=== PATIENT | male | born 1945 | race Caucasian/White ===

== ENCOUNTER 2023-01-31 13:44 | Outpatient (CLI) | payer SELFPAY | END 2023-01-31 13:45 | disposition home or self-care (01) | LOC: AMB 02-13 20:18 | PROVIDERS: Visit Provider Family Medicine | DX: R07.89 Other chest pain (principal) | CPT/HCPCS: A0998 ==

== ENCOUNTER 2023-05-24 20:48 | Outpatient (CLI) | payer MEDICARE, SELFPAY | END 2023-05-24 20:49 | disposition home or self-care (01) | PROVIDERS: Visit Provider Family Medicine | DX: R07.89 Other chest pain (principal) | CPT/HCPCS: A0425; A0427 ==

== ENCOUNTER 2023-08-06 05:18 | Outpatient (CLI) | payer MEDICARE, SELFPAY | END 2023-08-06 05:19 | disposition home or self-care (01) | PROVIDERS: Visit Provider Internal Medicine | DX: I95.9 Hypotension, unspecified (principal) | CPT/HCPCS: A0425; A0429 ==

== ENCOUNTER 2023-08-06 23:48 | Outpatient (CLI) | payer MEDICARE, SELFPAY ==
--- OUTSIDE RECORDS SUMMARY | 2023-08-25 16:13 | XMS_ITS | Encounter Summary ---
Author Name Department of Vetera ns Affairs Organization Department of [facility] Affairs Address [address] [place] [id number] Support Name Relationship Address Phone JAIRO MCMILLAN Next of Kin [address] [address] YOKO MCMILLANE Emergency Contact [phone] [address] Insurance Providers: All historical and current Section Date Range: From patient's date of to the date document was created. This section includes the names of all active insurance providers for the patient. Insurance Provider Type of Coverage Plan Name Start of Policy Coverage End of Policy Coverage Group Number Member ID Insurance Provider's Telephone Number Policy Lopez's Name Patient's Relationship to Policy Lopez [facility] MEDICARE ADVANTAGE [facility] ([facility]) Nov 13, 2020 [id number] [phone] ANANTEdwinNIS [facility]IENT [facility] ([facility]) MEDICARE ADVANTAGE [facility] ([facility]) Aug 15, 2013 [id number] [phone] Edwin MCMILLANNIS PATIENT MEDICARE ([facility]) MEDICARE (M) PART A Sep 15, 2010 PART A [id number] [phone] Edwin MCMILLANNIS PATIENT MEDICARE ([place] MEDICARE (M) PART B Sep 15, 2010 PART B [id number] [phone] Edwin MCMILLAN PATIENT Selected Encounter This section includes the information on record at [place] for the Encounter. Date/Time Encounter Type Encounter Description Reason Provider Source Apr 28, 2023 02:45 PM HC PRO PHONE CALL 5-10 MIN TELEPHONE/NEUROLOG Y ICD-10-CM G20 Parkinson's disease LEIA VAUGHAN IHE Encounter Template Text not used by [place] Assessments - Encounter Diagnoses This section includes the primary and secondary diagnoses documented for the Encounter. Date/Time Primary/Secondary Diagnosis Diagnosis Name Provider Source Apr 28, 2023 02:45 PM PRIMARY Parkinson's disease LEIA VAUGHAN [facility] Plan of Treatment: Future Appointments (+ 6 months) and Future Tests (+/- 45 days) The Plan of Treatment section includes future care activities for the patient from all [place] [facility] This section includes future appointments and future orders which are active, pending or scheduled. Future Appointments This section includes appointments that were scheduled to occur 6 months from the date of the Encounter, up to a maximum of 20 appointments. The data comes from all [place] treatment facilities. Appointment Date/Time Appointment Type Appointme nt Facility Name May 13, 2023 08:45 AM AMBULATORY - SURGERY [facility] Jul 15, 2023 01:42 PM AMBULATORY - MEDICINE [facility] Aug 01, 2023 08:00 AM AM[facility]ULATORY - NONE [facility] Aug 04, 2023 02:00 PM AMBULATORY - NEUROLOGY [facility] Aug 10, 2023 09:00 AM AMBULATORY - NONE [facility] Aug 23, 2023 05:00 PM AMBULATORY - NONE [facility] Sep 06, 2023 12:00 PM AMBULATORY - REHAB MEDICIN [facility] Social History: Smoking Status (Most current) and Tobacco Use (All prior to encounter date) This section includes the most current, and the historical, smoking and tobacco- related health factors from the [place] facility where the Encounter took place. Current Smoking Status This section includes the most current smoking, or tobacco-related health factor, from the [place] facility where the Encounter took place. Date/Time Current Smoking Status Comment Renetta giles Jan 20, 2023 01:48 PM VA-TOBACCO FORMER USER [facility] Tobacco Use History This section includes a history of the smoking, or tobacco-related health factors, that were collected on or before the date of the Encounter. The data comes from the [place] facility where the Encounter took place. Date/Time Smoking Status/Tobacco Use Comment Herrera actaj Jan 20, 2023 01:48 PM VA-TOBACCO QUIT 15 YRS OR MORE [facility] Jan 21, 2022 10:50 AM VA-TOBACCO FORMER USER [facility] Jan 21, 2022 10:50 AM VA-TOBACCO QUIT 15 YRS OR MORE [facility] Feb 06, 2019 02:30 PM INPT NO TOBACCO USE IN LAST 30 D AYS [facility] Encounter Notes: All associated encounter notes This section contains the clinical notes associated to the Encounter. Date/Time Encounter Note(s) Provider Source May 06, 2023 03:46 PM ADDENDUM: LOCAL TITLE: Addendum STANDARD TITLE: ADDENDUM DATE OF NOTE: MAY 06, 2023@15:46:36 ENTRY DATE: MAY 06, 2023@15:46:37 AUTHOR: CHARLIE PETERSONIGNER: URGENCY: STATUS: COMPLETED I spoke to Mr. Mcmillan on the phone about his medication. I see I had already told Ms. Mckee, the 50/200 SA carbidopa levodopa did not agree with him he says he thought it was too strong so he is discontinued the medication and reverted back to his regular dosing of 25/100 2 tablets every 2-3 hours. He denies having any hallucinations but he does have occasional visual illusions and a sense of movement in the periphery of his vision. He does not have auditory hallucinations. /kera/ Charlie Peterson MD STAFF PHYSICIAN NEUROLOGY Signed: 05/06/2023 15:48 Receipt Acknowledged By: 05/09/2023 12:11 /kera/ CHADD JORDAN RESEARCH COORDINATOR --- Original Document --- 04/28/23 DIESEL INSTRUCTOR NOTE: [place] left a voicemail on the Neurology nurse line requesting a return call. [place] stating he is having problems with his medication. This RNCM returned the call to tano. [place] states the Carbidopa/Levodopa 50/200mg, medication for Parkinson's disease, was too strong for him. He states he had increased tremor with the medication. states he stopped the medication a couple days ago (Tuesday). states he is currently taking Carbidopa/Levodopa 25/100mg, 2 tablets every 2 hours. Tano states things are going okay so far. He states the first dose was taken at 1400 today, as he tapered himself up to the two tablets. This life underwriter informed that Dr. Peterson would be notified of the concerns. verbalized understanding and agrees to reach out with further concerns or questions. /kera/ KEITH VAUGHAN RN Signed: 04/28/2023 14:55 Receipt Acknowledged By: 05/02/2023 13:19 /kera/ Charlie Peterson MD STAFF PHYSICIAN NEUROLOGY CHARLIE PETERSON [facility] Apr 28, 2023 02:48 PM DIESEL INSTRUCTOR NOTE: LOCAL TITLE: DIESEL INSTRUCTOR NOTE STANDARD TITLE: DIESEL INSTRUCTOR NOTE DATE OF NOTE: APR 28, 2023@14:48 ENTRY DATE: APR 28, 2023@14:48:14 AUTHOR: KEITH VAUGHAN EXP COSIGNER: URGENCY: STATUS: COMPLETED DIESEL INSTRUCTOR NOTE Has ADDENDA left a voicemail on the Neurology nurse line requesting a return call. [place] stating he is having problems with his medication. This RNCM returned the call to . states the Carbidopa/Levodopa 50/200mg, medication for Parkinson's disease, was too strong for him. He states he had increased tremor with the medication. [place] states he stopped the medication a couple days ago (Tuesday). [place] states he is currently taking Carbidopa/Levodopa 25/100mg, 2 tablets every 2 hours. states things are going okay so far. He states the first dose was taken at 1400 today, as he tapered himself up to the two tablets. This life underwriter informed that Dr. Peterson would be notified of the concerns. [place] verbalized understanding and agrees to reach out with further concerns or questions. /kera/ KEITH VAUGHAN RN Signed: 04/28/2023 14:55 Receipt Acknowledged By: 05/02/2023 13:19 /kera/ Charlie Peterson MD STAFF PHYSICIAN NEUROLOGY 05/06/2023 ADDENDUM STATUS: COMPLETED I spoke to Mr. Mcmillan on the phone about his medication. I see I had already told Ms. Mckee, the 50/200 SA carbidopa levodopa did not agree with him he says he thought it was too strong so he is discontinued the medication and reverted back to his regular dosing of 25/100 2 tablets every 2-3 hours. He denies having any hallucinations but he does have occasional visual illusions and a sense of movement in the periphery of his vision. He does not have auditory hallucinations. /kera/ Charlie Peterson MD STAFF PHYSICIAN NEUROLOGY Signed: 05/06/2023 15:48 Receipt Acknowledged By: * AWAITING SIGNATURE * CHADD JORDAN [facility]
--- OUTSIDE RECORDS SUMMARY | 2023-08-25 16:13 | XMS_ITS | Encounter Summary ---
Author Name Department of Vetera Affairs Organization Department of Vetera ns Affairs Address [address] [place] [address] Support Name Relationship Address Phone YOKO MCMILLANE Next of Kin [address] [address] YOKO MCMILLANE Emergency Contact [phone] [address] Insurance Providers: All historical [...] Lopez's Name Patient's Relationship to Policy Lopez [facility] MEDIC[facility] ADVANTAGE [employer] [facility] Nov 13, 2020 [id number] ANANTEdwin STEVE PATIENT [facility]A [employer] [facility] MEDICARE ADVANTAGE [employer] [facility] Aug 15, 2013 [id number] [phone] ANANTEdwinNIS PATIENT MEDICARE ([place]) MEDICARE (M) PART A Sep 15, 2010 PART A [id number] [phone] ANANTEdwinNIS PATIENT MEDICARE ([place]) MEDICARE (M) PART B Sep 15, 2010 PART B [id number] [phone] Edwin MCMILLAN PATIENT Selected Encounter This section includes the information on record at [place] for the Encounter. Date/Time Encounter Type Encounter Description Reason Provider Source Apr 05, 2023 10:30 AM OFFICE O/P EST MOD 30-39 MIN NEUROLOGY ICD-10-CM G20 Parkinson's disease CHARLIE PETERSONE Encounter Template Text not used by [place] Assessments - Encounter Diagnoses This section includes the primary and secondary diagnoses documented for the Encounter. Date/Time Primary/Secondary Diagnosis Diagnosis Name Provider Source Apr 05, 2023 02:37 PM PRIMARY Parkinson's disease CHARLIE PETERSON [facility] Plan of Treatment: Future Appointments (+ 6 months) and Future Tests (+/- 45 days) The Plan of Treatment section includes future care activities for the patient from all [place] [facility]. This section includes future appointments and future orders which are active, pending or scheduled. Future Appointments This section includes appointments that were scheduled to occur 6 months from the date of the Encounter, up to a maximum of 20 appointments. The data comes from all [facility]. Appointment Date/Time Appointment Type Appointme nt Facility Name Apr 20, 2023 05:00 PM AMBULATORY - REHAB [facility]ICIN [facility] Apr 27, 2023 09:00 AM AMBULATORY - REHAB MEDICIN [facility] May 13, 2023 08:45 AM [place] [facility] [facility] Jul 15, 2023 01:42 PM [place] [facility] Aug 01, 2023 08:00 AM [place] [facility] [facility] Aug 04, 2023 02:00 PM [place] [facility] Aug 10, 2023 09:00 AM [facility] [facility] Aug 23, 2023 05:00 PM [facility] [place] [facility] Sep 06, 2023 12:00 [facility] Vital Signs: All taken on the encounter date This section contains inpatient and outpatient Vital Signs collected on the date of the Encounter. Date/Time Temperature Pulse Blood Pressure Respiratory Rate SP02 Pain Height Weight Body Mass Index Source Apr 05, 2023 10:15 AM 98.1 F 56 /min 146/79 mm[Hg] 16 /min 99 % 0 [facility] Social History: Smoking Status (Most current) and Tobacco Use (All prior to encounter date) This section includes the most current, and the historical, smoking and tobacco- related health factors from the [place] facility where the Encounter took place. Current Smoking Status This section includes the most current smoking, or tobacco-related health factor, from the [place] facility where the Encounter took place. Date/Time Current Smoking Status Comment Renetta giles Jan 20, 2023 01:48 PM VA-TOBACCO FORMER USER [facility] Tobacco Use History This section includes a history of the smoking, or tobacco-related health factors, that were collected on or before the date of the Encounter. The data comes from the [place] facility where the Encounter took place. Date/Time Smoking Status/Tobacco Use Comment F acility Jan 20, 2023 01:48 PM VA-TOBACCO QUIT 15 YRS OR MORE [facility] Jan 21, 2022 10:50 AM VA-TOBACCO FORMER USER [facility] Jan 21, 2022 10:50 AM VA-TOBACCO QUIT 15 YRS OR MORE [facility] Feb 06, 2019 02:30 PM INPT NO TOBACCO USE IN LAST 30 D AYS [facility] Encounter Notes: All associated encounter notes This section contains the clinical notes associated to the Encounter. Date/Time Encounter Note(s) Provider Source Apr 17, 2023 10:24 AM ADDENDUM: LOCAL TITLE: Addendum STANDARD TITLE: ADDENDUM DATE OF NOTE: APR 17, 2023@10:24:58 ENTRY DATE: APR 17, 2023@10:24:59 AUTHOR: COLTON ROSS COSIGNER: URGENCY: STATUS: COMPLETED Patient asking for call from Keith ROBISON on Tuesday to follow up on medication changes. Please call patient. /kera/ COLTON ROSS RN, [facility] DEPARTMENT OF NEUROLOGY Signed: 04/17/2023 10:25 Receipt Acknowledged By: 04/19/2023 09:30 /kera/ KEITH VAUGHAN RN === --- Original Document --- 04/05/23 NEUROLOGY CLINIC NOTE: Mr. Mcmillan is a 77-year-old man with tremor predominant Parkinson's disease who came to clinic unaccompanied. In the recent past he has been seen by . His condition was diagnosed in 2009 and he responds well to carbidopa levodopa. The problem with controlling his tremor is the short duration of action of the 25/100 tablets and his inability to tolerate higher single tablet dosing. He currently takes carbidopa levodopa 25/100 10-11 times each day or every 1-2 hours when awake and approximately every 3 hours during the night. He combines this with 2 doses of 50/200 SA which she finds prolongs the duration of action. He has being trialed on Rytary but did not take the medication because he thought the capsules were too big. At his last clinic visit in November 2022 he was prescribed rasagiline in the hope that this would enable him to extend the duration of action of his medications but also objected to taking this medication because of the size of the tablet. Despite the frequent dosing he is relatively happy with his current level of control of his symptoms. In addition to the tremor which is predominantly left-sided he experiences shuffling gait and freezing when the effect of the tablets wears off. He is not unsteady on his feet and does not fall. He does not have hallucinations. He is apparently independent and lives alone in his own house. He has home health care twice a week through the [place] and is being actively followed by physical therapy, Occupational Therapy and has been seen and evaluated by speech and language pathology. He does not think there has been any significant change in his overall cognition since he was last evaluated in clinic. He does not have symptoms of REM behavior disorder but does get up 2 or 3 times a night because of bladder issues. Today on exam blood pressure is 146/79 and pulse 56. He was an articulate older man with hypophonia and parkinsonian facial features. The examination was essentially of medication as he had forgotten to bring his medication from his car to the clinic. He had prominent resting tremor more severe on the left in addition to which he has a postural tremor on the right side. There was moderate rigidity in the right muscle tone on the left was normal. Sensory exam in the lower limbs is entirely normal. He needed to use his arms to get out of the chair and walked with a bradykinetic gait and intermittent episodes of freezing. Turning was quite difficult. Despite the high frequency of dosing patient seems to get quite good symptom control on the current medication regimen. Alternative approaches have been tried and found not to be successful. We will discontinue the rasagiline that was prescribed at his last visit as he is not taking it. Plan to see him again in 4 months. I think he might benefit from additional [facility] follow-up and will alert them so that this can be arranged. /kera/ Charlie Peterson MD STAFF PHYSICIAN NEUROLOGY Signed: 04/05/2023 14:37 COLTON ROSS [facility] Apr 06, 2023 01:05 PM REPORT OF CONTACT: LOCAL TITLE: APPOINTMENT SCHEDULING NOTE STANDARD TITLE: REPORT OF CONTACT DATE OF NOTE: APR 06, 2023@13:05 ENTRY DATE: APR 06, 2023@13:05:13 AUTHOR: DELFINO ADAMS EXP COSIGNER: URGENCY: STATUS: COMPLETED Attempted to schedule Return to clinic (RTC) Contact attempt made to [place] 1st attempt Telephone 2nd attempt Text message 3rd attempt Letter Left message on voice mail to call back to this number [phone] If calls back, schedule appt for: Activity: 04/05/2023 11:08 New Order entered by CHARLIE PETERSON (STAFF NEUROLOGI) Order Text: Return to [facility] on or around ( Jul 26, 2023 ) for a total of 1 appointment(s) 30 min F2F /kera/ DELFINO ADAMS Biological Technical Officer Signed: 04/06/2023 13:05 DELFINO ADAMS [facility] Apr 05, 2023 02:12 PM NEUROLOGY ATTENDIN G NOTE: LOCAL TITLE: NEUROLOGY CLINIC NOTE STANDARD TITLE: NEUROLOGY ATTENDING NOTE DATE OF NOTE: APR 05, 2023@14:12 ENTRY DATE: APR 05, 2023@14:12:08 AUTHOR: CHARLIE PETERSON EXP COSIGNER: URGENCY: STATUS: COMPLETED NEUROLOGY CLINIC NOTE Has ADDENDA Mr. Mcmillan is a 77-year-old man with tremor predominant Parkinson's disease who came to clinic unaccompanied. In the recent past he has been seen by . His condition was diagnosed in 2009 and he responds well to carbidopa levodopa. The problem with controlling his tremor is the short duration of action of the 25/100 tablets and his inability to tolerate higher single tablet dosing. He currently takes carbidopa levodopa 25/100 10-11 times each day or every 1-2 hours when awake and approximately every 3 hours during the night. He combines this with 2 doses of 50/200 SA which she finds prolongs the duration of action. He has being trialed on Rytary but did not take the medication because he thought the capsules were too big. At his last clinic visit in November 2022 he was prescribed rasagiline in the hope that this would enable him to extend the duration of action of his medications but also objected to taking this medication because of the size of the tablet. Despite the frequent dosing he is relatively happy with his current level of control of his symptoms. In addition to the tremor which is predominantly left-sided he experiences shuffling gait and freezing when the effect of the tablets wears off. He is not unsteady on his feet and does not fall. He does not have hallucinations. He is apparently independent and lives alone in his own house. He has home health care twice a week through the [place] and is being actively followed by physical therapy, Occupational Therapy and has been seen and evaluated by speech and language pathology. He does not think there has been any significant change in his overall cognition since he was last evaluated in clinic. He does not have symptoms of REM behavior disorder but does get up 2 or 3 times a night because of bladder issues. Today on exam blood pressure is 146/79 and pulse 56. He was an articulate older man with hypophonia and parkinsonian facial features. The examination was essentially of medication as he had forgotten to bring his medication from his car to the clinic. He had prominent resting tremor more severe on the left in addition to which he has a postural tremor on the right side. There was moderate rigidity in the right muscle tone on the left was normal. Sensory exam in the lower limbs is entirely normal. He needed to use his arms to get out of the chair and walked with a bradykinetic gait and intermittent episodes of freezing. Turning was quite difficult. Despite the high frequency of dosing patient seems to get quite good symptom control on the current medication regimen. Alternative approaches have been tried and found not to be successful. We will discontinue the rasagiline that was prescribed at his last visit as he is not taking it. Plan to see him again in 4 months. I think he might benefit from additional [facility] follow-up and will alert them so that this can be arranged. /kera/ Charlie Peterson MD STAFF PHYSICIAN NEUROLOGY Signed: 04/05/2023 14:37 04/17/2023 ADDENDUM STATUS: COMPLETED Patient asking for call from Keith ROBISON on Tuesday to follow up on medication changes. Please call patient. /kera/ COLTON ROSS RN, [facility] DEPARTMENT OF NEUROLOGY Signed: 04/17/2023 10:25 Receipt Acknowledged By: 04/19/2023 09:30 /es/ KEITH VAUGHAN RN KEITH VAUGHAN RN 07/21/2023 ADDENDUM STATUS: COMPLETED I spoke to Mr. Mcmillan on the phone. He appears to be having significant levodopa-related dyskinesias taking carbidopa-levodopa 25/101 1 half tablet of 50/200 SA every 2 hours. In the past levodopa had suppressed his tremor there is no seems to accentuate it. He is not having hallucinations. I recommended that he stop the 25/1 100 tablets and switch to 1 full tablet of 50/200 SA every 3-4 hours. Arrange to call me back in about 24 hours to check on the effectiveness of this change. /kera/ Charlie Peterson MD STAFF PHYSICIAN NEUROLOGY Signed: 07/21/2023 11:09 07/22/2023 ADDENDUM STATUS: COMPLETED The switch to the 50/200 SA preparation has eliminated most of his symptoms. He will continue on this medication until I see him in clinic on . /kera/ Charlie Peterson MD STAFF PHYSICIAN NEUROLOGY Signed: 07/22/2023 15:49 CHARLIE PETERSON [facility] Apr 05, 2023 10:19 AM NEUROLOGY NURSING OUTPATIENT NOTE: LOCAL TITLE: NEUROLOGY CLINIC NURSING NOTE STANDARD TITLE: NEUROLOGY NURSING OUTPATIENT NOTE DATE OF NOTE: APR 05, 2023@10:19 ENTRY DATE: APR 05, 2023@10:19:20 AUTHOR: KAYLEY MILLER COSIGNER: URGENCY: STATUS: COMPLETED Type of visit: Appointment Check In Reason for Visit: RTC Vital Signs: Blood Pressure: 146/79 (04/05/2023 10:15) Pulse: 56 (04/05/2023 10:15) Respiration: 16 (04/05/2023 10:15) Temperature: 98.1 F [36.7 C] (04/05/2023 10:15) Weight: 180 lb [81.65 kg] (01/21/2023 09:59) Height: 66 in [167.6 cm] (01/21/2023 09:59) BMI: 29.1 Pain: 0 (04/05/2023 10:15) Allergies: PENTOTHAL (May 15, 2009) Medications: Active Outpatient Medications and Supplies: Active Outpatient Medications (including Supplies): Active Outpatient Medications Status 1) ASPIRIN 81MG EC TAB TAKE ONE TABLET BY MOUTH EVERY ACTIVE DAY TO PREVENT STROKE AND HEART ATTACK DO NOT CHEW 2) CARBIDOPA 25/LEVODOPA 100MG TAB TAKE 1-2 TABLETS BY ACTIVE MOUTH 10 TIMES EVERY DAY FOR PARKINSON DISEASE 3) CHOLECALCIF 25MCG (D3-1,000UNIT) TAB TAKE TWO TABLETS ACTIVE BY MOUTH EVERY DAY 4) EYELID CLEANSER,EYE SCRUB PAD USE 1 PAD TOPICALLY AT ACTIVE BEDTIME APPLY TO UPPER/LOWER EYELIDS 5) HYDROPHILIC (EQV AQUAPHOR) TOP OINT APPLY MODERATE ACTIVE AMOUNT TOPICALLY TWICE A DAY TO AFFECTED AREAS FOR DRY SKIN 6) RASAGILINE MESYLATE 1MG TAB TAKE ONE TABLET BY MOUTH ACTIVE EVERY DAY FOR PARKINSON DISEASE 7) VANICREAM TOP CREAM APPLY THIN LAYER TOPICALLY EVERY ACTIVE DAY FOR DRY SKIN, IDEALLY WITHIN 3 MINUTES AFTER BATH OR SHOWER. Active Non-VA Medications Status 1) Non-VA FISH OIL 1000MG (500MG DHA/EPA) CAP 1000MG ACTIVE MOUTH 8 Total Medications Patient reports the following changes regarding the current pharmacy list of medications: The above medication list confirmed with patient. A copy of the above medication list given to the MD for review and update. Provider will give printed copy of medication list to patient with any changes documented on printed medication list. /kera/ KAYLEY MILLER LPN LPN Signed: 04/05/2023 10:19 KAYLEY MILLER [facility]
--- OUTSIDE RECORDS SUMMARY | 2023-08-25 16:13 | XMS_ITS | Encounter Summary ---
Author Name Department of Vetera Affairs Organization Department of Vetera ns Affairs Address [address] [place] [address] Support Name Relationship Address Phone ANANT, JAIRO Next of Kin [address] [address] [place] Emergency Contact [phone] [address] Insurance Providers: All historical [...] Lopez's Name Patient's Relationship to Policy Lopez [facility] (WNR) MEDICARE ADVANTAGE [facility] ([facility]) Nov 13, 2020 [id number] [place] PATIENT [employer] [facility] (WNR) MEDICARE ADVANTAGE [facility] (WNR) Aug 15, 2013 [id number] [place] PAT[place] MED[place] ([place]NR) MEDICARE (M) PART A Sep 15, 2010 PART A [id number] [place]ARE ([place]) MEDICARE (M) PART B Sep 15, 2010 PART B [id number] [phone] [place] PAT[place] Selected Encounter This section includes the information on record at [place] for the Encounter. Date/Time Encounter Type Encounter Description Reason Pro vider Source May 19, 2023 01:17 PM Outpatient Encounter TELEPHONE TRIAGE IHE Encounter Template Text not used by [place] Plan of Treatment: Future Appointments (+ 6 months) and Future Tests (+/- 45 days) The Plan of Treatment section includes future care activities for the patient from [facility] This section includes future appointments and future orders which are active, pending or scheduled. Future Appointments This section includes appointments that were scheduled to occur 6 months from the date of the Encounter, up to a maximum of 20 appointments. The data comes from all [place] treatment facilities. Appointment Date/Time Appointment Type Appointme nt Facility Name Jul 15, 2023 01:42 PM AMBULATORY [place] [facility] Aug 01, 2023 08:00 AM [facility] Aug 04, 2023 02:00 PM [facility] - [place] [place] [facility] Aug 10, 2023 09:00 AM [facility] Aug 23, 2023 05:00 PM [facility] Sep 06, 2023 12:00 PM AMBULATORY - REHAB MEDICIN E [facility] Social History: Smoking Status (Most current) and Tobacco Use (All prior to encounter date) This section includes the most current, and the historical, smoking and tobacco- related health factors from the [place] facility where the Encounter took place. Current Smoking Status This section includes the most current smoking, or tobacco-related health factor, from the [place] facility where the Encounter took place. Date/Time Current Smoking Status Comment Facil ity Jan 20, 2023 01:48 PM VA-TOBACCO FORMER USER [facility] Tobacco Use History This section includes a history of the smoking, or tobacco-related health factors, that were collected on or before the date of the Encounter. The data comes from the [place] facility where the Encounter took place. Date/Time Smoking Status/Tobacco Use Comment F acility Jan 20, 2023 01:48 PM VA-TOBACCO QUIT [address] [facility] Jan 21, 2022 10:50 AM VA-TOBACCO FORMER USER [facility] Jan 21, 2022 10:50 AM VA-TOBACCO QUIT [address] [facility] Feb 06, 2019 02:30 PM INPT NO TOBACCO USE IN LAST [address] [facility] Encounter Notes: All associated encounter notes This section contains the clinical notes associated to the Encounter. Date/Time Encounter Note(s) Provider Source May 19, 2023 01:17 PM ADMINISTRATIVE NOT E: LOCAL TITLE: CCC: SCHEDULING ADMINISTRATION STANDARD TITLE: ADMINISTRATIVE NOTE DATE OF NOTE: MAY 19, 2023@13:17 ENTRY DATE: MAY 19, 2023@13:17:57 AUTHOR: FADI MEDRANO COSIGNER: URGENCY: STATUS: COMPLETED CCC: SCHEDULING ADMINISTRATION Has ADDENDA [facility] Call Center Phone number verified as correct. [phone] The is requesting a ramp that attaches to his truck for his electric scooter and a stairlift and gait. Any questions please call the at the above listed number. /kera/ VERA KENDALL VISN23 [facility] Signed: 05/19/2023 13:21 Receipt Acknowledged By: 05/19/2023 13:38 /kera/ RICKI TARIQ REGISTERED NURSE 05/19/2023 ADDENDUM STATUS: COMPLETED OT consult placed. /kera/ RICKI TARIQ REGISTERED NURSE Signed: 05/19/2023 13:[address] [facility]
--- OUTSIDE RECORDS SUMMARY | 2023-08-25 16:13 | XMS_ITS | Encounter Summary ---
Author Name Department of Vetera Affairs Organization Department of Vetera Affairs Address [address] [place] [address] Support Name Relationship Address Phone ANANT JAIRO Next of Kin [address] [address] [place] Emergency Contact [address] [address] Insurance Providers: All historical [...] Lopez's Name Patient's Relationship to Policy Lopez [facility] (WNR) MEDICARE ADVANTAGE [facility] ([facility]) Nov 13, 2020 [id number] [place] PAT[place] [employer] [facility] (WNR) MEDICARE ADVANTAGE [facility] (WNR) Aug 15, 2013 [id number] [place] MED[place] ([place]NR) MEDICARE (M) PART A Sep 15, 2010 PART A [id number] [place] ([place]) MEDICARE (M) PART B Sep 15, 2010 PART B [id number] [phone] [place] Selected Encounter This section includes the information on record at [place] for the Encounter. Date/Time Encounter Type Encounter Description Reason Pro vider Source Feb 01, 2023 02:53 PM Outpatient Encounter NEUROLOGY IHE Encounter Template Text not used by [facility] Plan of Treatment: Future Appointments (+ 6 months) and Future Tests (+/- 45 days) The Plan of Treatment section includes future care activities for the patient from all [place] [facility]. This section includes future appointments and future orders which are active, pending or scheduled. Future Appointments This section includes appointments that were scheduled to occur 6 months from the date of the Encounter, up to a maximum of 20 appointments. The data comes from all [facility]. Appointment Date/Time Appointment Type Appointme nt Facility Name Feb 08, 2023 02:30 PM AMBULATORY - SURGERY [facility] Feb 17, 2023 02:30 PM AMBULATORY - SURGERY [facility] Apr 05, 2023 10:30 AM AM[facility]ORY [facility] [place] [facility] [facility] Apr 20, 2023 05:00 PM AMBULATORY - REHAB MEDICIN E [facility] Apr 27, 2023 09:00 AM AMBULATORY - REHAB MEDICIN E [facility] May 13, 2023 08:45 AM AMBULATORY - SURGERY [facility] Jul 15, 2023 01:42 PM [facility] Aug 01, 2023 08:00 AM [facility] Social History: Smoking Status (Most current) and Tobacco Use (All prior to encounter date) This section includes the most current, and the historical, smoking and tobacco- related health factors from the [place] facility where the Encounter took place. Current Smoking Status This section includes the most current smoking, or tobacco-related health factor, from the [place] facility where the Encounter took place. Date/Time Current Smoking Status Comment Facil ity Jan 20, 2023 01:48 PM VA-TOBACCO FORMER USER [facility] Tobacco Use History This section includes a history of the smoking, or tobacco-related health factors, that were collected on or before the date of the Encounter. The data comes from the [place] facility where the Encounter took place. Date/Time Smoking Status/Tobacco Use Comment F acility Jan 20, 2023 01:48 PM VA-TOBACCO QUIT 15 YRS OR MORE [facility] Jan 21, 2022 10:50 AM VA-TOBACCO FORMER USER [facility] Jan 21, 2022 10:50 AM [place]-TOBACCO QUIT 15 YRS OR MORE [facility] Feb 06, 2019 02:30 PM INPT NO TOBACCO USE IN LAST 30 D AYS [facility] Encounter Notes: All associated encounter notes This section contains the clinical notes associated to the Encounter. Date/Time Encounter Note(s) Provider Source Feb 01, 2023 02:53 PM REPORT OF CONTACT: LOCAL TITLE: APPOINTMENT SCHEDULING NOTE STANDARD TITLE: REPORT OF CONTACT DATE OF NOTE: FEB 01, 2023@14:53 ENTRY DATE: FEB 01, 2023@14:53:29 AUTHOR: YARI URBANO COSIGNER: URGENCY: STATUS: COMPLETED APPOINTMENT SCHEDULING NOTE Has ADDENDA Attempted to schedule No show Contact: automated no-show letter queued to be sent If calls back, schedule appointment for: Activity: 11/23/2022 10:41 New Order entered by PEREZ RODRIGUES (FELLOW) Order Text: Return to [facility] FELLOW on or around ( Jan 24, 2023 ) for a total of 1 appointment(s) in person, 30 min Other: unable to r/s due to clinic being on hold. /kera/ YARI CLARK Signed: 02/01/2023 14:54 02/08/2023 ADDENDUM STATUS: COMPLETED Attempted to schedule No show Other: RTC dispositioned. [facility] clinic being inactivated due to provider leaving. If rescheduling is needed, please enter new RTC to appropriate clinic. Ordering provider notified via additional signer to note. /kera/ HAKEEM TARANGO Associate Group Grounds Worker (AGPM) Signed: 02/08/2023 15:26 Receipt Acknowledged By: * AWAITING SIGNATURE * CHARLIE ONOFRE * AWAITING SIGNATURE * PEREZ RODRIGUES ALICIA R [facility]
--- OUTSIDE RECORDS SUMMARY | 2023-08-25 16:13 | XMS_ITS | Continuity of Care Document ---
Author Name [facility] Organization [facility] Care Team Providers Care Seismograph Helper Name Role Phone [facility] Unavailable Unavailable Problems Combined list of problems from Department of Defense and Veterans Affairs facilities. It does not include entries that were removed or entered in error. Problem Status Onset Date Problem Type Date of Resolution Comments Source Depression (SNOMED CT 41681473) Active Condition [facility] Elevated blood pressure (SNOMED CT 17186976) Active Condition [facility] Erectile dysfunction Active Condition [facility] Family history of disorder Active Condition Jan 22, 2021 Entered By: GASPER MAN Comment: No FH of prostate or colon cancer, No FH of DMJun 2020 Entered By: GASPER MAN Comment: Father: of MIJun 2020 Entered By: GASPER MAN Comment: Mother: HDLJun 2020 Entered By: GASPER MAN Comment: Brother: of childhood leukemiaJun 2020 Entered By: GASPER MAN Comment: Brother: of skin cancer related to exposureJun 2020 Entered By: GASPER MAN Comment: Brother: of bone marrow cancer related to exposure [facility] General Anxiety Disorder Active Condition [facility] Hearing loss * (ICD-9-CM 389.9) Active Condition [facility] Hyperglycemia * (ICD-9-CM 790.29) Active Condition [facility] Hyperlipidemia Active Condition [place] [facility] Parkinson disease (SNOMED CT 80015628) Active Condition [facility] Social and personal history finding Active Condition Jan 22, 2021 Entered By: GASPER MAN Comment: Lives alone with cat in an independent town house with accommodationsJun 2020 Entered By: GASPER MAN Comment: Using walkerJun 2020 Entered By: GASPER MAN Comment: Drives short distancesJun 2020 Entered By: GASPER MAN Comment: three times, now .Jan 22, 2021 Entered By: GASPER MAN Comment: Former smoker (3/4 ppd for 30 years); quit in 2020 Entered By: GASPER AMN Comment: 1 beer per monthJan 22, 2021 Entered By: GASPER MAN Comment: No current illicit drug use. Stopped marijuana at 25 yo. 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 [facility] Diagnosis: ICD-10-CM Z65.8 Oth problems related to psychosocial circumstances Active Diagnosis [facility] Diagnosis: ICD-10-CM G20.A1 Parkinson's dis w/o dyskinesia, w/o mention of fluctuations Active Diagnosis [facility] Diagnosis: ICD-10-CM R25.1 Tremor, unspecified Active Diagnosis [facility] Diagnosis: ICD-10-CM G20 Parkinson's disease Active Diagnosis [facility] Diagnosis: ICD-10-CM Z46.1 Encounter for fitting and adjustment of hearing aid Active Diagnosis [facility] Diagnosis: ICD-10-CM Z00.00 Encntr for general adult medical exam w/o abnormal findings Active Diagnosis [facility] Diagnosis: ICD-10-CM H25.13 Age-related nuclear cataract, bilateral Active Diagnosis [facility] Diagnosis: ICD-10-CM H90.3 Sensorineural hearing loss, bilateral Active Diagnosis [facility] Diagnosis: ICD-10-CM R53.1 Weakness Active Diagnosis [facility] Medications Combined list of outpatient medications from Department of Defense and [facility] Affairs facilities.Medications provided include 1) outpatient medications from the last 15 months, and 2) patient-reported medications. Medication Details Route Status Patient Instructions Prescription Expires Prescription Number Last Dispense Date Ordering Provider Order Date Source ASPIRIN 81MG TAB,EC TAKE ONE TABLET BY MOUTH EVERY DAY TO PREVENT STROKE AND HEART ATTACK DO NOT CHEW ORALLY ACTIVE 01/22/2024 [id number] 3 CAL FELIPE 2022 [facility] ASPIRIN 81MG TAB,EC TAKE ONE TABLET BY MOUTH EVERY DAY TO PREVENT STROKE AND HEART ATTACK DO NOT CHEW ORALLY DISCONT INUED 01/23/2023 [id number] STEVEDiannaCAL TUCKER KAREN 2021 [facility] CARBIDOPA 25MG/LEVODO PA 100MG TAB TAKE 1-2 TABLETS BY MOUTH 10 TIMES EVERY DAY FOR PARKINSO N DISEASE ORALLY DISCONT INUED 04/05/2024 [id number] ALEJANDRO ONOFRE 2022 [facility] CARBIDOPA 25MG/LEVODO PA 100MG TAB TAKE 1-2 TABLETS BY MOUTH 10 TIMES EVERY DAY FOR PARKINSO N DISEASE ORALLY DISCONT INUED 08/04/2023 [id number] Irving RODRIGUES 2021 [facility] CARBIDOPA 25MG/LEVODO PA 100MG TAB TAKE 1 TABLET BY MOUTH 11 TIMES EVERY DAY ORALLY DISCONT INUED (EDIT) 06/16/2023 [id number] 2 KINGSTONJOSÉ MIGUELAb Oneil 2021 [facility] CARBIDOPA 25MG/LEVODO PA 100MG TAB TAKE 1 TABLET BY MOUTH 11X/D ORALLY DISCONT INUED (EDIT) 06/15/2023 [id number] 2 KINGSTONJOSÉ MIGUEL BergerE S 2021 [facility] CARBIDOPA 36.25MG/LEV ODOPA 145MG CAP,SA TAKE 3 CAPSULE CARBIDOP A 36.25MG/ LEVODOPA 145MG SA CAP BY MOUTH THREE TIMES A DAY FOR PARKINSO N DISEASE ORALLY DISCONT INUED (EDIT) 08/04/2024 [id number] 3 KINGSTONJOSÉ MIGUELAb Oneil 2022 [facility] CARBIDOPA 48.75MG/LEV ODOPA 195MG CAP,SA TAKE 3 CAPSULES BY MOUTH THREE TIMES A DAY FOR PARKINSO N DISEASE TAKE AT 8 AM, 12 NOON AND 4 PM ORALLY DISCONT INUED (EDIT) 08/16/2024 [id number] 4 KINGSTONALEJANDRO S 2023 [facility] CARBIDOPA 50MG/LEVODO PA 200MG TAB,SA TAKE 1 TABLET BY MOUTH THREE TIMES A DAY FOR PARKINSO N DISEASE WITH 25/100 TABLET ORALLY DISCONT INUED 04/05/2024 [id number] 3 ALEJANDRO ONOFRE Thad 2022 [facility] CHOLECALCIF LEXY 25MCG (1,000UNIT) TAB TAKE TWO TABLETS BY MOUTH EVERY DAY ORALLY ACTIVE 01/22/2024 [id number] 3 CHINTALPU RI,SHASHW KAREN 2022 [facility] EYELID CLEANSER,EY E SCRUB PAD USE 1 PAD TOPICALL Y AT BEDTIME APPLY TO UPPER/LO WER EYELIDS TOPICA LLY ACTIVE 01/21/2024 [id number] 3 QUENTIN ABEL 2022 [facility] FISH OIL 1000MG (500MG DHA/EPA) CAP,ORAL TAKE 1 CAPSULE BY MOUTH ORALLY ACTIVE CHINTAL RI,SHASHW KAREN 2020 [facility] HYDROPHILIC (EQV AQUAPHOR) OINT,TOP APPLY MODERATE AMOUNT TOPICALL Y TWICE A DAY TO AFFECTED AREAS FOR DRY SKIN TOPICA LLY ACTIVE 01/22/2024 [id number] 3 CHINTALPU RI,SHASHW KAREN 2022 [facility] RASAGILINE MESYLATE 1MG TAB TAKE ONE TABLET BY MOUTH EVERY DAY FOR PARKINSO N DISEASE ORALLY DISCONT INUED 11/24/2023 [id number] 3 Irving RODRIGUES 2022 [facility] VANICREAM APPLY THIN LAYER TOPICALL Y EVERY DAY FOR DRY SKIN, IDEALLY WITHIN 3 MINUTES AFTER BATH OR SHOWER. FOR DRY SKIN, IDEALLY WITHIN 3 MINUTES AFTER BATH OR SHOWER. TOPICA LLY ACTIVE 01/22/2024 [id number] 3 CHINTALPU RI,SHASHW KAREN 2022 [facility] Allergies, Adverse Reactions, Alerts Combined list of allergies from Department of Defense and Veterans Affairs facilities. It does not include entries that were removed or entered in error. Substance Category Reaction Severity Reaction type Status Date Reported Comments Source [place]ENT[place] Propensity to adverse reactions to drug (finding) active 9 [facility] Immunizations Combined list of available immunizations from the Department of Defense and Veterans Affairs facilities. Immunization Series Date Given Administered By Site Reaction Lot Number CVX Code Drug Advanced Research Programs Director Status Comments Source COVID-19 (ASIF), VECTOR-NR, [id number], PF, 0.5 ML 1 2020 212 complet ed JSN; [id number]; 1 [facility] TDAP 2012 115 complet ed glaxosmit hkline [id number] 6 [facility] TD(ADULT) UNSPECIFIED FORMULATION 2002 139 complet ed [facility] Results Combined list of recent chemistry, hematology and other laboratory results from Department of Defense and Veterans Affairs, ranging from 15 months to all on record, depending upon the facility. Order Name Results Value Reference Range Date Interpretation Specimen Comments Source URINALYS IS COLOR OF URINE YELLOW 08/04 Specimen Type: URINE No comment entered. Ordering Provider: CHARLIE ONOFRE Report Released Date/Time: Aug 04, 2023 03:02 PM Reporting Lab: [facility] [address] Performing Lab: [facility] [address] [facility] URINALYS IS SPECIFIC GRAVITY OF URINE 1.031 1.003 - 1.035 08/04 Specimen Type: URINE No comment entered. Ordering Provider: CHARLIE ONOFRE Report Released Date/Time: Aug 04, 2023 03:02 PM Reporting Lab: [facility] [address] Performing Lab: [facility] [address] [facility] URINALYS IS BILIRUBIN. TOTAL [PRESENCE] IN URINE BY TEST STRIP NEGATIVE 08/04 Specimen Type: URINE No comment entered. Ordering Provider: CHARLIE ONOFRE Report Released Date/Time: Aug 04, 2023 03:02 PM Reporting Lab: [facility] [address] Performing Lab: [facility] [address] [place] [facility] URINALYS IS KETONES [MASS/VOLU ME] IN URINE BY TEST STRIP 1+ 08/04 Specimen Type: URINE No comment entered. Ordering Provider: CHARLIE ONOFRE Report Released Date/Time: Aug 04, 2023 03:02 PM Reporting Lab: [facility] [address] Performing Lab: [facility] [address] [place] [facility] URINALYS IS GLUCOSE [MASS/VOLU ME] IN URINE BY TEST STRIP NEGATIVE 08/04 Specimen Type: URINE No comment entered. Ordering Provider: CHARLIE ONOFRE Report Released Date/Time: Aug 04, 2023 03:02 PM Reporting Lab: [facility] [address] Performing Lab: [facility] [address] [place] [facility] URINALYS IS PROTEIN [MASS/VOLU ME] IN URINE BY TEST STRIP 30 08/04 Specimen Type: URINE No comment entered. Ordering Provider: CHARLIE ONOFRE Report Released Date/Time: Aug 04, 2023 03:02 PM Reporting Lab: [facility] [address] Performing Lab: [facility] [address] [place] URINALYS IS PH OF URINE BY TEST STRIP 5.5 5.0 - 8.0 08/04 Specimen Type: URINE No comment entered. Ordering Provider: CHARLIE ONOFRE Report Released Date/Time: Aug 04, 2023 03:02 PM Reporting Lab: [facility] [address] Performing Lab: [facility] [address] [place] [facility] URINALYS IS LEUKOCYTES [#/AREA] IN URINE SEDIMENT BY MICROSCOPY HIGH POWER FIELD 4 0 - 7 08/04 Specimen Type: URINE No comment entered. Ordering Provider: CHARLIE ONOFRE Report Released Date/Time: Aug 04, 2023 03:02 PM Reporting Lab: [facility] [address] Performing Lab: [facility] [address] [place] [facility] URINALYS IS BACTERIA [PRESENCE] IN URINE SEDIMENT BY LIGHT MICROSCOPY NONE SEEN 08/04 Specimen Type: URINE No comment entered. Ordering Provider: CHARLIE ONOFRE Report Released Date/Time: Aug 04, 2023 03:02 PM Reporting Lab: [facility] [address] Performing Lab: [facility] [address] [place] [facility] URINALYS IS HYALINE CASTS [#/AREA] IN URINE SEDIMENT BY MICROSCOPY LOW POWER FIELD 2 08/04 Specimen Type: URINE No comment entered. Ordering Provider: CHARLIE ONOFRE Report Released Date/Time: Aug 04, 2023 03:02 PM Reporting Lab: [facility] [address] Performing Lab: [facility] [address] [place] [facility] URINALYS IS ERYTHROCYT ES [#/AREA] IN URINE SEDIMENT BY MICROSCOPY HIGH POWER FIELD 2 0 - 3 08/04 Specimen Type: URINE No comment entered. Ordering Provider: CHARLIE ONOFRE Report Released Date/Time: Aug 04, 2023 03:02 PM Reporting Lab: [facility] [address] Performing Lab: [facility] [address] [place] [facility] URINALYS IS APPEARANCE OF URINE CLEAR 08/04 Specimen Type: URINE No comment entered. Ordering Provider: CHARLIE ONOFRE Report Released Date/Time: Aug 04, 2023 03:02 PM Reporting Lab: [facility] [address] Performing Lab: [facility] [address] [place] [facility] URINALYS IS EPITHELIAL CELLS.SQUA MOUS [#/AREA] IN URINE SEDIMENT BY MICROSCOPY HIGH POWER FIELD <1 08/04 Specimen Type: URINE No comment entered. Ordering Provider: CHARLIE ONOFRE Report Released Date/Time: Aug 04, 2023 03:02 PM Reporting Lab: [facility] [address] Performing Lab: [facility] [address] [place] [facility] URINALYS IS HEMOGLOBIN [PRESENCE] IN URINE BY TEST STRIP NEGATIVE 08/04 Specimen Type: URINE No comment entered. Ordering Provider: CHARLIE ONOFRE Report Released Date/Time: Aug 04, 2023 03:02 PM Reporting Lab: [facility] [address] Performing Lab: [facility] [address] [facility] URINALYS IS NITRITE [PRESENCE] IN URINE BY TEST STRIP NEGATIVE 08/04 Specimen Type: URINE No comment entered. Ordering Provider: CHARLIE ONOFRE Report Released Date/Time: Aug 04, 2023 03:02 PM Reporting Lab: [facility] [address] Performing Lab: [facility] [address] [facility] URINALYS IS LEUKOCYTE ESTERASE [PRESENCE] IN URINE BY TEST STRIP NEGATIVE 08/04 Specimen Type: URINE No comment entered. Ordering Provider: CHARLIE ONOFRE Report Released Date/Time: Aug 04, 2023 03:02 PM Reporting Lab: [facility] [address] Performing Lab: [facility] [address] [facility] PSA PROSTATE SPECIFIC AG [MASS/VOLU ME] IN SERUM OR PLASMA 1.68 <4.00 - 4.00 01/22 Specimen Type: SERUM No comment entered. Ordering Provider: SOCRATES MAN Report Released Date/Time: Jan 22, 2022 02:36 PM Reporting Lab: [facility] [address] Performing Lab: [facility] [address] [facility] HEMOGLOB IN A1C HEMOGLOBIN A1C/HEMOGL OBIN.TOTAL IN BLOOD 5.3 4.0 - 6.0 01/22 Specimen Type: BLOOD No comment entered. Ordering Provider: SOCRATES MAN Report Released Date/Time: Jan 22, 2022 02:36 PM Reporting Lab: [facility] [address] Performing Lab: [facility] [address] [facility] TSH W/REFLEX TO FREE T4 THYROTROPI N [UNITS/VOL UME] IN SERUM OR PLASMA 2.41 0.35 - 4.94 01/22 Specimen Type: PLASMA No comment entered. Ordering Provider: SOCRATES MAN Report Released Date/Time: Jan 22, 2022 02:36 PM Reporting Lab: [facility] [address] Performing Lab: [facility] [address] [facility] LIPID PANEL,NO N-FASTIN G CHOLESTERO L [MASS/VOLU ME] IN SERUM OR PLASMA 206 <199 - 199 01/22 H Specimen Type: PLASMA No comment entered. Ordering Provider: SOCRATES MAN Report Released Date/Time: Jan 22, 2022 02:36 PM Reporting Lab: [facility] [address] Performing Lab: [facility] [address] [facility] LIPID PANEL,NO N-FASTIN G CHOLESTERO L IN HDL [MASS/VOLU ME] IN SERUM OR PLASMA 35 40 01/22 L Specimen Type: PLASMA No comment entered. Ordering Provider: SOCRATES MAN Report Released Date/Time: Jan 22, 2022 02:36 PM Reporting Lab: [facility] [address] Performing Lab: [facility] [address] [facility] LIPID PANEL,NO N-FASTIN G CHOLESTERO L IN LDL [MASS/VOLU ME] IN SERUM OR PLASMA BY CALCULATIO N 143 <99 - 99 01/22 H Specimen Type: PLASMA No comment entered. Ordering Provider: SOCRATES MAN Report Released Date/Time: Jan 22, 2022 02:36 PM Reporting Lab: [facility] [address] Performing Lab: [facility] [address] [facility] LIPID PANEL,NO N-FASTIN G CHOLESTERO L IN VLDL [MASS/VOLU ME] IN SERUM OR PLASMA BY CALCULATIO N 28 <29 - 29 01/22 Specimen Type: PLASMA No comment entered. Ordering Provider: SOCRATES MAN Report Released Date/Time: Jan 22, 2022 02:36 PM Reporting Lab: [facility] [address] Performing Lab: [facility] [address] [facility] LIPID PANEL,NO N-FASTIN G CHOLESTERO L NON HDL [MASS/VOLU ME] IN SERUM OR PLASMA 171 <129 - 129 01/22 H Specimen Type: PLASMA No comment entered. Ordering Provider: SOCRATES MAN Report Released Date/Time: Jan 22, 2022 02:36 PM Reporting Lab: [facility] [address] Performing Lab: [facility] [address] [facility] LIPID PANEL,NO N-FASTIN G TRIGLYCERI DE [MASS/VOLU ME] IN SERUM OR PLASMA 140 <149 - 149 01/22 Specimen Type: PLASMA No comment entered. Ordering Provider: SOCRATES MAN Report Released Date/Time: Jan 22, 2022 02:36 PM Reporting Lab: [facility] [address] Performing Lab: [facility] [address] [facility] COMPREHE NSIVE METABOLI C PANEL+MG CREATININE [MASS/VOLU ME] IN SERUM OR PLASMA 0.7 0.7 - 1.2 01/22 Specimen Type: PLASMA No comment entered. Ordering Provider: SOCRATES MAN Report Released Date/Time: Jan 22, 2022 02:36 PM Reporting Lab: [facility] [address] Performing Lab: [facility] [address] [facility] COMPREHE NSIVE METABOLI C PANEL+MG UREA NITROGEN [MASS/VOLU ME] IN SERUM OR PLASMA 17 8 - 26 01/22 Specimen Type: PLASMA No comment entered. Ordering Provider: SOCRATES MAN Report Released Date/Time: Jan 22, 2022 02:36 PM Reporting Lab: [facility] [address] Performing Lab: [facility] [address] [facility] COMPREHE NSIVE METABOLI C PANEL+MG GLUCOSE [MASS/VOLU ME] IN SERUM OR PLASMA 93 74 - 100 01/22 Specimen Type: PLASMA No comment entered. Ordering Provider: SOCRATES MAN Report Released Date/Time: Jan 22, 2022 02:36 PM Reporting Lab: [facility] [address] Performing Lab: [facility] [address] [facility] COMPREHE NSIVE METABOLI C PANEL+MG SODIUM [MOLES/VOL UME] IN SERUM OR PLASMA 137 136 - 145 01/22 Specimen Type: PLASMA No comment entered. Ordering Provider: SOCRATES MAN Report Released Date/Time: Jan 22, 2022 02:36 PM Reporting Lab: [facility] [address] Performing Lab: [facility] [address] [facility] COMPREHE NSIVE METABOLI C PANEL+MG POTASSIUM [MOLES/VOL UME] IN SERUM OR PLASMA 4.6 3.5 - 5.1 01/22 Specimen Type: PLASMA No comment entered. Ordering Provider: SOCRATES MAN Report Released Date/Time: Jan 22, 2022 02:36 PM Reporting Lab: [facility] [address] Performing Lab: [facility] [address] [facility] COMPREHE NSIVE METABOLI C PANEL+MG CHLORIDE [MOLES/VOL UME] IN SERUM OR PLASMA 103 98 - 107 01/22 Specimen Type: PLASMA No comment entered. Ordering Provider: SOCRATES MAN Report Released Date/Time: Jan 22, 2022 02:36 PM Reporting Lab: [facility] [address] Performing Lab: [facility] [address] [facility] COMPREHE NSIVE METABOLI C PANEL+MG CARBON DIOXIDE, TOTAL [MOLES/VOL UME] IN SERUM OR PLASMA 25 22 - 29 01/22 Specimen Type: PLASMA No comment entered. Ordering Provider: SOCRATES MAN Report Released Date/Time: Jan 22, 2022 02:36 PM Reporting Lab: [facility] [address] Performing Lab: [facility] [address] [facility] COMPREHE NSIVE METABOLI C PANEL+MG CALCIUM [MASS/VOLU ME] IN SERUM OR PLASMA 9.1 8.4 - 10.2 01/22 Specimen Type: PLASMA No comment entered. Ordering Provider: SOCRATES MAN Report Released Date/Time: Jan 22, 2022 02:36 PM Reporting Lab: [facility] [address] Performing Lab: [facility] [address] [facility] COMPREHE NSIVE METABOLI C PANEL+MG PROTEIN [MASS/VOLU ME] IN SERUM OR PLASMA 6.9 6.0 - 8.3 01/22 Specimen Type: PLASMA No comment entered. Ordering Provider: SOCRATES MAN Report Released Date/Time: Jan 22, 2022 02:36 PM Reporting Lab: [facility] [address] Performing Lab: [facility] [address] [facility] COMPREHE NSIVE METABOLI C PANEL+MG ALBUMIN [MASS/VOLU ME] IN SERUM OR PLASMA 4.0 3.5 - 5.2 01/22 Specimen Type: PLASMA No comment entered. Ordering Provider: SOCRATES MAN Report Released Date/Time: Jan 22, 2022 02:36 PM Reporting Lab: [facility] [address] Performing Lab: [facility] [address] [facility] COMPREHE NSIVE METABOLI C PANEL+MG BILIRUBIN. TOTAL [MASS/VOLU ME] IN SERUM OR PLASMA 0.5 0.2 - 1.2 01/22 Specimen Type: PLASMA No comment entered. Ordering Provider: SOCRATES MAN Report Released Date/Time: Jan 22, 2022 02:36 PM Reporting Lab: [facility] [address] Performing Lab: [facility] [address] [facility] COMPREHE NSIVE METABOLI C PANEL+MG MAGNESIUM [MASS/VOLU ME] IN SERUM OR PLASMA 2.1 1.6 - 2.6 01/22 Specimen Type: PLASMA No comment entered. Ordering Provider: SOCRATES MAN Report Released Date/Time: Jan 22, 2022 02:36 PM Reporting Lab: [facility] [address] Performing Lab: [facility] [address] [facility] COMPREHE NSIVE METABOLI C PANEL+MG ANION GAP IN SERUM OR PLASMA 9 5 - 15 01/22 Specimen Type: PLASMA No comment entered. Ordering Provider: SOCRATES MAN Report Released Date/Time: Jan 22, 2022 02:36 PM Reporting Lab: [facility] [address] Performing Lab: [facility] [address] [facility] COMPREHE NSIVE METABOLI C PANEL+MG ALKALINE PHOSPHATAS E [ENZYMATIC ACTIVITY/V OLUME] IN SERUM OR PLASMA 74 40 - 150 01/22 Specimen Type: PLASMA No comment entered. Ordering Provider: SOCRATES MAN Report Released Date/Time: Jan 22, 2022 02:36 PM Reporting Lab: [facility] [address] Performing Lab: [facility] [address] [facility] COMPREHE NSIVE METABOLI C PANEL+MG ALANINE AMINOTRANS FERASE [ENZYMATIC ACTIVITY/V OLUME] IN SERUM OR PLASMA 7 <55 - 55 01/22 Specimen Type: PLASMA No comment entered. Ordering Provider: SOCRATES MAN Report Released Date/Time: Jan 22, 2022 02:36 PM Reporting Lab: [facility] [address] Performing Lab: [facility] [address] [facility] COMPREHE NSIVE METABOLI C PANEL+MG ASPARTATE AMINOTRANS FERASE [ENZYMATIC ACTIVITY/V OLUME] IN SERUM OR PLASMA 9 <34 - 34 01/22 Specimen Type: PLASMA No comment entered. Ordering Provider: SOCRATES MAN Report Released Date/Time: Jan 22, 2022 02:36 PM Reporting Lab: [facility] [address] Performing Lab: [facility] [address] [facility] COMPREHE NSIVE METABOLI C PANEL+MG CREAT EGFR(CKD-E PI) >90 60 01/22 Specimen Type: PLASMA No comment entered. Ordering Provider: SOCRATES MAN Report Released Date/Time: Jan 22, 2022 02:36 PM Reporting Lab: [facility] [address] [facility] [address] Performing Lab: [facility] [address] [facility] [address] [facility] Vital Signs Combined list of inpatient and outpatient Vital Signs from Department of Defense and Veterans Affairs, ranging from 12 months to all on record, depending upon the facility. Vital Sign Value Date Comments Source SYSTOLIC BLOOD PRESSURE 140 08/04/2023 13:55:09 [facility] DIASTOLIC BLOOD PRESSURE 68 08/04/2023 13:55:09 [facility] PULSE OXIMETRY 63% 08/04/2023 13:55:09 [facility] PAIN 0 08/04/2023 13:55:09 [facility] PULSE 67 08/04/2023 13:55:09 [facility] RESPIRATION 18 08/04/2023 13:55:09 [facility] SYSTOLIC BLOOD PRESSURE 170 07/15/2023 14:21:00 [facility] DIASTOLIC BLOOD PRESSURE 84 07/15/2023 14:21:00 [facility] PAIN 0 07/15/2023 14:21:00 [facility] TEMPERATURE 98.0 07/15/2023 14:21:00 [facility] RESPIRATION 16 07/15/2023 14:21:00 [facility] SYSTOLIC BLOOD PRESSURE 146 04/05/2023 10:15:41 [facility] DIASTOLIC BLOOD PRESSURE 79 04/05/2023 10:15:41 [facility] PULSE OXIMETRY 99% 04/05/2023 10:15:41 [facility] PAIN 0 04/05/2023 10:15:41 [facility] TEMPERATURE 98.1 04/05/2023 10:15:41 [facility] PULSE 56 04/05/2023 10:15:41 [facility] RESPIRATION 16 04/05/2023 10:15:41 [facility] SYSTOLIC BLOOD PRESSURE 136 02/08/2023 14:44:15 [facility] DIASTOLIC BLOOD PRESSURE 74 02/08/2023 14:44:15 [facility] PULSE 80 02/08/2023 14:44:15 [facility] SYSTOLIC BLOOD PRESSURE 128 01/21/2023 09:59:35 [facility] DIASTOLIC BLOOD PRESSURE 66 01/21/2023 09:59:35 [facility] PULSE OXIMETRY 96% 01/21/2023 09:59:35 [facility] WEIGHT 180 01/21/2023 09:59:35 [facility] BMI 29kg/m2 01/21/2023 09:59:35 [facility] PAIN 0 01/21/2023 09:59:35 [facility] HEIGHT 66 01/21/2023 09:59:35 [facility] TEMPERATURE 97.5 01/21/2023 09:59:35 [facility] PULSE 58 01/21/2023 09:59:35 [facility] RESPIRATION 18 01/21/2023 09:59:35 [facility] Encounters Combined list of: 1) Encounters from Department of Veterans Affairs facilities going back up to thelast 18 months. 2) Encounters from the Department of [facility] facilities going back up to 280 months. Location Location Details Encounter Type Encounter Number Reason For Visit Attending Provider ADM Date DC Date Status Disposition Source [place] [facility] Outpatient Encounter [id number] KENNA GUIDO V 03/29 [facility] [place] [facility] 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
CHARLIE ONOFRE 04/13 [facility] [place] [facility] Outpatient Encounter [id number] 04/20 [place] [facility] [place] [facility] Outpatient Encounter [id number] 04/28 [facility] [place] [facility] Outpatient Encounter [id number] 04/29 [facility] [place] [facility] Outpatient Encounter [id number] 04/30 [facility] [place] [facility] Outpatient Encounter [id number] 04/30 [facility] [place] [facility] Outpatient Encounter [id number] 05/10 [place] [facility] OT EVAL LOW COMPLEX 30 MIN [id number] Diagnos is: ICD-10- CM R53.1 Weaknes s
MARCELLO LEDBETTRE 05/18 [place] [facility] [place] [facility] Outpatient Encounter [id number] 06/01 [facility] [place] [facility] Outpatient Encounter [id number] 06/02 [facility] PRO PHONE CALL 11-20 MIN [id number] Diagnos is: ICD-10- CM R25.1 Tremor, unspeci fied
PHIDD,LESL IE A 06/08 [facility] 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
CHARLIE ONOFRE 08/03 [facility] [place] [facility] Outpatient Encounter [id number] 08/04 [facility] [place] [facility] 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
BALFE,BRIT T N 08/04 [facility] [place] [facility] 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
PHIDD,LESL IE A 09/10 [facility] [place] [facility] Outpatient Encounter [id number] Irving VELASQUEZ 09/24 [facility] [place] [facility] 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
CHARLIE ONOFRE 11/23 [place] [facility] [place] [facility] Outpatient Encounter [id number] 12/09 [place] [facility] [place] [facility] [place] [id number] Diagnos is: ICD-10- CM H90.3 Sensori neural hearing loss, bilater al
SUSANANNABELLE BergerRola ICA L 12/14 [facility] OFFICE O/P NEW MOD 45-59 MIN [id number] Diagnos is: ICD-10- CM H25.13 Age-rel ated nuclear catarac t, bilater al
QUENTIN ABEL 01/20 [facility] [place] [facility] Outpatient Encounter [id number] CLARA MONTIEL 01/20 [facility] Outpatient Encounter [id number] Diagnos is: ICD-10- CM Z00.00 Encntr for general adult medical exam w/o abnorma l finding s
YAMILET ERAZO 01/21 [facility] [place] [facility] Outpatient Encounter [id number] 01/26 [place] [facility] [place] [facility] Outpatient Encounter [id number] 02/01 [place] [facility] [place] [facility] Outpatient Encounter [id number] 02/01 [place] [facility] [place] [facility] Outpatient Encounter [id number] 02/02 [place] [facility] [place] [facility] AUD REHAB POSTLING HEAR LOSS [id number] Diagnos is: ICD-10- CM Z46.1 Encount er for fitting and adjustm ent of hearing aid<br/ > BOLIVAR BRIAN RICCI L 02/08 [place] [facility] [place] [facility] Outpatient Encounter [id number] 02/09 [place] [facility] [place] [facility] EAR IMPRESSION [id number] Diagnos is: ICD-10- CM Z46.1 Encount er for fitting and adjustm ent of hearing aid<br/ > SHANNONPING 02/17 [place] [facility] [place] [facility] Outpatient Encounter [id number] 03/18 [facility] [place] [facility] 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
CHARLIE ONOFRE 04/05 [place] [facility] [place] [facility] 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
ALEXUS KEITH L 04/19 [place] [facility] [place] [facility] Outpatient Encounter [id number] 04/27 [place] [facility] [place] [facility] 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
ALEXUS, KEITH L 04/28 [place] [facility] [place] [facility] Outpatient Encounter [id number] 05/13 [place] [facility] [place] [facility] Outpatient Encounter [id number] 05/19 [place] [facility] [place] [facility] Outpatient Encounter [id number] CLEMENT DUGAN 07/15 [place] [facility] [place] [facility] 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 OFF/OP EST DECEMBER X REQ PHY/QHP [id number] Diagnos is: ICD-10- CM R25.1 Tremor, unspeci fied
ELIZABETH FRANCOIS ON K 07/15 [place] [facility] Outpatient Encounter [id number] AN MUHAMMAD 08/03 [place] [facility] [place] [facility] Outpatient Encounter [id number] ANN ROSS 08/04 [place] [facility] 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 Outpatient Encounter [id number] 08/05 [place] [facility] [place] [facility] Outpatient Encounter [id number] 08/09 [place] [facility] [place] [facility] Outpatient Encounter [id number] 08/09 [place] [facility] [place] [facility] Outpatient Encounter [id number] 08/10 [place] [facility] [place] [facility] Outpatient Encounter [id number] ARISTEO POLLARD 08/10 [facility] [place] [facility] Outpatient Encounter [id number] KYM RUSSO J 08/10 [facility] [place] [facility] Outpatient Encounter [id number] 08/16 [facility] Outpatient Encounter [id number] Diagnos is: ICD-10- CM Z65.8 Oth problem s related to psychos ocial circums tances< br/> TAMIKO OLIVARES 08/19 [facility] Outpatient Encounter [id number] 08/19 [facility] Outpatient Encounter [id number] 08/19 [facility] [place] [facility] Outpatient Encounter [id number] 08/23 [facility] Social History Combined list of available smoking, tobacco, and other social history from Department of Defense and Veterans Affairs facilities. Social History Type Response Date Comment Sourc e Tobacco smoking status NDIS DE-TOBACCO FORMER USER 01/20/2023 [facility] of [facility] OR MORE [facility]/20[facility]2023 [facility] History of tobacco use DE-TOBACCO FORMER USER 01/21/2022 [facility] History of tobacco use DE-TOBACCO FORMER USER 01/22/2021 [facility] < 15 YRS 11/01/2019 [facility] History of tobacco use INPT NO TOBACCO U SE IN LAST 30 DAYS 02/06/2019 [facility] History of tobacco use DE-TOBACCO FORMER USER 10/26/2018 [facility] History of tobacco use FORMER TOBACCO US ER 7Y OR GREATER 11/03/2017 [facility] History of tobacco use FORMER TOBACCO US ER 7Y OR GREATER 09/16/[facility] History of tobacco use FORMER TOBACCO US ER 7Y OR GREATER 05/08/2015 [facility] History of tobacco use FORMER TOBACCO US E >1Y <7Y 06/07/2013 [facility] History of tobacco use FORMER TOBACCO US E >1Y <7Y 02/23/2012 [facility] History of tobacco use FORMER TOBACCO US E >1Y <7Y 05/15/2009 [facility] Plan of Care List of future care activities from Department of Veterans Affairs facilities. Additional future care activities may be listed in the Assessment and Plan section. Date/Time Care Activity Care Activity Detail Facili ty 09/06/2023 AMBULATORY - REHAB MEDICINE AMBULATORY - REHAB MEDICINE [facility]
--- OUTSIDE RECORDS SUMMARY | 2023-08-25 16:13 | XMS_ITS | Encounter Summary ---
Author Name Department of Vetera Affairs Organization Department of Vetera ns Affairs Address [address] [place] [address] Support Name Relationship Address Phone ANANT, JAIRO Next of Kin [address] [address] [place] Emergency Contact [phone] [address] Insurance Providers: All historical [...] Lopez's Name Patient's Relationship to Policy Lopez [facility] ([facility]) MEDICARE ADVANTAGE [facility] ([facility]) Nov 13, 2020 [id number] [place] [facility] (WNR) MEDICARE ADVANTAGE [facility] ([facility]) Aug 15, 2013 [id number] [phone] [place] PATIENT MEDIC[place] ([place]) MEDICARE (M) PART A Sep 15, 2010 PART A [id number] [phone] [place] PATIENT [place]IC[place] ([place]) MEDICARE (M) PART B Sep 15, 2010 PART B [id number] [phone] [place] PATIENT Selected Encounter This section includes the information on record at [place] for the Encounter. Date/Time Encounter Type Encounter Description Reason Pro vider Source Apr 27, 2023 09:00 AM Outpatient Encounter SPEECH-LANGUAGE PATHOLOGY IHE Encounter Template Text not used by [place] Plan of Treatment: Future Appointments (+ 6 months) and Future Tests (+/- 45 days) The Plan of Treatment section includes future care activities for the patient from all [place] [facility]. This section includes future appointments and future orders which are active, pending or scheduled. Future Appointments This section includes appointments that were scheduled to occur 6 months from the date of the Encounter, up to a maximum of 20 appointments. The data comes from all [place] treatment facilities. Appointment Date/Time Appointment Type Appointme nt Facility Name May 13, 2023 08:45 AM [place] [facility] Jul 15, 2023 01:42 PM [place] [facility] Aug 01, 2023 08:00 AM [place] [facility] [facility] Aug 04, 2023 02:00 PM [place] [facility] Aug 10, 2023 09:00 AM [place] [facility] Aug 23, 2023 05:00 PM [place] [facility] Sep 06, 2023 12:00 PM AMBULATORY - REHAB MEDICIN E [facility] Social History: Smoking Status (Most current) and Tobacco Use (All prior to encounter date) This section includes the most current, and the historical, smoking and tobacco- related health factors from the [place] facility where the Encounter took place. Current Smoking Status This section includes the most current smoking, or tobacco-related health factor, from the [place] facility where the Encounter took place. Date/Time Current Smoking Status Comment Facil ity Jan 20, 2023 01:48 PM VA-TOBACCO FORMER USER [facility] Tobacco Use History This section includes a history of the smoking, or tobacco-related health factors, that were collected on or before the date of the Encounter. The data comes from the [place] facility where the Encounter took place. Date/Time Smoking Status/Tobacco Use Comment F acility Jan 20, 2023 01:48 PM VA-TOBACCO QUIT 15 YRS OR MORE [facility] Jan 21, 2022 10:50 AM VA-TOBACCO FORMER USER [facility] Jan 21, 2022 10:50 AM [place]-TOBACCO QUIT 15 YRS OR MORE [facility] Feb 06, 2019 02:30 PM INPT NO TOBACCO USE IN LAST 30 D AYS [facility] Encounter Notes: All associated encounter notes This section contains the clinical notes associated to the Encounter. Date/Time Encounter Note(s) Provider Source Apr 27, 2023 09:14 AM NO SHOW NOTE: LOCAL TITLE: NO SHOW/CANCELLATION CLINIC NOTE STANDARD TITLE: NO SHOW NOTE DATE OF NOTE: APR 27, 2023@09:14 ENTRY DATE: APR 27, 2023@09:15:01 AUTHOR: KATERIN DEE EXP COSIGNER: URGENCY: STATUS: COMPLETED not seen for scheduled appointment due to: Patient cancellation MEDICAL ASSISTANT OB GYN called phone number listed in CPRS 15 minutes after appt time. Patient answered and said he would not be able to make appointment and that he left a message with clinic scheduling prior to appt. Appointment Rescheduled: Yes Please review patient chart and medications for renewal needs (if appropriate). Advise if any further follow-up. Notify this signee as additional signer for notification. /kera/ Katerin Dee MA, CCC-MEDICAL ASSISTANT OB GYN Speech Language Pathologist Signed: 04/27/2023 09:16 KATERIN DEE [facility]
--- OUTSIDE RECORDS SUMMARY | 2023-08-25 16:13 | XMS_ITS | Encounter Summary ---
Author Name Department of Vetera Affairs Organization Department of Vetera Affairs Address [address] [place] [address] Support Name Relationship Address Phone ANANT JAIRO Next of Kin [address] [address] [place] Emergency Contact [address] [address] Insurance Providers: All historical [...] Lopez's Name Patient's Relationship to Policy Lopez [facility] (WNR) MEDICARE ADVANTAGE [facility] ([facility]) Nov 13, 2020 [id number] [phone] [place] PATIENT [employer] [facility] (WNR) MEDICARE ADVANTAGE [facility] (WNR) Aug 15, 2013 [id number] [place] PATIENT MEDICARE ([place]) MEDICARE (M) PART A Sep 15, 2010 PART A [id number] [phone] [place] PAT[place] MEDICARE ([place]) MEDICARE (M) PART B Sep 15, 2010 PART B [id number] [phone] [place] PATIENT Selected Encounter This section includes the information on record at [place] for the Encounter. Date/Time Encounter Type Encounter Description Reason Pro vider Source May 13, 2023 03:38 PM Outpatient Encounter OPHTHALMOLOGY IHE Encounter Template Text not used by [facility] Plan of Treatment: Future Appointments (+ 6 months) and Future Tests (+/- 45 days) The Plan of Treatment section includes future care activities for the patient from all [place] [facility]. This section includes future appointments and future orders which are active, pending or scheduled. Future Appointments This section includes appointments that were scheduled to occur 6 months from the date of the Encounter, up to a maximum of 20 appointments. The data comes from all [place] treatment facilities. Appointment Date/Time Appointment Type Appointme nt Facility Name Jul 15, 2023 01:42 PM [place] [facility] Aug 01, 2023 08:00 AM [place] [facility] Aug 04, 2023 02:00 PM [facility] [place] [facility] Aug 10, 2023 09:00 AM [place] [facility] Aug 23, 2023 05:00 PM [facility] Sep 06, 2023 12:00 PM AMBULATORY - REHAB MEDICIN E [facility] Social History: Smoking Status (Most current) and Tobacco Use (All prior to encounter date) This section includes the most current, and the historical, smoking and tobacco- related health factors from the [place] facility where the Encounter took place. Current Smoking Status This section includes the most current smoking, or tobacco-related health factor, from the [place] facility where the Encounter took place. Date/Time Current Smoking Status Comment Facil ity Jan 20, 2023 01:48 PM VA-TOBACCO FORMER USER [facility] Tobacco Use History This section includes a history of the smoking, or tobacco-related health factors, that were collected on or before the date of the Encounter. The data comes from the [place] facility where the Encounter took place. Date/Time Smoking Status/Tobacco Use Comment F acility Jan 20, 2023 01:48 PM VA-TOBACCO QUIT 15 YRS OR MORE [facility] Jan 21, 2022 10:50 AM VA-TOBACCO FORMER USER [facility] Jan 21, 2022 10:50 AM VA-TOBACCO QUIT 15 YRS OR MORE [facility] Feb 06, 2019 02:30 PM INPT NO TOBACCO USE IN LAST 30 D AYS [facility] Encounter Notes: All associated encounter notes This section contains the clinical notes associated to the Encounter. Date/Time Encounter Note(s) Provider Source May 13, 2023 03:38 PM REPORT OF CONTACT: LOCAL TITLE: APPOINTMENT SCHEDULING NOTE STANDARD TITLE: REPORT OF CONTACT DATE OF NOTE: MAY 13, 2023@15:38 ENTRY DATE: MAY 13, 2023@15:38:59 AUTHOR: KENNEDY MCBRIDE EXP COSIGNER: URGENCY: STATUS: COMPLETED Attempted to schedule No show Contact: automated no-show letter queued to be sent If calls back, schedule appointment for: [facility] EYE RESIDENT NEW PT, [place], GONIO, (NARROW ANGLE ASSESSMENT) /kera/ JOHN MCBRIDE ADVANCED MSA Signed: 05/13/2023 15:39 Receipt Acknowledged By: 05/16/2023 16:50 /kera/ CAILIN HENRIQUEZ MD RESIDENT JOHN MCBRIDE [facility]
--- OUTSIDE RECORDS SUMMARY | 2023-08-25 16:13 | XMS_ITS | Encounter Summary ---
Author Name Department of Vetera Affairs Organization Department of Vetera ns Affairs Address [address] [place] [address] Support Name Relationship Address Phone ANANT, JAIRO Next of Kin [address] [address] A[place] Emergency Contact [address] [address] Insurance Providers: All historical [...] Lopez's Name Patient's Relationship to Policy Lopez [facility] ([facility]) MEDICARE ADVANTAGE [facility] ([facility]) Nov 13, 2020 [id number] [phone] [place] PATIENT [employer] [facility] (WNR) MEDICARE ADVANTAGE [facility] ([facility]) Aug 15, 2013 [id number] [place] PATIENT MEDICARE ([place]NR) MEDICARE (M) PART B Sep 15, 2010 PART B [id number] [place] PATIENT MEDICARE ([place]) MEDICARE (M) PART A Sep 15, 2010 PART A [id number] [phone] [place] PATIENT Selected Encounter This section includes the information on record at [place] for the Encounter. Date/Time Encounter Type Encounter Description Reason Pro vider Source Mar 18, 2023 02:45 PM Outpatient Encounter TELEPHONE/DENTAL IHE Encounter Template Text not used by [place] Plan of Treatment: Future Appointments (+ 6 months) and Future Tests (+/- 45 days) The Plan of Treatment section includes future care activities for the patient from all [facility] This section includes future appointments and future orders which are active, pending or scheduled. Future Appointments This section includes appointments that were scheduled to occur 6 months from the date of the Encounter, up to a maximum of 20 appointments. The data comes from all [facility]. Appointment Date/Time Appointment Type Appointme nt Facility Name Apr 05, 2023 10:30 AM [facility] Apr 20, 2023 05:00 PM AMBULATORY - REHAB MEDICIN [facility] Apr 27, 2023 09:00 AM AMBULATORY - REHAB MEDICIN E [facility] May 13, 2023 08:45 AM [place] [facility] Jul 15, 2023 01:42 PM [place] [facility] Aug 01, 2023 08:00 AM [place] [facility] Aug 04, 2023 02:00 PM [facility] Aug 10, 2023 09:00 AM [place] [facility] Aug 23, 2023 05:00 PM [place] [facility] Sep 06, 2023 12:00 PM AMBULATORY - REHAB MEDICIN E [facility] Social History: Smoking Status (Most current) and Tobacco Use (All prior to encounter date) This section includes the most current, and the historical, smoking and tobacco- related health factors from the [facility] where the Encounter took place. Current Smoking Status This section includes the most current smoking, or tobacco-related health factor, from the [place] facility where the Encounter took place. Date/Time Current Smoking Status Comment Renetta giles Jan 20, 2023 01:48 PM VA-TOBACCO FORMER USER [facility] Tobacco Use History This section includes a history of the smoking, or tobacco-related health factors, that were collected on or before the date of the Encounter. The data comes from the [place] facility where the Encounter took place. Date/Time Smoking Status/Tobacco Use Comment F actaj Jan 20, 2023 01:48 PM VA-TOBACCO QUIT 15 YRS OR MORE [facility] Jan 21, 2022 10:50 AM VA-TOBACCO FORMER USER [facility] Jan 21, 2022 10:50 AM VA-TOBACCO QUIT 15 YRS OR MORE [facility] Feb 06, 2019 02:30 PM INPT NO TOBACCO USE IN LAST 30 D AYS [facility] Encounter Notes: All associated encounter notes This section contains the clinical notes associated to the Encounter. Date/Time Encounter Note(s) Provider Source Mar 18, 2023 02:45 PM REPORT OF CONTACT: LOCAL TITLE: PATIENT CONTACT NOTE STANDARD TITLE: REPORT OF CONTACT DATE OF NOTE: MAR 18, 2023@14:45 ENTRY DATE: MAR 18, 2023@14:45:15 AUTHOR: LEON HAMILTON EXP COSIGNER: URGENCY: STATUS: COMPLETED Patient contact Name of : [place] Name/Relationship of Contact if other than [place]: Date & Time of Contact: Mar@14:45 Type of Contact: Telephone Reason for Contact: is requesting [facility] for dental care due to DT. is %90sc P&T thank you /kera/ LEON HAMILTON ADVANCED MSA Signed: 03/18/2023 14:46 Receipt Acknowledged By: 03/21/2023 06:39 /kera/ HYACINTH NEGRON DDS CHIEF OF DENTAL LEON HAMILTON [facility]
--- OUTSIDE RECORDS SUMMARY | 2023-08-25 16:13 | XMS_ITS | Encounter Summary ---
Author Name Department of Vetera Affairs Organization Department of Vetera ns Affairs Address [address] [place] [address] Support Name Relationship Address Phone ANANT, JAIRO Next of Kin [phone] [address] [place] Emergency Contact [address] [address] Insurance Providers: All historical [...] Lopez's Name Patient's Relationship to Policy Lopez [facility] ([facility]) MEDICARE ADVANTAGE [facility] ([facility]) Nov 13, 2020 [id number] [place] [facility]IENT [facility] (WNR) MEDICARE ADVANTAGE [facility] ([facility]) Aug 15, 2013 [id number] [place] PATIENT MEDICARE ([facility]) MEDICARE (M) PART A Sep 15, 2010 PART A [id number] [place] PAT[place] MEDICARE ([facility]) MEDICARE (M) PART B Sep 15, 2010 PART B [id number] [phone] [place] PATIENT Selected Encounter This section includes the information on record at [place] for the Encounter. Date/Time Encounter Type Encounter Description Reason Provider Source Feb 08, 2023 02:30 PM AUD REHAB POSTLING HEAR LOSS AUDIOLOGY ICD-10-CM Z46.1 Encounter for fitting and adjustment of hearing aid BRANDON BRIAN Ab Encounter Template Text not used by [place] Assessments - Encounter Diagnoses This section includes the primary and secondary diagnoses documented for the Encounter. Date/Time Primary/Secondary Diagnosis Diagnosis Name Provider Source Feb 08, 2023 03:36 PM PRIMARY Encounter for fitting and adjustment of hearing aid ALDA MEDEL [facility] Feb 08, 2023 03:36 PM SECONDARY Sensorineural hearing loss, bilateral ALDA MEDEL [facility] Feb 08, 2023 03:36 PM SECONDARY Tinnitus, bilateral ALDA MEDEL [facility] Plan of Treatment: Future Appointments (+ 6 months) and Future Tests (+/- 45 days) The Plan of Treatment section includes future care activities for the patient from all [facility]. This section includes future appointments and future orders which are active, pending or scheduled. Future Appointments This section includes appointments that were scheduled to occur 6 months from the date of the Encounter, up to a maximum of 20 appointments. The data comes from all [facility] facilities. Appointment Date/Time Appointment Type Appointme nt Facility Name Feb 17, 2023 02:30 PM AMBULATORY - SURGERY [facility] Apr 05, 2023 10:30 AM AMBULATORY - NEUROLOGY [facility] Apr 20, 2023 05:00 PM AMBULATORY - REHAB MEDICIN [facility] Apr 27, 2023 09:00 AM AMBULATORY - REHAB MEDICIN [facility] May 13, 2023 08:45 AM AMBULATORY - SURGERY [facility] Jul 15, 2023 01:42 PM AMBULATORY - MEDICINE [facility] Aug 01, 2023 08:00 AM AMBULATORY - NONE [facility] Aug 04, 2023 02:00 PM AMBULATORY - NEUROLOGY [facility] Aug 10, 2023 09:00 AM AMBULATORY - NONE [facility] Vital Signs: All taken on the encounter date This section contains inpatient and outpatient Vital Signs collected on the date of the Encounter. Date/Time Temperature Pulse Blood Pressure Respiratory Rate SP02 Pain Height Weight Body Mass Index Source Feb 08, 2023 02:44 PM 80 /min 136/74 mm[Hg] [facility] Social History: Smoking Status (Most current) and Tobacco Use (All prior to encounter date) This section includes the most current, and the historical, smoking and tobacco- related health factors from the [facility] facility where the Encounter took place. Current Smoking Status This section includes the most current smoking, or tobacco-related health factor, from the [facility] where the Encounter took place. Date/Time Current Smoking Status Comment Renetta ity Jan 20, 2023 01:48 PM VA-TOBACCO FORMER USER [facility] Tobacco Use History This section includes a history of the smoking, or tobacco-related health factors, that were collected on or before the date of the Encounter. The data comes from the [facility] where the Encounter took place. Date/Time Smoking Status/Tobacco Use Comment F acility Jan 20, 2023 01:48 PM VA-TOBACCO QUIT 15 YRS OR MORE [facility] Jan 21, 2022 10:50 AM VA-TOBACCO FORMER USER [facility] Jan 21, 2022 10:50 AM VA-TOBACCO QUIT 15 YRS OR MORE [facility] Feb 06, 2019 02:30 PM INPT NO TOBACCO USE IN LAST 30 D AYS [facility] Encounter Notes: All associated encounter notes This section contains the clinical notes associated to the Encounter. Date/Time Encounter Note(s) Provider Source Feb 08, 2023 03:55 PM AUDIOLOGY NOTE: LOCAL TITLE: AUDIOLOGY CLINIC NOTE STANDARD TITLE: AUDIOLOGY NOTE DATE OF NOTE: FEB 08, 2023@15:55 ENTRY DATE: FEB 08, 2023@15:55:10 AUTHOR: BRANDON BRIAN COSIGNER: URGENCY: STATUS: COMPLETED SUBJECT: YOST Fitting DIAGNOSIS: Encounter for Fitting and Adjustment of Hearing Aid, Bilateral Sensorineural hearing loss, Bilateral Tinnitus REASON FOR VISIT: Therapeutic - hearing aid fitting, conformity evaluation (real-ear measures), orientation and counseling using a standard curriculum. Appointment Length: 60 minute appointment OTOSCOPY: Free of excessive cerumen, normal anatomy bilaterally HISTORY: Thorpe is an experienced hearing aid user. Recommended keep his old hearing aids as a backup/spare as needed. Hearing aids right/left; Date Fit: Jan Make: Viktor Model: Porsche 24 R Style: ITE HS Serial #: [id number] Dome/Earmold: extended furniture packer tubing ACCESSORIES: Remote control, mini remote microphone CONFORMITY EVALUATION (VERIFICATION OF HEARING AID FUNCTION): Real Ear Aided Response (REAR) was measured using the Telcare II system. According to the NAL-NL2 fitting method, the patient's hearing aid(s) is meeting target for soft, average, and loud speech. Loudness intolerance was measured using a 90 dB MPO tone sweep and the patient was able to tolerate the output of the hearing device(s). The fit was found to be satisfactory. As a result, the patient's hearing aids were reprogrammed based on the REAR results. ACTION: Hearing aids are a good physical fit. Hearing aids were programmed to prescriptive targets, which were derived from the Veterans hearing loss. Veterans subjective impressions were considered while adjusting the hearing aids. The frequency response is set at 100% of target gain. Feedback test was completed and feedback dental manager was activated. Volume control enabled Synchronized, Other: Program control enabled Programs are as follows: 1.Personal 2.Crowd 3.Outdoors 4.Autophone Veterans cell phone was paired to the hearing aids. A practice phone call was completed to verify functionality. Accessories were paired to the hearing aids. was educated and counseled on use and features of the devices as well as how to connect them. The devices were demonstrated in the office to ensure both device functionality and understanding. Education and counseling was completed regarding streaming capabilities. was counseled on the following: -Full-time hearing aid use and acclimating to amplification -Realistic expectations for hearing aid use -Appropriate communication strategies -Location and operation of all controls -Proper care and maintenance -[facility] [employer] [facility] [employer] [facility] and Call Center contact information and services, including the trial period reported good sound quality and equal balance between ears after adjustments were made. Thorpe reported a comfortable fit. Thorpe demonstrated understanding of the new aids and was able to insert the hearing aids appropriately, as well as manipulate the volume control. AURAL REHABILITATION: -The subjects of general listening and rehabilitation practice was reviewed and discussed with the patient at today's appointment. Emerson was counseled on full-time hearing aid use, acclimating to amplification, and realistic expectations. We discussed his current communication needs. We reviewed multiple scenarios and strategies to improve the signal to noise ratio. The was fit with the [employer] Mini Remote Microphone today and we specifically discussed use of this device in these scenarios to aid his communication even further. -Thorpe was counseled to continue wear of the hearing aids during all waking hours using program 1 for everyday listening. We also discussed his additional program and how to best use this when in environments with high levels of noise. Additionally, we discussed several different listening environments and how to communicate best in them. -The patient was counseled in regard to adapting to the programming changes and not reducing the settings too much as to avoid compromising speech understanding and sound quality. -The was counseled on the standard curriculum of troubleshooting and cleaning/care procedures with the hearing aids. -Thorpe counseled using a standard curriculum on effective communication strategies such as maintaining face to face contact when speaking, eliminating background noise when possible, and talking at a close distance. -The was counseled on the standard curriculum of features including Bluetooth compatibility options to assist with hearing on his cell phone. reports he is excited about these hearing aids because he will not need to change the batteries anymore and is excited about streaming. Several practice phone calls were placed in office today and demonstrates understanding. Thorpe did not know his Apple ID to download the [employer] myles, but he was provided verbal and written information for how to download the myles at home. Thorpe reports these aids feel more comfortable and are easier to manipulate than his last set. He has no other questions today. Prognosis for success is good given the 's response to the hearing aids. Hearing aids were issued. Note: The audiology trainee Minoo Hancock was presented during today's visit and assisted with the care of this . PLAN: Thorpe will return to clinic as needed for service. Patient is in agreement with this plan. /kera/ JUANA LOBO, [facility]-A DIRECTOR, HEARING IMPLANT PROGRAM Signed: 02/08/2023 16:00 BRANDON BRIAN [facility]
--- OUTSIDE RECORDS SUMMARY | 2023-08-25 16:13 | XMS_ITS | Encounter Summary ---
Author Name Department of Vetera Affairs Organization Department of Vetera Affairs Address [address] [place] [address] Support Name Relationship Address Phone ANANT JAIRO Next of Kin [address] [address] [place] Emergency Contact [phone] [address] Insurance Providers: All historical [...] Name Patient's Relationship to Policy Lopez [facility] (WNR) MEDICARE ADVANTAGE [facility] ([facility]) Nov 13, 2020 [id number] [place] PATIENT [employer] [facility] (WNR) MEDICARE ADVANTAGE [facility] (WNR) Aug 15, 2013 [id number] [place] PATIENT MEDICARE ([place]NR) MEDICARE (M) PART B Sep 15, 2010 PART B [id number] [place] PATIENT MEDICARE ([place]) MEDICARE (M) PART A Sep 15, 2010 PART A [id number] [phone] [place] PATIENT Selected Encounter This section includes the information on record at [place] for the Encounter. Date/Time Encounter Type Encounter Description Reason Pro vider Source Feb 01, 2023 10:00 AM Outpatient Encounter NEUROLOGY IHE Encounter Template Text not used by [facility] Plan of Treatment: Future Appointments (+ 6 months) and Future Tests (+/- 45 days) The Plan of Treatment section includes future care activities for the patient from all [place] [facility]. This section includes future appointments and future orders which are active, pending or scheduled. Future Appointments This section includes appointments that were scheduled to occur 6 months from the date of the Encounter, up to a maximum of 20 appointments. The data comes from all [facility]. Appointment Date/Time Appointment Type Appointme nt Facility Name Feb 08, 2023 02:30 PM AMBULATORY - SURGERY [facility] Feb 17, 2023 02:30 PM AMBULATORY - SURGERY [facility] Apr 05, 2023 10:30 AM AMBULATORY - NEUROLOGY [facility] Apr 20, 2023 05:00 PM AMBULATORY - REHAB MEDICIN E [facility] Apr 27, 2023 09:00 AM AMBULATORY - REHAB MEDICIN E [facility] May 13, 2023 08:45 AM AMBULATORY - SURGERY [facility] Jul 15, 2023 01:42 PM [facility] Aug 01, 2023 08:00 AM [facility] Social History: Smoking Status (Most current) and Tobacco Use (All prior to encounter date) This section includes the most current, and the historical, smoking and tobacco- related health factors from the [place] facility where the Encounter took place. Current Smoking Status This section includes the most current smoking, or tobacco-related health factor, from the [place] facility where the Encounter took place. Date/Time Current Smoking Status Comment Facil ity Jan 20, 2023 01:48 PM VA-TOBACCO FORMER USER [facility] Tobacco Use History This section includes a history of the smoking, or tobacco-related health factors, that were collected on or before the date of the Encounter. The data comes from the [place] facility where the Encounter took place. Date/Time Smoking Status/Tobacco Use Comment F acility Jan 20, 2023 01:48 PM VA-TOBACCO QUIT 15 YRS OR MORE [facility] Jan 21, 2022 10:50 AM VA-TOBACCO FORMER USER [facility] Jan 21, 2022 10:50 AM [place]-TOBACCO QUIT 15 YRS OR MORE [facility] Feb 06, 2019 02:30 PM INPT NO TOBACCO USE IN LAST 30 D AYS [facility] Encounter Notes: All associated encounter notes This section contains the clinical notes associated to the Encounter. Date/Time Encounter Note(s) Provider Source Feb 01, 2023 10:26 AM NO SHOW NOTE: LOCAL TITLE: NO SHOW/CANCELLATION CLINIC NOTE STANDARD TITLE: NO SHOW NOTE DATE OF NOTE: FEB 01, 2023@10:26 ENTRY DATE: FEB 01, 2023@10:26:09 AUTHOR: PEREZ RODRIGUES EXP COSIGNER: URGENCY: STATUS: COMPLETED not seen for scheduled appointment due to: No Show Appointment Rescheduled: Please review patient chart and medications for renewal needs (if appropriate). /kera/ PEREZ RODRIGUES MD PHYSICIAN FELLOW Signed: 02/01/2023 10:26 PEREZ RODRIGUES [facility]
--- OUTSIDE RECORDS SUMMARY | 2023-08-25 16:13 | XMS_ITS | Encounter Summary ---
Author Name Department of Vetera Affairs Organization Department of Vetera Affairs Address [address] [place] [address] Support Name Relationship Address Phone ANANT JAIRO Next of Kin [address] [address] [place] Emergency Contact [address] [address] [address] Insurance Providers: All historical [...] Lopez's Name Patient's Relationship to Policy Lopez [facility] (WNR) MEDICARE ADVANTAGE [facility] ([facility]) Nov 13, 2020 [id number] [place] PATIENT [place]MANA [facility] (WNR) MEDICARE ADVANTAGE [facility] (WNR) Aug 15, 2013 [id number] [place] PATIENT MEDICARE ([place]NR) MEDICARE (M) PART A Sep 15, 2010 PART A [id number] [place] PATIENT MEDICARE ([place]) MEDICARE (M) PART B Sep 15, 2010 PART B [id number] [phone] [place] PATIENT Selected Encounter This section includes the information on record at [place] for the Encounter. Date/Time Encounter Type Encounter Description Reason Pro vider Source Feb 09, 2023 01:27 PM Outpatient Encounter NEUROLOGY IHE Encounter Template Text not used by VA Plan of Treatment: Future Appointments (+ 6 months) and Future Tests (+/- 45 days) The Plan of Treatment section includes future care activities for the patient from all [place] [facility]. This section includes future appointments and future orders which are active, pending or scheduled. Future Appointments This section includes appointments that were scheduled to occur 6 months from the date of the Encounter, up to a maximum of 20 appointments. The data comes from all [facility]. Appointment Date/Time Appointment Type Appointme nt Facility Name Feb 17, 2023 02:30 PM AMBULATORY - SURGERY [facility] Apr 05, 2023 10:30 AM AMBULATORY [facility]UROLOGY [facility] Apr 20, 2023 05:00 PM AMBULATORY - REHAB MEDICIN E [facility] Apr 27, 2023 09:00 AM AMBULATORY - REHAB MEDICIN E [facility] May 13, 2023 08:45 AM AMBULATORY - SURGERY [facility] Jul 15, 2023 01:42 PM [facility] Aug 01, 2023 08:00 AM AMBULATORY - NONE [facility] Aug 04, 2023 02:00 PM AMBULATORY - NEUROLOGY [facility] Aug 10, 2023 09:00 AM AMBULATORY - NONE [facility] Social History: Smoking Status (Most current) and Tobacco Use (All prior to encounter date) This section includes the most current, and the historical, smoking and tobacco- related health factors from the [place] facility where the Encounter took place. Current Smoking Status This section includes the most current smoking, or tobacco-related health factor, from the [place] facility where the Encounter took place. Date/Time Current Smoking Status Comment Facil ity Jan 20, 2023 01:48 PM VA-TOBACCO FORMER USER [facility] Tobacco Use History This section includes a history of the smoking, or tobacco-related health factors, that were collected on or before the date of the Encounter. The data comes from the [place] facility where the Encounter took place. Date/Time Smoking Status/Tobacco Use Comment F acility Jan 20, 2023 01:48 PM VA-TOBACCO QUIT 15 YRS OR MORE [facility] Jan 21, 2022 10:50 AM VA-TOBACCO FORMER USER [facility] Jan 21, 2022 10:50 AM VA-TOBACCO QUIT 15 YRS OR MORE [facility] Feb 06, 2019 02:30 PM INPT NO TOBACCO USE IN LAST 30 D AYS [facility] Encounter Notes: All associated encounter notes This section contains the clinical notes associated to the Encounter. Date/Time Encounter Note(s) Provider Source Feb 09, 2023 01:30 PM REPORT OF CONTACT: LOCAL TITLE: PATIENT CONTACT NOTE STANDARD TITLE: REPORT OF CONTACT DATE OF NOTE: FEB 09, 2023@13:30 ENTRY DATE: FEB 09, 2023@13:30:48 AUTHOR: CEDRIC VILLANUEVA EXP COSIGNER: URGENCY: STATUS: COMPLETED Patient contact Name of [place]: [place] Name/Relationship of Contact if other than : Date & Time of Contact: Jan@13:30 Type of Contact: Reason for Contact: Returned call to patient to address scheduling question. Patient stated he missed appt. on 02/01/23 and still hoped to see Dr. North. Offered appt. with Dr. Peterson, as Dr. North has completed her neuro fellowship. Patient verbalized understanding and agreement of following with Dr. Peterson; he has met with Dr. Peterson previously. verbalized appreciation of call. /krea/ CEDRIC FUNEZ) [facility] REGISTERED NURSE, CERTIFIED Signed: 02/09/2023 13:35 CEDRIC VILLANUEVA [facility]
--- OUTSIDE RECORDS SUMMARY | 2023-08-25 16:13 | XMS_ITS | Encounter Summary ---
Author Name Department of Vetera ns Affairs Organization Department of Vetera ns Affairs Address [address] [place] [address] Support Name Relationship Address Phone [place]O [place] Next of Kin [address] [address] YOKO [place] Emergency Contact [address] [address] Insurance Providers: All historical [...] Lopez's Name Patient's Relationship to Policy Lopez [facility] ([facility]) MEDICARE ADVANTAGE [facility] ([facility]) Nov 13, 2020 [id number] [phone] ANANTEd[place]NIS PATIENT [facility] ([facility]) MEDICARE ADVANTAGE [facility] ([facility]) Aug 15, 2013 [id number] [phone] Edwin [place] PATIENT MEDICARE ([facility]) MEDICARE (M) PART A Sep 15, 2010 PART A [id number] [phone] [place] PAT[place]ICARE ([facility]) MEDICARE (M) PART B Sep 15, 2010 PART B [id number] [phone] [place] PAT[place] Selected Encounter This section includes the information on record at [place] for the Encounter. Date/Time Encounter Type Encounter Description Reason Provider Source Apr 19, 2023 09:39 AM HC PRO PHONE CALL 5-10 MIN TELEPHONE/NEUROLOG Y ICD-10-CM G20 Parkinson's disease LEIA VAUGHAN E Encounter Template Text not used by [place] Assessments - Encounter Diagnoses This section includes the primary and secondary diagnoses documented for the Encounter. Date/Time Primary/Secondary Diagnosis Diagnosis Name Provider Source Apr 19, 2023 09:39 AM PRIMARY Parkinson's disease LEIA VAUGHAN [facility] Plan of Treatment: Future Appointments (+ 6 months) and Future Tests (+/- 45 days) The Plan of Treatment section includes future care activities for the patient from all [place] [facility]. This section includes future appointments and future orders which are active, pending or scheduled. Future Appointments This section includes appointments that were scheduled to occur 6 months from the date of the Encounter, up to a maximum of 20 appointments. The data comes from all [place] treatment [facility]. Appointment Date/Time Appointment Type Appointme nt Facility Name Apr 20, 2023 05:00 PM AMBULATORY - REHAB MEDICIN E [facility] Apr 27, 2023 09:00 AM AMBULATORY - [facility]AB MEDICIN [facility] May 13, 2023 08:45 AM [place] [facility] Jul 15, 2023 01:42 PM [place] [facility] Aug 01, 2023 08:00 AM [place]ORY - [place] [facility] Aug 04, 2023 02:00 PM [place] [facility] Aug 10, 2023 09:00 AM [place] [facility] Aug 23, 2023 05:00 PM [place] [facility] Sep 06, 2023 12:00 PM AMBULATORY - REHAB MEDICIN E [facility] Social History: Smoking Status (Most current) and [...] 20, 2023 01:48 PM VA-TOBACCO FORMER USER [facility] Tobacco Use History This section includes a history of the smoking, or tobacco-related health factors, that were collected on or before the date of the Encounter. The data comes from the [place] facility where the Encounter took place. Date/Time Smoking Status/Tobacco Use Comment F sandeep Jan 20, 2023 01:48 PM VA-TOBACCO QUIT 15 YRS OR MORE [facility] Jan 21, 2022 10:50 AM VA-TOBACCO FORMER USER [facility] Jan 21, 2022 10:50 AM VA-TOBACCO QUIT 15 YRS OR MORE [facility] Feb 06, 2019 02:30 PM INPT NO TOBACCO USE IN LAST 30 D AYS [facility] Encounter Notes: All associated encounter notes This section contains the clinical notes associated to the Encounter. Date/Time Encounter Note(s) Provider Source Apr 19, 2023 09:39 AM CHEF SAUCIER NOTE: LOCAL TITLE: CHEF SAUCIER NOTE STANDARD TITLE: CHEF SAUCIER NOTE DATE OF NOTE: APR 19, 2023@09:39 ENTRY DATE: APR 19, 2023@09:39:22 AUTHOR: KEITH VAUGHAN EXP COSIGNER: URGENCY: STATUS: COMPLETED Patient contact Name of [place]: [place] Date & Time of Contact: Apr@09:39 Type of Contact: Telephone Reason for Contact: This RNCM contacted regarding his request to speak with tech writer regarding his medications. [place] states he is taking CARBIDOPA 50/LEVODOPA 200MG SA TAB for Parkinson's disease. Oakfield states this has not helpful with the tremor and he is wondering how he is to take the medication. Oakfield is also prescribed CARBIDOPA 25/LEVODOPA 100MG TAB. states he has not been taking this medication. He thought he was to replace the 25/100mg tablets with the 50/200mg. This tech writer informed of the medication regime: CARBIDOPA 50/LEVODOPA 200MG SA TAB TAKE ONE TABLET BY MOUTH THREE TIMES A DAY WITH 25/100 TABLET CARBIDOPA 25/LEVODOPA 100MG TAB TAKE 1-2 TABLETS BY MOUTH 10 TIMES EVERY DAY Oakfield verbalized understanding and will began the above recommendations. [place] to follow up with any questions/concerns. scheduled for follow up with Dr. Peterson in July. /kera/ KEITH VAUGHAN RN Signed: 04/19/2023 10:18 KEITH VAUGHAN [facility]
--- OUTSIDE RECORDS SUMMARY | 2023-08-25 16:13 | XMS_ITS | Encounter Summary ---
Author Name Department of Vetera Affairs Organization Department of Vetera ns Affairs Address [address] [place] [address] Support Name Relationship Address Phone [place]O [place] Next of Kin [address] [address] [place] Emergency Contact [address] [address] Insurance Providers: All historical [...] Lopez's Name Patient's Relationship to Policy Lopez [facility] ([facility]) MEDICARE ADVANTAGE [facility] ([facility]) Nov 13, 2020 [id number] [place] [facility]IENT [facility] ([facility]) MEDICARE ADVANTAGE [facility] ([facility]) Aug 15, 2013 [id number] [phone] [place] PATIENT MEDICARE ([facility]) MEDICARE (M) PART A Sep 15, 2010 PART A [id number] [phone] [place] PATIENT MEDICARE ([facility]) MEDICARE (M) PART B Sep 15, 2010 PART B [id number] [phone] [place] PAT[place] Selected Encounter This section includes the information on record at [place] for the Encounter. Date/Time Encounter Type Encounter Description Reason Provider Source Feb 17, 2023 02:30 PM EAR IMPRESSION AUDIOLOGY ICD-10-CM Z46.1 Encounter for fitting and adjustment of hearing aid MAGGI ORTEGA Encounter Template Text not used by [place] Assessments - Encounter Diagnoses This section includes the primary and secondary diagnoses documented for the Encounter. Date/Time Primary/Secondary Diagnosis Diagnosis Name Provider Source Feb 17, 2023 05:41 PM PRIMARY Encounter for fitting and adjustment of hearing aid JORGE ORTEGA [facility] Feb 17, 2023 05:41 PM SECONDARY Sensorineural hearing loss, bilateral JORGE ORTEGA [facility] Feb 17, 2023 05:41 PM SECONDARY Tinnitus, bilateral [facility]TE[facility] Plan of Treatment: Future Appointments (+ 6 months) and Future Tests (+/- 45 days) The Plan of Treatment section includes future care activities for the patient from all [facility]. This section includes future appointments and future orders which are active, pending or scheduled. Future Appointments This section includes appointments that were scheduled to occur 6 months from the date of the Encounter, up to a maximum of 20 appointments. The data comes from all [facility]. Appointment Date/Time Appointment Type Appointme nt Facility Name Apr 05, 2023 10:30 AM AMBULATORY - NEUROLOGY [facility] Apr 20, 2023 05:00 PM AMBULATORY - REHAB MEDICIN E [facility] Apr 27, 2023 09:00 AM AMBULATORY - REHAB MEDICIN E [facility] May 13, 2023 08:45 AM AMBULATORY - SURGERY [facility] [place] [facility] Jul 15, 2023 01:42 PM AMBULATORY - MEDICINE [facility] Aug 01, 2023 08:00 AM AMBULATORY - NONE [facility] Aug 04, 2023 02:00 PM AMBULATORY - NEUROLOGY [facility] Aug 10, 2023 09:00 AM AMBULATORY - NONE [facility] Social History: Smoking Status (Most current) and Tobacco Use (All prior to encounter date) This section includes the most current, and the historical, smoking and tobacco- related health factors from the [place] facility where the Encounter took place. Current Smoking Status This section includes the most current smoking, or tobacco-related health factor, from the [place] facility where the Encounter took place. Date/Time Current Smoking Status Breana giles Jan 20, 2023 01:48 PM VA-TOBACCO FORMER USER [facility] Tobacco Use History This section includes a history of the smoking, or tobacco-related health factors, that were collected on or before the date of the Encounter. The data comes from the [place] facility where the Encounter took place. Date/Time Smoking Status/Tobacco Use Comment F acility Jan 20, 2023 01:48 PM VA-TOBACCO QUIT 15 YRS OR MORE [facility] Jan 21, 2022 10:50 AM VA-TOBACCO FORMER USER [facility] Jan 21, 2022 10:50 AM [place]-TOBACCO QUIT 15 YRS OR MORE [facility] Feb 06, 2019 02:30 PM INPT NO TOBACCO USE IN LAST 30 D AYS [facility] Encounter Notes: All associated encounter notes This section contains the clinical notes associated to the Encounter. Date/Time Encounter Note(s) Provider Source Feb 17, 2023 05:38 PM AUDIOLOGY NOTE: LOCAL TITLE: AUDIOLOGY CLINIC NOTE STANDARD TITLE: AUDIOLOGY NOTE DATE OF NOTE: FEB 17, 2023@17:38 ENTRY DATE: FEB 17, 2023@17:38:13 AUTHOR: MAGGI ORTEGA EXP COSIGNER: URGENCY: STATUS: COMPLETED AUDIOLOGY CLINIC NOTE Has ADDENDA DIAGNOSIS: Sensorineural Hearing Loss, Tinnitus Reason for visit: Encounter for fitting adjustment Otoscopy: Free of excessive cerumen, normal anatomy bilaterally. History: Patient seen for a hearing aid service/hearing aid check. Hearing Aids (right/left): CHYNA SHANNA AI HS R L [phone] CHYNA SHANNA AI HS R R [id number] The following hearing aid problem/s were presented: RIGHT HEARING AID - clean & check, poor fit LEFT HEARING AID - clean & check, poor fit Action: Hearing aids were cleaned and checked. Listening check revealed good sound quality Both aids functioning properly post clean & check Took new ear impressions today and ordered a new set of custom aids Program new aids and mail to the address on file [place] was counseled on the cleaning, care and use of hearing aids. Plan: Follow up as medically indicated or if a change in hearing is noted. Return to Clinic for servicing of amplification as needed. Return to clinic for hearing aid evaluation/services. Return to clinic for fitting of devices. Patient is in agreement with this plan. *Please program hearing aids and mail to the address on file /kera/ MAGGI ORTEGA [facility] Signed: 02/17/2023 17:41 02/25/2023 ADDENDUM STATUS: COMPLETED GAVE NEW AIDS TO MAGGI ORTEGA TO PROGRAM AND MAIL /es/ MAGGI PEREIRA AUDIO TECH Signed: 02/25/2023 11:08 MAGGI ORTEGA [facility]
--- OUTSIDE RECORDS SUMMARY | 2023-08-25 16:13 | XMS_ITS | Encounter Summary ---
Author Name Department of Vetera Affairs Organization Department of Vetera Affairs Address [address] [place] [address] Support Name Relationship Address Phone ANANT JAIRO Next of Kin [address] [address] [place] Emergency Contact [address] [address] Insurance Providers: All historical [...] Lopez's Name Patient's Relationship to Policy Lopez [facility] ([facility]) MEDICARE ADVANTAGE [facility] ([facility]) Nov 13, 2020 [id number] [place] PATIENT [facility] ([facility]) MEDICARE ADVANTAGE [facility] ([facility]) Aug 15, 2013 [id number] [place] PATIENT MEDIC[place] ([facility]) MEDICARE (M) PART A Sep 15, 2010 PART A [id number] [phone] [place] PATIENT [place] ([facility]) MEDICARE (M) PART B Sep 15, 2010 PART B [id number] [phone] [place] PATIENT Selected Encounter This section includes the information on record at [place] for the Encounter. Date/Time Encounter Type Encounter Description Reason Pro vider Source Feb 02, 2023 10:42 AM Outpatient Encounter OPHTHALMOLOGY IHE Encounter Template Text not used by [facility] Plan of Treatment: Future Appointments (+ 6 months) and Future Tests (+/- 45 days) The Plan of Treatment section includes future care activities for the patient from all [place] [facility]. This section includes future appointments and future orders which are active, pending or scheduled. Future Appointments This section includes appointments that were scheduled to occur 6 months from the date of the Encounter, up to a maximum of 20 appointments. The data comes from all [facility]. Appointment Date/Time Appointment Type Appointme nt Facility Name Feb 08, 2023 02:30 PM AMBULATORY - SURGERY [facility] Feb 17, 2023 02:30 PM AMBULATORY - SURGERY [facility] Apr 05, 2023 10:30 AM AMBULATORY - NEUROLOGY [facility] Apr 20, 2023 05:00 PM AMBULATORY - REHAB MEDICIN E [facility] Apr 27, 2023 09:00 AM AMBULATORY - REHAB MEDICIN E [facility] May 13, 2023 08:45 AM AMBULATORY - SURGERY [facility] Jul 15, 2023 01:42 PM [place] [facility] Aug 01, 2023 08:00 AM [facility] Aug 04, 2023 02:00 PM AMBULATORY - NEUROLOGY [facility] Social History: Smoking Status (Most current) and Tobacco Use (All prior to encounter date) This section includes the most current, and the historical, smoking and tobacco- related health factors from the [place] facility where the Encounter took place. Current Smoking Status This section includes the most current smoking, or tobacco-related health factor, from the [place] facility where the Encounter took place. Date/Time Current Smoking Status Comment Facil ity Jan 20, 2023 01:48 PM VA-TOBACCO FORMER USER [facility] Tobacco Use History This section includes a history of the smoking, or tobacco-related health factors, that were collected on or before the date of the Encounter. The data comes from the [place] facility where the Encounter took place. Date/Time Smoking Status/Tobacco Use Comment F acility Jan 20, 2023 01:48 PM VA-TOBACCO QUIT 15 YRS OR MORE [facility] Jan 21, 2022 10:50 AM VA-TOBACCO FORMER USER [facility] Jan 21, 2022 10:50 AM VA-TOBACCO QUIT 15 YRS OR MORE [facility] Feb 06, 2019 02:30 PM INPT NO TOBACCO USE IN LAST 30 D AYS [facility] Encounter Notes: All associated encounter notes This section contains the clinical notes associated to the Encounter. Date/Time Encounter Note(s) Provider Source Feb 02, 2023 10:42 AM REPORT OF CONTACT: LOCAL TITLE: APPOINTMENT SCHEDULING NOTE STANDARD TITLE: REPORT OF CONTACT DATE OF NOTE: FEB 02, 2023@10:42 ENTRY DATE: FEB 02, 2023@10:42:12 AUTHOR: MEL REYES COSIGNER: URGENCY: STATUS: COMPLETED Attempted to schedule Return to clinic (RTC) Contact attempt made to [place] 1st attempt Telephone 2nd attempt Letter Disposition order request after 02/15/23 Left message on voice mail to call back to this number [phone] If calls back, schedule appt for: PID: 02/21/23 RTC: 01/20/23 [place], GONIO, narrow angle assessment /es/ MEL REYES [facility]VANCED [facility]SA Signed: 02/02/2023 10:43 MEL REYES [facility]
--- OUTSIDE RECORDS SUMMARY | 2023-08-25 16:14 | XMS_ITS | Encounter Summary ---
Author Name Department of Vetera Affairs Organization Department of Vetera ns Affairs Address [address] [place] [address] Support Name Relationship Address Phone ANANT, JAIRO Next of Kin [address] [address] YOKO M[place]ILLANE Emergency Contact [phone] [address] Insurance Providers: All historical [...] Lopez's Name Patient's Relationship to Policy Lopez [facility] ([facility]) MEDICARE ADVANTAGE [facility] ([facility]) Nov 13, 2020 [id number] [phone] ANANTEdwinNIS PATIENT [facility] ([facility]) MEDICARE ADVANTAGE [facility] ([facility]) Aug 15, 2013 [id number] ANANTEdwinNIS PATIENT MEDICARE ([facility]) MEDICARE (M) PART A Sep 15, 2010 PART A [id number] [phone] Edwin MCMILLANNIS PATIENT MEDICARE ([facility]) MEDICARE (M) PART B Sep 15, 2010 PART B [id number] [phone] Edwin MCMILLAN PATIENT Selected Encounter This section includes the information on record at [place] for the Encounter. Date/Time Encounter Type Encounter Description Reason Provider Source Nov 23, 2022 10:00 AM OFFICE O/P EST MOD 30-39 MIN NEUROLOGY ICD-10-CM G20 Parkinson's disease CHARLIE PETERSON Encounter Template Text not used by [place] Assessments - Encounter Diagnoses This section includes the primary and secondary diagnoses documented for the Encounter. Date/Time Primary/Secondary Diagnosis Diagnosis Name Provider Source Nov 23, 2022 02:53 PM PRIMARY Parkinson's disease JOCELINE RODRIGUES [facility] Plan of Treatment: Future Appointments (+ 6 months) and Future Tests (+/- 45 days) The Plan of Treatment section includes future care activities for the patient from all [facility]. This section includes future appointments and future orders which are active, pending or scheduled. Future Appointments This section includes appointments that were scheduled to occur 6 months from the date of the Encounter, up to a maximum of 20 appointments. The data comes from all [place] treatment facilities. Appointment Date/Time Appointment Type Appointme nt Facility Name December 14, 2022 12:30 PM AMBULATORY - SURGERY [facility] December 23, 2022 10:20 AM AMBULATORY - SURGERY [facility] Jan 20, 2023 11:00 AM AMBULATORY - SURGERY [facility] Jan 21, 2023 10:00 AM AMBULATORY - MEDICINE [facility] Feb 01, 2023 10:00 AM AMBULATORY - REHAB MEDICIN [facility] Feb 08, 2023 02:30 PM AMBULATORY - SURGERY [facility] Feb 17, 2023 02:30 PM AMBULATORY - SURGERY [facility] Apr 05, 2023 10:30 AM AMBULATORY - NEUROLOGY [facility] Apr 20, 2023 05:00 PM AMBULATORY - REHAB MEDICIN [facility] Apr 27, 2023 09:00 AM AMBULATORY - REHAB MEDICIN [facility] May 13, 2023 08:45 AM AMBULATORY - SURGERY [facility] Vital Signs: All taken on the encounter date This section contains inpatient and outpatient Vital Signs collected on the date of the Encounter. Date/Time Temperature Pulse Blood Pressure Respiratory Rate SP02 Pain Height Weight Body Mass Index Source Nov 23, 2022 09:44 AM 57 /min 158/75 mm[Hg] 18 /min 99 % 0 182.4 lb 30 [facility] Social History: Smoking Status (Most current) and Tobacco Use (All prior to encounter date) This section includes the most current, and the historical, smoking and tobacco- related health factors from the [place] facility where the Encounter took place. Current Smoking Status This section includes the most current smoking, or tobacco-related health factor, from the [place] facility where the Encounter took place. Date/Time Current Smoking Status Comment Renetta ity Jan 21, 2022 10:50 AM VA-TOBACCO FORMER USER [facility] Tobacco Use History This section includes a history of the smoking, or tobacco-related health factors, that were collected on or before the date of the Encounter. The data comes from the [place] facility where the Encounter took place. Date/Time Smoking Status/Tobacco Use Comment F acility Jan 21, 2022 10:50 AM VA-TOBACCO QUIT 15 YRS OR MORE [facility] Feb 06, 2019 02:30 PM INPT NO TOBACCO USE IN LAST 30 D AYS [facility] Encounter Notes: All associated encounter notes This section contains the clinical notes associated to the Encounter. Date/Time Encounter Note(s) Provider Source Nov 23, 2022 09:46 AM NEUROLOGY NURSING OUTPATIENT NOTE: LOCAL TITLE: NEUROLOGY CLINIC NURSING NOTE STANDARD TITLE: NEUROLOGY NURSING OUTPATIENT NOTE DATE OF NOTE: NOV 23, 2022@09:46 ENTRY DATE: NOV 23, 2022@09:46:42 AUTHOR: QUYNH JOHNSON EXP COSIGNER: URGENCY: STATUS: COMPLETED Type of visit: Appointment Check In Reason for Visit: Here for F/U Gets all medication from the [place]. Vital Signs: Blood Pressure: 158/75 (11/23/2022 09:44) Pulse: 57 (11/23/2022 09:44) Respiration: 18 (11/23/2022 09:44) Temperature: 97.4 F [36.3 C] (08/03/2022 10:16) Weight: 182.4 lb [82.74 kg] (11/23/2022 09:44) Height: 66 in [167.6 cm] (01/22/2022 13:59) BMI: 29.5 Pain: 0 (11/23/2022 09:44) Allergies: PENTOTHAL (May 15, 2009) Medications: Active Outpatient Medications and Supplies: Active Outpatient Medications (including Supplies): Active Outpatient Medications Status 1) ASPIRIN 81MG EC TAB TAKE ONE TABLET BY MOUTH EVERY ACTIVE (S) DAY TO PREVENT STROKE AND HEART ATTACK DO NOT CHEW 2) CARBIDOPA 25/LEVODOPA 100MG TAB TAKE 1-2 TABLETS BY ACTIVE MOUTH 10 TIMES EVERY DAY FOR PARKINSON DISEASE 3) CHOLECALCIF 25MCG (D3-1,000UNIT) TAB TAKE TWO TABLETS ACTIVE BY MOUTH EVERY DAY 4) HYDROPHILIC (EQV AQUAPHOR) TOP OINT APPLY MODERATE ACTIVE AMOUNT TOPICALLY TWICE A DAY TO AFFECTED AREAS FOR DRY SKIN 5) LIDOCAINE 5% PATCH APPLY 1 PATCH TOPICALLY EVERY DAY ACTIVE WEAR FOR 12 HOURS AND THEN REMOVE 6) VANICREAM TOP CREAM APPLY THIN LAYER TOPICALLY EVERY ACTIVE DAY FOR DRY SKIN, IDEALLY WITHIN 3 MINUTES AFTER BATH OR SHOWER. Active Non-VA Medications Status 1) Non-VA FISH OIL 1000MG (500MG DHA/EPA) CAP 1000MG ACTIVE MOUTH 7 Total Medications Patient reports the following changes regarding the current pharmacy list of medications: The above medication list confirmed with patient. A copy of the above medication list given to the MD for review and update. Provider will give printed copy of medication list to patient with any changes documented on printed medication list. 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 Printed information was offered and provided if desired. No questions at this time /caregiver was informed of local points of contact. Contact information for local resources: - Airborne Hazards and Burn Pit Exposures - Public Health (va.gov) - Veterans Benefits for claims submission: Have the call or have them visit the following web address for online scheduling: [email or web address] - [place] Healthcare Enrollment: 1-723-286-VETS ([phone]) - Find a Oyster Shipper (VSO): Have the call 0-142-AOWKEPX or look up their VSO at: [email or web address]-cvso.[email or web address] - [facility] Navigators: Dr. Raul Bradford: [phone] Dr. Phill Morris: [phone] Toxic Exposure Screening Follow-Up reminder is needed. Name of person notified: Dr. Rodrigues /kera/ QUYNH JOHNSON LPN CLINICAL LICENSED PRACTICAL NURSE Signed: 11/23/2022 09:48 QUYNH JOHNSON [facility] Nov 23, 2022 08:36 AM NEUROLOGY ATTENDIN G NOTE: LOCAL TITLE: NEUROLOGY CLINIC NOTE STANDARD TITLE: NEUROLOGY ATTENDING NOTE DATE OF NOTE: NOV 23, 2022@08:36 ENTRY DATE: NOV 23, 2022@08:36:20 AUTHOR: JOCELINE RODRIGUES EXP COSIGNER: URGENCY: STATUS: COMPLETED HPI: GARDENIA MCMILLAN is a 77 years old with advanced stage PD who returns for follow-up. He was last seen on 08/03/22, at which time no medication changes were made and he was provided with educational material on DBS. Interval history: Since last visit, he has mostly changed to 25/100 mg 1 tab q1h. Finds that it makes him not get the zap that he gets with 2 tabs. Wearing off after 1 hour with worsening tremors in both hands and jaw. He has noticed that he has been spending more money, but a lot of this have been to decorate his man cave with pool tabe and pinball machines. For example, recently bought 6 new office chairs and is paying money for a dating service and gave $60 to homeless family recently. He does note that he has always spent money like this. He does not think this is overspending or worrisome, states that son checks on him sometimes. We discussed that compulsive spending can be a side effect of his medication and he should pay attention to this. He denies any falls but notices that he's very careful. He endorses some festinating steps and freezing. He has completed Big therapy in the past and tries to use the exercises from this. He has been spending some time learning about cooking and enjoys learning new recipes. He has a vending service technician coming in weekly to help out. Occasionally sees movement out of the corner of his eye, wonders if it's the corners of his glasses (indicates point where glasses mayte attaches to lens (no frame on glasses). Sometimes feels like there's another person in the house (currently lives alone with cat) but never sees them. Wonders if this is because he spent most of his life living with his and is feeling her presence. No formed hallucinations. He has seen both neuro rehab and PT in the past, not interested in this at present. PMH: Active problems - Computerized Problem List is the source for the followin. Elevated blood pressure (SNOMED CT 48377967) 2. Hearing loss * 3. Tinnitus * 4. Hyperglycemia * 5. Parkinson disease (SNOMED CT 08428294) 6. General Anxiety Disorder 7. Depression (SNOMED CT 19342431) 8. Hyperlipidemia 9. 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 Social and personal history finding - Lives alone with cat in an independent town house with accommodations - Using walker - Drives short distances - three times, now . - Former smoker (3/4 ppd for 30 years); quit in 2007 - 1 beer per month - No current illicit drug use. Stopped marijuana at 25 yo. 12. Family history of disorder - No FH of prostate or colon cancer, No FH of DM - Father: of PA - Mother: HDL - Brother: of childhood leukemia - Brother: of skin cancer related to exposure - Brother: of bone marrow cancer related to exposure Medications reviewed & pertinent for: - carbidopa/levodopa 25/100 mg 1/2 - 2 tab Q1H - Q2H starting around 6-7am (~ 20/day) - carbidopa/levodopa 50/200 mg 1 tab BID ROS: 10 system ROS was completed and is negative except as stated above. Exam: Temperature: 97.4 F [36.3 C] (08/03/2022 10:16) Blood Pressure: 158/75 (11/23/2022 09:44) Pulse: 57 (11/23/2022 09:44) Respiration: 18 (11/23/2022 09:44) Pain: 0 (11/23/2022 09:44) Pulse Oximetry: 99% (11/23/2022 09:44) General: alert, oriented, answers questions appropriately. Fund of knowledge appears appropriate. MDS-UPDRS: PD EXAM (R/L): last dose at 9:30 AM, exam at 10:15 PM -- 1=slight-- 2=mild -- 3=moderate -- 4=severe -- FACIAL EXPRESSION: 1 SPEECH: 1 DYSKINESIAS: none RIGIDITY: neck 2, RUE 2, LUE 0, RLE 0, LLE 0 FINGER TAPPING: RUE 2, LUE 1 HAND MOVEMENTS: RUE 2, LUE 1 PRONATION/SUPINATION: RUE 1, LUE 0 FOOT TAPPING: RLE 2, LLE 2 LEG AGILITY: RLE 1, LLE 0 REST TREMOR: RUE 2, LUE 2, RLE 0, LLE 0, jaw 2 POSTURAL TREMOR: RUE 4, LUE 1 KINETIC TREMOR: RUE 2, LUE 2 TREMOR CONSTANCY: 3 ARISIN POSTURE: 2 GAIT: 2 FREEZIN GLOBAL MOVEMENT: 2 PULL TEST: 2 Assessment/Plan: Mr. Mcmillan is a 77 y/o with PD who returns for follow-up. He has noticed a tendency towards q1h rather than q2h due to wearing off of tremor control vs inconsistent kicking in of medication effect. We discussed that he is already on a moderate dose of carbidopa/levodopa and I would recommend adding a medication to address motor fluctuations rather than continuing to increase levodopa dose. He is amenable to trying rasagiline. We spent again spent time today discussing DBS as a potential future option and he is interested in speaking with people who have undergone DBS if possible. He may consider this if symptoms start to become harder to control, specifically his RIGHT BODY tremor/stiffness. He has not been interested in Rytary in the past due to the size of the capsules. He continues to live largely independently, but does require some help with work around the house due to mobility and tremor. - start rasagiline 1 mg daily - continue taking carbidopa/levodopa 25/100 mg 1/2 - 2 tabs Q1H - Q2H - prescription updated - continue carbidopa/levodopa 50/200 mg CR BID - will reach out to patient with DBS information RTC in 2 months, in person, 30 min Patient and plan was discussed with attending physician, Dr. Peterson. Joceline Rodrigues MD Movement Disorder Fellow cc: ARLEEN re: DBS question /es/ JOCELINE RODRIGUES MD PHYSICIAN FELLOW Signed: 11/23/2022 14:53 Receipt Acknowledged By: * AWAITING SIGNATURE * CHARLIE PETERSON * AWAITING SIGNATURE * KEITH VAUGHAN KELSEY R [facility]
--- OUTSIDE RECORDS SUMMARY | 2023-08-25 16:14 | XMS_ITS | Encounter Summary ---
Author Name Department of Vetera Affairs Organization Department of Vetera Affairs Address [address] [place] [id number] Support Name Relationship Address Phone ANANT JAIRO Next of Kin [address] [address] JAIRO [place] Emergency Contact [phone] [address] Insurance Providers: All historical [...] Lopez's Name Patient's Relationship to Policy Lopez [facility] (WNR) MEDICARE ADVANTAGE [facility] ([facility]) Nov 13, 2020 [id number] [phone] Edwin [place] PATIENT HUMANA [facility] (WNR) MEDICARE ADVANTAGE [facility] (WNR) Aug 15, 2013 [id number] Edwin [place] PATIENT MEDICARE ([place]NR) MEDICARE (M) PART A Sep 15, 2010 PART A [id number] [phone] [place] PATIENT MED[place] ([place]) MEDICARE (M) PART B Sep 15, 2010 PART B [id number] [phone] Edwin [place] PATIENT Selected Encounter This section includes the information on record at [place] for the Encounter. Date/Time Encounter Type Encounter Description Reason Pro vider Source Dec 09, 2022 12:30 PM Outpatient Encounter OPHTHALMOLOGY IHE Encounter Template Text not used by VA Plan of Treatment: Future Appointments (+ 6 months) and Future Tests (+/- 45 days) The Plan of Treatment section includes future care activities for the patient from all [place] [facility]. This section includes future appointments and future orders which are active, pending or scheduled. Future Appointments This section includes appointments that were scheduled to occur 6 months from the date of the Encounter, up to a maximum of 20 appointments. The data comes from all [facility]. Appointment Date/Time Appointment Type Appointme nt Facility Name December 14, 2022 12:30 PM AMBULATORY - SURGERY [facility] December 23, 2022 10:20 AM AMBULATORY - SURGERY [facility] Jan 20, 2023 11:00 AM AMBULATORY - SURGERY [facility] Jan 21, 2023 10:00 AM AMBULATORY - MEDICINE [facility] Feb 01, 2023 10:00 AM AMBULATORY - REHAB MEDICIN [facility] Feb 08, 2023 02:30 PM AMBULATORY - SURGERY [facility] Feb 17, 2023 02:30 PM AMBULATORY - SURGERY [facility] Apr 05, 2023 10:30 AM AMBULATORY - NEUROLOGY [facility] Apr 20, 2023 05:00 PM AMBULATORY - REHAB MEDICIN [facility] Apr 27, 2023 09:00 AM AMBULATORY - REHAB MEDICIN [facility] May 13, 2023 08:45 AM AMBULATORY - SURGERY [facility] Social History: Smoking Status (Most current) and Tobacco Use (All prior to encounter date) This section includes the most current, and the historical, smoking and tobacco- related health factors from the [place] facility where the Encounter took place. Current Smoking Status This section includes the most current smoking, or tobacco-related health factor, from the [place] facility where the Encounter took place. Date/Time Current Smoking Status Comment Renetta giles Jan 21, 2022 10:50 AM VA-TOBACCO FORMER USER [facility] Tobacco Use History This section includes a history of the smoking, or tobacco-related health factors, that were collected on or before the date of the Encounter. The data comes from the [place] facility where the Encounter took place. Date/Time Smoking Status/Tobacco Use Comment F actaj Jan 21, 2022 10:50 AM [place]-TOBACCO QUIT 15 YRS OR MORE [facility] Feb 06, 2019 02:30 PM INPT NO TOBACCO USE IN LAST 30 D AYS [facility] Encounter Notes: All associated encounter notes This section contains the clinical notes associated to the Encounter. Date/Time Encounter Note(s) Provider Source Dec 09, 2022 12:30 PM REPORT OF CONTACT: LOCAL TITLE: APPOINTMENT SCHEDULING NOTE STANDARD TITLE: REPORT OF CONTACT DATE OF NOTE: DEC 09, 2022@12:30 ENTRY DATE: DEC 09, 2022@12:31:02 AUTHOR: KALIN DUDLEY EXP COSIGNER: URGENCY: STATUS: COMPLETED [place] scheduled for the [place] [id number] [facility] clinic on 12/14/22. 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 He is not a candidate for [facility] eye clinic as this is a screening program and will need in person visit face to face. Will have [facility] contact to cancel this appointment. can schedule Optometry visit in [place] - this clinic is new to [place] and will be open for scheduling on 12/20/22. Can contact [facility] directly or the [facility] Eye clinic for assistance with scheduling this appointment at [phone]. /kera/ VIVIAEN Taylor [facility] Signed: 12/09/2022 12:34 KALIN DUDLEY [facility]
--- OUTSIDE RECORDS SUMMARY | 2023-08-25 16:14 | XMS_ITS | Encounter Summary ---
Author Name Department of Vetera Affairs Organization Department of Vetera Affairs Address [address] [place] [id number] Support Name Relationship Address Phone ANANT JAIRO Next of Kin [address] [address] JA[place]O [place] Emergency Contact [phone] [address] Insurance Providers: All historical [...] Lopez's Name Patient's Relationship to Policy Lopez [facility] (WNR) MEDICARE ADVANTAGE [facility] ([facility]) Nov 13, 2020 [id number] Edwin [place] PATIENT HUMANA [facility] (WNR) MEDICARE ADVANTAGE [facility] (WNR) Aug 15, 2013 [id number] [phone] Edwin [place] PAT[place] MED[place] ([place]) MEDICARE (M) PART A Sep 15, 2010 PART A [id number] [id number] [phone] [place] PAT[place] MED[place] ([place]) MEDICARE (M) PART B Sep 15, 2010 PART B [id number] [id number] [phone] Edwin [place] PATIENT Selected Encounter This section includes the information on record at [place] for the Encounter. Date/Time Encounter Type Encounter Description Reason Pro vider Source Jan 26, 2023 09:09 AM Outpatient Encounter NEUROLOGY IHE Encounter Template Text not used by VA Plan of Treatment: Future Appointments (+ 6 months) and Future Tests (+/- 45 days) The Plan of Treatment section includes future care activities for the patient from all [facility]. This section includes future appointments and future orders which are active, pending or scheduled. Future Appointments This section includes appointments that were scheduled to occur 6 months from the date of the Encounter, up to a maximum of 20 appointments. The data comes from all [facility]. Appointment Date/Time Appointment Type Appointme nt Facility Name Feb 01, 2023 10:00 AM AMBULATORY - REHAB MEDICIN [facility] Feb 08, 2023 02:30 PM AMBULATORY - SURGERY [facility] Feb 17, 2023 02:30 PM AMBULATORY - SURGERY [facility] Apr 05, 2023 10:30 AM AMBULATORY - NEUROLOGY [facility] Apr 20, 2023 05:00 PM AMBULATORY - REHAB MEDICIN [facility] Apr 27, 2023 09:00 AM AMBULATORY - REHAB MEDICIN [facility] May 13, 2023 08:45 AM AMBULATORY - SURGERY [facility] Jul 15, 2023 01:42 PM AMBULATORY - MEDICINE [facility] Social History: Smoking Status (Most current) and [...] [facility] Jan 21, 2022 10:50 AM [place]-TOBACCO QUIT 15 YRS OR MORE [facility] Feb 06, 2019 02:30 PM INPT NO TOBACCO USE IN LAST 30 D AYS [facility] Encounter Notes: All associated encounter notes This section contains the clinical notes associated to the Encounter. Date/Time Encounter Note(s) Provider Source Jan 26, 2023 09:09 AM REPORT OF CONTACT: LOCAL TITLE: APPOINTMENT SCHEDULING NOTE STANDARD TITLE: REPORT OF CONTACT DATE OF NOTE: JAN 26, 2023@09:09 ENTRY DATE: JAN 26, 2023@09:09:37 AUTHOR: WALLACE GILLESPIE EXP COSIGNER: URGENCY: STATUS: COMPLETED Attempted to schedule Cancellation Clinic cancellation Contact attempt made to [place] 1st attempt Telephone 2nd attempt Letter [place] declines to schedule/reschedule, due to has another scheduled [facility]O MT FELLOW appointment on 02/01/2023. Other: Appointment on 03/01 in [facility] NEURO MVMT FELLOW was cancelled due to Provider leave. Patient declined to reschedule below RTC Order. Responsible provider notified via additional signer to this note. Activity: 11/23/2022 10:41 New Order entered by PEREZ RODRIGUES (FELLOW) Order Text: Return to [facility] NE[facility]O MVMT FELLOW on or around ( Jan 24, 2023 ) for a total of 1 appointment(s) in person, 30 min /kera/ WALLACE GILLESPIE Clinic Operations Chucking Lathe Operator Signed: 01/26/2023 09:11 Receipt Acknowledged By: * AWAITING SIGNATURE * CHARLIE ONOFRE * AWAITING SIGNATURE * PEREZ RODRIGUES 01/26/2023 09:12 /kera/ COLTON ROSS RN, [facility] DEPARTMENT OF NEUROLOGY for WALLACE SHIN [facility]
--- OUTSIDE RECORDS SUMMARY | 2023-08-25 16:14 | XMS_ITS | Encounter Summary ---
Author Name Department of Vetera Affairs Organization Department of Vetera ns Affairs Address [address] [place] [id number] Support Name Relationship Address Phone ANANT, JAIRO Next of Kin [address] [address] JAIRO [place] Emergency Contact [address] [address] Insurance Providers: All historical [...] Lopez's Name Patient's Relationship to Policy Lopez [facility] (R) MEDICARE ADVANTAGE [facility] ([facility]) Nov 13, 2020 [id number] [phone] [place] [facility]IENT [facility] (WNR) MEDICARE ADVANTAGE [facility] ([facility]) Aug 15, 2013 [id number] [phone] [place] PATIENT MEDICARE ([place]NR) MEDICARE (M) PART A Sep 15, 2010 PART A [id number] [phone] [place] PATIENT MEDICARE ([place]) MEDICARE (M) PART B Sep 15, 2010 PART B [id number] [phone] Edwin [place] PATIENT Selected Encounter This section includes the information on record at [place] for the Encounter. Date/Time Encounter Type Encounter Description Reason Pro vider Source Sep 10, 2022 09:39 AM Outpatient Encounter COMMUNITY CARE CONSULT IHE Encounter Template Text not used by [facility] Plan of Treatment: Future Appointments (+ 6 months) and Future Tests (+/- 45 days) The Plan of Treatment section includes future care activities for the patient from all [place] [facility]. This section includes future appointments and future orders which are active, pending or scheduled. Future Appointments This section includes appointments that were scheduled to occur 6 months from the date of the Encounter, up to a maximum of 20 appointments. The data comes from all [facility]. Appointment Date/Time Appointment Type Appointme nt Facility Name Sep 21, 2022 08:00 AM [facility] Nov 23, 2022 10:00 AM AMBULATORY - REHAB MEDICIN E [facility] December 14, 2022 12:30 PM AMBULATORY - SURGERY [facility] December 23, 2022 10:20 AM AMBULATORY - SURGERY [facility] Jan 20, 2023 11:00 AM AMBULATORY - SURGERY [facility] Jan 21, 2023 10:00 AM AMBULATORY - MEDICINE [facility] Feb 01, 2023 10:00 AM AMBULATORY - REHAB MEDICIN E [facility] Feb 08, 2023 02:30 PM AMBULATORY - SURGERY [facility] Feb 17, 2023 02:30 PM AMBULATORY - SURGERY [facility] Social History: Smoking Status (Most current) and Tobacco Use (All prior to encounter date) This section includes the most current, and the historical, smoking and tobacco- related health factors from the [place] facility where the Encounter took place. Current Smoking Status This section includes the most current smoking, or tobacco-related health factor, from the [place] facility where the Encounter took place. Date/Time Current Smoking Status Comment Facil ity Jan 21, 2022 10:50 AM VA-TOBACCO FORMER USER [facility] Tobacco Use History This section includes a history of the smoking, or tobacco-related health factors, that were collected on or before the date of the Encounter. The data comes from the [place] facility where the Encounter took place. Date/Time Smoking Status/Tobacco Use Comment F acility Jan 21, 2022 10:50 AM [place]-TOBACCO QUIT 15 YRS OR MORE [facility] Feb 06, 2019 02:30 PM INPT NO TOBACCO USE IN LAST 30 D AYS [facility] Encounter Notes: All associated encounter notes This section contains the clinical notes associated to the Encounter. Date/Time Encounter Note(s) Provider Source Sep 10, 2022 09:39 AM NONVA NOTE: LOCAL TITLE: COMMUNITY CARE-CARE COORDINATION PLAN NOTE STANDARD TITLE: NONVA NOTE DATE OF NOTE: SEP 10, 2022@09:39 ENTRY DATE: SEP 10, 2022@09:39:32 AUTHOR: DONTRELL GEORGE EXP COSIGNER: URGENCY: STATUS: COMPLETED COMMUNITY CARE-CARE COORDINATION PLAN NOTE Has ADDENDA CONSULT# [id number] [place] contacted the [facility] call line regarding his home care services. He stated that the company that was assigned to him stopped comming suddenly. The company told him they don't have staff. The took it upon himself to locate a home care worker ([employer]/ [employer] [phone]) to come in to his home. He paid her out of his pocket. He would like to see if she is a possible vendor through [facility] and if not how does she become one? [employer] [phone] He is VERY frustrated with the system and not receiving return phone calls. Please, call back to assist him in receiving proper home care services. Best contact phone # [phone] /kera/ DONTRELL GEORGE Advanced MSA Signed: 09/10/2022 09:45 Receipt Acknowledged By: 09/13/2022 13:16 /kera/ ZI ABBASI RN force adjustment supervisor [employer] 09/10/2022 12:58 /kera/ BOED HERRERA ADVANCED MSA 09/13/2022 ADDENDUM STATUS: COMPLETED Returned call to pt. at above number. He states that [facility] has not been out to the home in a few months for HM services. They are still providing SNV every other week. Pt. requires HM services d/t Parkinson's dx, lives alone. Evp And Chief Operating Officer made referral for HM services to a new agency, [facility]. Pt. appreciative of call/update. No other concerns at this time. /saadia ABBASI RN force adjustment supervisor [employer] Signed: 09/13/2022 13:15 DONTRELL GEORGE [facility]
--- OUTSIDE RECORDS SUMMARY | 2023-08-25 16:14 | XMS_ITS | Encounter Summary ---
Author Name Department of Vetera Affairs Organization Department of Vetera ns Affairs Address [address] [place] [address] Support Name Relationship Address Phone YOKO NYE Next of Kin [address] [address] YOKO [place] Emergency Contact [address] [address] Insurance Providers: All historical [...] Lopez's Name Patient's Relationship to Policy Lopez [facility] ([facility]) MEDICARE ADVANTAGE [facility] ([facility]) Nov 13, 2020 [id number] [phone] Edwin [place] PATIENT [facility]A [facility] (WN) MEDICARE ADVANTAGE [facility] ([facility]) Aug 15, 2013 [id number] Edwin [place] PATIENT MEDICARE ([facility]) MEDICARE (M) PART A Sep 15, 2010 PART A [id number] Edwin [place] PATIENT MEDICARE ([facility]) MEDICARE (M) PART B Sep 15, 2010 PART B [id number] [phone] Edwin [place] PATIENT Selected Encounter This section includes the information on [place] at [place] for the Encounter. Date/Time Encounter Type Encounter Description Reason Provider Source December 14, 2022 12:30 PM TYMPANOMETRY AUDIOLOGY ICD-10-CM H90.3 Sensorineural hearing loss, bilateral BRANDON BRIAN IHE Encounter Template Text not used by [place] Assessments - Encounter Diagnoses This section includes the primary and secondary diagnoses documented for the Encounter. Date/Time Primary/Secondary Diagnosis Diagnosis Name Provider Source December 14, 2022 01:29 PM PRIMARY Sensorineural hearing loss, bilateral RUHR,LYDIA Kat [facility] December 14, 2022 01:29 PM SECONDARY Impacted cerumen, bilateral RUHR,LYDIA A [facility] December 14, 2022 01:29 PM SECONDARY Tinnitus, bilateral LANDEBRANDON [facility] Plan of Treatment: Future Appointments (+ 6 months) and Future Tests (+/- 45 days) The Plan of Treatment section includes future care activities for the patient from all [place] [facility]. This section includes future appointments and future orders which are active, pending or scheduled. Future Appointments This section includes appointments that were scheduled to occur 6 months from the date of the Encounter, up to a maximum of 20 appointments. The data comes from all [place] treatment facilities. Appointment Date/Time Appointment Type Appointme nt Facility Name December 23, 2022 10:20 AM AMBULATORY - SURGERY [facility] Jan 20, 2023 11:00 AM AMBULATORY - SURGERY [facility] Jan 21, 2023 10:00 AM [facility] Feb 01, 2023 10:00 AM AMBULATORY - REHAB MEDICIN [facility] Feb 08, 2023 02:30 PM AMBULATORY - SURGERY [facility] Feb 17, 2023 02:30 PM AMBULATORY - SURGERY [facility] Apr 05, 2023 10:30 AM AMBULATORY - NEUROLOGY [facility] Apr 20, 2023 05:00 PM AMBULATORY - REHAB MEDICIN [facility] Apr 27, 2023 09:00 AM AMBULATORY - REHAB MEDICIN E [facility] May 13, 2023 08:45 AM AMBULATORY - SURGERY [facility] Social History: Smoking Status (Most current) and Tobacco Use (All prior to encounter date) This section includes the most current, and the historical, smoking and tobacco- related health factors from the [place] facility where the Encounter took place. Current Smoking Status This section includes the most current smoking, or tobacco-related health factor, from the [place] facility where the Encounter took place. Date/Time Current Smoking Status Breana giles Jan 21, 2022 10:50 AM VA-TOBACCO FORMER USER [facility] Tobacco Use History This section includes a history of the smoking, or tobacco-related health factors, that were collected on or before the date of the Encounter. The data comes from the [place] facility where the Encounter took place. Date/Time Smoking Status/Tobacco Use Comment F acility Jan 21, 2022 10:50 AM VA-TOBACCO QUIT 15 YRS OR MORE [facility] Feb 06, 2019 02:30 PM INPT NO TOBACCO USE IN LAST 30 D AYS [facility] Encounter Notes: All associated encounter notes This section contains the clinical notes associated to the Encounter. Date/Time Encounter Note(s) Provider Source December 14, 2022 12:30 PM AUDIOLOGY NOTE: LOCAL TITLE: AUDIOLOGY CLINIC NURSING NOTE STANDARD TITLE: AUDIOLOGY NOTE DATE OF NOTE: DECEMBER 14, 2022@12:30 ENTRY DATE: DECEMBER 14, 2022@13:27:55 AUTHOR: LYDIA WILLARD EXP COSIGNER: URGENCY: STATUS: COMPLETED Reason for visit: Hearing exam Effusion (drainage) in ear canals: No Recent Otalgia (pain) in ear canals: No Puritis in ear canals: No History of Ear Surgery: No History of Hearing Aid Use: Yes Currently wears hearing aids: No Cerumen Removed: Yes AU soft excess cerumen easily removed Patient tolerated procedure. Nurse Patient Education: Patient indicates readiness to learn and has been instructed on the following: Patient uses warm water rinses Barriers to Learning/Special Needs: Physical Limitations Hearing Limitations Participant(s) can repeat instructions to Continue with current ear hygiene Refrain from using cotton swabs in ears Ear Care handout provided. PLAN: Follow up in: PRN (as needed) /kera/ LYDIA WILLARD LPN LICENSED PRACTICAL NURSE Signed: 12/14/2022 13:29 LYDIA WILLARD [facility] December 14, 2022 07:11 AM AUDIOLOGY NOTE: LOCAL TITLE: AUDIOLOGY CLINIC NOTE STANDARD TITLE: AUDIOLOGY NOTE DATE OF NOTE: DECEMBER 14, 2022@07:11 ENTRY DATE: DECEMBER 14, 2022@07:11:58 AUTHOR: RAMIRO ZHU EXP COSIGNER: BRANDON BRIAN URGENCY: STATUS: COMPLETED SUBJECT: HEARING EVALUATION AUDIOLOGY CLINIC NOTE Has ADDENDA DIAGNOSIS: BILATERAL SENSORINEURAL HEARING LOSS, BILATERAL TINNITUS REASON FOR VISIT: THERAPEUTIC: HEARING AID EVALUATION, 60 minutes: was seen in the clinic today for a hearing evaluation. The was last seen in this clinic on 02/09/2019 for a hearing aid service. The is Service Connected for Hearing Loss and Tinnitus. [place] was unaccompanied. The currently wears the follow hearing aids, right/left, fit 07/27/2018: Make: Phonak Model: Audeo V90-312 Style: [facility] Serial #: [id number] Accessories: TVLink WT: [id number] Compilot II : [id number] HISTORY: [place] presented today for an updated hearing evaluation and new hearing aid selection. has Parkinson's and has considerable difficulty putting his current aids in his ears, as well as changing the batteries and filters. He stated that because of this, he has not worn them for some time. [place] noted increased difficulty understanding certain voices, particularly women's'. He enjoys playing cribbage and is going to hold a big family tournament at his house soon. [place] has bilateral, long-standing, constant tinnitus that is non- bothersome. He has some balance problems related to Parkinson's. He denied otalgia, aural pressure, and drainage today. HEALTH HISTORY: Concerns reported today by : Hearing loss, both ears: gradual. Tinnitus, both ears: constant, non-bothersome. Onset date: service-related. denied dizziness, otalgia, aural fullness, and drainage. [place]'s reported hearing concerns: One-on-one conversations, Restaurants/Background noise, Group situations PROCEDURES: AUDIOMETRICS: Air conduction, Bone conduction, Speech testing Transducer: Circumaural headphones Reliability: Good RIGHT EAR (Hz) 250 933 276 2484 1500 2000 3000 4000 6000 8000 Air: see Audiogram display under Tools->Audiology->ROES or see MAGUE database. Bone: see Audiogram display under Tools->Audiology->ROES or see MAGUE database. LEFT EAR (Hz) 250 678 672 8760 1500 2000 3000 4000 6000 8000 Air: see Audiogram display under Tools->Audiology->ROES or see MAGUE database. Bone: see Audiogram display under Tools->Audiology->ROES or see MAGUE database. - All thresholds are in dB HL * = Masked Threshold OTOSCOPY: Both: minimal, non-occluding cerumen and normal appearing tympanic membranes following successful cerumen removal by nurse. TYMPANOMETRY: RIGHT EAR: Type A Pressure: Normal Compliance: Normal Volume: Normal LEFT EAR: Type A Pressure: Normal Compliance: Normal Volume: Normal SPEECH RECOGNITION THRESHOLD (SRT): Spondees Right: 15 dB HL Left: 20 dB HL Pure tone results were consistent with speech reception specialist thresholds when Fletchers LEAN SENSEI was utilized. WORD RECOGNITION: /-22 word list Right Ear: 100% Level: 75* dB Left Ear: 88% Level: 75* dB SUMMARY: Hearing is largely stable when compared to the previous evaluation completed on 01/13/2015, with the exception of 1500 Hz which has decreased 25 dB for the left ear. RIGHT EAR: Hearing within normal limits through 1000 Hz, sloping to a mild to severe sensorineural hearing loss. Word recognition ability rated as normal. Type A tympanogram consistent with normal tympanic membrane mobility. LEFT EAR: Hearing within normal limits through 1000 Hz, sloping to a mild to severe sensorineural hearing loss. Word recognition ability rated as mildly impaired. Type A tympanogram consistent with normal tympanic membrane mobility. AMPLIFICATION: - remains a good candidate for hearing aid use. - [place] was counseled on their type, degree and configuration of hearing loss. - Different styles/technologies were reviewed with consideration given to 's listening situations and lifestyle needs. - The [place] has good vision and memory for hearing aid use. We discussed ordering custom style aids with extended electro mechanical engineer tubing for ease of use, cleaning, and charging. - Bilateral ear impressions were taken. Otoscopy was normal post ear mold impression procedure, bilaterally. - Hearing aids ordered: [employer] Evolv AI HS R (color: pink, extended electro mechanical engineer tubing). utilizes an iPhone and is interested in Bluetooth connectivity. STANDARD CURRICULUM OF COUNSELING: - counseled using a standard curriculum on effective communication strategies such as maintaining face to face contact when speaking, eliminating background noise when possible, and talking at a close distance. - [place] counseled using a standard curriculum on tinnitus, its physiologic basis, potential triggers, and treatment options/management strategies such as using a fan at night, avoiding silence, and trying to habituate to the sound. - [place] counseled using a standard curriculum on hearing protection in noise. PLAN: - [place] will be scheduled for a 60-minute hearing aid fitting appointment. - is in agreement with this plan. I have seen and discussed the patient with my supervising practitioner, Dr. Valero, and they agree with my assessment and plan. /kera/ RAMIRO ZHU AUDIOLOGY RUBBER GOODS TESTER Signed: 12/15/2022 09:32 /kera/ JUANA LOBO, RU-A DIRECTOR, HEARING IMPLANT PROGRAM Cosigned: 12/15/2022 13:19 12/15/2022 ADDENDUM STATUS: COMPLETED [place] with bilateral sensorineural loss and tinnitus was seen for cerumen removal, a comprehensive audiologic evaluation, immittance testing and hearing aid evaluation. Results showed normal sloping to severe sensorineural hearing loss bilaterally and normal immittance testing. Cerumen was removed by nursing staff prior to evaluation. Hearing aid evaluation was performed and new aids were ordered. I am the provider for this encounter and participated in the evaluation of this patient. I confirmed the gonzalez elements of the history and physical examination. Diagnosis and plan reflect my discussions and input. Pt was seen for a 60-minute appointment. /kera/ JUANA LOBO, RU-A DIRECTOR, HEARING IMPLANT PROGRAM Signed: 12/15/2022 13:21 RAMIRO ZHU [facility]
--- OUTSIDE RECORDS SUMMARY | 2023-08-25 16:14 | XMS_ITS | Encounter Summary ---
Author Name Department of Vetera Affairs Organization Department of Vetera ns Affairs Address [address] [place] [address] Support Name Relationship Address Phone YOKO MCMILLANE Next of Kin [address] [address] YOKO MCMILLANE Emergency Contact [address] [address] Insurance Providers: All historical [...] Lopez's Name Patient's Relationship to Policy Lopez [facility] ([facility]) MEDICARE ADVANTAGE [facility] ([facility]) Nov 13, 2020 [id number] Edwin MCMILLAN PATIENT [employer] [facility] (WNR) MEDICARE ADVANTAGE [facility] ([facility]) Aug 15, 2013 [id number] Edwin MCMILLAN PATIENT MEDICARE (WNR) MEDICARE (M) PART A Sep 15, 2010 PART A [id number] Edwin MCMILLAN PATIENT MEDICARE (WNR) MEDICARE (M) PART B Sep 15, 2010 PART B [id number] Edwin MCMILLAN PATIENT Selected Encounter This section includes the information on record at [place] for the Encounter. Date/Time Encounter Type Encounter Description Reason Provider Source Sep 24, 2022 04:48 AM Outpatient Encounter COMMUNITY CARE CONSULT BECKY VELASQUEZ Encounter Template Text not used by [place] Plan of Treatment: Future Appointments (+ 6 months) and Future Tests (+/- 45 days) The Plan of Treatment section includes future care activities for the patient from all [place] [facility]. This section includes future appointments and future orders which are active, pending or scheduled. Future Appointments This section includes appointments that were scheduled to occur 6 months from the date of the Encounter, up to a maximum of 20 appointments. The data comes from all [facility]. Appointment Date/Time Appointment Type Appointme nt Facility Name Nov 23, 2022 10:00 AM AMBULATORY - REHAB MEDICIN E [facility] December 14, 2022 12:30 PM AMBULATORY - SURGERY [facility] December 23, 2022 10:20 AM AMBULATORY - SURGERY [facility] Jan 20, 2023 11:00 AM AMBULATORY - SURGERY [facility] Jan 21, 2023 10:00 AM AMBULATORY - MEDICINE [facility] Feb 01, 2023 10:00 AM AMBULATORY - REHAB MEDICIN E [facility] Feb 08, 2023 02:30 PM AMBULATORY - SURGERY [facility] Feb 17, 2023 02:30 PM AMBULATORY - SURGERY [facility] Social History: Smoking Status (Most current) and Tobacco Use (All prior to encounter date) This section includes the most current, and the historical, smoking and tobacco- related health factors from the [place] facility where the Encounter took place. Current Smoking Status This section includes the most current smoking, or tobacco-related health factor, from the [place] facility where the Encounter took place. Date/Time Current Smoking Status Comment Facil ity Jan 21, 2022 10:50 AM VA-TOBACCO FORMER USER [facility] Tobacco Use History This section includes a history of the smoking, or tobacco-related health factors, that were collected on or before the date of the Encounter. The data comes from the [place] facility where the Encounter took place. Date/Time Smoking Status/Tobacco Use Comment F acility Jan 21, 2022 10:50 AM [place]-TOBACCO QUIT 15 YRS OR MORE [facility] Feb 06, 2019 02:30 PM INPT NO TOBACCO USE IN LAST 30 D AYS [facility] Encounter Notes: All associated encounter notes This section contains the clinical notes associated to the Encounter. Date/Time Encounter Note(s) Provider Source Sep 24, 2022 04:48 AM GERIATRIC MEDICINE NOTE: LOCAL TITLE: PERSONAL CARE SERVICES CASE MIX TOOL STANDARD TITLE: GERIATRIC MEDICINE NOTE DATE OF NOTE: SEP 24, 2022@04:48:57 ENTRY DATE: SEP 24, 2022@04:48:57 AUTHOR: PAWAN VELASQUEZ EXP COSIGNER: URGENCY: STATUS: COMPLETED HCBS Case Mix & Budget Tool (CASE MIX) Date Given: 09/24/2022 Clinician: Pawan Velasquez Location: [facility] [place]: Curt Mcmillan SSN: [id number] : [birth year] ([birth year]) Gender: Male Type of Evaluation: Initial Anticipated Start Date: 09/21/2022 Anticipated Length of Service: 12 months Case Mix Level: A ADL Category: Low Questions and Answers: Q1. DRESSING 1 Need and get minimal supervision or reminding. Q2. GROOMING 1 Need and get supervision or reminding or grooming activities. Q3. BATHING 3 Need and get help getting in and out of the tub. Q4. EATING *2 Need and get help in cutting food, buttering bread or arranging food. Q5. BED MOBILITY 1 Need and get help sometimes to sit up. Q6. TRANSFERRING 1 Need somebody to be there to guide you but can move in and out of a bed or chair. Q7. WALKING *2 Need and get help from one person to help you walk. Q8. BEHAVIOR 1 Occasional staff intervention / anxious, irritable, lethargic, demanding / responds to cues. Q9. COMMUNICATION 1 Usually Understood. Q10. TOILETING *1 Need some help to get to and on the toilet but don't have accidents. Q11. MDS HC 2.0/CPS Cognitive Skill for Daily Decision Making 1 Modified [place] - some difficulty in new situations only. Q12. MDS 2.0/CPS: Short Term Memory (recall of what was learned or known) 0 Short-term memory okay- seems/appears to recall after 5 minutes Q13. SPECIAL TREATMENTS 0 No [place] Q14. CLINICAL MONITORING 0 Less than once a day Q15. SPECIAL NURSING No Q16. NEUROMUSCULAR DIAGNOSIS Yes COMMENTS 76 y.o. Vet with hx Parkinson's disease, hearing loss, BOWEN, Depression, and HLD affecting ability to complete ADLs/IADLs SOURCES 2. Informant, 3. Medical Record /es/ PAWAN VELASQUEZ RN COMMUNITY SHRIMP TRAWLER CAPTAIN Signed: 09/24/2022 04:49 PAWAN VELASQUEZ [facility]
--- OUTSIDE RECORDS SUMMARY | 2023-08-25 16:14 | XMS_ITS | Encounter Summary ---
Author Name [employer] Organization [facility] [employer] Address [address] [place] [address] Support Name Relationship Address Phone ANANT, JAIRO Next of Kin [address] [place] [address] ANANT, JAIRO Emergency Contact [phone] [address] Insurance Providers: All historical [...] to Policy Lopez [facility] ([facility]) MEDICARE ADVANTAGE [facility] ([facility]) Nov 13, 2020 [id number] [phone] [place] PATIENT [facility] ([facility]) MEDICARE ADVANTAGE [facility] ([facility]) Aug 15, 2013 [id number] [phone] [place] PAT[place] MEDICARE ([facility]) MEDICARE (M) PART A Sep 15, 2010 PART A [id number] [phone] [place] ([facility]) MEDICARE (M) PART B Sep 15, 2010 PART B [id number] [phone] [place] PAT[place] Selected Encounter This section includes the information on record at [place] for the Encounter. Date/Time Encounter Type Encounter Description Reason Provider Source Jan 21, 2023 10:00 AM Outpatient Encounter PRIMARY CARE/MEDICINE ICD-10-CM Z00.00 Encntr for general adult medical exam w/o abnormal findings CHINTALPURI,SH ASHWITA Ab Encounter Template Text not used by [place] Assessments - Encounter Diagnoses This section includes the primary and secondary diagnoses documented for the Encounter. Date/Time Primary/Secondary Diagnosis Diagnosis Name Provider Source Jan 21, 2023 10:17 AM PRIMARY Encntr for general adult medical exam w/o abnormal findings [facility] Jan 21, 2023 10:17 AM SECONDARY Contact with and exposure to other hazardous substances [facility] Jan 21, 2023 10:17 AM SECONDARY Parkinson's disease [facility] Plan of Treatment: Future Appointments (+ 6 months) and Future Tests (+/- 45 days) The Plan of Treatment section includes future care activities for the patient [facility] This section includes future appointments and future orders which are active, pending or scheduled. Future Appointments This section includes appointments that were scheduled to occur 6 months from the date of the Encounter, up to a maximum of 20 appointments. The data comes from all [facility]. Appointment Date/Time Appointment Type Appointme nt Facility Name Feb 01, 2023 10:00 AM AMBULATORY - REHAB MEDICIN [facility] Feb 08, 2023 02:30 PM AMBULATORY - SURGERY [facility] Feb 17, 2023 02:30 PM AMBULATORY - SURGERY [facility] Apr 05, 2023 10:30 AM AMBULATORY - NEUROLOGY [facility] Apr 20, 2023 05:00 PM AMBULATORY - REHAB MEDICIN [facility] Apr 27, 2023 09:00 AM AMBULATORY - REHAB MEDICIN [facility] May 13, 2023 08:45 AM AMBULATORY - SURGERY [facility] Jul 15, 2023 01:42 PM AMBULATORY - MEDICINE [facility] Vital Signs: All taken on the encounter date This section contains inpatient and outpatient Vital Signs collected on the date of the Encounter. Date/Time Temperature Pulse Blood Pressure Respiratory Rate SP02 Pain Height Weight Body Mass Index Source Jan 21, 2023 09:59 AM 97.5 F 58 /min 128/66 mm[Hg] 18 /min 96 % 0 66 in 180 lb 29 [facility] Social History: Smoking Status (Most current) and Tobacco Use (All prior to encounter date) This section includes the most current, and the historical, smoking and tobacco- related health factors from the [place] facility where the Encounter took place. Current Smoking Status This section includes the most current smoking, or tobacco-related health factor, from the [place] facility where the Encounter took place. Date/Time Current Smoking Status Comment Facil ity Jan 22, 2021 01:30 PM VA-TOBACCO FORMER USER [facility] Tobacco Use History This section includes a history of the smoking, or tobacco-related health factors, that were collected on or before the date of the Encounter. The data comes from the [place] facility where the Encounter took place. Date/Time Smoking Status/Tobacco Use Comment F acility Jan 22, 2021 01:30 PM VA-TOBACCO QUIT 5 TO < 15 YRS [facility] Nov 01, 2019 03:07 PM VA-TOBACCO FORMER USER [facility] Nov 01, 2019 03:07 PM VA-TOBACCO QUIT 5 TO < 15 YRS [facility] Oct 26, 2018 01:15 PM VA-TOBACCO FORMER USER [facility] Oct 26, 2018 01:15 PM VA-TOBACCO QUIT 5 TO < 15 YRS [facility] Nov 03, 2017 04:16 PM FORMER TOBACCO USER 7Y OR GREATE R [facility] Sep 16, 2016 01:15 PM FORMER TOBACCO USER 7Y OR GREATE R [facility] May 08, 2015 10:43 AM FORMER TOBACCO USER 7Y OR GREATE R [facility] Jun 07, 2013 01:56 PM FORMER TOBACCO USE >1Y <7Y [facility] Feb 23, 2012 12:33 PM FORMER TOBACCO USE >1Y <7Y [facility] Encounter Notes: All associated encounter notes This section contains the clinical notes associated to the Encounter. 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 Chief complaint: The patient is a 77 year old MALE here for Wellness and preventive medicine visit. History of Present Illness: Patient presents for an annual exam. He is here with his son. History of Parkinson's disease and is followed by neurology at the [place] and last seen by neurology on 11/23/2022. He has a history of hyperlipidemia but does not take any medications. Check lipid panel today. Review of Systems: Denies chest pain, shortness of breath, recent significant weight changes, rash, bowel or bladder changes, new joint pain or swelling, headaches, lightheadedness, vision changes, new numbness or tingling or weakness. Remainder of the ROS is negative, except as above. Past Medical History Active problems - Computerized Problem List is the source for the followin. Elevated blood pressure (SNOMED CT 66255492) 2. Hearing loss * 3. Tinnitus * 4. Hyperglycemia * 5. Parkinson disease (SNOMED CT 16939628) 6. General Anxiety Disorder 7. Depression (SNOMED CT 56864500) 8. Hyperlipidemia 9. Erectile dysfunction 10. Tremor [...] No FH of DM - Father: of [place] - Mother: HDL - Brother: of childhood leukemia - Brother: of skin cancer related to exposure - Brother: of bone marrow cancer related to exposure Service: Service Branch Service # Entered Discharge [facility] [id number] [birth year] HONORABLE Allergies: PENTOTHAL (May 15, 2009) Physical Exam: Vitals: BP: 128/66 (01/21/2023 09:59) P: 58 (01/21/2023 09:59) R: 18 (01/21/2023 09:59) T: 97.5 F [36.4 C] (01/21/2023 09:59) WT: 180 lb [81.65 kg] (01/21/2023 09:59) BMI: 29.1 Pain: 0 (01/21/2023 09:59) O2 Sat: 96% (01/21/2023 09:59) General: Alert, well dressed and groomed, no apparent distress HEENT: Normocephalic, atraumatic, ear canals clear, TMs normal, OP clear, neck supple without mass, adenopathy or thyromegaly Lungs: Clear; no wheezes, rhonchi or rales CV: RRR without murmur, rub or gallop GI: Abdomen non distended, soft, non tender, normal bowel sounds, no mass or HSM Skin: Warm and moist, no rash or erythema MS: No joint swelling, ambulates without difficulty Psych: Good eye contact, speech normal rate and rhythm, affect full range Assessment/Plan: Wellness/screening visit completed. Immunizations up-to-date. Medications reviewed. Labs deferred by vet. If all is well we can see back in a year. Parkinson's disease: Following [place] neurology, taking carbidopa levodopa. [place] understands and agrees to the plan. Follow up as discussed. Sooner if questions or concerns. Medication Reconciliation: Education Evaluations *Was medication education provided for NEW medications or CHANGES to medications? (including medication name, dose, route, reason for use, and potential side effects). No new medications or medication changes during this encounter. TERATOGENIC MED & CONTRACEPTION REVIEW (Optional)... ===== MEDICATION RECONCILIATION ===== Review Done: The medication list shown below was verified for accuracy and it includes all pending medications/active medications/all medications or discontinued within the last 90 days/all remote medications and non-VA medications. If a given category (i.e. remote meds) is not shown, that means that a patient doesn't have a medication(s) in that category. Allergies listed below were also reviewed/updated for accuracy. Allergies/ADR from [facility] may not display in CPRS. Use JLV MRT5 - Allergies/ADRs FACILITY ALLERGY/ADR -------- No Remote Allergy/ADR Data available for this patient [facility] PENTOTHAL Active and Recently Outpatient Medications (including Supplies): Issue Date Status Last Fill Active Outpatient Medications Refills Expiration 1) ASPIRIN 81MG EC TAB Qty: 120 for 90 ACTIVE Issu:01-22-22 days Sig: TAKE ONE TABLET BY MOUTH Refills: 0 Last:12-12-22 EVERY DAY TO PREVENT STROKE AND HEART Expr:01-23-23 ATTACK DO NOT CHEW 2) CARBIDOPA 25/LEVODOPA 100MG TAB Qty: ACTIVE Issu:08-03-22 1620 for 90 days Sig: TAKE 1-2 Refills: 2 Last:10-24-22 TABLETS BY MOUTH 10 TIMES EVERY DAY Expr:08-04-23 FOR PARKINSON DISEASE 3) CHOLECALCIF 25MCG (D3-1,000UNIT) TAB ACTIVE Issu:01-22-22 Qty: 200 for 90 days Sig: TAKE TWO Refills: 3 Last:01-25-22 TABLETS BY MOUTH EVERY DAY Expr:01-23-23 4) HYDROPHILIC (EQV AQUAPHOR) TOP OINT ACTIVE Issu:01-22-22 Qty: 454 for 30 days Sig: APPLY Refills: 11 Last:01-25-22 MODERATE AMOUNT TOPICALLY TWICE A DAY Expr:01-23-23 TO AFFECTED AREAS FOR DRY SKIN 5) RASAGILINE MESYLATE 1MG TAB Qty: 30 for ACTIVE Issu:11-23-22 30 days Sig: TAKE ONE TABLET BY MOUTH Refills: 11 Last:11-26-22 EVERY DAY FOR PARKINSON DISEASE Expr:11-24-23 6) VANICREAM TOP CREAM Qty: 454 for 30 ACTIVE Issu:01-22-22 days Sig: APPLY THIN LAYER TOPICALLY Refills: 11 Last:01-25-22 EVERY DAY FOR DRY SKIN, IDEALLY WITHIN Expr:01-23-23 3 MINUTES AFTER BATH OR SHOWER. Issue Date Status Last Fill Pending Outpatient Medications Refills Expiration 1) ASPIRIN 81MG EC TAB Qty: 120 Sig: TAKE PENDING ONE TABLET BY MOUTH EVERY DAY TO Refills: 0 PREVENT STROKE AND HEART ATTACK DO NOT CHEW 2) CHOLECALCIF 25MCG (D3-1,000UNIT) TAB PENDING Qty: 200 Sig: TAKE TWO TABLETS BY Refills: 0 MOUTH EVERY DAY 3) EYELID CLEANSER,EYE SCRUB PAD Qty: 90 PENDING Sig: USE 1 PAD TOPICALLY AT BEDTIME Refills: 0 4) HYDROPHILIC (EQV AQUAPHOR) TOP OINT PENDING Qty: 454 Sig: APPLY MODERATE AMOUNT Refills: 0 TOPICALLY TWICE A DAY TO AFFECTED AREAS FOR DRY SKIN 5) VANICREAM TOP CREAM Qty: 454 Sig: PENDING APPLY THIN LAYER TOPICALLY EVERY DAY Refills: 0 FOR DRY SKIN, IDEALLY WITHIN 3 MINUTES AFTER BATH OR SHOWER. Issue Date Status Last Fill Inactive Outpatient Medications Refills Expiration 1) CARBIDOPA 25/LEVODOPA 100MG TAB Qty: DISCONTINUED Issu:06-15-22 990 for 90 days Sig: TAKE 1 TABLET BY (EDIT) Last:06-15-22 MOUTH 11 TIMES EVERY DAY Refills: 3 Expr:06-16-23 2) CARBIDOPA 25/LEVODOPA 100MG TAB Qty: DISCONTINUED Issu:06-14-22 990 for 90 days Sig: TAKE 1 TABLET BY (EDIT) Last:06-15-22 MOUTH 11X/D Refills: 3 Expr:06-15-23 3) CARBIDOPA 25/LEVODOPA 100MG TAB Qty: DISCONTINUED Issu:04-14-22 450 for 90 days Sig: TAKE 1 TABLET BY (EDIT) Last:04-15-22 MOUTH FIVE TIMES A DAY Refills: 3 Expr:04-15-23 4) CARBIDOPA 25/LEVODOPA 100MG TAB Qty: DISCONTINUED Issu:04-08-22 600 for 30 days Sig: TAKE 2 TABLETS (EDIT) Last:04-14-22 BY MOUTH 10 TIMES DAILY EVERY 2 HOURS Refills: 3 Expr:04-09-23 5) CARBIDOPA 25/LEVODOPA 100MG TAB Qty: DISCONTINUED Issu:11-18-21 600 for 30 days Sig: TAKE 2 TABLETS Refills: 0 Last:03-04-22 BY MOUTH 10 TIMES DAILY EVERY 2 HOURS Expr:11-19-22 6) CARBIDOPA 50/LEVODOPA 200MG SA TAB Qty: DISCONTINUED Issu:04-14-22 450 for 90 days Sig: TAKE 1 TABLET BY Refills: 3 Last:04-15-22 MOUTH FIVE TIMES A DAY WITH 25/100 Expr:04-15-23 TABLET 7) CARBIDOPA 50/LEVODOPA 200MG SA TAB Qty: DISCONTINUED Issu:09-29-21 180 for 90 days Sig: TAKE 1 TABLET BY (EDIT) Last:04-02-22 MOUTH TWICE A DAY Refills: 1 Expr:09-30-22 8) LIDOCAINE 5% PATCH Qty: 30 for 30 days DISCONTINUED Issu:01-22-22 Sig: APPLY 1 PATCH TOPICALLY EVERY DAY Refills: 5 Last:01-25-22 WEAR FOR 12 HOURS AND THEN REMOVE Expr:01-23-23 Start Date Active Non-VA Medications Refills Expiration 1) Non-VA FISH OIL 1000MG (500MG DHA/EPA) ACTIVE CAP SiMG MOUTH 20 Total Medications Toxic Exposure Screening Follow-Up: [place]/caregiver has health or medical concerns related to their concern of environmental exposure. Concern: Agent [place] The following connections were provided to the /caregiver: [place] [employer] ([employer]) for Benefits/claims: /es/ [facility] MD STAFF MD YODER Signed: 01/21/2023 10:23 [facility] Jan 21, 2023 10:03 AM PRIMARY CARE RISHABH ALFONSO NOTE: LOCAL TITLE: [facility] NURSING PROGRESS NOTE STANDARD TITLE: PRIMARY CARE NURSING NOTE DATE OF NOTE: JAN 21, 2023@10:03 ENTRY DATE: JAN 21, 2023@10:03:54 AUTHOR: CLARA MONTIEL EXP COSIGNER: URGENCY: STATUS: COMPLETED TYPE OF VISIT: Appointment Check In Type of appointment: In-person appointment REASON FOR VISIT: Annual ALLERGIES: PENTOTHAL (May 15, 2009) VITAL SIGNS: Blood Pressure: 128/66 (01/21/2023 09:59) Pulse: 58 (01/21/2023 09:59) Respiration: 18 (01/21/2023 09:59) Temperature: 97.5 F [36.4 C] (01/21/2023 09:59) Weight: 180 lb [81.65 kg] (01/21/2023 09:59) Height: 66 in [167.6 cm] (01/21/2023 09:59) BMI: 29.1 O2 Sat: 96% (01/21/2023 09:59) Pain: 0 (01/21/2023 09:59) PAIN SCREEN: Patient is not having significant pain that they wish to discuss with their provider today. MEDICATION Active Outpatient Medications (including Supplies): ASPIRIN 81MG EC TAB TAKE ONE TABLET BY MOUTH EVERY DAY TO ACTIVE PREVENT STROKE AND HEART ATTACK DO NOT CHEW CARBIDOPA 25/LEVODOPA 100MG TAB TAKE 1-2 TABLETS BY MOUTH ACTIVE 10 TIMES EVERY DAY FOR PARKINSON DISEASE CHOLECALCIF 25MCG (D3-1,000UNIT) TAB TAKE TWO TABLETS BY ACTIVE MOUTH EVERY DAY EYELID CLEANSER,EYE SCRUB PAD USE 1 PAD TOPICALLY AT PENDING BEDTIME HYDROPHILIC (EQV AQUAPHOR) TOP OINT APPLY MODERATE AMOUNT ACTIVE TOPICALLY TWICE A DAY TO AFFECTED AREAS FOR DRY SKIN LIDOCAINE 5% PATCH APPLY 1 PATCH TOPICALLY EVERY DAY ACTIVE WEAR FOR 12 HOURS AND THEN REMOVE RASAGILINE MESYLATE 1MG TAB TAKE ONE TABLET BY MOUTH EVERY ACTIVE DAY FOR PARKINSON DISEASE VANICREAM TOP CREAM APPLY THIN LAYER TOPICALLY EVERY DAY ACTIVE FOR DRY SKIN, IDEALLY WITHIN 3 MINUTES AFTER BATH OR SHOWER. Non-VA FISH OIL 1000MG (500MG DHA/EPA) CAP 1000MG MOUTH ACTIVE Over the Counter/Herbal Medications: The patient states that they take some outside medications and/or herbals. LABS Hgb A1C: HEMOGLOBIN A1C 5.3 (01/22/22) Collection DT Specimen Test Name Result Units Ref Range 01/22/2022 14:41 BLOOD HEMOGLOBIN A1C 5.3 % 4.0 - 6.0 POC HGB A1C____ SMA-7: SODIUM 137 (01/22/22) POTASSIUM 4.6 (01/22/22) CHLORIDE 103 (01/22/22) CO2 25 (01/22/22) UREA NITROGEN 17 (01/22/22) CREATININE 0.7 (01/22/22) GLUCOSE 93 (01/22/22) CREATININE 0.7 (01/22/22) CBC Panel: .NRBC: 0.2 (05/08/15) HCT: 51.1 (02/19/20) 52.6 (01/22/21) HGB: 17.0 (02/19/20) 17.3 (01/22/21) MCH: 29.0 (02/19/20) 29.0 (01/22/21) MCHC: 33.3 (02/19/20) 32.9 (01/22/21) MCV: 87.1 (02/19/20) 88.1 (01/22/21) MPV: 10.7 (02/19/20) 11.0 (01/22/21) PLT: 157 (02/19/20) 168 (01/22/21) RBC: 5.87 (02/19/20) 5.97 (01/22/21) RDW: 12.4 (02/19/20) 12.4 (01/22/21) WBC: 7.86 (02/19/20) 8.09 (01/22/21) Lipids: CHOLESTEROL 206 H (01/22/22) HDL 35 L (01/22/22) LDL CALCULATION 143 H (01/22/22) LDL Measured: TRIGLYCERIDE____ LFTs: SGOT 9 (01/22/22) SGPT 7 (01/22/22) BILIRUBIN, TOTAL 0.5 (01/22/22) ALK PHOSPHATASE 74 (01/22/22) Influenza Immunization: The patient declines to receive the recommended dose of seasonal influenza vaccine. 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
--- OUTSIDE RECORDS SUMMARY | 2023-08-25 16:14 | XMS_ITS | Encounter Summary ---
Author Name Department of Vetera Affairs Organization Department of Vetera ns Affairs Address [address] [place] [address] Support Name Relationship Address Phone ANANT, JAIRO Next of Kin [address] [address] ANANTJAIRO Emergency Contact [phone] [address] Insurance Providers: All historical [...] Patient's Relationship to Policy Lopez [facility] ([employer] [facility] [employer] [employer]) MEDICARE ADVANTAGE [facility] ([employer] [facility]) Nov 13, 2020 [id number] [place] PATIENT [employer] [facility] (WNR) MEDICARE ADVANTAGE [facility] ([employer] [facility]) Aug 15, 2013 [id number] [place] PATIENT MEDICARE (WNR) MEDICARE (M) PART B Sep 15, 2010 PART B [id number] [phone] [place] PAT[place]IC[place] ([place]) MEDICARE (M) PART A Sep 15, 2010 PART A [id number] [phone] [place] PATIENT Selected Encounter This section includes the information on record at ID for the Encounter. Date/Time Encounter Type Encounter Description Reason Provider Source Jan 20, 2023 01:48 PM Outpatient Encounter PRIMARY CARE/MEDICINE CLARA MONTIEL Encounter Template Text not used by ID Plan of Treatment: Future Appointments (+ 6 months) and Future Tests (+/- 45 days) The Plan of Treatment section includes future care activities for the patient [facility] This section includes future appointments and future orders which are active, pending or scheduled. Future Appointments This section includes appointments that were scheduled to occur 6 months from the date of the Encounter, up to a maximum of 20 appointments. The data comes from all [facility] facilities. Appointment Date/Time Appointment Type Appointme nt Facility Name Jan 21, 2023 10:00 AM AMBULATORY - MEDICINE [facility] Feb 01, 2023 10:00 AM AMBULATORY - REHAB MEDICIN E [facility] Feb 08, 2023 02:30 PM AMBULATORY - SURGERY [facility] Feb 17, 2023 02:30 PM AMBULATORY - SURGERY [facility] Apr 05, 2023 10:30 AM AMBULATORY - NEUROLOGY [facility] Apr 20, 2023 05:00 PM AMBULATORY - [facility] Apr 27, 2023 09:00 AM AMBULATORY - REHAB MEDICIN E [facility] May 13, 2023 08:45 AM AMBULATORY - SURGERY [facility] Jul 15, 2023 01:42 PM AMBULATORY - MEDICINE [facility] Social History: Smoking Status (Most current) and Tobacco Use (All prior to encounter date) This section includes the most current, and the historical, smoking and tobacco- related health factors from the ID facility where the Encounter took place. Current Smoking Status This section includes the most current smoking, or tobacco-related health factor, from the ID facility where the Encounter took place. Date/Time Current Smoking Status Comment Renetta ity Jan 20, 2023 01:48 PM VA-TOBACCO FORMER USER [facility] Tobacco Use History This section includes a history of the smoking, or tobacco-related health factors, that were collected on or before the date of the Encounter. The data comes from the ID facility where the Encounter took place. Date/Time Smoking Status/Tobacco Use Comment F acility Jan 20, 2023 01:48 PM VA-TOBACCO QUIT 15 YRS OR MORE [facility] Jan 21, 2022 10:50 AM VA-TOBACCO FORMER USER [facility] Jan 21, 2022 10:50 AM VA-TOBACCO QUIT 15 YRS OR MORE [facility] Feb 06, 2019 02:30 PM INPT NO TOBACCO USE IN LAST 30 D AYS [facility] Encounter Notes: All associated encounter notes This section contains the clinical notes associated to the Encounter. Date/Time Encounter Note(s) Provider Source Jan 20, 2023 01:48 PM PRIMARY CARE RISHABH ALFONSO NOTE: LOCAL TITLE: [facility] NURSING PROGRESS NOTE STANDARD TITLE: PRIMARY CARE NURSING NOTE DATE OF NOTE: JAN 20, 2023@13:48 ENTRY DATE: JAN 20, 2023@13:48:38 AUTHOR: CLARA MONTIEL COSIGNER: URGENCY: STATUS: COMPLETED Tobacco Use Screening: The patient is a former tobacco user. The patient quit fifteen or more years ago. Alcohol Use Screen (AUDIT-C): Alcohol Screen: SCREEN FOR ALCOHOL (AUDIT-C) An alcohol screening test (AUDIT-C) was negative (score=0). 1. How often did you have a drink containing alcohol in the past year? Never 2. How many drinks containing alcohol did you have on a typical day when you were drinking in the past year? Response not required due to responses to other questions. 3. How often did you have six or more drinks on one occasion in the past year? Response not required due to responses to other questions. Nursing Annual Screening: Fall History Screen During the past 12 months, have you had any falls? Patient reports having had 2 or more falls within the past 12 months. MEDICATIONS: Patient does not have an active prescription for one of the following medications: Antihypertensives, Antidepressants, Antipsychotics, Diuretics, or Opioid Analgesics (Contolled Substance medications used for pain). FALL RISK ADVICE: Fall Risk Advice provided. Handout entitled Fall Prevention At Home reviewed and given to patient and/or significant other. Script Talk Screen Are you able to read your prescription bottles with your glasses, magnifiers or other aids? Yes or patient not taking any prescriptions. Skin Screen Patient reports any current pressure ulcers, a history of pressure ulcers, or a wound from a medical coding technician or Patient is bed-confined or a wheelchair-user or Patient requires assistance to transfer/change position No, Skin Screen is Negative Home Abuse/Violence Screen Is your home free of abuse and violence? Yes MOVE! Program Screen Body Mass Index (BMI)= 29.5 [place]: Collection DT Specimen Test Name Result Units Ref Range 01/22/2022 14:41 BLOOD HEMOGLOBIN A1C 5.3 % 4.0 - 6.0 [place] Hgb A1C: No data available [place] Hgb A1C: No data available Point of Care Hgb A1C: POC HGB A1C____ Outpatient Nutrition Screen Body Mass Index (BMI)= 29.5 [place]: Collection DT Specimen Test Name Result Units Ref Range 01/22/2022 14:41 BLOOD HEMOGLOBIN A1C 5.3 % 4.0 - 6.0 [place] Hgb A1C: No data available [place] Hgb A1C: No data available Point of Care Hgb A1C: POC HGB A1C____ Is patient's BMI less than 18.5? No Does patient have swallowing, coughing, or chewing problems affecting oral intake? No Has patient experienced unplanned weight loss or gain greater than 10 pounds over the last 2 months? No Is patient's Hgb A1C (Glycosylated Hemoglobin) greater than 9.5? No Is patient receiving Total Parenteral Nutrition (TPN) or Tube Feedings? No Patient Health Education Screen BARRIERS/SPECIAL NEEDS: Physical limitations Hearing limitations Visual limitations PREFERRED STYLE OF LEARNING: Listening Client Assistive Service (TOREY) Screen Does the patient require assistance with outpatient visit? No COVID-19 Immunization: Refused Pfizer Bivalent COVID-19 booster Immunization: COVID-19 (Ticketbud), MRNA, LNP-S, BIVALENT, PF, 30 MCG/0.3 ML DOSE Refusal Reason: PATIENT DECISION Cancel Series and stop forecasting: Yes Patient refuses all immunization(s) in the COVID-19 group Date Documented: 01/20/23 13:57 Influenza Immunization: The patient declines to receive the recommended dose of seasonal influenza vaccine. Immunization: INFLUENZA, UNSPECIFIED FORMULATION Refusal Reason: PATIENT DECISION Cancel Series and stop forecasting: Yes Patient refuses all immunization(s) in the FLU group Date Documented: 01/20/23 13:57 Depression Screening: Perform PHQ-2 A PHQ-2 screen was performed. The score was 0 which is a negative screen for depression. Over the past two weeks, how often have you been bothered by the following problems? 1. Little interest or pleasure in doing things Not at all 2. Feeling down, depressed, or hopeless Not at all Herpes Zoster (Shingles) Vaccine: The patient declines to receive the recommended dose of zoster (shingles) vaccine. Immunization: ZOSTER RECOMBINANT Refusal Reason: PATIENT DECISION Cancel Series and stop forecasting: Yes Patient refuses all immunization(s) in the ZOSTER group Date Documented: 01/20/23 13:58 Pneumococcal Conjugate Vaccine (PCV15/PCV20): Refuses PCV vaccine Immunization: PNEUMOCOCCAL CONJUGATE, UNSPECIFIED FORMULATION Refusal Reason: PATIENT DECISION Cancel Series and stop forecasting: Yes Patient refuses all immunization(s) in the PneumoPCV group Date Documented: 01/20/23 13:58 Td / Tdap Immunization: The patient declines to receive the recommended dose of Td/Tdap vaccine. Immunization: TD(ADULT) UNSPECIFIED FORMULATION Refusal Reason: PATIENT DECISION Cancel Series and stop forecasting: Yes Patient refuses all immunization(s) in the Td group Date Documented: 01/20/23 13:58 /kera/ CLARA MONTIEL LPN INFORMATION ASSURANCE MANAGER Signed: 01/20/2023 13:59 CLARA MONTIEL [facility]
--- OUTSIDE RECORDS SUMMARY | 2023-08-25 16:14 | XMS_ITS | Encounter Summary ---
Author Name Department of Vetera Affairs Organization Department of Vetera ns Affairs Address [address] [place] [address] Support Name Relationship Address Phone ANANT JAIRO Next of Kin [address] [address] ANANTJAIRO Emergency Contact [address] [address] Insurance Providers: All historical [...] Lopez's Name Patient's Relationship to Policy Lopez [facility] ([facility]) MEDICARE ADVANTAGE [facility] ([facility]) Nov 13, 2020 [id number] [place] [facility] [facility] MEDICARE ADVANTAGE [facility] ([facility]) Aug 15, 2013 [id number] [place] PATIENT MEDICARE ([facility]) MEDICARE (M) PART A Sep 15, 2010 PART A [id number] [phone] [place] PATIENT MEDICARE ([facility]) MEDICARE (M) PART B Sep 15, 2010 PART B [id number] [phone] [place] PATIENT Selected Encounter This section includes the information on record at RI for the Encounter. Date/Time Encounter Type Encounter Description Reason Provider Source Jan 20, 2023 11:00 AM OFFICE O/P NEW MOD 45-59 MIN OPTOMETRY ICD-10-CM H25.13 Age-related nuclear cataract, bilateral QUENTIN ABEL E Encounter Template Text not used by RI Assessments - Encounter Diagnoses This section includes the primary and secondary diagnoses documented for the Encounter. Date/Time Primary/Secondary Diagnosis Diagnosis Name Provider Source Jan 20, 2023 11:59 AM PRIMARY Age-related nuclear cataract, bilateral QUENTIN ABEL [facility] Jan 20, 2023 11:59 AM SECONDARY Anatomical narrow angle, bilateral QUENTIN ABEL [facility] Jan 20, 2023 11:59 AM SECONDARY Dry eye syndrome of bilateral lacrimal glands QUENTIN ABEL [facility] Jan 20, 2023 11:59 AM SECONDARY Hypermetropia, bilateral QUENTIN ABEL [facility] Jan 20, 2023 11:59 AM SECONDARY Ocular hypertension, bilateral QUENTIN ABEL [facility] Jan 20, 2023 11:59 AM SECONDARY Parkinson's disease QUENTIN ABEL [facility] Jan 20, 2023 11:59 AM SECONDARY Presbyopia QUENTIN ABEL [facility] Plan of Treatment: Future Appointments (+ 6 months) and Future Tests (+/- 45 days) The Plan of Treatment section includes future care activities for the patient from all [facility]. This section includes future appointments and future orders which are active, pending or scheduled. Future Appointments This section includes appointments that were scheduled to occur 6 months from the date of the Encounter, up to a maximum of 20 appointments. The data comes from all [place] treatment facilities. Appointment Date/Time Appointment Type Appointme nt Facility Name Jan 21, 2023 10:00 AM AMBULATORY - MEDICINE [facility] Feb 01, 2023 10:00 AM AMBULATORY - RE[facility]AB [facility]ICIN E [facility] Feb 08, 2023 02:30 PM AMBULATORY - SURGERY [facility] Feb 17, 2023 02:30 PM AMBULATORY - SURGERY [facility] Apr 05, 2023 10:30 AM AMBULATORY - NEUROLOGY [facility] Apr 20, 2023 05:00 PM AMBULATORY - REHAB MEDICIN E [facility] Apr 27, 2023 09:00 AM AMBULATORY - REHAB MEDICIN [facility] May 13, 2023 08:45 AM AMBULATORY - SURGERY [facility] Jul 15, 2023 01:42 PM AMBULATORY - MEDICINE [facility] Social History: Smoking Status (Most current) and [...] 2021 01:30 PM VA-TOBACCO FORMER USER [facility] Tobacco Use History This section includes [...] Encounter Note(s) Provider Source Jan 20, 2023 11:13 AM OPHTHALMOLOGY TECH PEMA NOTE: LOCAL TITLE: AIDS NURSE NOTE STANDARD TITLE: AIDS NURSE NOTE DATE OF NOTE: JAN 20, 2023@11:13 ENTRY DATE: JAN 20, 2023@11:13:39 AUTHOR: VERA TARIQ COSIGNER: URGENCY: STATUS: COMPLETED Suicide Screen: C-SSRS Screening [place]-Suicide Severity Rating Scale (C-SSRS Screener) 1. Over the past month, have you wished you were or wished you could go to sleep and not wake up? No 2. Over the past month, have you had any actual thoughts of killing yourself? No 3. Over the past month, have you been thinking about how you might do this? Response not required due to responses to other questions. 4. Over the past month, have you had these thoughts and had some intention of acting on them? Response not required due to responses to other questions. 5. Over the past month, have you started to work out or worked out the details of how to kill yourself? Response not required due to responses to other questions. 6. If yes, at any time in the past month did you intend to carry out this plan? Response not required due to responses to other questions. 7. In your lifetime, have you ever done anything, started to do anything, or prepared to do anything to end your life (for example, collected pills, obtained a gun, gave away valuables, went to the roof but didn't jump)? No 8. If YES, was this within the past 3 months? Response not required due to responses to other questions. /kera/ VERA TARIQ, [facility] ARCHAEOLOGIST Signed: 01/20/2023 11:14 [facility] Jan 20, 2023 11:13 AM OPTOMETRY NOTE: LOCAL TITLE: OPTOMETRY CLINIC NOTE STANDARD TITLE: OPTOMETRY NOTE DATE OF NOTE: JAN 20, 2023@11:13 ENTRY DATE: JAN 20, 2023@11:13:24 AUTHOR: QUENTIN ABEL EXP COSIGNER: URGENCY: STATUS: COMPLETED Reviewed and agree with tech notes, add: CC:blur HPI:mild blur at distance and at near OU, gradual, JUNI 2019, has noticed vision is gradually worsening (+)SHEELA, unable to use ATs due to parkinsons disease denies pain, discomfort, floaters or flashes OU JUNI: 2019 POHx: SHEELA, Hx narrow angles (no LPI) FOHx: Denies Ocular Meds: ATs PRN OU PMHx: Parkinson's disease, Hyperglycemia, HLD Pt oriented and alert x 3 Mood and affect normal Near Rx: NEVER GOT OD: +5.25+0.11d323 1 IN OS: +5.50+1.76e196 1 IN Last refraction: 02/12/2019 Vision: OD:CC(with glasses) OD: 20/50-2 Pinhole:20/40-3 Vision: OS:CC(with glasses) 0S: 20/25-2 Current glasses: OD:+3.25 -0.00A621 PRISM: NO OS:+3.25 -0.38V126 PRISM: NO Add: +2.50 no [address] in rx. CT cc distance ortho Manifest Refraction/Final Srx: OD: +3.75-1.49t016 VA:20/50 (single letter) OS: +3.25 sphere VA:20/40, single letter Add:+2.50 very challenging refraction due to tremor, pt unable to stay behind phoropter, unable to keep image in focus due to tremor BIOMICROSCOPY: (OU unless specified) Adnexa/Orbit- clear Eyelids/Lashes- clear Conjuctiva- clear Sclera- white and quiet Cornea- 2+ central PEE, TBUT instant Angle- 3VH, mildly shallow but not occludable AC- D and Q Iris- clear Lens-2+NS OU, no PXF Ta/33,38 per tech my recheck:21 OD with GAT, Unable to obtain OS IOP reading did not dilate today OPHTHALMOSCOPY (OU unless specified) Cup/Disc-OD .45, OS .65, Fleeting views, Very challening due to tremor Color- no pallor Margins- distinct Vessels- normal caliber Macula- clear and flat Vitreous- clear Periphery-did not view IOP table 2014 [id number] (holding lid) 2022 (holding lids, tremor) JUSTIN SCREEN POSITIVE Assessment/Plan 1.Cataracts OU, nearing surgical level, discussed with patient, may be a good candidate for surgery due to h/o narrow angles and OHTN, will refer to ophthalmology resident clinic to better assess this 2.SHEELA OU, exacerbated by parkinson's disease, pt unable to instill ATs due to tremor, recommend pt initiates warm compresses (heating pad x 5 min BID) will also rx ocusoft lid scrubs 3.OHTN, -first diagnosed in 2013, per 2013 note angles were very narrow per gonio assessment but not closed, LPI was recommended at that time, pt declined and was lost to f/u until 2016, then lost again until today -gonio - 08/31 - TM 360, open OU, some SS OS (per Zia, Zia did not appreciate narrow angles either) -pachy:552/545, avg -denies fhx for glc -asymmtric cupping although very difficult post seg assessment due to tremor, dry anterior surface and undilated pupil -I was unable to obtain gonio again today due to tremor although I felt that angles appeared open as a 3 on roberto albright discussed findings with patient, will like for patient to f/u at [facility] [place], gonio if possible and possible dilation, doubt patient would be able to get LPI without anesthesia, may consider cataract surgery 4.Narrow angles per history, see #3 for plan 5.Parkinson's disease - Mild convergence insufficiency, per last poly note, that being said pt is doing well with glasses without prism, prefers PALs for now, monitor yearly or prn - (+) Dry eye, see #2 6.Hyperopia/Presbyopia, pt would like to update PAL (without prism), discussed that vision is limited due to dry anterior surface as well as cataracts, pt reports an understanding to this RTC: 1 month, ophthalmology resident clinic, [place], gonio Is the patient legally blind? 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 SAC = Seasonal allergic conjunctivitis SHEELA = Dry eye syndrome CI = convergence insufficiency AI = accommodative insufficiency OMD = oculomotor dysfunction XP = Exophoria XT = Exotropia EP = Esophoria ET = Esotropia VT = Vision therapy Trab = Trabeculectomy Stereo = Stereopsis SRx = Spectacle Prescription SMA = Simple myopic astigmatism SHA = Simple hyperopic astigmatism RCE = Recurrent corneal erosion Pl = [place] FTW = daytime babysitter wear EBMD = Epithelial basement membrane dystrophy CF = count fingers CVF = Confrontation visual miranda Amp = Amplitude /es/ QUENTIN ABEL AGENCY SERVICE COORDINATOR Signed: 01/20/2023 11:59 Receipt Acknowledged By: * AWAITING SIGNATURE * MEL REYES AMY GARBO MAPLESKYKOMISH CB Jan 20, 2023 10:59 AM OPHTHALMOLOGY TECH NICIAN NOTE: LOCAL TITLE: AIDS NURSE NOTE STANDARD TITLE: AIDS NURSE NOTE DATE OF NOTE: JAN 20, 2023@10:59 ENTRY DATE: JAN 20, 2023@11:00:01 AUTHOR: VERA TARIQ EXP COSIGNER: URGENCY: STATUS: COMPLETED Eye Start Exam Patient: [place] Sex: MALE SSN: [id number] Birthdate: [birth year] Full Exam states that vision had worsened over the past six months in the distance & at near. Also c/o waking up with dry eyes. Does not use drops because of difficulty w/Parkinson's. Eyes are only irritated in the morning with dryness. No new floaters, flashes, pain/discomfort or diplopia. Eye Medications Patient denies eye medication use. Allergies: PENTOTHAL (May 15, 2009) CPRS allergy posting has been updated to include new allergies. No new Allergies. Past Medical History: Other: Parkinson's disease Past eye history: Cataracts : OU Other: narrow angles OU Past eye surgeries: Denies all Social History: Alcohol use - No Tobacco use - No Family History: Denies Last refraction: 02/12/2019 Vision: OD:CC(with glasses) OD: 20/50-2 Pinhole:20/40-3 Vision: OS:CC(with glasses) 0S: 20/25-2 Current glasses: OD:+3.25 -0.84M734 PRISM: NO OS:+3.25 -0.32X353 PRISM: NO Add: +2.50 no prism in rx. Confrontational Miranda: Full to finger counting: Right: Yes Left: Yes Extra Ocular Movement: Normal Pupils: Right: Round Left: Round Size: Right: 3 Left: 3 React to light: Right: Yes Left: Yes Afferent pupil defect: Right:No Left: No Intra-ocular pressure (IOP): OD: 22 & 23 repeated OS: 33 & 38 repeated Tonometry /es/ VERA TARIQ [facility] HEALTH ARCHAEOLOGIST Signed: 01/20/2023 11:13 [facility]
--- OUTSIDE RECORDS SUMMARY | 2023-08-25 16:14 | XMS_ITS | Encounter Summary ---
Author Name Department of Vetera ns Affairs Organization Department of Vetera ns Affairs Address [address] [place] [address] Support Name Relationship Address Phone YOKO NYE Next of Kin [address] [address] YOKO NYE Emergency Contact [phone] [address] Insurance Providers: All historical and [...] Patient's Relationship to Policy Lopez [facility] ([facility]) MEDICARE ADVANTAGE [facility] ([facility]) Nov 13, 2020 [id number] Edwin [place] PATIENT [facility] ([facility]) MEDICARE ADVANTAGE [facility] ([facility]) Aug 15, 2013 [id number] [phone] [place] PATIENT MEDICARE ([facility]) MEDICARE (M) PART A Sep 15, 2010 PART A [id number] [phone] Edwin [place] PATIENT MEDICARE ([facility]) MEDICARE (M) PART B Sep 15, 2010 PART B [id number] [phone] [place] PAT[place] Selected Encounter This section includes the information on record at [place] for the Encounter. Date/Time Encounter Type Encounter Description Reason Provider Source Sep 10, 2022 05:30 PM HC PRO PHONE CALL 5-10 MIN TELEPHONE/NEUROLOG Y ICD-10-CM G20 Parkinson's disease CEDRIC VILLANUEVA Encounter Template Text not used by [place] Assessments - Encounter Diagnoses This section includes the primary and secondary diagnoses documented for the Encounter. Date/Time Primary/Secondary Diagnosis Diagnosis Name Provider Source Sep 10, 2022 05:30 PM PRIMARY Parkinson's disease CEDRIC VILLANUEVA [facility] Plan of Treatment: Future Appointments (+ 6 months) and Future Tests (+/- 45 days) The Plan of Treatment section includes future care activities for the patient from all [place] [facility]. This section includes future appointments and future orders which are active, pending or scheduled. Future Appointments This section includes appointments that were scheduled to occur 6 months from the date of the Encounter, up to a maximum of 20 appointments. The data comes from all [place] treatment facilities. Appointment Date/Time Appointment Type Appointme nt Facility Name Sep 21, 2022 08:00 AM AMBULATORY - NONE [facility] Nov 23, 2022 10:00 AM AMBULATORY - REHAB [facility]ICIN [facility] December 14, 2022 12:30 PM AMBULATORY - SURGERY [facility] December 23, 2022 10:20 AM AMBULATORY - SURGERY [facility] Jan 20, 2023 11:00 AM AMBULATORY - SURGERY [facility] Jan 21, 2023 10:00 AM AMBULATORY - MEDICINE [facility] Feb 01, 2023 10:00 AM AMBULATORY - REHAB MEDICIN E [facility] Feb 08, 2023 02:30 PM AMBULATORY - SURGERY [facility] Feb 17, 2023 02:30 PM AMBULATORY - SURGERY [facility] Social History: Smoking Status (Most current) and Tobacco Use (All prior to encounter date) This section includes the most current, and the historical, smoking and tobacco- related health factors from the [place] facility where the Encounter took place. Current Smoking Status This section includes the most current smoking, or tobacco-related health factor, from the [place] facility where the Encounter took place. Date/Time Current Smoking Status Comment Renetta giles Jan 21, 2022 10:50 AM VA-TOBACCO FORMER USER [facility] Tobacco Use History This section includes a history of the smoking, or tobacco-related health factors, that were collected on or before the date of the Encounter. The data comes from the [place] facility where the Encounter took place. Date/Time Smoking Status/Tobacco Use Comment Herrera hopkins Jan 21, 2022 10:50 AM VA-TOBACCO QUIT 15 YRS OR MORE [facility] Feb 06, 2019 02:30 PM INPT NO TOBACCO USE IN LAST 30 D AYS [facility] Encounter Notes: All associated encounter notes This section contains the clinical notes associated to the Encounter. Date/Time Encounter Note(s) Provider Source Sep 10, 2022 05:30 PM REPORT OF CONTACT: LOCAL TITLE: PATIENT CONTACT NOTE STANDARD TITLE: REPORT OF CONTACT DATE OF NOTE: SEP 10, 2022@17:30 ENTRY DATE: SEP 10, 2022@17:30:20 AUTHOR: CEDRIC VILLANUEVA EXP COSIGNER: URGENCY: STATUS: COMPLETED Patient contact Name of [place]: [place] Name/Relationship of Contact if other than : Date & Time of Contact: Aug@17:30 Type of Contact: Reason for Contact: Returned call to patient who verbalized frustration about cleaning services covered by the [place]. He stated that Dr. North ordered the services and he has not had someone out to his home to clean in 2 months. Referenced earlier discussion he had with [facility] and he remembered that conversation. Reinforced that appropriate person was alerted to his frustration and was asked to call him back. Patient verbalized appreciation of clarification. /kera/ CEDRIC FUNEZ) RNC REGISTERED NURSE, CERTIFIED Signed: 09/10/2022 17:37 CEDRIC VILLANUEVA [facility]
--- OUTSIDE RECORDS SUMMARY | 2023-08-25 16:15 | XMS_ITS | Encounter Summary ---
Author Name Department of Vetera Affairs Organization Department of Vetera ns Affairs Address [address] [place] [address] Support Name Relationship Address Phone YOKO NYE Next of Kin [address] [address] YOKO NYE Emergency Contact [phone] [address] [place] [address] Insurance Providers: All historical [...] Lopez's Name Patient's Relationship to Policy Lopez [facility] ([facility]) MEDICARE ADVANTAGE [facility] ([facility]) Nov 13, 2020 [id number] [place] [facility]IENT [facility] (WNR) MEDICARE ADVANTAGE [facility] ([facility]) Aug 15, 2013 [id number] [place] PATIENT MED[place] ([place]) MEDICARE (M) PART A Sep 15, 2010 PART A [id number] [phone] [place]) MEDICARE (M) PART B Sep 15, 2010 PART B [id number] [phone] [place] PATIENT Selected Encounter This section includes the information on record at [place] for the Encounter. Date/Time Encounter Type Encounter Description Reason Provider Source Aug 03, 2023 09:28 AM Outpatient Encounter COMMUNITY CARE CONSULT JUDY COLEMAN Encounter Template Text not used by [place] Plan of Treatment: Future Appointments (+ 6 months) and Future Tests (+/- 45 days) The Plan of Treatment section includes future care activities for the patient from all [place] [facility]. This section includes future appointments and future orders which are active, pending or scheduled. Future Appointments This section includes appointments that were scheduled to occur 6 months from the date of the Encounter, up to a maximum of 20 appointments. The data comes from all [facility]. Appointment Date/Time Appointment Type Appointme nt Facility Name Aug 04, 2023 02:00 PM AMBULATORY - [facility] Aug 10, 2023 09:00 AM AM[facility]ORY - NONE [facility] Aug 23, 2023 05:00 PM [facility] Sep 06, 2023 12:00 PM AMBULATORY - REHAB MEDICIN E [facility] Active, Pending, and Scheduled Orders This section includes a listing of several types of active, pending, and scheduled orders, including clinic medications orders, diagnostic test orders, procedure orders and consult orders; where the start date of the order is 45 days before the date of the Encounter or 45 days after the date of theEncounter. The data comes from all [facility]. Test Date/Time Test Type Test Details Facility Name Aug 05, 2023 10:35 AM Consult Order NEUROLOGY OUTPT DBS [facility] Aug 05, 2023 10:35 AM Consult Order SOCIAL WOR K OUTPT NEUROLOGY [facility] Aug 10, 2023 03:18 PM Consult Order [facility] Cons [facility] Aug 19, 2023 12:01 PM Consult Order OT OCCUPAT IONAL THERAPY OUTPT PACT Cons [facility] Lab Results: +/- 30 days of the encounter This section includes the Chemistry and Hematology Lab Results on record with [place] for the patient. Radiology Reports and Pathology Reports are provided separately, in subsequent sections. Lab Results This section contains the Chemistry/Hematology Results that were resulted 30 days before or 30 daysafter the date of the Encounter. Date/Time Source Result Type Result - Unit Interpretation Reference Range Comment Aug 04, 2023 03:04 PM [facility] URINALYSIS Specimen Type: URINE No comment entered. Ordering Provider: CHARLIE ONOFRE Report Released Date/Time: Aug 04, 2023 03:02 PM Reporting Lab: [facility] [id number] Performing Lab: [facility] [address] URINE COLOR YELLOW SPECIFIC GRAVITY 1.031 1.003-1.035 URINE BILIRUBIN NEGATIVE NEGATIVE URINE KETONES 1+ NEGATIVE URINE GLUCOSE NEGATIVE See_Comment URINE PROTEIN 30 See_Comment URINE PH 5.5 5.0-8.0 URINE WBC/HPF 4 0-7 URINE BACTERIA NONE SEEN HYALINE CASTS 2 URINE RBC/HPF 2 0-3 APPEARANCE CLEAR SQUAMOUS EPITHELIAL <1 URINE BLOOD NEGATIVE NEGATIVE URINE NITRITE NEGATIVE NEGATIVE LEUKOCYTE ESTERASE NEGATIVE NEGATIVE Social History: Smoking Status (Most current) and [...] 20, 2023 01:48 PM VA-TOBACCO FORMER USER [facility] Tobacco Use History This section includes a history of the smoking, or tobacco-related health factors, that were collected on or before the date of the Encounter. The data comes from the [place] facility where the Encounter took place. Date/Time Smoking Status/Tobacco Use Comment F acility Jan 20, 2023 01:48 PM VA-TOBACCO QUIT 15 YRS OR MORE [facility] Jan 21, 2022 10:50 AM VA-TOBACCO FORMER USER [facility] Jan 21, 2022 10:50 AM VA-TOBACCO QUIT 15 YRS OR MORE [facility] Feb 06, 2019 02:30 PM INPT NO TOBACCO USE IN LAST 30 D AYS [facility] Pathology Reports: +/- 30 days of the encounter Pathology Reports For cases when an order for pathology services may have been completed prior to the date of the Encounter, the report list includes the Pathology Reports that were completed up to 30 days before dateof the Encounter. For cases when an order for pathology services may have been completed after the date of the Encounter, the report list also includes the Pathology Reports that were completed up to30 days after date of the Encounter. The data comes from all [place] treatment facilities. Date/Time Pathology Report Provider Source Aug 04, 2023 03:04 PM LR MICROBIOLOGY RE PORT: Reporting Lab: [facility] [CLIA# [id number]] [place] [address] Accession [UID]: [id number] [[id number]] Received: Aug 04, 2023@15:18 Collection sample: URINE Collection date: Aug 04, 2023 15:04 Provider: CHARLIE ONOFRE Comment on specimen: RECEIVED IN URINE PRESERVATIVE TUBE Test(s) ordered: CULTURE & SUSCEPTIBILITY...... completed: Aug 05, 2023 * BACTERIOLOGY FINAL REPORT => Aug 05, 2023 11:09 TECH CODE: [id number] CULTURE RESULTS: LESS THAN 10,000 CFU/ML Bacteriology Remark(s): THIS REPORT IS FINAL =--=--=--=--=--=--=--=--=--=--=--=- -=--=--=--=--=--=--=--=--=--=--=--= --=--=-- Performing Laboratory: Bacteriology Report Performed By: [facility] [CLIA# [id number]] [place] [address] [facility] Encounter Notes: All associated encounter notes This section contains the clinical notes associated to the Encounter. Date/Time Encounter Note(s) Provider Source Aug 03, 2023 09:28 AM GERIATRIC MEDICINE NOTE: LOCAL TITLE: PERSONAL CARE SERVICES CASE MIX TOOL STANDARD TITLE: GERIATRIC MEDICINE NOTE DATE OF NOTE: AUG 03, 2023@09:28:46 ENTRY DATE: AUG 03, 2023@09:28:46 AUTHOR: STEVE COLEMAN EXP COSIGNER: URGENCY: STATUS: COMPLETED HCBS Case Mix & Budget Tool (CASE MIX) Date Given: 08/03/2023 Clinician: Mony Coleman Location: [facility] : Curt Ny SSN: [id number] : [birth year] ([birth year]) Gender: Man Type of Evaluation: Change in level of care Anticipated Start Date: 08/03/2023 Anticipated Length of Service: 12 months Case Mix Level: E ADL Category: Medium Questions and Answers: Q1. DRESSING *3 Cannot dress yourself and somebody dresses you. Q2. GROOMING *3 Are completely groomed by somebody else. Q3. BATHING *5 Cannot bathe or shower, need complete help. Q4. EATING *3 Need and get some personal help with feeding or someone needs to be sure that you don't choke. Q5. BED MOBILITY 1 Need and get help sometimes to sit up. Q6. TRANSFERRING 1 Need somebody to be there to guide you but can move in and out of a bed or chair. Q7. WALKING 1 Can walk with help of a cane, walker, crutch, or push wheelchair. Q8. BEHAVIOR *2 Regular staff intervention / disorientation, hallucinates, wanders / resistive but responds. Q9. COMMUNICATION 1 Usually Understood. Q10. TOILETING *6 Wet your pants and have bowel movements in your clothes very often. Q11. MDS HC 2.0/CPS Cognitive Skill for Daily Decision Making 2 Moderately Impaired - decisions poor; cues/supervision required. Q12. MDS 2.0/CPS: Short Term Memory (recall of what was learned or known) 1 Memory problem Q13. SPECIAL TREATMENTS 0 No TX Q14. CLINICAL MONITORING 1 1-2 shifts a day Q15. SPECIAL NURSING No Q16. NEUROMUSCULAR DIAGNOSIS Yes COMMENTS Need for assistance with ADLs has increased r/t Parkinson's disease. SOURCES 2. Informant, 3. Medical Record // MONY COLEMAN [facility] Fitter Helper Signed: 08/03/2023 09:29 MONY COLEMAN [facility]
--- OUTSIDE RECORDS SUMMARY | 2023-08-25 16:15 | XMS_ITS | Encounter Summary ---
Author Name Department of Vetera Affairs Organization Department of Vetera ns Affairs Address [address] [place] [address] Support Name Relationship Address Phone ANANT, JAIRO Next of Kin [address] [address] [address] ANANT JAIRO Emergency Contact [address] [address] [address] Insurance Providers: All historical [...] Lopez's Name Patient's Relationship to Policy Lopez [facility] ([facility]) MEDICARE ADVANTAGE [facility] ([facility]) Nov 13, 2020 [id number] [place] PATIENT [employer] [facility] (WNR) MEDICARE ADVANTAGE [facility] ([facility]) Aug 15, 2013 [id number] [place] PATIENT MEDIC[place] ([place]) MEDICARE (M) PART A Sep 15, 2010 PART A [id number] [place] PATIENT [place]ARE ([place]) MEDICARE (M) PART B Sep 15, 2010 PART B [id number] [place] PATIENT Selected Encounter This section includes the information on record at [place] for the Encounter. Date/Time Encounter Type Encounter Description Reason Pro vider Source Aug 09, 2023 09:34 AM Outpatient Encounter TELEPHONE/ANCILLARY IHE Encounter Template Text not used by [place] Plan of Treatment: Future Appointments (+ 6 months) and Future Tests (+/- 45 days) The Plan of Treatment section includes future care activities for the patient from all [place] [facility] This section includes future appointments and future orders which are active, pending or scheduled. Future Appointments This section includes appointments that were scheduled to occur 6 months from the date of the Encounter, up to a maximum of 20 appointments. The data comes from all [facility]. Appointment Date/Time Appointment Type Appointme nt Facility Name Aug 10, 2023 09:00 AM AMBULATORY - NONE [facility] Aug 23, 2023 05:00 PM AMBULATORY - NONE [facility] Sep 06, 2023 12:00 PM AMBULATORY - REHAB MEDICIN E [facility] Active, Pending, and Scheduled Orders This section includes a listing of several types of active, pending, and scheduled orders, including clinic medications orders, diagnostic test orders, procedure orders and consult orders; where the start date of the order is 45 days before the date of the Encounter or 45 days after the date of theEncounter. The data comes from all [facility]. Test Date/Time Test Type Test Details Facility Name Aug 05, 2023 10:35 AM Consult Order NEUROLOGY OUTPT DBS Cons [facility] Center Operations [facility] Aug 05, 2023 10:35 AM Consult Order SOCIAL WOR K OUTPT NEUROLOGY [facility] Operations [facility] Aug 10, 2023 03:18 PM Consult Order [facility] Cons Call Center Operations Manager's Choice [facility] Aug 19, 2023 12:01 PM Consult Order OT OCCUPAT IONAL THERAPY OUTPT PACT Cons Call Center Operations Manager's Choice [facility] Lab Results: +/- 30 days of the encounter This section includes the Chemistry and Hematology Lab Results on record with [place] for the patient. Radiology Reports and Pathology Reports are provided separately, in subsequent sections. Lab Results This section contains the Chemistry/Hematology Results that were resulted 30 days before or 30 daysafter the date of the Encounter. Date/Time Source Result Type Result - Unit Interpretation Reference Range Comment Aug 04, 2023 03:04 PM [facility] URINALYSIS Specimen Type: URINE No comment entered. Ordering Provider: CHARLIE ONOFRE Report Released Date/Time: Aug 04, 2023 03:02 PM Reporting Lab: [facility] [id number] Performing Lab: [facility] [address] URINE COLOR YELLOW SPECIFIC GRAVITY 1.031 1.003-1.035 [...] and tobacco- related health factors from the [place] facility where the Encounter took place. Current Smoking Status This section includes the most current smoking, or tobacco-related health factor, from the [place] facility where the Encounter took place. Date/Time Current Smoking Status Comment Renetta ity Jan 20, 2023 01:48 PM VA-TOBACCO FORMER USER [facility] Tobacco Use History This section includes a history of the smoking, or tobacco-related health factors, that were collected on or before the date of the Encounter. The data comes from the [place] facility where the Encounter took place. Date/Time Smoking Status/Tobacco Use Comment F acility Jan 20, 2023 01:48 PM VA-TOBACCO QUIT 15 YRS OR MORE [facility] Jan 21, 2022 10:50 AM VA-TOBACCO FORMER USER [facility] Jan 21, 2022 10:50 AM VA-TOBACCO QUIT 15 YRS OR MORE [facility] Feb 06, 2019 02:30 PM INPT NO TOBACCO USE IN LAST 30 D AYS [facility] Pathology Reports: +/- 30 days of the [...] the Encounter. The data comes from all [place] treatment facilities. Date/Time Pathology Report Provider Source Aug 04, 2023 03:04 PM LR MICROBIOLOGY RE PORT: Reporting Lab: [facility] [CLIA# [id number]] [place] [address] Accession [UID]: [id number] [[id number]] Received: Aug 04, 2023@15:18 Collection sample: URINE Collection date: Aug 04, 2023 15:04 Provider: CHARLIE ONOFRE Comment on specimen: RECEIVED IN URINE PRESERVATIVE TUBE Test(s) ordered: CULTURE & SUSCEPTIBILITY...... completed: Aug 05, 2023 * BACTERIOLOGY FINAL REPORT => Aug 05, 2023 11:09 TECH CODE: [id number] CULTURE RESULTS: LESS THAN 10,000 CFU/ML Bacteriology Remark(s): THIS REPORT IS FINAL =--=--=--=--=--=--=--=--=--=--=--=- -=--=--=--=--=--=--=--=--=--=--=--= --=--=-- Performing Laboratory: Bacteriology Report Performed By: [facility] [CLIA# [id number]] [place] [address] [facility] Encounter Notes: All associated encounter notes This section contains the clinical notes associated to the Encounter. Date/Time Encounter Note(s) Provider Source Aug 09, 2023 09:34 AM COMMUNITY CARE HOME CARE NOTE: LOCAL TITLE: [facility] ELIGIBILITY STANDARD TITLE: COMMUNITY CARE HOME CARE NOTE DATE OF NOTE: AUG 09, 2023@09:34 ENTRY DATE: AUG 09, 2023@09:34:36 AUTHOR: DUKE RUSSO EXP COSIGNER: URGENCY: STATUS: COMPLETED [facility] ELIGIBILITY Has ADDENDA [facility] ELIGIBILITY: This contact note is used to document a [place]'s administrative eligibility for a VA authorization at a community residential. Referral Source/Location: [facility] ([facility]) Home: Contract Retirement: Contact: Jennifer Phone Number: Reviewed the following eligibility [facility] or [facility] Authorization: Yes If yes:70% service connected or higher If administratively eligible, meets Medicare guidelines for skilled rehab and able/willing to participate: Yes [place] has a clinical need for residential care: Yes Hospice authorization: Yes [place] would be eligible if enrolled in hospice service Referral source contact encouraged to do the following: Contact movie writer for further questions as needed. /kera/ MELVA MONTES BESSEMER REGULATOR MELVA Signed: 08/09/2023 09:36 08/09/2023 ADDENDUM STATUS: COMPLETED REceived eligiblity check from Ron Siu /kera/ MELVA MONTES BESSEMER REGULATOR [facility] Signed: 08/09/2023 12:35 DUKE RUSSO [facility]
--- OUTSIDE RECORDS SUMMARY | 2023-08-25 16:15 | XMS_ITS | Encounter Summary ---
Author Name Department of Vetera Affairs Organization Department of Vetera ns Affairs Address [address] [place] [address] Support Name Relationship Address Phone YOKO [place]E Next of Kin [address] [address] YOKO [place]E Emergency Contact [address] [address] [address] Insurance Providers: All historical [...] Lopez's Name Patient's Relationship to Policy Lopez [facility] (WNR) MEDICARE ADVANTAGE [facility] ([facility]) Nov 13, 2020 [id number] [place] PATIENT [employer] [facility] (WNR) MEDICARE ADVANTAGE [facility] (WNR) Aug 15, 2013 [id number] [place] PATIENT MEDICARE ([place]NR) MEDICARE (M) PART B Sep 15, 2010 PART B [id number] [phone] [place] PATIENT MEDICARE ([place]) MEDICARE (M) PART A Sep 15, 2010 PART A [id number] [phone] [place] PATIENT Selected Encounter This section includes the information on record at [place] for the Encounter. Date/Time Encounter Type Encounter Description Reason Provider Source Jul 15, 2023 11:57 AM Outpatient Encounter TELEPHONE TRIAGE CLEMENT DUGAN IHE Encounter Template Text not used by [place] Plan of Treatment: Future Appointments (+ 6 months) and Future Tests (+/- 45 days) The Plan of Treatment section includes future care activities for the patient from all [place] [facility] This section includes future appointments and future orders which are active, pending or scheduled. Future Appointments This section includes appointments that were scheduled to occur 6 months from the date of the Encounter, up to a maximum of 20 appointments. The data comes from all [facility]. Appointment Date/Time Appointment Type Appointme nt Facility Name Aug 01, 2023 08:00 AM AMBULATORY - NONE [facility] Aug 04, 2023 02:00 PM AMBULATORY - NEUROLOGY [facility] Aug 10, 2023 09:00 AM AMBULATORY - NONE [facility] Aug 23, 2023 05:00 PM AMBULATORY - NONE [facility] Sep 06, 2023 12:00 PM AMBULATORY - REHAB MEDICIN E [facility] Active, Pending, and Scheduled Orders This section includes a listing of several types of active, pending, and scheduled orders, including clinic medications orders, diagnostic test orders, procedure orders and consult orders; where the start date of the order is 45 days before the date of the Encounter or 45 days after the date of theEncounter. The data comes from all [facility]. Test Date/Time Test Type Test Details Facility Name Aug 05, 2023 10:35 AM Consult Order NEUROLOGY OUTPT DBS Cons [facility] Aug 05, 2023 10:35 AM Consult Order SOCIAL WOR K OUTPT NEUROLOGY Cons [facility] Aug 10, 2023 03:18 PM Consult Order [facility] Cons [facility] Aug 19, 2023 12:01 PM Consult Order OT OCCUPAT IONAL THERAPY OUTPT PACT Cons [facility] Lab Results: +/- 30 days of the encounter This section includes the Chemistry and Hematology Lab Results on record with [place] for the patient. Radiology Reports and Pathology Reports are provided separately, in subsequent sections. Lab Results This section contains the Chemistry/Hematology Results that were resulted 30 days before or 30 daysafter the date of the Encounter. Date/Time Source Result Type Result - Unit Interpretation Reference Range Comment Aug 04, 2023 03:04 PM [facility] URINALYSIS Specimen Type: URINE No comment entered. Ordering Provider: CHARLIE ONOFRE Report Released Date/Time: Aug 04, 2023 03:02 PM Reporting Lab: [facility] [id number] Performing Lab: [facility] [id number] URINE COLOR YELLOW SPECIFIC GRAVITY 1.031 1.003-1.035 URINE BILIRUBIN NEGATIVE NEGATIVE URINE KETONES 1+ NEGATIVE URINE GLUCOSE NEGATIVE See_Comment URINE PROTEIN 30 See_Comment URINE PH 5.5 5.0-8.0 URINE WBC/HPF 4 0-7 URINE BACTERIA NONE SEEN HYALINE CASTS 2 URINE RBC/HPF 2 0-3 APPEARANCE CLEAR SQUAMOUS EPITHELIAL <1 URINE BLOOD NEGATIVE NEGATIVE URINE NITRITE NEGATIVE NEGATIVE LEUKOCYTE ESTERASE NEGATIVE NEGATIVE Vital Signs: All taken on the encounter date This section contains inpatient and outpatient Vital Signs collected on the date of the Encounter. Date/Time Temperature Pulse Blood Pressure Respiratory Rate SP02 Pain Height Weight Body Mass Index Source Jul 15, 2023 02:23 PM 54 /min 98 % [facility] Jul 15, 2023 02:21 PM 98.0 F 170/84 mm[Hg] 16 /min 0 [facility] Social History: Smoking Status (Most current) and Tobacco Use (All prior to encounter date) This section includes the most current, and the historical, smoking and tobacco- related health factors from the [place] facility where the Encounter took place. Current Smoking Status This section includes the most current smoking, or tobacco-related health factor, from the [place] facility where the Encounter took place. Date/Time Current Smoking Status Comment Renetta cliney Jan 20, 2023 01:48 PM VA-TOBACCO FORMER USER [facility] Tobacco Use History This section includes a history of the smoking, or tobacco-related health factors, that were collected on or before the date of the Encounter. The data comes from the [place] facility where the Encounter took place. Date/Time Smoking Status/Tobacco Use Comment F acility Jan 20, 2023 01:48 PM VA-TOBACCO QUIT 15 YRS OR MORE [facility] Jan 21, 2022 10:50 AM VA-TOBACCO FORMER USER [facility] Jan 21, 2022 10:50 AM CO-TOBACCO QUIT 15 YRS OR MORE [facility] Feb 06, 2019 02:30 PM INPT NO TOBACCO USE IN LAST 30 D AYS [facility] Pathology Reports: +/- 30 days of [...] the Encounter. The data comes from all [place] treatment facilities. Date/Time Pathology Report Provider Source Aug 04, 2023 03:04 PM LR MICROBIOLOGY RE PORT: Reporting Lab: [facility] [CLIA# [id number]] [place] [address] Accession [UID]: [id number] [[id number]] Received: Aug 04, 2023@15:18 Collection sample: URINE Collection date: Aug 04, 2023 15:04 Provider: CHARLIE ONOFRE Comment on specimen: RECEIVED IN URINE PRESERVATIVE TUBE Test(s) ordered: CULTURE & SUSCEPTIBILITY...... completed: Aug 05, 2023 * BACTERIOLOGY FINAL REPORT => Aug 05, 2023 11:09 TECH CODE: [id number] CULTURE RESULTS: LESS THAN 10,000 CFU/ML Bacteriology Remark(s): THIS REPORT IS FINAL =--=--=--=--=--=--=--=--=--=--=--=- -=--=--=--=--=--=--=--=--=--=--=--= --=--=-- Performing Laboratory: Bacteriology Report Performed By: [facility] [CLIA# [id number]] [place] [address] [facility] Encounter Notes: All associated encounter notes This section contains the clinical notes associated to the Encounter. Date/Time Encounter Note(s) Provider Source Jul 15, 2023 11:58 AM RN PROGRESS NOTE: LOCAL TITLE: CCC: CLINICAL TRIAGE STANDARD TITLE: RN PROGRESS NOTE DATE OF NOTE: JUL 15, 2023@11:58:05 ENTRY DATE: JUL 15, 2023@11:58:05 AUTHOR: CLEMENT DUGAN COSIGNER: URGENCY: STATUS: COMPLETED Patient Demographics Patient Name: G[place]ENIA [place] Patient Primary Address: [address] [place] [place] [id number] Patient Primary Phone: [phone] Patient : 1945 Patient Age: 77 Caller/Recipient Relation to Patient: Self Emergency Contact: JAIRO [place] Triage Summary Conducted triage/discussed symptoms Pain Score: 1 Utilized the Triage Tool: Yes Chief Complaint: Shortness of Breath Nurse's Recommendation / WHEN: Now Nurse's Recommendation / WHERE: [facility] Patient Disposition Patient/Caregiver agrees to plan of care: Yes Patient is Urgent or Emergent Nursing Plan and Disposition Referred patient to higher level of care Instructed to go to Emergency Room (ER) Nurse Summary Nurse Summary: ########################### ############ NURSES NOTES PATIENT CONCERN/DURATION/ONSET: called after having severe episode of SOB. He was coughing up fluid and ''almost passed out'' from breathing too fast. He states that he has been having much worse extremity shaking from his Parkinson's for the last few months, and isn't sure if it's ''doing something'' to his breathing/throat as well. He is able to converse with the triage nurse on the phone, but becomes audibly winded with only a sentence or two. He denies any CP, dizziness, emesis at the time of the call, but is concerned because he has been having ''episodes'' more frequently, and each one is worse than the last. 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 Ayr verbalized understanding and agreement with plan of care. will have friend who is present drive him to the ER Best contact for tano is (Verified). This note was created by a [facility] cyber intel planner. Please do not alert this nurse by adding as a signer for future communications. Alerts are not monitored by this user, if further assistance needed please email . (Caller could accurately summarize the agreed upon plan of care as discussed in the education log portion of this note.) Per policy, automated recommendations for an ''appointment'' indicates an interaction (virtual or in-person) with the care team. 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
--- OUTSIDE RECORDS SUMMARY | 2023-08-25 16:15 | XMS_ITS | Encounter Summary ---
Author Name Department of Vetera ns Affairs Organization Department of Vetera ns Affairs Address [address] [place] [address] Support Name Relationship Address Phone YOKO [place]E Next of Kin [address] [address] [address] YOKO NYE Emergency Contact [address] [address] [address] Insurance Providers: All historical [...] Lopez's Name Patient's Relationship to Policy Lopez [facility] ([facility]) MEDICARE ADVANTAGE [facility] ([facility]) Nov 13, 2020 [id number] [place] PATIENT [facility] ([facility]) MEDICARE ADVANTAGE [facility] ([facility]) Aug 15, 2013 [id number] [place] PATIENT MEDICARE ([facility]) MEDICARE (M) PART A Sep 15, 2010 PART A [id number] [place] PATIENT MEDICARE ([facility]) MEDICARE (M) PART B Sep 15, 2010 PART B [id number] [place] PATIENT Selected Encounter This section includes the information on record at [place] for the Encounter. Date/Time Encounter Type Encounter Description Reason Provider Source Jul 15, 2023 12:16 PM HC PRO PHONE CALL 5-10 MIN TELEPHONE/NEUROLO GY ICD-10-CM G20.A1 Parkinson's dis w/o dyskinesia, w/o mention of fluctuations PHIDD,CEDRIC A IHE Encounter Template Text not used by [place] Assessments - Encounter Diagnoses This section includes the primary and secondary diagnoses documented for the Encounter. Date/Time Primary/Secondary Diagnosis Diagnosis Name Provider Source Jul 15, 2023 12:16 PM PRIMARY Parkinson's dis w/o dyskinesia, w/o mention of fluctuations PHIDD,CEDRIC A [facility] Plan of Treatment: Future Appointments (+ 6 months) and Future Tests (+/- 45 days) The Plan of Treatment section includes future care activities for the patient from all [place] [facility]. This section includes future appointments and future orders which are active, pending or scheduled. Future Appointments This section includes appointments that were scheduled to occur 6 months from the date of the Encounter, up to a maximum of 20 appointments. The data comes from all [facility]. Appointment Date/Time Appointment Type Appointme nt Facility Name Aug 01, 2023 08:00 AM AMBULATORY - NONE [facility] Aug 04, 2023 02:00 PM AMBULATORY - NEUROLOGY [facility] Aug 10, 2023 09:00 AM AMBULATORY - NONE [facility] Aug 23, 2023 05:00 PM AMBULATORY - NONE [facility] Sep 06, 2023 12:00 PM AMBULATORY - REHAB MEDICIN E [facility] Active, Pending, and Scheduled Orders This section includes a listing of several types of active, pending, and scheduled orders, including clinic medications orders, diagnostic test orders, procedure orders and consult orders; where the start date of the order is 45 days before the date of the Encounter or 45 days after the date of theEncounter. The data comes from all [facility]. Test Date/Time Test Type Test Details Facility Name Aug 05, 2023 10:35 AM Consult Order NEUROLOGY OUTPT DBS Cons [employer] [facility] Aug 05, 2023 10:35 AM Consult Order SOCIAL WOR K OUTPT NEUROLOGY Cons [facility] Aug 10, 2023 03:18 PM Consult Order [facility] Cons [facility] [facility] Aug 19, 2023 12:01 PM Consult Order OT OCCUPAT IONAL THERAPY OUTPT PACT Cons [facility] Lab Results: +/- 30 days of the encounter This section includes the Chemistry and Hematology Lab Results on record with [place] for the patient. Radiology Reports and Pathology Reports are provided separately, in subsequent sections. Lab Results This section contains the Chemistry/Hematology Results that were resulted 30 days before or 30 daysafter the date of the Encounter. Date/Time Source Result Type Result - Unit Interpretation Reference Range Comment Aug 04, 2023 03:04 PM [facility] URINALYSIS Specimen Type: URINE No comment entered. Ordering Provider: CHARLIE PETERSON Report Released Date/Time: Aug 04, 2023 03:02 PM Reporting Lab: [facility] [id number] Performing Lab: [facility] [id number] URINE COLOR YELLOW SPECIFIC GRAVITY 1.031 1.003-1.035 [...] 2023 02:23 PM 54 /min 98 % [facility] Jul 15, 2023 02:21 PM 98.0 F 170/84 mm[Hg] 16 /min 0 [facility] Social History: Smoking Status (Most current) [...] 20, 2023 01:48 PM VA-TOBACCO FORMER USER [facility] Tobacco Use History This section includes a history of the smoking, or tobacco-related health factors, that were collected on or before the date of the Encounter. The data comes from the [place] facility where the Encounter took place. Date/Time Smoking Status/Tobacco Use Comment F acility Jan 20, 2023 01:48 PM VA-TOBACCO QUIT 15 YRS OR MORE [facility] Jan 21, 2022 10:50 AM VA-TOBACCO FORMER USER [facility] Jan 21, 2022 10:50 AM VA-TOBACCO QUIT 15 YRS OR MORE [facility] Feb 06, 2019 02:30 PM INPT NO TOBACCO USE IN LAST 30 D AYS [facility] Pathology Reports: +/- 30 days of [...] the Encounter. The data comes from all [facility] facilities. Date/Time Pathology Report Provider Source Aug 04, 2023 03:04 PM LR MICROBIOLOGY RE PORT: Reporting Lab: [facility] [CLIA# [id number]] [place] [address] Accession [UID]: [id number] [[id number]] Received: Aug 04, 2023@15:18 Collection sample: URINE Collection date: Aug 04, 2023 15:04 Provider: CHARLIE PETERSON Comment on specimen: RECEIVED IN URINE PRESERVATIVE TUBE Test(s) ordered: CULTURE & SUSCEPTIBILITY...... completed: Aug 05, 2023 * BACTERIOLOGY FINAL REPORT => Aug 05, 2023 11:09 TECH CODE: [id number] CULTURE RESULTS: LESS THAN 10,000 CFU/ML Bacteriology Remark(s): THIS REPORT IS FINAL =--=--=--=--=--=--=--=--=--=--=--=- -=--=--=--=--=--=--=--=--=--=--=--= --=--=-- Performing Laboratory: Bacteriology Report Performed By: [facility] [CLIA# [id number]] [place] [address] [facility] Encounter Notes: All associated encounter notes This section contains the clinical notes associated to the Encounter. Date/Time Encounter Note(s) Provider Source Jul 15, 2023 12:16 PM REPORT OF CONTACT: LOCAL TITLE: PATIENT CONTACT NOTE STANDARD TITLE: REPORT OF CONTACT DATE OF NOTE: JUL 15, 2023@12:16 ENTRY DATE: JUL 15, 2023@12:16:22 AUTHOR: CEDRIC VILLANUEVA COSIGNER: URGENCY: STATUS: COMPLETED Patient contact Name of : G[place] Name/Relationship of Contact if other than [place]: Date & Time of Contact: Jul@12:16 Type of Contact: Telephone Reason for Contact: Contacted patient to f/u on request to change CD/LD although he stated in message he could wait until 08/04/23 f/u appt with Dr. Peterson. During call, patient's friend got on phone; he stated he called [facility] [facility] and was told to take to ED for hard time breathing and uncontrolled shaking. Curtailed call to allow for to follow through on triage plan of care. His friend noted, They will probably straighten out his medications when he is in the Emergency Room. NCM will remain available for follow up call on Tuesday from patient. /kera/ CEDRIC FUNEZ) RNC REGISTERED NURSE, CERTIFIED Signed: 07/15/2023 12:27 CEDRIC VILLANUEVA [facility]
--- OUTSIDE RECORDS SUMMARY | 2023-08-25 16:15 | XMS_ITS | Encounter Summary ---
Author Name [facility] Organization [facility] Address [address] [place] [address] Support Name Relationship Address Phone ANANT, JAIRO Next of Kin [address] [address] [place] Emergency Contact [address] [address] Insurance Providers: All historical [...] Lopez's Name Patient's Relationship to Policy Lopez [employer] ([facility]) MEDICARE ADVANTAGE [facility] ([facility]) Nov 13, 2020 [id number] [place] PATIENT [employer] [facility] (WNR) MEDICARE ADVANTAGE [facility] ([facility]) Aug 15, 2013 [id number] [phone] [place] MEDICARE ([facility]) MEDICARE (M) PART B Sep 15, 2010 PART B [id number] [place] ([facility]) MEDICARE (M) PART A Sep 15, 2010 PART A [id number] [place] Selected Encounter This section includes the information on record at [place] for the Encounter. Date/Time Encounter Type Encounter Description Reason Provider Source Aug 05, 2023 07:18 AM QNHP OL DIG ASSMT&MGMT 5-10 [facility]ICAL [facility] ICD-10-CM G20.A1 Parkinson's dis w/o dyskinesia, w/o mention of fluctuations GREY PALACIOS IHE Encounter Template Text not used by [place] Assessments - Encounter Diagnoses This section includes the primary and secondary diagnoses documented for the Encounter. Date/Time Primary/Secondary Diagnosis Diagnosis Name Provider Source Aug 05, 2023 07:20 AM PRIMARY Parkinson's dis w/o dyskinesia, w/o mention of fluctuations GREY PALACIOS [facility] Plan of Treatment: Future Appointments (+ 6 months) and Future Tests (+/- 45 days) The Plan of Treatment section includes future care activities for the patient from all [place] [facility] This section includes future appointments and future orders which are active, pending or scheduled. Future Appointments This section includes appointments that were scheduled to occur 6 months from the date of the Encounter, up to a maximum of 20 appointments. The data comes from all [place] treatment facilities. Appointment Date/Time Appointment Type Appointme nt Facility Name Aug 10, 2023 09:00 AM AMBULATORY - NONE [facility] Aug 23, 2023 05:00 PM AMBULATORY - NONE [facility] Sep 06, 2023 12:00 PM AMBULATORY - REHAB MEDICIN E [facility] Active, Pending, and Scheduled Orders This [...] AM Consult Order NEUROLOGY OUTPT DBS Cons [employer] Specialist[facility] Aug 05, 2023 10:35 AM Consult Order SOCIAL WOR K OUTPT NEUROLOGY Cons [employer] [facility] Aug 10, 2023 03:18 PM Consult Order [facility] Specialist[facility] Aug 19, 2023 12:01 PM Consult Order OT OCCUPAT IONAL THERAPY OUTPT PACT Cons [employer] Specialist's [facility] Lab Results: +/- 30 days of the encounter This section includes the Chemistry and Hematology Lab Results on record with [place] for the patient. Radiology Reports and Pathology Reports are provided separately, in subsequent sections. Lab Results This section contains the Chemistry/Hematology Results that were resulted 30 days before or 30 daysafter the date of the Encounter. Date/Time Source Result Type Result - Unit Interpretation Reference Range Comment Aug 04, 2023 03:[address] [facility] URINALYSIS Specimen Type: URINE No comment entered. Ordering Provider: CHARLIE ONOFRE Report Released Date/Time: Aug 04, 2023 03:02 PM Reporting Lab: [facility] [id number] Performing Lab: [facility] [id number] URINE COLOR YELLOW SPECIFIC GRAVITY 1.031 1.003-1.035 [...] 2023 01:48 PM VA-TOBACCO FORMER USER [facility] Tobacco Use History This section includes a history of the smoking, or tobacco-related health factors, that were collected on or before the date of the Encounter. The data comes from the [place] facility where the Encounter took place. Date/Time Smoking Status/Tobacco Use Comment F acility Jan 20, 2023 01:48 PM VA-TOBACCO QUIT [address] [facility] Jan 21, 2022 10:50 AM VA-TOBACCO FORMER USER [facility] Jan 21, 2022 10:50 AM VA-TOBACCO QUIT [address] [facility] Feb 06, 2019 02:30 PM INPT NO TOBACCO USE IN LAST [address] [facility] Pathology Reports: +/- 30 days of [...] the Encounter. The data comes from all [place] treatment facilities. Date/Time Pathology Report Provider Source Aug 04, 2023 03:04 PM LR MICROBIOLOGY RE PORT: Reporting Lab: [facility] [CLIA# [id number]] [place] [address] Accession [UID]: [id number] [[id number]] Received: Aug 04, 2023@15:18 Collection sample: URINE Collection date: Aug 04, 2023 15:04 Provider: CHARLIE ONOFRE Comment on specimen: RECEIVED IN URINE PRESERVATIVE TUBE Test(s) ordered: CULTURE & SUSCEPTIBILITY...... completed: Aug 05, 2023 * BACTERIOLOGY FINAL REPORT => Aug 05, 2023 11:09 TECH CODE: [id number] CULTURE RESULTS: LESS THAN 10,000 CFU/ML Bacteriology Remark(s): THIS REPORT IS FINAL =--=--=--=--=--=--=--=--=--=--=--=- -=--=--=--=--=--=--=--=--=--=--=--= --=--=-- Performing Laboratory: Bacteriology Report Performed By: [facility] [CLIA# [id number]] [place] [address] [facility] Encounter Notes: All associated encounter notes This section contains the clinical notes associated to the Encounter. Date/Time Encounter Note(s) Provider Source Aug 05, 2023 07:19 AM PHARMACY CONSULT: LOCAL TITLE: PHARMACY PRIOR AUTHORIZATION APPROVED CONSULT STANDARD TITLE: PHARMACY CONSULT DATE OF NOTE: AUG 05, 2023@07:19 ENTRY DATE: AUG 05, 2023@07:19:04 AUTHOR: MOLINA PALACIOSIGNER: URGENCY: STATUS: COMPLETED The medical record has been reviewed with regard to this prior authorization drug request. Medication requested: CARBIDOPA 36.25MG/LEVODOPA 145MG SA CAP Medication indication: PARKINSON'S DISEASE Medical history relevant to this request: Unpredictable response to regular carbidopa-levodopa IR and SA Previous: carbidopa levodopa 1R, SA and rasagiline The request is approved - A documented therapeutic failure of the preferred formulary alternative(s) exists Active Outpatient Medications (including Supplies): ASPIRIN 81MG EC TAB TAKE ONE TABLET BY MOUTH EVERY DAY TO ACTIVE PREVENT STROKE AND HEART ATTACK DO NOT CHEW CARBIDOPA/LEVODOPA CAP,SA TAKE 3 CAPSULE CARBIDOPA PENDING 36.25MG/LEVODOPA 145MG SA CAP BY MOUTH THREE TIMES A DAY CHOLECALCIF 25MCG (D3-1,000UNIT) TAB TAKE TWO TABLETS BY ACTIVE MOUTH EVERY DAY EYELID CLEANSER,EYE SCRUB PAD USE 1 PAD TOPICALLY AT ACTIVE BEDTIME APPLY TO UPPER/LOWER EYELIDS HYDROPHILIC (EQV AQUAPHOR) TOP OINT APPLY MODERATE AMOUNT ACTIVE TOPICALLY TWICE A DAY TO AFFECTED AREAS FOR DRY SKIN VANICREAM TOP CREAM APPLY THIN LAYER TOPICALLY EVERY DAY ACTIVE FOR DRY SKIN, IDEALLY WITHIN 3 MINUTES AFTER BATH OR SHOWER. Non-VA FISH OIL 1000MG (500MG DHA/EPA) CAP 1000MG MOUTH ACTIVE /kera/ MOLINA PALACIOS Pharm.D. Signed: 08/05/2023 07:[address] [facility]
--- OUTSIDE RECORDS SUMMARY | 2023-08-25 16:15 | XMS_ITS | Encounter Summary ---
Author Name [facility] Organization [facility] Address [address] [place] [address] Support Name Relationship Address Phone ANANT, JAIRO Next of Kin [address] [address] ANANT[address]IRO Emergency Contact [address] [address] Insurance Providers: All historical [...] Lopez's Name Patient's Relationship to Policy Lopez [facility] (WNR) MEDICARE ADVANTAGE [facility] ([facility]) Nov 13, 2020 [id number] Edwin MCMILLAN PATIENT [employer] [facility] (WNR) MEDICARE ADVANTAGE [facility] (WNR) Aug 15, 2013 [id number] [phone] Edwin MCMILLAN PATIENT MEDICARE (WNR) MEDICARE (M) PART B Sep 15, 2010 PART B [id number] [phone] Edwin MCMILLAN PATIENT MEDICARE (WNR) MEDICARE (M) PART A Sep 15, 2010 PART A [id number] [phone] Edwin MCMILLAN PATIENT Selected Encounter This section includes the information on record at [place] for the Encounter. Date/Time Encounter Type Encounter Description Reason Provider Source Aug 04, 2023 02:00 PM Outpatient Encounter NEUROLOGY COLTON ROSS Encounter Template Text not used by [facility] Plan of Treatment: Future Appointments (+ 6 months) and Future Tests (+/- 45 days) The Plan of Treatment section includes future care activities for the patient from all [facility] This section includes future appointments and future orders which are active, pending or scheduled. Future Appointments This section includes appointments that were scheduled to occur 6 months from the date of the Encounter, up to a maximum of 20 appointments. The data comes from all [facility]. Appointment Date/Time Appointment Type Appointme nt Facility Name Aug 10, 2023 09:00 AM AMBULATORY - NONE [facility] Aug 23, 2023 05:00 PM AMBULATORY - NONE [facility] Sep 06, 2023 12:00 PM AMBULATORY - REHAB MEDICIN E [facility] Active, Pending, and Scheduled Orders This section includes a listing of several types of active, pending, and scheduled orders, including clinic medications orders, diagnostic test orders, procedure orders and consult orders; where the start date of the order is 45 days before the date of the Encounter or 45 days after the date of theEncounter. The data comes from all [facility]. Test Date/Time Test Type Test Details Facility Name Aug 05, 2023 10:35 AM Consult Order NEUROLOGY OUTPT DBS Cons Signs And Displays Sales Representative's Choice [facility] Aug 05, 2023 10:35 AM Consult Order SOCIAL WOR K OUTPT NEUROLOGY Cons Signs And Displays Sales Representative's Choice [facility] Aug 10, 2023 03:18 PM Consult Order [facility] Cons Signs And Displays Sales Representative's Choice [facility] Aug 19, 2023 12:01 PM Consult Order OT OCCUPAT IONAL THERAPY OUTPT PACT Cons Signs And Displays Sales Representative's Choice [facility] Lab Results: +/- 30 days of the encounter This section includes the Chemistry and Hematology Lab Results on record with [place] for the patient. Radiology Reports and Pathology Reports are provided separately, in subsequent sections. Lab Results This section contains the Chemistry/Hematology Results that were resulted 30 days before or 30 daysafter the date of the Encounter. Date/Time Source Result Type Result - Unit Interpretation Reference Range Comment Aug 04, 2023 03:04 PM [facility] URINALYSIS Specimen Type: URINE No comment entered. Ordering Provider: CHARLIE PETERSON Report Released Date/Time: Aug 04, 2023 03:02 PM Reporting Lab: [facility] [id number] Performing Lab: [facility] [id number] URINE COLOR YELLOW SPECIFIC GRAVITY 1.031 1.003-1.035 [...] Pain Height Weight Body Mass Index Source Aug 04, 2023 01:55 PM 67 /min 140/68 mm[Hg] 18 /min 63 % 0 [place] Social History: Smoking Status (Most current) and Tobacco Use (All prior to encounter date) This section includes the most current, and the historical, smoking and tobacco- related health factors from the [place] facility where the Encounter took place. Current Smoking Status This section includes the most current smoking, or tobacco-related health factor, from the [place] facility where the Encounter took place. Date/Time Current Smoking Status Comment Facil ity Jan 20, 2023 01:48 PM VA-TOBACCO FORMER USER [facility] Tobacco Use History This section includes a history of the smoking, or tobacco-related health factors, that were collected on or before the date of the Encounter. The data comes from the [place] facility where the Encounter took place. Date/Time Smoking Status/Tobacco Use Comment F acility Jan 20, 2023 01:48 PM VA-TOBACCO QUIT 15 YRS OR MORE [facility] Jan 21, 2022 10:50 AM VA-TOBACCO FORMER USER [facility] Jan 21, 2022 10:50 AM [place]-TOBACCO QUIT 15 YRS OR MORE [facility] Feb 06, 2019 02:30 PM INPT NO TOBACCO USE IN LAST 30 D AYS [facility] Pathology Reports: +/- 30 days of the [...] the Encounter. The data comes from all [place] treatment facilities. Date/Time Pathology Report Provider Source Aug 04, 2023 03:04 PM LR MICROBIOLOGY RE PORT: Reporting Lab: [facility] [CLIA# [id number]] [place] [address] Accession [UID]: [id number] [[id number]] Received: Aug 04, 2023@15:18 Collection sample: URINE Collection date: Aug 04, 2023 15:04 Provider: CHARLIE PETERSON Comment on specimen: RECEIVED IN URINE PRESERVATIVE TUBE Test(s) ordered: CULTURE & SUSCEPTIBILITY...... completed: Aug 05, 2023 * BACTERIOLOGY FINAL REPORT => Aug 05, 2023 11:09 TECH CODE: [id number] CULTURE RESULTS: LESS THAN 10,000 CFU/ML Bacteriology Remark(s): THIS REPORT IS FINAL =--=--=--=--=--=--=--=--=--=--=--=- -=--=--=--=--=--=--=--=--=--=--=--= --=--=-- Performing Laboratory: Bacteriology Report Performed By: [facility] [CLIA# [id number]] [place] [address] [facility] Encounter Notes: All associated encounter notes This section contains the clinical notes associated to the Encounter. Date/Time Encounter Note(s) Provider Source Aug 19, 2023 01:33 PM ADDENDUM: LOCAL TITLE: Addendum STANDARD TITLE: ADDENDUM DATE OF NOTE: AUG 19, 2023@13:33:18 ENTRY DATE: AUG 19, 2023@13:33:18 AUTHOR: CHARLIE PETERSON EXP COSIGNER: URGENCY: STATUS: COMPLETED After a conversation with Mr. Mackay's son, I decided to increase the dosing of Rytary to four capsules (36.25/145 mg) three times a day. 8 am, Noon, 4 pm until her receives the new capsules (48.75/195) of which he should take 3 capsules three times a day. /kera/ Charlie Peterson MD STAFF PHYSICIAN NEUROLOGY Signed: 08/19/2023 13:36 Receipt Acknowledged By: 08/19/2023 15:13 /kera/ CEDRIC VILLANUEVA (EMELY) RNC REGISTERED NURSE, CERTIFIED --- Original Document --- 08/10/23 NEUROLOGY CLINIC NOTE: Mr. Mcmillan is a 77-year-old man with Parkinson's disease who was accompanied to clinic by one of his sons. Patient had been doing fairly well until relatively recently by taking frequent doses of regular formulation carbidopa levodopa. However 2 things began to happen one is that the duration of action of this medication began to diminish requiring him to take additional doses and he began to experience dyskinesias associated with the medication. Switching him to the 50/200 formulation resulted in an overall decrease in his functional capacity. Over the past month or 2 he has gone from being almost completely independent driving his pickup truck to being all part housebound and having to get around with a walker. I recommended that he switch entirely to the carbidopa levodopa SA preparation but doing so was associated with functional decline. He is having relatively frequent falls that are not related to orthostatic hypotension. He has not had any constitutional or bladder symptoms to suggest urinary tract or other infection. Today on exam patient had mild hypophonia. Blood pressure was 140/68 and pulse 67. He was examined approximately 45 minutes after his last dose of medication. He had prominent right-sided resting tremor. His gait was ataxic wide-based and bradykinetic. I believe that switching from the regular formulation to the controlled release formulation of carbidopa levodopa has really resulted in functional decline. I think he may respond better to the Rytary formulation and I prescribed 36.25 mg over 145 mg 3 capsules 3 times a day as a starting dose which may not be sufficient to keep him functional throughout the day. I will check him within a few days after starting the medication to monitor his response. He was also interested in being connected with the social media developer to get information about the extent of home care support he can receive and what options there may be for other types of care such as assisted living. He was also interested in perhaps getting a hospital bed if possible. Finally he was interested in learning more about deep brain stimulation and I put in a referral to the nurse sugar cane farm manager to give him this information. At the moment however I do not think he has a good DBS candidate because we are still trying to titrate his medications and do not think he should be referred to the DBS neurologist. Finally I arranged for urinalysis which showed no clear evidence of infection though was not entirely normal with excessive protein and 4 white blood cells. /kera/ Charlie Peterson MD STAFF PHYSICIAN NEUROLOGY Signed: 08/10/2023 15:14 CHARLIE PETERSON [facility] Aug 10, 2023 03:07 PM NEUROLOGY ATTENDIN G NOTE: LOCAL TITLE: NEUROLOGY CLINIC NOTE STANDARD TITLE: NEUROLOGY ATTENDING NOTE DATE OF NOTE: AUG 10, 2023@15:07 ENTRY DATE: AUG 10, 2023@15:07:21 AUTHOR: CHARLIE PETERSON EXP COSIGNER: URGENCY: STATUS: COMPLETED NEUROLOGY CLINIC NOTE Has ADDENDA Mr. Mcmillan is a 77-year-old man with Parkinson's disease who was accompanied to clinic by one of his sons. Patient had been doing fairly well until relatively recently by taking frequent doses of regular formulation carbidopa levodopa. However 2 things began to happen one is that the duration of action of this medication began to diminish requiring him to take additional doses and he began to experience dyskinesias associated with the medication. Switching him to the 50/200 formulation resulted in an overall decrease in his functional capacity. Over the past month or 2 he has gone from being almost completely independent driving his pickup truck to being all part housebound and having to get around with a walker. I recommended that he switch entirely to the carbidopa levodopa SA preparation but doing so was associated with functional decline. He is having relatively frequent falls that are not related to orthostatic hypotension. He has not had any constitutional or bladder symptoms to suggest urinary tract or other infection. Today on exam patient had mild hypophonia. Blood pressure was 140/68 and pulse 67. He was examined approximately 45 minutes after his last dose of medication. He had prominent right-sided resting tremor. His gait was ataxic wide-based and bradykinetic. I believe that switching from the regular formulation to the controlled release formulation of carbidopa levodopa has really resulted in functional decline. I think he may respond better to the Rytary formulation and I prescribed 36.25 mg over 145 mg 3 capsules 3 times a day as a starting dose which may not be sufficient to keep him functional throughout the day. I will check him within a few days after starting the medication to monitor his response. He was also interested in being connected with the social media developer to get information about the extent of home care support he can receive and what options there may be for other types of care such as assisted living. He was also interested in perhaps getting a hospital bed if possible. Finally he was interested in learning more about deep brain stimulation and I put in a referral to the nurse sugar cane farm manager to give him this information. At the moment however I do not think he has a good DBS candidate because we are still trying to titrate his medications and do not think he should be referred to the DBS neurologist. Finally I arranged for urinalysis which showed no clear evidence of infection though was not entirely normal with excessive protein and 4 white blood cells. /saadia Peterson MD STAFF PHYSICIAN NEUROLOGY Signed: 08/10/2023 15:14 08/19/2023 ADDENDUM STATUS: COMPLETED After a conversation with Mr. Mackay's son, I decided to increase the dosing of Rytary to four capsules (36.25/145 mg) three times a day. 8 am, Noon, 4 pm until her receives the new capsules (48.75/195) of which he should take 3 capsules three times a day. /saadia Peterson MD STAFF PHYSICIAN NEUROLOGY Signed: 08/19/2023 13:36 Receipt Acknowledged By: 08/19/2023 15:13 /kera/ CEDRIC FLOR (BEGGS) REGISTERED NURSE, CERTIFIED 08/19/2023 ADDENDUM STATUS: COMPLETED Reached RICKI Walker at [facility] after faxing new CD/LD med order and addendum to 08/10/23 note with provider recommendations until receipt of new med. Denise verified receipt of orders and has already discussed with patient. /saadia FUNEZ) RICKIC REGISTERED NURSE, CERTIFIED Signed: 08/19/2023 15:20 CHARLIE PETERSON [facility] Aug 09, 2023 11:51 AM ADDENDUM: LOCAL TITLE: Addendum STANDARD TITLE: ADDENDUM DATE OF NOTE: AUG 09, 2023@11:51:23 ENTRY DATE: AUG 09, 2023@11:51:24 AUTHOR: COLTON ROSS COSIGNER: URGENCY: STATUS: COMPLETED Son Jairo called and left voicemail stating he is concerned about falls his dad has had and would like to speak with social work regarding care in the home, respite or transitional care options. He is not sure what yet. I do see a social consult placed by Dr. Peterson however I will also alert his PACT team and social work to review this and follow up with patient. /es/ COLTON ROSS RN DEPARTMENT OF NEUROLOGY Signed: 08/09/2023 11:52 Receipt Acknowledged By: 08/10/2023 22:24 /es/ SOCRATES MAN MD STAFF MD YODER 08/09/2023 14:56 /es/ RICKI TARIQ REGISTERED NURSE 08/09/2023 14:19 /es/ GABBI PIRES [facility] TBI/POLYTRAUMA LINK TRAINER MAINTENANCE WORKER for FAVIOLA ROSAS 08/09/2023 16:59 /es/ Charlie Peterson MD STAFF PHYSICIAN NEUROLOGY 08/09/2023 13:20 /es/ KEITH VAUGHAN RN KEITH VAUGHAN RN for CEDRIC Kat PHIDD --- Original Document --- 08/04/23 NEUROLOGY CLINIC NURSING NOTE: Type of visit: Appointment Check In Reason for Visit: Here for F[facility]U [facility] Vital Signs: Blood Pressure: 140/68 (08/04/2023 13:55) Pulse: 67 (08/04/2023 13:55) Respiration: 18 (08/04/2023 13:55) Temperature: 98.0 F [36.7 C] (07/15/2023 14:21) Weight: 180 lb [81.65 kg] (01/21/2023 09:59) Height: 66 in [167.6 cm] (01/21/2023 09:59) BMI: 29.1 Pain: 0 (08/04/2023 13:55) Allergies: PENTOTHAL (May 15, 2009) Medications:Type of visit: Appointment Check In Medications: Active Outpatient Medications and Supplies: Active [...] TO AFFECTED AREAS FOR DRY SKIN 6) VANICREAM TOP CREAM APPLY THIN LAYER [...] changes documented on printed medication list. /kera/ QUYNH JOHNSON LPN CLINICAL LICENSED PRACTICAL NURSE Signed: 08/04/2023 13:58 08/09/2023 ADDENDUM STATUS: COMPLETED Phone number for son is [phone] /kera/ COLTON ROSS RN DEPARTMENT OF NEUROLOGY Signed: 08/09/2023 11:53 08/09/2023 ADDENDUM STATUS: COMPLETED PACt social media developer, Tameka, was alerted via teams to follow up with jed santo. /es/ RICKI TARIQ REGISTERED NURSE Signed: 08/09/2023 14:57 COLTON ROSS [facility] Aug 04, 2023 01:56 PM NEUROLOGY NURSING OUTPATIENT NOTE: LOCAL TITLE: NEUROLOGY CLINIC NURSING NOTE STANDARD TITLE: NEUROLOGY NURSING OUTPATIENT NOTE DATE OF NOTE: AUG 04, 2023@13:56 ENTRY DATE: AUG 04, 2023@13:56:29 AUTHOR: QUYNH JOHNSON COSIGNER: URGENCY: STATUS: COMPLETED NEUROLOGY CLINIC NURSING NOTE Has ADDENDA Type of visit: Appointment Check In Reason for Visit: Here for F/U Gets all medication from the [place]. Vital Signs: Blood Pressure: 140/68 (08/04/2023 13:55) Pulse: 67 (08/04/2023 13:55) Respiration: 18 (08/04/2023 13:55) Temperature: 98.0 F [36.7 C] (07/15/2023 14:21) Weight: 180 lb [81.65 kg] (01/21/2023 09:59) Height: 66 in [167.6 cm] (01/21/2023 09:59) BMI: 29.1 Pain: 0 (08/04/2023 13:55) Allergies: PENTOTHAL (May 15, 2009) Medications:Type of visit: Appointment Check In Medications: Active Outpatient Medications and Supplies: Active [...] TO AFFECTED AREAS FOR DRY SKIN 6) VANICREAM TOP CREAM APPLY THIN LAYER [...] any changes documented on printed medication list. /es/ QUYNH JOHNSON LPN CLINICAL LICENSED PRACTICAL NURSE Signed: 08/04/2023 13:58 08/09/2023 ADDENDUM STATUS: COMPLETED Son Jairo called and left voicemail stating he is concerned about falls his dad has had and would like to speak with social work regarding care in the home, respite or transitional care options. He is not sure what yet. I do see a social consult placed by Dr. Peterson however I will also alert his PACT team and social work to review this and follow up with patient. /es/ COLTON ROSS RN DEPARTMENT OF NEUROLOGY Signed: 08/09/2023 11:52 Receipt Acknowledged By: * AWAITING SIGNATURE * SOCRATES MAN 08/09/2023 14:56 /es/ RICKI TARIQ REGISTERED NURSE 08/09/2023 14:19 /es/ GABBI PIRES [facility] TBI/POLYTRAUMA LINK TRAINER MAINTENANCE WORKER for FAVIOLA ROSAS * AWAITING SIGNATURE * CHARLIE PETERSON 08/09/2023 13:20 /es/ KEITH VAUGHAN RN KEITH VAUGHAN RN for CEDRIC Kat PHIDD 08/09/2023 ADDENDUM STATUS: COMPLETED Phone number for son is [phone] /es/ COLTON ROSS RN DEPARTMENT OF NEUROLOGY Signed: 08/09/2023 11:53 08/09/2023 ADDENDUM STATUS: COMPLETED PACt social media developer, Tameka, was alerted via teams to follow up with vets son. /es/ RICKI TARIQ REGISTERED NURSE Signed: 08/09/2023 14:57 QUYNH JOHNSON [facility]
--- OUTSIDE RECORDS SUMMARY | 2023-08-25 16:15 | XMS_ITS | Encounter Summary ---
Author Name Department of Vetera Affairs Organization Department of Vetera ns Affairs Address [address] [place] [address] Support Name Relationship Address Phone ANANT JAIRO Next of Kin [address] [address] ANANTJAIRO Emergency Contact [phone] [address] Insurance Providers: All historical [...] Lopez's Name Patient's Relationship to Policy Lopez [facility] ([facility]) MEDICARE ADVANTAGE [facility] ([facility]) Nov 13, 2020 [id number] [phone] [place] [facility] ([facility]) MEDICARE ADVANTAGE [facility] ([facility]) Aug 15, 2013 [id number] [phone] [place] ([facility]) MEDICARE (M) PART A Sep 15, 2010 PART A [id number] [phone] [place] ([facility]) MEDICARE () PART B Sep 15, 2010 PART B [id number] [phone] [place] Selected Encounter This section includes the information on record at [place] for the Encounter. Date/Time Encounter Type Encounter Description Reason Provider Source Jul 15, 2023 01:42 PM OFF/OP EST DECEMBER X REQ PHY/QHP EMERGENCY DEPT ICD-10-CM R25.1 Tremor, unspecified KIAN FRANCOIS IHE Encounter Template Text not used by [place] Assessments - Encounter Diagnoses This section includes the primary and secondary diagnoses documented for the Encounter. Date/Time Primary/Secondary Diagnosis Diagnosis Name Provider Source Jul 16, 2023 06:06 AM PRIMARY Tremor, unspecified KIAN FRANCOIS [facility] Plan of Treatment: Future Appointments (+ 6 months) and Future Tests (+/- 45 days) The Plan of Treatment section includes future care activities for the [facility] [place] [facility]. This section includes future appointments and [...] 01, 2023 08:00 AM [facility] Aug 04, 2023 02:00 PM AMBULATORY - NEUROLOGY [facility] Aug 10, 2023 09:00 AM [facility]ONE [facility] Aug 23, 2023 05:00 PM [facility]ONE [facility] Sep 06, 2023 12:00 PM AMBULATORY - REHAB MEDICIN E [facility] Active, Pending, and Scheduled Orders This section includes a listing of several types of active, pending, and scheduled orders, including clinic medications orders, diagnostic test orders, procedure orders and consult orders; where the start date of the order is 45 days before the date of the Encounter or 45 days after the date of theEncounter. The data comes from all [facility]. Test Date/Time Test Type Test Details Facility Name Aug 05, 2023 10:35 AM Consult Order NEUROLOGY OUTPT DBS Cons [facility] Aug 05, 2023 10:35 AM Consult Order SOCIAL WOR K OUTPT NEUROLOGY Cons [facility] Aug 10, 2023 03:18 PM Consult Order [facility] Cons Occupational Health [facility] Aug 19, 2023 12:01 PM Consult Order OT OCCUPAT IONAL THERAPY OUTPT PACT Cons Occupational Health Professional[facility] Lab Results: +/- 30 days of the encounter This section includes the Chemistry and Hematology Lab Results on record with [place] for the patient. Radiology Reports and Pathology Reports are provided separately, in subsequent sections. Lab Results This section contains the Chemistry/Hematology Results that were resulted 30 days before or 30 daysafter the date of the Encounter. Date/Time Source Result Type Result - Unit Interpretation Reference Range Comment Aug 04, 2023 03:04 PM [facility] URINALYSIS Specimen Type: URINE No comment entered. Ordering Provider: CHARLIE ONOFRE Report Released Date/Time: Aug 04, 2023 03:02 PM Reporting Lab: [facility] [id number] Performing Lab: [facility] [id number] URINE COLOR YELLOW SPECIFIC GRAVITY 1.031 1.003-1.035 [...] 2023 02:23 PM 54 /min 98 % [facility] Jul 15, 2023 02:21 PM 98.0 F 170/84 mm[Hg] 16 /min 0 [facility] Social History: Smoking Status (Most [...] 20, 2023 01:48 PM VA-TOBACCO FORMER USER [facility] Tobacco Use History This section includes a history of the smoking, or tobacco-related health factors, that were collected on or before the date of the Encounter. The data comes from the [place] facility where the Encounter took place. Date/Time Smoking Status/Tobacco Use Comment F acility Jan 20, 2023 01:48 PM VA-TOBACCO QUIT 15 YRS OR MORE [facility] Jan 21, 2022 10:50 AM VA-TOBACCO FORMER USER [facility] Jan 21, 2022 10:50 AM VA-TOBACCO QUIT 15 YRS OR MORE [facility] Feb 06, 2019 02:30 PM INPT NO TOBACCO USE IN LAST 30 D AYS [facility] Pathology Reports: +/- 30 days [...] the Encounter. The data comes from all [facility] facilities. Date/Time Pathology Report Provider Source Aug 04, 2023 03:04 PM LR MICROBIOLOGY RE PORT: Reporting Lab: [facility] [CLIA# [id number]] [place] [address] Accession [UID]: [id number] [[id number]] Received: Aug 04, 2023@15:18 Collection sample: URINE Collection date: Aug 04, 2023 15:04 Provider: CHARLIE ONOFRE Comment on specimen: RECEIVED IN URINE PRESERVATIVE TUBE Test(s) ordered: CULTURE & SUSCEPTIBILITY...... completed: Aug 05, 2023 * BACTERIOLOGY FINAL REPORT => Aug 05, 2023 11:09 TECH CODE: [id number] CULTURE RESULTS: LESS THAN 10,000 CFU/ML Bacteriology Remark(s): THIS REPORT IS FINAL =--=--=--=--=--=--=--=--=--=--=--=- -=--=--=--=--=--=--=--=--=--=--=--= --=--=-- Performing Laboratory: Bacteriology Report Performed By: [facility] [CLIA# [id number]] [place] [address] [facility] Encounter Notes: All associated encounter notes This section contains the clinical notes associated to the Encounter. Date/Time Encounter Note(s) Provider Source Jul 16, 2023 06:05 AM ADDENDUM: LOCAL TITLE: Addendum STANDARD TITLE: ADDENDUM DATE OF NOTE: JUL 16, 2023@06:05:39 ENTRY DATE: JUL 16, 2023@06:05:40 AUTHOR: KIAN FRANCOIS EXP COSIGNER: URGENCY: STATUS: COMPLETED Patient left prior to seeing ED provider PACT flagged for f/u /kera/ KIAN FRANCOIS MD ED PHYSICIAN Signed: 07/16/2023 06:06 Receipt Acknowledged By: 07/19/2023 15:59 /kera/ SOCRATES MAN MD STAFF MD YODER 07/18/2023 11:51 /es/ RICKI TARIQ REGISTERED NURSE --- Original Document --- 07/15/23 EMERGENCY DEPARTMENT NURSING TRIAGE NOTE: Emergency Department/Urgent Care Center Triage Patient age:77 Sex: MALE On arrival patient was: WHEELCHAIR Patient phone number: Allergies: PENTOTHAL (May 15, 2009) Subjective/Chief Complaint: c/o inc tremors last several months. Objective: Denies cough or fevers. Only taking Parkinsons meds as needed? but did take his meds 1 hr ago. The patient is a fall risk. Intervention: In a W/C Vital Signs * Blood Pressure: 170/84 (07/15/2023 14:21) Heart Rate: 54 (07/15/2023 14:23) Respirations: 16 (07/15/2023 14:21) Temperature: 98.0 F [36.7 C] (07/15/2023 14:21) Pain: 0 (07/15/2023 14:21) Weight: 180 lb [81.65 kg] (01/21/2023 09:59) O2 Sats: 98% (07/15/2023 14:23) Emergency Severity Index (NICOLAS) level Level 3 Current Medications: Active Outpatient Medications (including Supplies): Active Outpatient [...] CAP 1000MG ACTIVE MOUTH 7 Total Medications Current Problems: Elevated blood pressure ([facility] 30147808) Hearing loss (ICD-9-CM 389.9) Tinnitus (ICD-9-CM 388.30) Hyperglycemia (ICD-9-CM 790.29) Parkinson disease ([facility] 94079117) General Anxiety Disorder (ICD-9-CM 300.02) Depression ([facility] 86353652) Hyperlipidemia ([facility] 34736415) Erectile dysfunction ([facility] 177666517) 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 Over the past month, have you [...] due to responses to other questions. /kera/ [employer] ARTISTIC DIRECTOR RN Signed: 07/15/2023 14:26 07/18/2023 ADDENDUM STATUS: COMPLETED Dr. Acuna please advise if vet requires PCP phone or FTF appt. /kera/ RICKI TARIQ REGISTERED NURSE Signed: 07/18/2023 12:02 KIAN FRANCOIS [facility] Jul 15, 2023 03:19 PM EMERGENCY DEPT NOT E: LOCAL TITLE: EMERGENCY DEPT FAILURE TO COMPLETE VISIT STANDARD TITLE: EMERGENCY DEPT NOTE DATE OF NOTE: JUL 15, 2023@15:19 ENTRY DATE: JUL 15, 2023@15:19:41 AUTHOR: HEMANT RUDD EXP COSIGNER: URGENCY: STATUS: COMPLETED 14:50, pt came to triage stating he was feeling better and that his primary knows him and that they are trying to adjust his meds. Pt stated he will call his son to come pick him up. He will return if symptoms worsen again. /kera/ [employer] ARTISTIC DIRECTOR RN Signed: 07/15/2023 15:21 HEMANT RUDD [facility] Jul 15, 2023 02:24 PM NURSING EMERGENCY DEPT TRIAGE NOTE: LOCAL TITLE: EMERGENCY DEPARTMENT NURSING TRIAGE NOTE STANDARD TITLE: NURSING EMERGENCY DEPT TRIAGE NOTE DATE OF NOTE: JUL 15, 2023@14:24 ENTRY DATE: JUL 15, 2023@14:24:08 AUTHOR: HEMANT RUDD COSIGNER: URGENCY: STATUS: COMPLETED EMERGENCY DEPARTMENT NURSING TRIAGE NOTE Has ADDENDA Emergency Department/Urgent Care Center Triage Patient age:77 Sex: MALE On arrival patient was: WHEELCHAIR Patient phone number: Allergies: PENTOTHAL (May 15, 2009) Subjective/Chief Complaint: c/o inc tremors last several months. Objective: Denies cough or fevers. Only taking Parkinsons meds as needed? but did take his meds 1 hr ago. The patient is a fall risk. Intervention: In a W/C Vital Signs * Blood Pressure: 170/84 (07/15/2023 14:21) Heart Rate: 54 (07/15/2023 14:23) Respirations: 16 (07/15/2023 14:21) Temperature: 98.0 F [36.7 C] (07/15/2023 14:21) Pain: 0 (07/15/2023 14:21) Weight: 180 lb [81.65 kg] (01/21/2023 09:59) O2 Sats: 98% (07/15/2023 14:23) Emergency Severity Index (NICOLAS) level Level 3 Current Medications: Active Outpatient Medications (including Supplies): Active Outpatient [...] CAP 1000MG ACTIVE MOUTH 7 Total Medications Current Problems: Elevated blood pressure ([facility] [id number]) Hearing loss (ICD-9-CM 389.9) Tinnitus (ICD-9-CM 388.30) Hyperglycemia (ICD-9-CM 790.29) Parkinson disease ([facility] 29713099) General Anxiety Disorder (ICD-9-CM 300.02) Depression ([facility] 18471663) Hyperlipidemia ([facility] 64704637) Erectile dysfunction ([facility] 825953668) 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 Over the past month, have you [...] due to responses to other questions. /kera/ [employer] ARTISTIC DIRECTOR RN Signed: 07/15/2023 14:26 07/16/2023 ADDENDUM STATUS: COMPLETED Patient left prior to seeing ED provider PACT flagged for f/u /kera/ KIAN FRANCOIS MD ED PHYSICIAN Signed: 07/16/2023 06:06 Receipt Acknowledged By: * AWAITING SIGNATURE * SOCRATES MAN 07/18/2023 11:51 /kera/ RICKI TARIQ REGISTERED NURSE 07/18/2023 ADDENDUM STATUS: COMPLETED Dr. Acuna please advise if vet requires PCP phone or FTF appt. /kera/ RICKI TARIQ REGISTERED NURSE Signed: 07/18/2023 12:02 HEMANT RUDD [facility]
--- OUTSIDE RECORDS SUMMARY | 2023-08-25 16:15 | XMS_ITS | Encounter Summary ---
Author Name Department of Vetera Affairs Organization Department of Vetera ns Affairs Address [address] [place] [address] Support Name Relationship Address Phone ANANT, JAIRO Next of Kin [address] [address] ANANT JAIRO Emergency Contact [address] [address] Insurance Providers: All historical [...] Lopez's Name Patient's Relationship to Policy Lopez [facility] ([facility]) MEDICARE ADVANTAGE [facility] ([facility]) Nov 13, 2020 [id number] [phone] [place] PATIENT [employer] [facility] ([facility]) MEDICARE ADVANTAGE [facility] ([facility]) Aug 15, 2013 [id number] [place] PATIENT [place] ([place]) MEDICARE (M) PART A Sep 15, 2010 PART A [id number] [place]) MEDICARE (M) PART B Sep 15, 2010 PART B [id number] [phone] [place] PAT[place] Selected Encounter This section includes the information on record at [place] for the Encounter. Date/Time Encounter Type Encounter Description Reason Pro vider Source Aug 09, 2023 10:20 AM Outpatient Encounter TELEPHONE/ANCILLARY IHE Encounter Template Text not used by [place] Plan of Treatment: Future Appointments (+ 6 months) and Future Tests (+/- 45 days) The Plan of Treatment section includes future care activities for the patient from all [place] [facility]. This section includes future appointments and future orders which are active, pending or scheduled. Future Appointments This section includes appointments that were scheduled to occur 6 months from the date of the Encounter, up to a maximum of 20 appointments. The data comes from all [facility]. Appointment Date/Time Appointment Type Appointme nt Facility Name Aug 10, 2023 09:00 AM AMBULATORY - NONE [facility] Aug 23, 2023 05:00 PM AMBULATORY - NONE [facility] Sep 06, 2023 12:00 PM AMBULATORY - REHAB MEDICIN E [facility] Active, Pending, and Scheduled Orders This section includes a listing of several types of active, pending, and scheduled orders, including clinic medications orders, diagnostic test orders, procedure orders and consult orders; where the start date of the order is 45 days before the date of the Encounter or 45 days after the date of theEncounter. The data comes from all [facility]. Test Date/Time Test Type Test Details Facility Name Aug 05, 2023 10:35 AM Consult Order NEUROLOGY OUTPT DBS Cons [facility] Aug 05, 2023 10:35 AM Consult Order SOCIAL WOR K OUTPT NEUROLOGY Cons [facility] Aug 10, 2023 03:18 PM Consult Order [facility] ASSISTED Cons [facility] Aug 19, 2023 12:01 PM Consult Order OT OCCUPAT IONAL THERAPY OUTPT PACT Cons Superintendent [facility] Lab Results: +/- 30 days of the encounter This section includes the Chemistry and Hematology Lab Results on record with [place] for the patient. Radiology Reports and Pathology Reports are provided separately, in subsequent sections. Lab Results This section contains the Chemistry/Hematology Results that were resulted 30 days before or 30 daysafter the date of the Encounter. Date/Time Source Result Type Result - Unit Interpretation Reference Range Comment Aug 04, 2023 03:04 PM [facility] URINALYSIS Specimen Type: URINE No comment entered. Ordering Provider: CHARLIE ONOFRE Report Released Date/Time: Aug 04, 2023 03:02 PM Reporting Lab: [facility] [address] Performing Lab: [facility] [address] URINE COLOR YELLOW SPECIFIC GRAVITY 1.031 1.003-1.035 [...] 20, 2023 01:48 PM VA-TOBACCO FORMER USER [facility] Tobacco Use History This section includes a history of the smoking, or tobacco-related health factors, that were collected on or before the date of the Encounter. The data comes from the [place] facility where the Encounter took place. Date/Time Smoking Status/Tobacco Use Comment F acility Jan 20, 2023 01:48 PM VA-TOBACCO QUIT 15 YRS OR MORE [facility] Jan 21, 2022 10:50 AM VA-TOBACCO FORMER USER [facility] Jan 21, 2022 10:50 AM VA-TOBACCO QUIT 15 YRS OR MORE [facility] Feb 06, 2019 02:30 PM INPT NO TOBACCO USE IN LAST 30 D AYS [facility] Pathology Reports: +/- 30 days of the [...] the Encounter. The data comes from all [place] treatment facilities. Date/Time Pathology Report Provider Source Aug 04, 2023 03:04 PM LR MICROBIOLOGY RE PORT: Reporting Lab: [facility] [CLIA# [id number]] [place] [address] Accession [UID]: [id number] [[id number]] Received: Aug 04, 2023@15:18 Collection sample: URINE Collection date: Aug 04, 2023 15:04 Provider: CHARLIE ONOFRE Comment on specimen: RECEIVED IN URINE PRESERVATIVE TUBE Test(s) ordered: CULTURE & SUSCEPTIBILITY...... completed: Aug 05, 2023 * BACTERIOLOGY FINAL REPORT => Aug 05, 2023 11:09 TECH CODE: [id number] CULTURE RESULTS: LESS THAN 10,000 CFU/ML Bacteriology Remark(s): THIS REPORT IS FINAL =--=--=--=--=--=--=--=--=--=--=--=- -=--=--=--=--=--=--=--=--=--=--=--= --=--=-- Performing Laboratory: Bacteriology Report Performed By: [facility] [CLIA# [id number]] [address] [place] [address] [facility] Encounter Notes: All associated encounter notes This section contains the clinical notes associated to the Encounter. Date/Time Encounter Note(s) Provider Source Aug 09, 2023 10:20 AM COMMUNITY ASSISTED CARE NOTE: LOCAL TITLE: [facility] ELIGIBILITY STANDARD TITLE: COMMUNITY ASSISTED CARE NOTE DATE OF NOTE: AUG 09, 2023@10:20 ENTRY DATE: AUG 09, 2023@10:20:20 AUTHOR: ABBY MATA EXP COSIGNER: URGENCY: STATUS: COMPLETED COMMUNITY ASSISTED ELIGIBILITY: This contact note is used to document a 's administrative eligibility for a VA authorization at a community alf. Referral Source/Location: [facility] ([facility]) Home: No Contract Correction: Yes Contact: Minoo Selby Reviewed the following eligibility [facility] or [facility] Authorization: Yes If yes:70% service connected or higher If administratively eligible, meets Medicare guidelines for skilled rehab and able/willing to participate: has a clinical need for alf care: Yes Hospice authorization: Yes would be eligible if enrolled in hospice service Referral source contact encouraged to do the following: Contact financial writer for contract at time of admission /kera/ ABBY MAAT VIST Coordinator Signed: 08/09/2023 10:21 ABBY MATA [facility]
--- OUTSIDE RECORDS SUMMARY | 2023-08-25 16:15 | XMS_ITS | Encounter Summary ---
Author Name Department of Vetera ns Affairs Organization Department of Vetera ns Affairs Address [address] [place] [address] Support Name Relationship Address Phone ANANT, JAIRO Next of Kin [address] [address] ANANT JAIRO Emergency Contact [address] [address] Insurance Providers: All historical [...] Lopez's Name Patient's Relationship to Policy Lopez [facility] ([facility]) MEDICARE ADVANTAGE [facility] ([facility]) Nov 13, 2020 [id number] [phone] [place]IENT [facility] (WNR) MEDICARE ADVANTAGE [facility] ([facility]) Aug 15, 2013 [id number] Edwin [place] PATIENT MEDICARE ([place]NR) MEDICARE (M) PART A Sep 15, 2010 PART A [id number] [phone] [place] PATIENT [place]ICARE ([place]) MEDICARE (M) PART B Sep 15, 2010 PART B [id number] [phone] [place] PATIENT Selected Encounter This section includes the information on record at [place] for the Encounter. Date/Time Encounter Type Encounter Description Reason Pro vider Source Aug 05, 2023 11:33 AM Outpatient Encounter TELEPHONE/NEUROLOGY IHE Encounter Template Text not used by [place] Plan of Treatment: Future Appointments (+ 6 months) and Future Tests (+/- 45 days) The Plan of Treatment section includes future care activities for the patient from all [place] [facility]. This section includes future appointments and future orders which are active, pending or scheduled. Future Appointments This section includes appointments that were scheduled to occur 6 months from the date of the Encounter, up to a maximum of 20 appointments. The data comes from all [facility]. Appointment Date/Time Appointment Type Appointme nt Facility Name Aug 10, 2023 09:00 AM AMBULATORY - NONE [facility] Aug 23, 2023 05:00 PM AMBULATORY - NONE [facility] Sep 06, 2023 12:00 PM AMBULATORY - REHAB MEDICIN E [facility] Active, Pending, and Scheduled Orders This section includes a listing of several types of active, pending, and scheduled orders, including clinic medications orders, diagnostic test orders, procedure orders and consult orders; where the start date of the order is 45 days before the date of the Encounter or 45 days after the date of theEncounter. The data comes from all [facility]. Test Date/Time Test Type Test Details Facility Name Aug 05, 2023 10:35 AM Consult Order NEUROLOGY OUTPT DBS [facility] Aug 05, 2023 10:35 AM Consult Order SOCIAL WOR K OUTPT NEUROLOGY [facility] Aug 10, 2023 03:18 PM Consult Order [facility] Cons [facility] Aug 19, 2023 12:01 PM Consult Order OT OCCUPAT IONAL THERAPY OUTPT PACT Cons [facility]iting [facility] Lab Results: +/- 30 days of the encounter This section includes the Chemistry and Hematology Lab Results on record with [place] for the patient. Radiology Reports and Pathology Reports are provided separately, in subsequent sections. Lab Results This section contains the Chemistry/Hematology Results that were resulted 30 days before or 30 daysafter the date of the Encounter. Date/Time Source Result Type Result - Unit Interpretation Reference Range Comment Aug 04, 2023 03:04 PM [facility] URINALYSIS Specimen Type: URINE No comment entered. Ordering Provider: CHARLIE PETERSON Report Released Date/Time: Aug 04, 2023 03:02 PM Reporting Lab: [facility] [id number] Performing Lab: [facility] [id number] URINE COLOR YELLOW SPECIFIC GRAVITY 1.031 1.003-1.035 [...] 20, 2023 01:48 PM VA-TOBACCO FORMER USER [facility] Tobacco Use History This section includes a history of the smoking, or tobacco-related health factors, that were collected on or before the date of the Encounter. The data comes from the [place] facility where the Encounter took place. Date/Time Smoking Status/Tobacco Use Comment F acility Jan 20, 2023 01:48 PM VA-TOBACCO QUIT 15 YRS OR MORE [facility] Jan 21, 2022 10:50 AM VA-TOBACCO FORMER USER [facility] Jan 21, 2022 10:50 AM VA-TOBACCO QUIT 15 YRS OR MORE [facility] Feb 06, 2019 02:30 PM INPT NO TOBACCO USE IN LAST 30 D AYS [facility] Pathology Reports: +/- 30 days of [...] the Encounter. The data comes from all [place] treatment facilities. Date/Time Pathology Report Provider Source Aug 04, 2023 03:04 PM LR MICROBIOLOGY RE PORT: Reporting Lab: [facility] [CLIA# [id number]] [place] [address] Accession [UID]: [id number] [[id number]] Received: Aug 04, 2023@15:18 Collection sample: URINE Collection date: Aug 04, 2023 15:04 Provider: CHARLIE PETERSON Comment on specimen: RECEIVED IN URINE PRESERVATIVE TUBE Test(s) ordered: CULTURE & SUSCEPTIBILITY...... completed: Aug 05, 2023 * BACTERIOLOGY FINAL REPORT => Aug 05, 2023 11:09 [facility] CODE: [id number] CULTURE RESULTS: LESS THAN 10,000 CFU/ML Bacteriology Remark(s): THIS REPORT IS FINAL =--=--=--=--=--=--=--=--=--=--=--=- -=--=--=--=--=--=--=--=--=--=--=--= --=--=-- Performing Laboratory: Bacteriology Report Performed By: [facility] [CLIA# [id number]] [place] [address] [facility] Encounter Notes: All associated encounter notes This section contains the clinical notes associated to the Encounter. Date/Time Encounter Note(s) Provider Source Aug 05, 2023 11:33 AM REPORT OF CONTACT: LOCAL TITLE: PATIENT CONTACT NOTE STANDARD TITLE: REPORT OF CONTACT DATE OF NOTE: AUG 05, 2023@11:33 ENTRY DATE: AUG 05, 2023@11:33:15 AUTHOR: CEDRIC VILLANUEVA EXP COSIGNER: URGENCY: STATUS: COMPLETED Patient contact Name of : [place] Name/Relationship of Contact if other than [place]: Date & Time of Contact: Jul@11:33 Type of Contact: Reason for Contact: Called patient at the request of Dr. Peterson to let him know UA was within normal limits. Patient verbalized an understanding of this. [facility] called Pharmacy to request expedited fill and mail of new CD/LD prescription. Patient will take CD 25/LD 100MG tabs to local [facility] cutter office for disposal once new prescription arrives. /kera/ CEDRIC FUNEZ) RNC REGISTERED NURSE, CERTIFIED Signed: 08/05/2023 11:37 CEDRIC VILLANUEVA [facility]
--- OUTSIDE RECORDS SUMMARY | 2023-08-25 16:16 | XMS_ITS | Encounter Summary ---
Author Name Department of Vetera Affairs Organization Department of Vetera Affairs Address [address] [place] [address] Support Name Relationship Address Phone ANANT, JAIRO Next of Kin [address] [address] JAIRO [place] Emergency Contact [phone] [address] [address] Insurance Providers: All historical [...] Name Patient's Relationship to Policy Lopez [facility] (WNR) MEDICARE ADVANTAGE [facility] ([facility]) Nov 13, 2020 [id number] [phone] Edwin [place] PATIENT [employer] [facility] (WNR) MEDICARE ADVANTAGE [facility] (WNR) Aug 15, 2013 [id number] [phone] [place] PATIENT MEDICARE ([place]NR) MEDICARE (M) PART A Sep 15, 2010 PART A [id number] [place] PATIENT MEDICARE ([place]NR) MEDICARE (M) PART B Sep 15, 2010 PART B [id number] [phone] [place] PATIENT Selected Encounter This section includes the information on record at [place] for the Encounter. Date/Time Encounter Type Encounter Description Reason Pro vider Source Aug 10, 2023 12:00 AM Outpatient Encounter EVENT (HISTORICAL) IHE Encounter Template Text not used by [place] Plan of Treatment: Future Appointments (+ 6 months) and Future Tests (+/- 45 days) The Plan of Treatment section includes future care activities for the patient from [facility] [place] [facility] This section includes future appointments and future orders which are active, pending or scheduled. Future Appointments This section includes appointments that were scheduled to occur 6 months from the date of the Encounter, up to a maximum of 20 appointments. The data comes from all [facility]. Appointment Date/Time Appointment Type Appointme nt Facility Name Aug 23, 2023 05:00 PM AMBULATORY - NONE [facility] Sep 06, 2023 12:00 PM AMBULATORY - REHAB MEDICIN E [facility] Active, Pending, and Scheduled Orders This section includes a listing of several types of active, pending, and scheduled orders, including clinic medications orders, diagnostic test orders, procedure orders and consult orders; where the start date of the order is 45 days before the date of the Encounter or 45 days after the date of theEncounter. The data comes from all [facility]. Test Date/Time Test Type Test Details Facility Name Aug 05, 2023 10:35 AM Consult Order NEUROLOGY OUTPT DBS Cons Manager [facility] Aug 05, 2023 10:35 AM Consult Order SOCIAL WOR K OUTPT NEUROLOGY Cons [facility] Aug 10, 2023 03:18 PM Consult Order [facility] Cons Manager Hematology[facility] Aug 19, 2023 12:01 PM Consult Order OT OCCUPAT IONAL THERAPY OUTPT PACT Cons Manager Hematology's [facility] Lab Results: +/- 30 days of the encounter This section includes the Chemistry and Hematology Lab Results on record with [place] for the patient. Radiology Reports and Pathology Reports are provided separately, in subsequent sections. Lab Results This section contains the Chemistry/Hematology Results that were resulted 30 days before or 30 daysafter the date of the Encounter. Date/Time Source Result Type Result - Unit Interpretation Reference Range Comment Aug 04, 2023 03:04 PM [facility] URINALYSIS Specimen Type: URINE No comment entered. Ordering Provider: CHARLIE ONOFRE Report Released Date/Time: Aug 04, 2023 03:02 PM Reporting Lab: [facility] [id number] Performing Lab: [facility] [id number] URINE COLOR YELLOW SPECIFIC GRAVITY 1.031 1.003-1.035 [...] and tobacco- related health factors from the [place] facility where the Encounter took place. Current Smoking Status This section includes the most current smoking, or tobacco-related health factor, from the [place] facility where the Encounter took place. Date/Time Current Smoking Status Comment Facil ity Jan 20, 2023 01:48 PM VA-TOBACCO FORMER USER [facility] Tobacco Use History This section includes a history of the smoking, or tobacco-related health factors, that were collected on or before the date of the Encounter. The data comes from the [place] facility where the Encounter took place. Date/Time Smoking Status/Tobacco Use Comment F acility Jan 20, 2023 01:48 PM VA-TOBACCO QUIT 15 YRS OR MORE [facility] Jan 21, 2022 10:50 AM VA-TOBACCO FORMER USER [facility] Jan 21, 2022 10:50 AM VA-TOBACCO QUIT 15 YRS OR MORE [facility] Feb 06, 2019 02:30 PM INPT NO TOBACCO USE IN LAST 30 D AYS [facility] Pathology Reports: +/- 30 days [...] the Encounter. The data comes from all [place] treatment facilities. Date/Time Pathology Report Provider Source Aug 04, 2023 03:04 PM LR MICROBIOLOGY RE PORT: Reporting Lab: [facility] [CLIA# [id number]] [place] [address] Accession [UID]: [id number] [[id number]] Received: Aug 04, 2023@15:18 Collection sample: URINE Collection date: Aug 04, 2023 15:04 Provider: CHARLIE ONOFRE Comment on specimen: RECEIVED IN URINE PRESERVATIVE TUBE Test(s) ordered: CULTURE & SUSCEPTIBILITY...... completed: Aug 05, 2023 * BACTERIOLOGY FINAL REPORT => Aug 05, 2023 11:09 TECH CODE: [id number] CULTURE RESULTS: LESS THAN 10,000 CFU/ML Bacteriology Remark(s): THIS REPORT IS FINAL =--=--=--=--=--=--=--=--=--=--=--=- -=--=--=--=--=--=--=--=--=--=--=--= --=--=-- Performing Laboratory: Bacteriology Report Performed By: [facility] [CLIA# [id number]] [place] [address] [facility]
--- OUTSIDE RECORDS SUMMARY | 2023-08-25 16:16 | XMS_ITS | Encounter Summary ---
Author Name Department of Vetera Affairs Organization Department of Vetera ns Affairs Address [address] [place] [address] Support Name Relationship Address Phone ANANT, JAIRO Next of Kin [address] [address] ANANTJAIRO Emergency Contact [address] [address] [address] Insurance Providers: All historical [...] Lopez's Name Patient's Relationship to Policy Lopez [facility] ([facility]) MEDICARE ADVANTAGE [facility] ([facility]) Nov 13, 2020 [id number] Edwin [place] PATIENT [facility] ([facility]) MEDICARE ADVANTAGE [facility] ([facility]) Aug 15, 2013 [id number] [phone] Edwin [place] PATIENT MEDICARE ([facility]) MEDICARE (M) PART A Sep 15, 2010 PART A [id number] Edwin [place] PATIENT MEDICARE ([facility]) MEDICARE (M) PART B Sep 15, 2010 PART B [id number] [phone] Edwin [place] PATIENT Selected Encounter This section includes the information on record at [place] for the Encounter. Date/Time Encounter Type Encounter Description Reason Provider Source Aug 19, 2023 09:43 AM Outpatient Encounter TELEPHONE PRIMARY CARE ICD-10-CM Z65.8 Oth problems related to psychosocial circumstances TAMIKO OLIVARES Encounter Template Text not used by [place] Assessments - Encounter Diagnoses This section includes the primary and secondary diagnoses documented for the Encounter. Date/Time Primary/Secondary Diagnosis Diagnosis Name Provider Source Aug 19, 2023 09:43 AM PRIMARY Oth problems related to psychosocial circumstances TAMIKO OLIVARES Plan of Treatment: Future Appointments (+ 6 [...] 2023 05:00 PM AMBULATORY - NONE [facility] Sep 06, 2023 12:00 PM AMBULATORY - REHAB MEDICIN [facility] Active, Pending, and Scheduled Orders This section includes a listing of several types of active, pending, and scheduled orders, including clinic medications orders, diagnostic test orders, procedure orders and consult orders; where the start date of the order is 45 days before the date of the Encounter or 45 days after the date of theEncounter. The data comes from all [place] treatment facilities. Test Date/Time Test Type Test Details Facility Name Aug 05, 2023 10:35 AM Consult Order NEUROLOGY OUTPT DBS [facility] Aug 05, 2023 10:35 AM Consult Order SOCIAL WOR K OUTPT NEUROLOGY [facility] Aug 10, 2023 03:18 PM Consult Order [facility] Aug 19, 2023 12:01 PM Consult Order OT OCCUPAT IONAL THERAPY OUTPT PACT [facility] Lab Results: +/- 30 days of the [...] Aug 04, 2023 03:04 PM [facility] URINALYSIS Specimen Type: URINE No comment entered. Ordering Provider: CHARLIE ONOFRE Report Released Date/Time: Aug 04, 2023 03:02 PM Reporting Lab: [facility] [id number] Performing Lab: [facility] [address] URINE COLOR YELLOW SPECIFIC GRAVITY 1.031 1.003-1.035 [...] 2021 01:30 PM VA-TOBACCO FORMER USER [facility] Tobacco Use History This section includes a [...] 12:33 PM FORMER TOBACCO USE >1Y <7Y [facility] Pathology Reports: +/- 30 days [...] MICROBIOLOGY RE PORT: Reporting Lab: [facility] [CLIA# [id number]] [place] [address] Accession [UID]: [id number] [[id number]] Received: Aug 04, 2023@15:18 Collection sample: URINE Collection date: Aug 04, 2023 15:04 Provider: CHARLIE ONOFRE Comment on specimen: RECEIVED IN URINE PRESERVATIVE TUBE Test(s) ordered: CULTURE & SUSCEPTIBILITY...... completed: Aug 05, 2023 * BACTERIOLOGY FINAL REPORT => Aug 05, 2023 11:09 TECH CODE: [id number] CULTURE RESULTS: LESS THAN 10,000 CFU/ML Bacteriology Remark(s): THIS REPORT IS FINAL =--=--=--=--=--=--=--=--=--=--=--=- -=--=--=--=--=--=--=--=--=--=--=--= --=--=-- Performing Laboratory: Bacteriology Report Performed By: [facility] [CLIA# [id number]] [place] [address] [facility] Encounter Notes: All associated encounter notes This section contains the clinical notes associated to the Encounter. Date/Time Encounter Note(s) Provider Source Aug 19, 2023 12:36 PM ADDENDUM: LOCAL TITLE: Addendum STANDARD TITLE: ADDENDUM DATE OF NOTE: AUG 19, 2023@12:36:42 ENTRY DATE: AUG 19, 2023@12:36:43 AUTHOR: QUENTIN HERNÁNDEZ EXP COSIGNER: URGENCY: STATUS: COMPLETED Jairo returned call to PACT RN, unable to reach. I did notify Jairo that orders for OT consult for bed was placed. 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 Jairo states tano will need a hospital bed and HHC services restarted. Is case management recommended? No Time online editor: 10 minutes Diagnosis: Z65.8 Other Specified Problems Related to Psychosocial Circum. Social Work Interventions and Plan: Chart review completed - a call was placed to Jairo. Rubber Factory Worker introduced self and purpose of the call. Jairo freedman will likely be discharged from TCU on 08/26/23 back to home. [place] will need a resumption of HHC and a hospital bed. We discussed the fact that he will need to speak with the TCU regarding HHC services as should be discharged with HHC through Medicare for the first 20 days or so. After that, the VA would then cover the care. Jairo freedman currently receives HHC through [facility] and will talk with the TCU Delivery Crew Member about getting [facility] involved at discharge. Jairo was further informed PACT would be made aware a hospital bed is needed. Care coordinated with Neuro Social Work CM. Co-signing PACT: in need of a hospital bed. [place] will be returning home from TCU on 08/26/23. Company to call jose alberto Pascual to arrange drop off at ph: [phone]. Thank you! /kera/ KIRSTIN BRUCE, INVERTER AND CLIPPER EXPORT SPECIALIST Signed: 08/19/2023 10:13 Receipt Acknowledged By: 08/19/2023 12:02 /kera/ RICKI TARIQ REGISTERED NURSE 08/19/2023 ADDENDUM STATUS: COMPLETED Rubber Factory Worker attempted to contact patient sonJairo, without success. A HIPAA compliant message was left to return writers call. OT consult placed for eval of hospital bed vs other options for falls. /kera/ RICKI TARIQ REGISTERED NURSE Signed: 08/19/2023 12:04 QUENTIN HERNÁNDEZ [facility] Aug 19, 2023 09:46 AM SOCIAL WORK RISK A SSESSMENT SCREENING NOTE: LOCAL TITLE: SOCIAL WORK TRIAGE ASSESSMENT STANDARD TITLE: SOCIAL WORK RISK ASSESSMENT SCREENING NOTE DATE OF NOTE: AUG 19, 2023@09:46 ENTRY DATE: AUG 19, 2023@09:46:52 AUTHOR: TAMIKO OLIVARES EXP COSIGNER: URGENCY: STATUS: COMPLETED SOCIAL WORK TRIAGE ASSESSMENT Has ADDENDA SOCIAL WORK TRIAGE ASSESSMENT Referral source: Family - Jose Alberto Adasm, Presenting issues: Need for in-home support services Other presenting issue: Hospital Bed Brief summary: 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 Jairo states will need a hospital bed and HHC services restarted. Is case management recommended? No Time online editor: 10 minutes Diagnosis: Z65.8 Other Specified Problems Related to Psychosocial Circum. Social Work Interventions and Plan: Chart review completed - a call was placed to Jairo. Rubber Factory Worker introduced self and purpose of the call. Jairo states will likely be discharged from TCU on 08/26/23 back to home. [place] will need a resumption of HHC and a hospital bed. We discussed the fact that he will need to speak with the TCU regarding HHC services as should be discharged with HHC through Medicare for the first 20 days or so. After that, the VA would then cover the care. Jairo states currently receives HHC through [facility] and will talk with the TCU Delivery Crew Member about getting [facility] involved at discharge. Jairo was further informed PACT would be made aware a hospital bed is needed. Care coordinated with Neuro Social Work CM. Co-signing PACT: [place] in need of a hospital bed. will be returning home from TCU on 08/26/23. Company to call son Jairo to arrange drop off at ph: [phone]. Thank you! /es/ KIRSTIN BRUCE, INVERTER AND CLIPPER EXPORT SPECIALIST Signed: 08/19/2023 10:13 Receipt Acknowledged By: 08/19/2023 12:02 /kera/ RICKI TARIQ REGISTERED NURSE 08/19/2023 ADDENDUM STATUS: COMPLETED Rubber Factory Worker attempted to contact patient son, Jairo, without success. A HIPAA compliant message was left to return writers call. OT consult placed for eval of hospital bed vs other options for falls. /kera/ RICKI TARIQ REGISTERED NURSE Signed: 08/19/2023 12:04 08/19/2023 ADDENDUM STATUS: COMPLETED Jairo returned call to PACT RN, unable to reach. I did notify Jairo that orders for OT consult for bed was placed. 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 /kera/ QUENTIN HERNÁNDEZ Legal Compliance Officer Signed: 08/19/2023 12:38 Receipt Acknowledged By: * AWAITING SIGNATURE * RICKI TARIQ HALEY R [facility]
--- OUTSIDE RECORDS SUMMARY | 2023-08-25 16:16 | XMS_ITS | Encounter Summary ---
Author Name Department of Vetera Affairs Organization Department of Vetera ns Affairs Address [address] [place] [address] Support Name Relationship Address Phone YOKO NYE Next of Kin [address] [address] YOKO NYE Emergency Contact [address] [address] [address] Insurance Providers: All historical [...] Patient's Relationship to Policy Lopez [facility] ([facility]) MEDICARE ADVANTAGE [facility] ([facility]) Nov 13, 2020 [id number] [place] [facility]IENT [facility] (WNR) MEDICARE ADVANTAGE [facility] ([facility]) Aug 15, 2013 [id number] [place] PATIENT MEDIC[place] ([place]NR) MEDICARE (M) PART A Sep 15, 2010 PART A [id number] [phone] [place] ([place]) MEDICARE (M) PART B Sep 15, 2010 PART B [id number] [phone] [place] PATIENT Selected Encounter This section includes the information on record at PA for the Encounter. Date/Time Encounter Type Encounter Description Reason Provider Source Aug 10, 2023 08:40 AM Outpatient Encounter TELEPHONE PRIMARY CARE ARISTEO POLLARD Encounter Template Text not used by PA Plan of Treatment: Future Appointments (+ 6 months) and Future Tests (+/- 45 days) The Plan of Treatment section includes future care activities for the patient from all [facility] This section includes future appointments and future orders which are active, pending or scheduled. Future Appointments This section includes appointments that were scheduled to occur 6 months from the date of the Encounter, up to a maximum of 20 appointments. The data comes from all [facility] facilities. Appointment Date/Time Appointment Type Appointme nt Facility Name Aug 23, 2023 05:00 PM AM[place]ORY [place] NONE [place] [facility] Sep 06, 2023 12:00 PM AMBULATORY - REHAB MEDICIN E [facility] Active, Pending, and Scheduled Orders This section includes a listing of several types of active, pending, and scheduled orders, including clinic medications orders, diagnostic test orders, procedure orders and consult orders; where the start date of the order is 45 days before the date of the Encounter or 45 days after the date of theEncounter. The data comes from all [facility]. Test Date/Time Test Type Test Details Facility Name Aug 05, 2023 10:35 AM Consult Order NEUROLOGY OUTPT DBS Cons [facility]tie [facility] Aug 05, 2023 10:35 AM Consult Order SOCIAL WOR K OUTPT NEUROLOGY Cons [facility] Aug 10, 2023 03:18 PM Consult Order [facility] Cons [facility] Aug 19, 2023 12:01 PM Consult Order OT OCCUPAT IONAL THERAPY OUTPT PACT Cons Necktie [facility] Lab Results: +/- 30 days of the encounter This section includes the Chemistry and Hematology Lab Results on record with PA for the patient. Radiology Reports and Pathology Reports are provided separately, in subsequent sections. Lab Results This section contains the Chemistry/Hematology Results that were resulted 30 days before or 30 daysafter the date of the Encounter. Date/Time Source Result Type Result - Unit Interpretation Reference Range Comment Aug 04, 2023 03:04 PM [facility] URINALYSIS Specimen Type: URINE No comment entered. Ordering Provider: CHARLIE ONOFRE Report Released Date/Time: Aug 04, 2023 03:02 PM Reporting Lab: [facility] [id number] Performing Lab: [facility] [id number] URINE COLOR YELLOW SPECIFIC GRAVITY 1.031 1.003-1.035 [...] and tobacco- related health factors from the PA facility where the Encounter took place. Current Smoking Status This section includes the most current smoking, or tobacco-related health factor, from the PA facility where the Encounter took place. Date/Time Current Smoking Status Comment Facil ity Jan 20, 2023 01:48 PM VA-TOBACCO FORMER USER [facility] Tobacco Use History This section includes a history of the smoking, or tobacco-related health factors, that were collected on or before the date of the Encounter. The data comes from the PA facility where the Encounter took place. Date/Time Smoking Status/Tobacco Use Comment F acility Jan 20, 2023 01:48 PM VA-TOBACCO QUIT 15 YRS OR MORE [facility] Jan 21, 2022 10:50 AM VA-TOBACCO FORMER USER [facility] Jan 21, 2022 10:50 AM VA-TOBACCO QUIT 15 YRS OR MORE [facility] Feb 06, 2019 02:30 PM INPT NO TOBACCO USE IN LAST 30 D AYS [facility] Pathology Reports: +/- 30 days of the [...] the Encounter. The data comes from all PA treatment facilities. Date/Time Pathology Report Provider Source Aug 04, 2023 03:04 PM LR MICROBIOLOGY RE PORT: Reporting Lab: [facility] [CLIA# [id number]] [place] [address] Accession [UID]: [id number] [[id number]] Received: Aug 04, 2023@15:18 Collection sample: URINE Collection date: Aug 04, 2023 15:04 Provider: CHARLIE ONOFRE Comment on specimen: RECEIVED IN URINE PRESERVATIVE TUBE Test(s) ordered: CULTURE & SUSCEPTIBILITY...... completed: Aug 05, 2023 * BACTERIOLOGY FINAL REPORT => Aug 05, 2023 11:09 [facility] CODE: [id number] CULTURE RESULTS: LESS THAN 10,000 CFU/ML Bacteriology Remark(s): THIS REPORT IS FINAL =--=--=--=--=--=--=--=--=--=--=--=- -=--=--=--=--=--=--=--=--=--=--=--= --=--=-- Performing Laboratory: Bacteriology Report Performed By: [facility] [CLIA# [id number]] [address] [place] [address] [facility] Encounter Notes: All associated encounter notes This section contains the clinical notes associated to the Encounter. Date/Time Encounter Note(s) Provider Source Aug 10, 2023 08:55 AM SOCIAL WORK RISK A SSESSMENT SCREENING NOTE: LOCAL TITLE: SOCIAL WORK TRIAGE ASSESSMENT STANDARD TITLE: SOCIAL WORK RISK ASSESSMENT SCREENING NOTE DATE OF NOTE: AUG 10, 2023@08:55 ENTRY DATE: AUG 10, 2023@08:55:37 AUTHOR: ARISTEO POLLARD COSIGNER: URGENCY: STATUS: COMPLETED SOCIAL WORK TRIAGE ASSESSMENT Referral source: Family Presenting issues: [facility] or Residential Care placement Brief summary: Jairo Abrams [phone]- Wylie currently in the hospital and needs Transitional care. Hoping to get him in at the PA facility where he is most comfortable so that he doesn't go to a PA contracted facility. Is case management recommended? No - PCSW does not provide case management Social Work Interventions and Plan: Spoke to son (13min). Son aware [facility] does not have availability for . Plan is for to go to [facility] ([facility]) today. Goal is for to return home after TCU stay. Son inquired about cost/prison coverage. Son reports has Parkinson's and requested additional home care hours and a hospital bed at discharge. Reviewed: o Medicare and [facility] eligibility/coverage. o Home care hours are determined by assessment and care needs. o PCP/PACT can place consult for hospital bed. Encouraged son/facility to call as soon as discharge date is known. Encouraged son/[facility] to work with PA and [facility] for discharge planning/coordination. Son inquired about Social Work contacts for future care planning. Educated about PCSW [facility] SW and Neurology SW and provided contact numbers. Son aware [facility] also requested SW contact family. Son will plan to reach out to SW in the future. Son appreciative of call. PCSW remains available. 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
--- OUTSIDE RECORDS SUMMARY | 2023-08-25 16:16 | XMS_ITS | Encounter Summary ---
Author Name Department of Vetera Affairs Organization Department of Vetera Affairs Address [address] [place] [address] Support Name Relationship Address Phone YOKO NYE Next of Kin [address] [address] YOKO NYE Emergency Contact [address] [address] [address] Insurance Providers: All historical [...] Lopez's Name Patient's Relationship to Policy Lopez [facility] (WNR) MEDICARE ADVANTAGE [facility] ([facility]) Nov 13, 2020 [id number] [phone] [place] PATIENT [employer] [facility] (WNR) MEDICARE ADVANTAGE [facility] (WNR) Aug 15, 2013 [id number] [place] PAT[place] ([place]NR) MEDICARE (M) PART B Sep 15, 2010 PART B [id number] [place]ARE ([place]) MEDICARE (M) PART A Sep 15, 2010 PART A [id number] [phone] [place] PATIENT Selected Encounter This section includes the information on record at ND for the Encounter. Date/Time Encounter Type Encounter Description Reason Pro vider Source Aug 19, 2023 03:23 PM Outpatient Encounter TELEPHONE TRIAGE IHE Encounter Template Text not used by ND Plan of Treatment: Future Appointments (+ 6 months) and Future Tests (+/- 45 days) The Plan of Treatment section includes future care activities for the patient from all [facility] This section includes future appointments and future orders which are active, pending or scheduled. Future Appointments This section includes appointments that were scheduled to occur 6 months from the date of the Encounter, up to a maximum of 20 appointments. The data comes from all [facility]. Appointment Date/Time Appointment Type Appointme nt Facility Name Aug 23, 2023 05:00 PM AM[place]UL[place]ORY - NONE [place] [facility] Sep 06, 2023 12:00 [...] of theEncounter. The data comes from all [facility]. Test Date/Time Test Type Test Details Facility Name Aug 05, 2023 10:35 AM Consult Order NEUROLOGY OUTPT DBS Cons Business Enterprise Officer's Choice [facility] Aug 05, 2023 10:35 AM Consult Order SOCIAL WOR K OUTPT NEUROLOGY Cons Business [facility] Aug 10, 2023 03:18 PM Consult Order [facility] Cons Business Enterprise Officer[facility] Aug 19, 2023 12:01 PM Consult Order OT OCCUPAT IONAL THERAPY OUTPT PACT Cons Business Enterprise Officer[facility] Lab Results: +/- 30 days of the encounter This section includes the Chemistry and Hematology Lab Results on record with ND for the patient. Radiology Reports and Pathology [...] Aug 04, 2023 03:02 PM Reporting Lab: [facility] [id number] Performing Lab: [facility] [id number] URINE COLOR YELLOW SPECIFIC GRAVITY 1.031 1.003-1.035 [...] and tobacco- related health factors from the ND facility where the Encounter took place. Current Smoking Status This section includes the most current smoking, or tobacco-related health factor, from the ND facility where the Encounter took place. Date/Time Current Smoking Status Comment Facil ity Jan 20, 2023 01:48 PM VA-TOBACCO FORMER USER [facility] Tobacco Use History This section includes a history of the smoking, or tobacco-related health factors, that were collected on or before the date of the Encounter. The data comes from the ND facility where the Encounter took place. Date/Time [...] the Encounter. The data comes from all ND treatment facilities. Date/Time Pathology Report Provider Source Aug 04, 2023 03:04 PM LR MICROBIOLOGY RE PORT: Reporting Lab: [facility] [CLIA# [id number]] [place] [address] Accession [UID]: [id number] [[id number]] Received: Aug 04, 2023@15:18 Collection sample: URINE Collection date: Aug 04, 2023 15:04 Provider: CHARLIE ONOFRE Comment on specimen: RECEIVED IN URINE PRESERVATIVE TUBE Test(s) ordered: CULTURE & SUSCEPTIBILITY...... completed: Aug 05, 2023 * BACTERIOLOGY FINAL REPORT => Aug 05, 2023 11:09 [facility] CODE: [id number] CULTURE RESULTS: LESS THAN 10,000 CFU/ML Bacteriology Remark(s): THIS REPORT IS FINAL =--=--=--=--=--=--=--=--=--=--=--=- -=--=--=--=--=--=--=--=--=--=--=--= --=--=-- Performing Laboratory: Bacteriology Report Performed By: [facility] [CLIA# [id number]] [place] [address] [facility] Encounter Notes: All associated encounter notes This section contains the clinical notes associated to the Encounter. Date/Time Encounter Note(s) Provider Source Aug 19, 2023 03:25 PM ADMINISTRATIVE NOT E: LOCAL TITLE: CCC: SCHEDULING ADMINISTRATION STANDARD TITLE: ADMINISTRATIVE NOTE DATE OF NOTE: AUG 19, 2023@15:25 ENTRY DATE: AUG 19, 2023@15:25:56 AUTHOR: GABBY KOLB EXP COSIGNER: URGENCY: STATUS: COMPLETED [facility]: SCHEDULING ADMINISTRATION Has ADDENDA Primary Care Call Center Veterans son Jairo is returning a missed call from you, he has a hard time answering the phone during the day so requests that a detailed voicemail be left as well as a direct extension to reach you back at if possible. He can be reached at: [phone]. /kera/ GABBY KOLB VISAll 23 [facility] MSA Signed: 08/19/2023 15:31 Receipt Acknowledged By: 08/22/2023 08:52 /kera/ RICKI TARIQ REGISTERED NURSE 08/22/2023 ADDENDUM STATUS: COMPLETED Medical Laboratory Technical Officer attempted to contact patient son, Jairo, without success. A HIPAA compliant message was left to return writers call. /kera/ RICKI TARIQ REGISTERED NURSE Signed: 08/22/2023 08:52 GABBY KOLB [facility]
--- OUTSIDE RECORDS SUMMARY | 2023-08-25 16:16 | XMS_ITS | Encounter Summary ---
Author Name Department of Vetera ns Affairs Organization Department of Vetera ns Affairs Address [address] [place] [address] Support Name Relationship Address Phone ANANT, JAIRO Next of Kin [address] [address] [address] ANANT JAIRO Emergency Contact [address] [address] [address] Insurance Providers: All historical [...] to Policy Lopez [facility] ([facility]) MEDICARE ADVANTAGE [facility] ([facility]) Nov 13, 2020 [id number] [place] [facility] (WNR) MEDICARE ADVANTAGE [facility] ([facility]) Aug 15, 2013 [id number] [place] PATIENT MEDICARE ([place]NR) MEDICARE (M) PART A Sep 15, 2010 PART A [id number] [place] PATIENT MEDICARE ([place]NR) MEDICARE (M) PART B Sep 15, 2010 PART B [id number] [place] PATIENT Selected Encounter This section includes the information on record at [place] for the Encounter. Date/Time Encounter Type Encounter Description Reason Pro vider Source Aug 23, 2023 10:29 AM Outpatient Encounter TELEPHONE/NEUROLOGY IHE Encounter Template Text not used by SC Plan of Treatment: Future Appointments (+ 6 months) and Future Tests (+/- 45 days) The Plan of Treatment section includes future care activities for the patient from all [place] [facility]. This section includes future appointments and future orders which are active, pending or scheduled. Future Appointments This section includes appointments that were scheduled to occur 6 months from the date of the Encounter, up to a maximum of 20 appointments. The data comes from all [facility]. Appointment Date/Time Appointment Type Appointme nt Facility Name Sep 06, 2023 12:00 PM AMBULATORY - REHAB MEDICIN E [facility] Active, Pending, and Scheduled Orders This section includes a listing of several types of active, pending, and scheduled orders, including clinic medications orders, diagnostic test orders, procedure orders and consult orders; where the start date of the order is 45 days before the date of the Encounter or 45 days after the date of theEncounter. The data comes from all [facility]. Test Date/Time Test Type Test Details Facility Name Aug 05, 2023 10:35 AM Consult Order NEUROLOGY OUTPT DBS Cons [facility] Aug 05, 2023 10:35 AM Consult Order SOCIAL WOR K OUTPT NEUROLOGY Cons [facility] Aug 10, 2023 03:18 PM Consult Order [facility] Cons H[facility] Aug 19, 2023 12:01 PM Consult Order OT OCCUPAT IONAL THERAPY OUTPT PACT Cons [facility] Coders[facility] Lab Results: +/- 30 days of the encounter This section includes the Chemistry and Hematology Lab Results on record with [place] for the patient. Radiology Reports and Pathology Reports are provided separately, in subsequent sections. Lab Results This section contains the Chemistry/Hematology Results that were resulted 30 days before or 30 daysafter the date of the Encounter. Date/Time Source Result Type Result - Unit Interpretation Reference Range Comment Aug 04, 2023 03:04 PM [facility] URINALYSIS Specimen Type: URINE No comment entered. Ordering Provider: CHARLIE PETERSON Report Released Date/Time: Aug 04, 2023 03:02 PM Reporting Lab: [facility] [id number] Performing Lab: [facility] [id number] URINE COLOR YELLOW SPECIFIC GRAVITY 1.031 1.003-1.035 [...] and tobacco- related health factors from the [place] facility where the Encounter took place. Current Smoking Status This section includes the most current smoking, or tobacco-related health factor, from the [place] facility where the Encounter took place. Date/Time Current Smoking Status Comment Facil ity Jan 20, 2023 01:48 PM VA-TOBACCO FORMER USER [facility] Tobacco Use History This section includes a history of the smoking, or tobacco-related health factors, that were collected on or before the date of the Encounter. The data comes from the [place] facility where the Encounter took place. Date/Time Smoking Status/Tobacco Use Comment F acility Jan 20, 2023 01:48 PM VA-TOBACCO QUIT 15 YRS OR MORE [facility] Jan 21, 2022 10:50 AM VA-TOBACCO FORMER USER [facility] Jan 21, 2022 10:50 AM VA-TOBACCO QUIT 15 YRS OR MORE [facility] Feb 06, 2019 02:30 PM INPT NO TOBACCO USE IN LAST 30 D AYS [facility] Pathology Reports: +/- 30 days of the [...] the Encounter. The data comes from all [place] treatment facilities. Date/Time Pathology Report Provider Source Aug 04, 2023 03:04 PM LR MICROBIOLOGY RE PORT: Reporting Lab: [facility] [CLIA# [id number]] [place] [address] Accession [UID]: [id number] [[id number]] Received: Aug 04, 2023@15:18 Collection sample: URINE Collection date: Aug 04, 2023 15:04 Provider: CHARLIE PETERSON Comment on specimen: RECEIVED IN URINE PRESERVATIVE TUBE Test(s) ordered: CULTURE & SUSCEPTIBILITY...... completed: Aug 05, 2023 * BACTERIOLOGY FINAL REPORT => Aug 05, 2023 11:09 TECH CODE: [id number] CULTURE RESULTS: LESS THAN 10,000 CFU/ML Bacteriology Remark(s): THIS REPORT IS FINAL =--=--=--=--=--=--=--=--=--=--=--=- -=--=--=--=--=--=--=--=--=--=--=--= --=--=-- Performing Laboratory: Bacteriology Report Performed By: [facility] [CLIA# [id number]] [place] [address] [facility] Encounter Notes: All associated encounter notes This section contains the clinical notes associated to the Encounter. Date/Time Encounter Note(s) Provider Source Aug 23, 2023 10:29 AM REPORT OF CONTACT: LOCAL TITLE: PATIENT CONTACT NOTE STANDARD TITLE: REPORT OF CONTACT DATE OF NOTE: AUG 23, 2023@10:29 ENTRY DATE: AUG 23, 2023@10:29:26 AUTHOR: CEDRIC VILLANUEVA EXP COSIGNER: URGENCY: STATUS: COMPLETED Patient contact Name of : [place] Name/Relationship of Contact if other than [place]: RICKI Walker Date & Time of Contact: Aug@10:29 Type of Contact: Reason for Contact: Received call from [facility] Denise ROBISON requesting time change to CARBIDOPA/LEVODOPA CAP,SA TAKE 3 CAPSULES CARBIDOPA 48.75MG/LEVODOPA 195MG SA CAPBY MOUTH THREE TIMES A DAY take at 8 am, 12 noon and 4 pm. Per Denise, patient is requesting CD/LD at 0800, 1400, and 2000. Requesting provider update dosage times in prescription. NCM to fax to Ron Siu. Alerting Dr. Peterson. /kera/ CEDRIC VILLANUEVA (EMELY) RICKIC REGISTERED NURSE, CERTIFIED Signed: 08/23/2023 10:40 Receipt Acknowledged By: 08/23/2023 13:40 /es/ Charlie Peterson MD STAFF PHYSICIAN NEUROLOGY PHIMAMIE,CEDRIC Kat [facility]
--- OUTSIDE RECORDS SUMMARY | 2023-08-25 16:16 | XMS_ITS | Encounter Summary ---
Author Name Department of Vetera ns Affairs Organization Department of [facility] Affairs Address [address] [place] [address] Support Name Relationship Address Phone ANANT, JAIRO Next of Kin [address] [address] ANANT JAIRO Emergency Contact [address] [address] Insurance Providers: All historical [...] Name Patient's Relationship to Policy Lopez [facility] (R) MEDICARE ADVANTAGE [facility] ([facility]) Nov 13, 2020 [id number] [phone] [place] PATIENT [facility] (WNR) MEDICARE ADVANTAGE [facility] ([facility]) Aug 15, 2013 [id number] [phone] [place] PATIENT MEDICARE (WNR) MEDICARE (M) PART A Sep 15, 2010 PART A [id number] [phone] [place] PATIENT MEDICARE ([place]NR) MEDICARE (M) PART B Sep 15, 2010 PART B [id number] [phone] [place] PATIENT Selected Encounter This section includes the information on record at [place] for the Encounter. Date/Time Encounter Type Encounter Description Reason Pro vider Source Aug 19, 2023 11:19 AM Outpatient Encounter TELEPHONE/NEUROLOGY IHE Encounter Template Text not used by PA Plan of Treatment: Future Appointments (+ 6 months) and Future Tests (+/- 45 days) The Plan of Treatment section includes future care activities for the patient from all [facility] This section includes future appointments and future orders which are active, pending or scheduled. Future Appointments This section includes appointments that were scheduled to occur 6 months from the date of the Encounter, up to a maximum of 20 appointments. The data comes from all [facility]. Appointment Date/Time Appointment Type Appointme nt Facility Name Aug 23, 2023 05:00 PM [place] [facility] Sep 06, 2023 12:00 PM AMBULATORY - REHAB MEDICIN E [facility] Active, Pending, and Scheduled Orders This section includes a listing of several types of active, pending, and scheduled orders, including clinic medications orders, diagnostic test orders, procedure orders and consult orders; where the start date of the order is 45 days before the date of the Encounter or 45 days after the date of theEncounter. The data comes from all [facility]. Test Date/Time Test Type Test Details Facility Name Aug 05, 2023 10:35 AM Consult Order NEUROLOGY OUTPT DBS [facility] Aug 05, 2023 10:35 AM Consult Order SOCIAL WOR K OUTPT NEUROLOGY [facility] Aug 10, 2023 03:18 PM Consult Order [facility] Aug 19, 2023 12:01 PM Consult Order OT OCCUPAT IONAL THERAPY OUTPT PACT Cons [facility] Lab Results: +/- 30 days of the [...] Range Comment Aug 04, 2023 03:04 PM [facility] URINALYSIS Specimen Type: URINE No comment entered. Ordering Provider: CHARLIE PETERSON Report Released Date/Time: Aug 04, 2023 03:02 PM Reporting Lab: [facility] [id number] Performing Lab: [facility] [id number] URINE COLOR YELLOW SPECIFIC GRAVITY 1.031 1.003-1.035 [...] 20, 2023 01:48 PM VA-TOBACCO FORMER USER [facility] Tobacco Use History This section includes a history of the smoking, or tobacco-related health factors, that were collected on or before the date of the Encounter. The data comes from the [place] facility where the Encounter took place. Date/Time Smoking Status/Tobacco Use Comment F acility Jan 20, 2023 01:48 PM VA-TOBACCO QUIT 15 YRS OR MORE [facility] Jan 21, 2022 10:50 AM VA-TOBACCO FORMER USER [facility] Jan 21, 2022 10:50 AM VA-TOBACCO QUIT 15 YRS OR MORE [facility] Feb 06, 2019 02:30 PM INPT NO TOBACCO USE IN LAST 30 D AYS [facility] Pathology Reports: +/- 30 days of [...] PM LR MICROBIOLOGY RE PORT: Reporting Lab: [facility] [CLIA# [id number]] [place] [address] Accession [UID]: [id number] [[id number]] Received: Aug 04, 2023@15:18 Collection sample: URINE Collection date: Aug 04, 2023 15:04 Provider: CHARLIE PETERSON Comment on specimen: RECEIVED IN URINE PRESERVATIVE TUBE Test(s) ordered: CULTURE & SUSCEPTIBILITY...... completed: Aug 05, 2023 * BACTERIOLOGY FINAL REPORT => Aug 05, 2023 11:09 TECH CODE: [id number] CULTURE RESULTS: LESS THAN 10,000 CFU/ML Bacteriology Remark(s): THIS REPORT IS FINAL =--=--=--=--=--=--=--=--=--=--=--=- -=--=--=--=--=--=--=--=--=--=--=--= --=--=-- Performing Laboratory: Bacteriology Report Performed By: [facility] [CLIA# [id number]] [place] [address] [facility] Encounter Notes: All associated encounter notes This section contains the clinical notes associated to the Encounter. Date/Time Encounter Note(s) Provider Source Aug 19, 2023 12:07 PM ADDENDUM: LOCAL TITLE: Addendum STANDARD TITLE: ADDENDUM DATE OF NOTE: AUG 19, 2023@12:07:46 ENTRY DATE: AUG 19, 2023@12:07:47 AUTHOR: CEDRIC VILLANUEVA COSIGNER: URGENCY: STATUS: COMPLETED Received call from RICKI Walker at patient's living facility. Denise notes patient had a fall on 08/11/23 after which staff found him on the floor next to his bed; no injuries sustained. Patient did not have a fall on 08/16/23 as he indicated in VM to Neuro [place]. Regarding a medication error, Denise reviewed patient received a dose of lisinopril ordered for another patient; this occurred on 08/16/23. VS were monitored every hour x several hours, then every shift. VS remained stable with no drop in BP. Denise verbalized understanding that information will be shared with Dr. Peterson. Any med changes can be faxed to [phone]. /kera/ CEDRIC VILLANUEVA (EMELY) RNC REGISTERED NURSE, CERTIFIED Signed: 08/19/2023 12:14 Receipt Acknowledged By: 08/19/2023 12:22 /saadia Peterson MD STAFF PHYSICIAN NEUROLOGY --- Original Document --- 08/19/23 PATIENT CONTACT NOTE: Patient contact Name of [place]: ANANTGARDENIA Name/Relationship of Contact if other than : RICKI Walker, Roslyn Velasquez Atkins Date & Time of Contact: Aug@11:19 Type of Contact: Reason for Contact: Returned call to RICKI Walker to verify dose of patient's CD/LD. Requested Denise leave this in a VM for Neuro NCM due to difficulty connecting on the phone; number provided. /kera/ CEDRIC FUNEZ) RICKIC REGISTERED NURSE, CERTIFIED Signed: 08/19/2023 11:22 Receipt Acknowledged By: 08/19/2023 12:21 /kera/ Charlie Peterson MD STAFF PHYSICIAN NEUROLOGY CEDRIC VILLANUEVA [facility] Aug 19, 2023 11:19 AM REPORT OF CONTACT: LOCAL TITLE: PATIENT CONTACT NOTE STANDARD TITLE: REPORT OF CONTACT DATE OF NOTE: AUG 19, 2023@11:19 ENTRY DATE: AUG 19, 2023@11:19:37 AUTHOR: CEDRIC VILLANUEVA EXP COSIGNER: URGENCY: STATUS: COMPLETED PATIENT CONTACT NOTE Has ADDENDA Patient contact Name of [place]: ANANTGARDENIA Pineda Name/Relationship of Contact if other than : RICKI Walker, Roslyn Velasquez Atkins Date & Time of Contact: Aug@11:19 Type of Contact: Reason for Contact: Returned call to RICKI Walker to verify dose of patient's CD/LD. Requested Denise leave this in a VM for Neuro NCM due to difficulty connecting on the phone; number provided. /kera/ CEDRIC FUNEZ) RICKIC REGISTERED NURSE, CERTIFIED Signed: 08/19/2023 11:22 Receipt Acknowledged By: 08/19/2023 12:21 /kera/ Charlie Peterson MD STAFF PHYSICIAN NEUROLOGY 08/19/2023 ADDENDUM STATUS: COMPLETED Received call from RICKI Walker at patient's living facility. Denise notes patient had a fall on 08/11/23 after which staff found him on the floor next to his bed; no injuries sustained. Patient did not have a fall on 08/16/23 as he indicated in VM to Neuro NCM. Regarding a medication error, Denise reviewed patient received a dose of lisinopril ordered for another patient; this occurred on 08/16/23. VS were monitored every hour x several hours, then every shift. VS remained stable with no drop in BP. Denise verbalized understanding that information will be shared with Dr. Peterson. Any med changes can be faxed to [phone]. /kera/ CEDRIC VILLANUEVA (EMELY) RNC REGISTERED NURSE, CERTIFIED Signed: 08/19/2023 12:14 Receipt Acknowledged By: 08/19/2023 12:22 /kera/ Charlie Peterson MD STAFF PHYSICIAN NEUROLOGY CEDRIC VILLANUEVA [facility]
--- OUTSIDE RECORDS SUMMARY | 2023-08-25 16:16 | XMS_ITS | Encounter Summary ---
Author Name Department of Vetera ns Affairs Organization Department of Vetera ns Affairs Address [address] [place] [address] Support Name Relationship Address Phone ANANT, JAIRO Next of Kin [address] [address] ANANT JAIRO Emergency Contact [phone] [address] Insurance Providers: All historical [...] Lopez's Name Patient's Relationship to Policy Lopez [facility] ([facility]) MEDICARE ADVANTAGE [facility] ([facility]) Nov 13, 2020 [id number] [phone] [place] [facility] [facility] (WNR) MEDICARE ADVANTAGE [facility] ([facility]) Aug 15, 2013 [id number] [place] PATIENT MEDICARE (WNR) MEDICARE (M) PART A Sep 15, 2010 PART A [id number] [phone] [place] PATIENT MEDICARE ([place]NR) MEDICARE (M) PART B Sep 15, 2010 PART B [id number] [phone] [place] PATIENT Selected Encounter This section includes the information on record at [place] for the Encounter. Date/Time Encounter Type Encounter Description Reason Pro vider Source Aug 16, 2023 04:44 PM Outpatient Encounter TELEPHONE/NEUROLOGY IHE Encounter Template Text not used by IN Plan of Treatment: Future Appointments (+ 6 months) and Future Tests (+/- 45 days) The Plan of Treatment section includes future care activities for the patient from all [place] [facility]. This section includes future appointments and future orders which are active, pending or scheduled. Future Appointments This section includes appointments that were scheduled to occur 6 months from the date of the Encounter, up to a maximum of 20 appointments. The data comes from all [facility]. Appointment Date/Time Appointment Type Appointme nt Facility Name Aug 23, 2023 05:00 PM [place]ORY - [place]ONE [place] [facility] Sep 06, 2023 12:00 PM AMBULATORY - REHAB MEDICIN E [facility] Active, Pending, and Scheduled Orders This section includes a listing of several types of active, pending, and scheduled orders, including clinic medications orders, diagnostic test orders, procedure orders and consult orders; where the start date of the order is 45 days before the date of the Encounter or 45 days after the date of theEncounter. The data comes from all [facility]. Test Date/Time Test Type Test Details Facility Name Aug 05, 2023 10:35 AM Consult Order NEUROLOGY OUTPT DBS [facility] [place] [facility] Aug 05, 2023 10:35 AM Consult Order SOCIAL WOR K OUTPT NEUROLOGY [facility] Aug 10, 2023 03:18 PM Consult Order [facility] Cons [facility] Aug 19, 2023 12:01 PM Consult Order OT OCCUPAT IONAL THERAPY OUTPT PACT Cons [facility] Lab Results: +/- 30 days of the encounter This section includes the Chemistry and Hematology Lab Results on record with [place] for the patient. Radiology Reports and Pathology Reports are provided separately, in subsequent sections. Lab Results This section contains the Chemistry/Hematology Results that were resulted 30 days before or 30 daysafter the date of the Encounter. Date/Time Source Result Type Result - Unit Interpretation Reference Range Comment Aug 04, 2023 03:04 PM [facility] URINALYSIS Specimen Type: URINE No comment entered. Ordering Provider: CHARLIE PETERSON Report Released Date/Time: Aug 04, 2023 03:02 PM Reporting Lab: [facility] [id number] Performing Lab: [facility] [id number] URINE COLOR YELLOW SPECIFIC GRAVITY 1.031 1.003-1.035 [...] and tobacco- related health factors from the [place] facility where the Encounter took place. Current Smoking Status This section includes the most current smoking, or tobacco-related health factor, from the [place] facility where the Encounter took place. Date/Time Current Smoking Status Comment Facil ity Jan 20, 2023 01:48 PM VA-TOBACCO FORMER USER [facility] Tobacco Use History This section includes a history of the smoking, or tobacco-related health factors, that were collected on or before the date of the Encounter. The data comes from the [place] facility where the Encounter took place. Date/Time Smoking Status/Tobacco Use Comment F acility Jan 20, 2023 01:48 PM VA-TOBACCO QUIT 15 YRS OR MORE [facility] Jan 21, 2022 10:50 AM VA-TOBACCO FORMER USER [facility] Jan 21, 2022 10:50 AM VA-TOBACCO QUIT 15 YRS OR MORE [facility] Feb 06, 2019 02:30 PM INPT NO TOBACCO USE IN LAST 30 D AYS [facility] Pathology Reports: +/- 30 days [...] the Encounter. The data comes from all [place] treatment facilities. Date/Time Pathology Report Provider Source Aug 04, 2023 03:04 PM LR MICROBIOLOGY RE PORT: Reporting Lab: [facility] [CLIA# [id number]] [place] [address] Accession [UID]: [id number] [[id number]] Received: Aug 04, 2023@15:18 Collection sample: URINE Collection date: Aug 04, 2023 15:04 Provider: CHARLIE PETERSON Comment on specimen: RECEIVED IN URINE PRESERVATIVE TUBE Test(s) ordered: CULTURE & SUSCEPTIBILITY...... completed: Aug 05, 2023 * BACTERIOLOGY FINAL REPORT => Aug 05, 2023 11:09 TECH CODE: [id number] CULTURE RESULTS: LESS THAN 10,000 CFU/ML Bacteriology Remark(s): THIS REPORT IS FINAL =--=--=--=--=--=--=--=--=--=--=--=- -=--=--=--=--=--=--=--=--=--=--=--= --=--=-- Performing Laboratory: Bacteriology Report Performed By: [facility] [CLIA# [id number]] [place] [address] [facility] Encounter Notes: All associated encounter notes This section contains the clinical notes associated to the Encounter. Date/Time Encounter Note(s) Provider Source Aug 18, 2023 09:18 AM ADDENDUM: LOCAL TITLE: Addendum STANDARD TITLE: ADDENDUM DATE OF NOTE: AUG 18, 2023@09:18:25 ENTRY DATE: AUG 18, 2023@09:18:27 AUTHOR: CEDRIC VILLANUEVA COSIGNER: URGENCY: STATUS: COMPLETED Attempted to reach patient at [phone]. Left VM requesting patient call Neuro [facility]; number provided. Additionally, message left with his son at [phone]. /kera/ CEDRIC FUNEZ) RNC REGISTERED NURSE, CERTIFIED Signed: 08/18/2023 09:20 Receipt Acknowledged By: 08/18/2023 10:09 /kera/ Charlie Peterson MD STAFF PHYSICIAN NEUROLOGY --- Original Document --- 08/16/23 PATIENT CONTACT NOTE: Patient contact Name of : [place] Name/Relationship of Contact if other than : Date & Time of Contact: Aug@16:44 Type of Contact: Reason for Contact: Attempted to reach patient, however, phone was not in operation. Called [facility] [address] where patient currently resides and left message requesting call back. Patient left message on Neurology Clinic line stating he needed to talk to his neurologist SAMANTA. He reports falling at his rehab facility and notes it was because they gave me the wrong med. Will await call back from [facility] for verification of falls and med discrepancy as reported by patient. Alerted Dr. Peterson who will attempt to reach patient. /saadia FUNEZ) RICKIC REGISTERED NURSE, CERTIFIED Signed: 08/16/2023 16:51 08/18/2023 ADDENDUM STATUS: COMPLETED Called [facility] to f/u on patient concern about receiving incorrect medication. Message left for nursing staff at facility on 08/16/23, without response. /saadia FUNEZ) RNC REGISTERED NURSE, CERTIFIED Signed: 08/18/2023 09:13 Receipt Acknowledged By: 08/18/2023 10:09 /kera/ Charlie Peterson MD STAFF PHYSICIAN NEUROLOGY CEDRIC VILLANUEVA [facility] Aug 18, 2023 09:10 AM ADDENDUM: LOCAL TITLE: Addendum STANDARD TITLE: ADDENDUM DATE OF NOTE: AUG 18, 2023@09:10:59 ENTRY DATE: AUG 18, 2023@09:11:01 AUTHOR: CEDRIC VILLANUEVA EXP COSIGNER: URGENCY: STATUS: COMPLETED Called [facility] to f/u on patient concern about receiving incorrect medication. Message left for nursing staff at facility on 08/16/23, without response. /saadia FUNEZ) RICKIC REGISTERED NURSE, CERTIFIED Signed: 08/18/2023 09:13 Receipt Acknowledged By: 08/18/2023 10:09 /kera/ Charlie Peterson MD STAFF PHYSICIAN NEUROLOGY --- Original Document --- 08/16/23 PATIENT CONTACT NOTE: Patient contact Name of [place]: [place] Name/Relationship of Contact if other than [place]: Date & Time of Contact: Aug@16:44 Type of Contact: Reason for Contact: Attempted to reach patient, however, phone was not in operation. Called [facility] where patient currently resides and left message requesting call back. Patient left message on Neurology Clinic line stating he needed to talk to his neurologist SAMANTA. He reports falling at his rehab facility and notes it was because they gave me the wrong med. Will await call back from [facility] for verification of falls and med discrepancy as reported by patient. Alerted Dr. Peterson who will attempt to reach patient. /saadia FUNEZ) RNC REGISTERED NURSE, CERTIFIED Signed: 08/16/2023 16:51 08/18/2023 ADDENDUM STATUS: COMPLETED Attempted to reach patient at [phone]. Left VM requesting patient call Neuro [facility]; number provided. Additionally, message left with his son at [phone]. /saadia FUNEZ) RNC REGISTERED NURSE, CERTIFIED Signed: 08/18/2023 09:20 Receipt Acknowledged By: 08/18/2023 10:09 /kera/ Charlie Peterson MD STAFF PHYSICIAN NEUROLOGY CEDRIC VILLANUEVA [facility] Aug 16, 2023 04:44 PM REPORT OF CONTACT: LOCAL TITLE: PATIENT CONTACT NOTE STANDARD TITLE: REPORT OF CONTACT DATE OF NOTE: AUG 16, 2023@16:44 ENTRY DATE: AUG 16, 2023@16:44:20 AUTHOR: CEDRIC VILLANUEVA EXP COSIGNER: URGENCY: STATUS: COMPLETED PATIENT CONTACT NOTE Has ADDENDA Patient contact Name of [place]: [place] Name/Relationship of Contact if other than [place]: Date & Time of Contact: Aug@16:44 Type of Contact: Reason for Contact: Attempted to reach patient, however, phone was not in operation. Called [facility] [address] where patient currently resides and left message requesting call back. Patient left message on Neurology Clinic line stating he needed to talk to his neurologist SAMANTA. He reports falling at his rehab facility and notes it was because they gave me the wrong med. Will await call back from [facility] for verification of falls and med discrepancy as reported by patient. Alerted Dr. Peterson who will attempt to reach patient. /saadia FUNEZ) RNC REGISTERED NURSE, CERTIFIED Signed: 08/16/2023 16:51 08/18/2023 ADDENDUM STATUS: COMPLETED Called [facility] to f/u on patient concern about receiving incorrect medication. Message left for nursing staff at facility on 08/16/23, without response. /saadia FUNEZ) RNC REGISTERED NURSE, CERTIFIED Signed: 08/18/2023 09:13 Receipt Acknowledged By: * AWAITING SIGNATURE * CHARLIE PETERSON 08/18/2023 ADDENDUM STATUS: COMPLETED Attempted to reach patient at [phone]. Left VM requesting patient call Neuro [facility]; number provided. Additionally, message left with his son at . /saadia FUNEZ) RNC REGISTERED NURSE, CERTIFIED Signed: 08/18/2023 09:20 Receipt Acknowledged By: * AWAITING SIGNATURE * CHARLIE PETERSON LESLIE A [facility]
--- OUTSIDE RECORDS SUMMARY | 2023-08-25 16:16 | XMS_ITS | Encounter Summary ---
Author Name [facility] Organization [facility] Address [address] [place] [id number] Support Name Relationship Address Phone [place] Next of Kin [address] [address] [place] Emergency Contact [phone] [address] Insurance Providers: All historical [...] Lopez's Name Patient's Relationship to Policy Lopez [facility] ([facility]) MEDICARE ADVANTAGE [facility] ([facility]) Nov 13, 2020 [id number] [place] PATIENT [employer] [facility] (WNR) MEDICARE ADVANTAGE [facility] ([facility]) Aug 15, 2013 [id number] [place] PAT[place] MEDICARE (WN) MEDICARE (M) PART A Sep 15, 2010 PART A [id number] [place] ([place]) MEDICARE (M) PART B Sep 15, 2010 PART B [id number] [phone] [place] PAT[place] Selected Encounter This section includes the information on record at [place] for the Encounter. Date/Time Encounter Type Encounter Description Reason Provider Source Aug 10, 2023 03:15 PM Outpatient Encounter TELEPHONE/ANCILLARY DUKE RUSSO Encounter Template Text not used by [place] Plan of Treatment: Future Appointments (+ 6 months) and Future Tests (+/- 45 days) The Plan of Treatment section includes future care activities for the patient [facility] [facility] This section includes future appointments and future orders which are active, pending or scheduled. Future Appointments This section includes appointments that were scheduled to occur 6 months from the date of the Encounter, up to a maximum of 20 appointments. The data comes from all [facility] facilities. Appointment Date/Time Appointment Type Appointme nt Facility Name Aug 23, 2023 05:00 PM AMBULATORY - NONE [place] [facility] Sep 06, 2023 12:00 PM AMBULATORY - REHAB MEDICIN E [facility] Active, Pending, and Scheduled Orders This section includes a listing of several types of active, pending, and scheduled orders, including clinic medications orders, diagnostic test orders, procedure orders and consult orders; where the start date of the order is 45 days before the date of the Encounter or 45 days after the date of theEncounter. The data comes from all [facility]. Test Date/Time Test Type Test Details Facility Name Aug 05, 2023 10:35 AM Consult Order NEUROLOGY OUTPT DBS [employer] [facility] Aug 05, 2023 10:35 AM Consult Order SOCIAL WOR K OUTPT NEUROLOGY [employer] [facility] Aug 10, 2023 03:18 PM Consult Order [facility] Cons [employer] Body [employer] [facility] Aug 19, 2023 12:01 PM Consult Order OT OCCUPAT IONAL THERAPY OUTPT PACT Cons [employer] [facility] Lab Results: +/- 30 days of the encounter This section includes the Chemistry and Hematology Lab Results on record with [place] for the patient. Radiology Reports and Pathology Reports are provided separately, in subsequent sections. Lab Results This section contains the Chemistry/Hematology Results that were resulted 30 days before or 30 daysafter the date of the Encounter. Date/Time Source Result Type Result - Unit Interpretation Reference Range Comment Aug 04, 2023 03:04 PM [facility] URINALYSIS Specimen Type: URINE No comment entered. Ordering Provider: CHARLIE ONOFRE Report Released Date/Time: Aug 04, 2023 03:02 PM Reporting Lab: [facility] [id number] Performing Lab: [facility] [id number] URINE COLOR YELLOW SPECIFIC GRAVITY 1.031 1.003-1.035 [...] and tobacco- related health factors from the [place] facility where the Encounter took place. Current Smoking Status This section includes the most current smoking, or tobacco-related health factor, from the [place] facility where the Encounter took place. Date/Time Current Smoking Status Comment Facil ity Jan 20, 2023 01:48 PM [place]-TOBACCO QUIT 15 YRS OR MORE [facility] Tobacco Use History This section includes a history of the smoking, or tobacco-related health factors, that were collected on or before the date of the Encounter. The data comes from the [place] facility where the Encounter took place. Date/Time Smoking Status/Tobacco Use Comment F acility Jan 20, 2023 01:48 PM [place]-TOBACCO QUIT 15 YRS OR MORE [facility] Jan 21, 2022 10:50 AM VA-TOBACCO FORMER USER [facility] Jan 21, 2022 10:50 AM [place]-TOBACCO QUIT 15 YRS OR MORE [facility] Feb 06, 2019 02:30 PM INPT NO TOBACCO USE IN LAST 30 D AYS [facility] Pathology Reports: +/- 30 days of [...] the Encounter. The data comes from all [place] treatment facilities. Date/Time Pathology Report Provider Source Aug 04, 2023 03:04 PM LR MICROBIOLOGY RE PORT: Reporting Lab: [facility] [CLIA# [id number]] [place] [address] Accession [UID]: [id number] [[id number]] Received: Aug 04, 2023@15:18 Collection sample: URINE Collection date: Aug 04, 2023 15:04 Provider: CHARLIE ONOFRE Comment on specimen: RECEIVED IN URINE PRESERVATIVE TUBE Test(s) ordered: CULTURE & SUSCEPTIBILITY...... completed: Aug 05, 2023 * BACTERIOLOGY FINAL REPORT => Aug 05, 2023 11:09 TECH CODE: [id number] CULTURE RESULTS: LESS THAN 10,000 CFU/ML Bacteriology Remark(s): THIS REPORT IS FINAL =--=--=--=--=--=--=--=--=--=--=--=- -=--=--=--=--=--=--=--=--=--=--=--= --=--=-- Performing Laboratory: Bacteriology Report Performed By: [facility] [CLIA# [id number]] [place] [address] [facility] Encounter Notes: All associated encounter notes This section contains the clinical notes associated to the Encounter. Date/Time Encounter Note(s) Provider Source Aug 10, 2023 03:18 PM NONVA NOTE: LOCAL TITLE: [facility] 100 DAY REHAB BENEFIT STANDARD TITLE: NONVA NOTE DATE OF NOTE: AUG 10, 2023@15:18 ENTRY DATE: AUG 10, 2023@15:18:42 AUTHOR: DUKE RUSSO EXP COSIGNER: URGENCY: STATUS: COMPLETED This is for patient admission. Mcfp: [facility] Home Admission date: Date: August 10, 2023 Type of review: phone with facility [place] has not used any of their 100 day Rehab benefit in this calendar year. /kera/ MELVA MONTES BASKET PERSON MELVA Signed: 08/10/2023 15:19 DUKE RUSSO [facility]
== END 2023-08-06 23:49 | disposition home or self-care (01) ==
LOC: AMB 08-25 15:42
PROVIDERS: Visit Provider Family Medicine
DX: R41.82 Altered mental status, unspecified (principal); R53.1 Weakness
CPT/HCPCS: A0425; A0429

== ENCOUNTER 2023-08-29 10:49 | Outpatient (CLI) | payer MEDICARE, SELFPAY ==
--- OUTSIDE RECORDS SUMMARY | 2023-09-01 16:47 | XMS_ITS | Continuity of Care Document ---
Author Name [facility] Organization [facility] Care Team Providers Care Pediatric Oncologist Name Role Phone [facility] Unavailable Unavailable Problems Combined list of problems from Department of Defense and Veterans Affairs facilities. It does not include entries that were removed or entered in error. 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 Stopped marijuana at 25 yo. 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 [facility] Diagnosis: ICD-10-CM G20.A1 Parkinson's dis w/o dyskinesia, w/o mention of fluctuations Active Diagnosis [facility] Diagnosis: ICD-10-CM Z65.8 Oth problems related to psychosocial circumstances Active Diagnosis [facility] Diagnosis: ICD-10-CM R25.1 Tremor, unspecified Active Diagnosis [facility] Diagnosis: ICD-10-CM G20 Parkinson's disease Active Diagnosis [facility] Diagnosis: ICD-10-CM Z46.1 Encounter for fitting and adjustment of hearing aid Active Diagnosis [facility] Diagnosis: ICD-10-CM Z00.00 Encntr for general adult medical exam w/o abnormal findings Active Diagnosis [facility] Diagnosis: ICD-10-CM H25.13 Age-related nuclear cataract, bilateral Active Diagnosis [facility] Diagnosis: ICD-10-CM H90.3 Sensorineural hearing loss, bilateral Active Diagnosis [facility] Diagnosis: ICD-10-CM R53.1 Weakness Active Diagnosis [facility] Medications Combined list of outpatient medications from Department of Defense and [facility] Affairs facilities.Medications provided include 1) outpatient medications from the last 15 months, and 2) patient-reported medications. Medication Details Route Status Patient Instructions Prescription Expires Prescription Number Last Dispense Date Ordering Provider Order Date Source ASPIRIN 81MG TAB,EC TAKE ONE TABLET BY MOUTH EVERY DAY TO PREVENT STROKE AND HEART ATTACK DO NOT CHEW ORALLY ACTIVE 01/22/2024 [id number] 3 CLA FELIPE 2022 [facility] ASPIRIN 81MG TAB,EC TAKE ONE TABLET BY MOUTH EVERY DAY TO PREVENT STROKE AND HEART ATTACK DO NOT CHEW ORALLY DISCONT INUED 01/23/2023 [id number] STEVEDiannaCAL TUCKER KAREN 2021 [facility] CARBIDOPA 25MG/LEVODO PA 100MG TAB TAKE 1-2 TABLETS BY MOUTH 10 TIMES EVERY DAY FOR PARKINSO N DISEASE ORALLY DISCONT INUED 04/05/2024 [id number] 3 ALEJANDRO ONOFRE 2022 [facility] CARBIDOPA 25MG/LEVODO PA 100MG TAB TAKE 1-2 TABLETS BY MOUTH 10 TIMES EVERY DAY FOR PARKINSO N DISEASE ORALLY DISCONT INUED 08/04/2023 [id number] 3 Irving RODRIGUES 2021 [facility] CARBIDOPA 25MG/LEVODO PA 100MG TAB TAKE 1 TABLET BY MOUTH 11 TIMES EVERY DAY ORALLY DISCONT INUED (EDIT) 06/16/2023 [id number] KINGSTONJOSÉ MIGUELAb Oneil 2021 [facility] CARBIDOPA 25MG/LEVODO PA 100MG TAB TAKE 1 TABLET BY MOUTH 11X/D ORALLY DISCONT INUED (EDIT) 06/15/2023 [id number] 2 KINGSTONJOSÉ MIGUEL BergerE S 2021 [facility] CARBIDOPA 36.25MG/LEV ODOPA 145MG CAP,SA TAKE 3 CAPSULE CARBIDOP A 36.25MG/ LEVODOPA 145MG SA CAP BY MOUTH THREE TIMES A DAY FOR PARKINSO N DISEASE ORALLY DISCONT INUED (EDIT) 08/04/2024 [id number] 3 KINGSTONJOSÉ MIGUELAb Oneil 2022 [facility] CARBIDOPA 48.75MG/LEV ODOPA 195MG CAP,SA TAKE 3 CAPSULES BY MOUTH THREE TIMES A DAY FOR PARKINSO N DISEASE TAKE AT 8 AM, 12 NOON AND 4 PM ORALLY DISCONT INUED (EDIT) 08/16/2024 [id number] 4 KINGSTONALEJANDRO S 2023 [facility] CARBIDOPA 50MG/LEVODO PA 200MG TAB,SA TAKE 1 TABLET BY MOUTH THREE TIMES A DAY FOR PARKINSO N DISEASE WITH 25/100 TABLET ORALLY DISCONT INUED 04/05/2024 [id number] 3 ALEJANDRO ONOFRE Thad 2022 [facility] CHOLECALCIF LEXY 25MCG (1,000UNIT) TAB TAKE TWO TABLETS BY MOUTH EVERY DAY ORALLY ACTIVE 01/22/2024 [id number] 3 CHINTALPU RI,SHASHW KAREN 2022 [facility] EYELID CLEANSER,EY E SCRUB PAD USE 1 PAD TOPICALL Y AT BEDTIME APPLY TO UPPER/LO WER EYELIDS TOPICA LLY ACTIVE 01/21/2024 [id number] 3 QUENTIN ABEL 2022 [facility] FISH OIL 1000MG (500MG DHA/EPA) CAP,ORAL TAKE 1 CAPSULE BY MOUTH ORALLY ACTIVE CHINTAL RI,SHASHW KAREN 2020 [facility] HYDROPHILIC (EQV AQUAPHOR) OINT,TOP APPLY MODERATE AMOUNT TOPICALL Y TWICE A DAY TO AFFECTED AREAS FOR DRY SKIN TOPICA LLY ACTIVE 01/22/2024 [id number] 3 CHINTALPU RI,SHASHW KAREN 2022 [facility] RASAGILINE MESYLATE 1MG TAB TAKE ONE TABLET BY MOUTH EVERY DAY FOR PARKINSO N DISEASE ORALLY DISCONT INUED 11/24/2023 [id number] 3 Irving RODRIGUES 2022 [facility] VANICREAM APPLY THIN LAYER TOPICALL Y EVERY DAY FOR DRY SKIN, IDEALLY WITHIN 3 MINUTES AFTER BATH OR SHOWER. FOR DRY SKIN, IDEALLY WITHIN 3 MINUTES AFTER BATH OR SHOWER. TOPICA LLY ACTIVE 01/22/2024 [id number] 3 CHINTALPU RI,SHASHW KAREN 2022 [facility] Allergies, Adverse Reactions, Alerts Combined list of allergies from Department of Defense and Veterans Affairs facilities. It does not include entries that were removed or entered in error. Substance Category Reaction Severity Reaction type Status Date Reported Comments Source PENTOTHAL Propensity to adverse reactions to drug (finding) active 9 [facility] Immunizations Combined list of available immunizations from the Department of Defense and Veterans Affairs facilities. Immunization Series Date Given Administered By Site Reaction Lot Number CVX Code Drug Cafe Cook Status Comments Source COVID-19 (ASIF), VECTOR-NR, [id number], PF, 0.5 ML 1 2020 212 complet ed JSN; [id number]; 1 [facility] TDAP 2012 115 complet ed glaxosmit hkline [id number] 6 [facility] TD(ADULT) UNSPECIFIED FORMULATION 2002 139 complet ed [facility] Results Combined list of recent chemistry, hematology [...] Aug 04, 2023 03:02 PM Reporting Lab: [facility] [address] Performing Lab: [facility] [address] [facility] URINALYS IS SPECIFIC GRAVITY OF URINE 1.031 1.003 - 1.035 08/04 Specimen Type: URINE No comment entered. Ordering Provider: CHARLIE ONOFRE Report Released Date/Time: Aug 04, 2023 03:02 PM Reporting Lab: [facility] [address] Performing Lab: [facility] [address] [facility] URINALYS IS BILIRUBIN. TOTAL [PRESENCE] IN URINE BY TEST STRIP NEGATIVE 08/04 Specimen Type: URINE No comment entered. Ordering Provider: CHARLIE ONOFRE Report Released Date/Time: Aug 04, 2023 03:02 PM Reporting Lab: [facility] [address] Performing Lab: [facility] [address] [place] [facility] URINALYS IS KETONES [MASS/VOLU ME] IN URINE BY TEST STRIP 1+ 08/04 Specimen Type: URINE No comment entered. Ordering Provider: CHARLIE ONOFRE Report Released Date/Time: Aug 04, 2023 03:02 PM Reporting Lab: [facility] [address] Performing Lab: [facility] [address] [place] [facility] URINALYS IS GLUCOSE [MASS/VOLU ME] IN URINE BY TEST STRIP NEGATIVE 08/04 Specimen Type: URINE No comment entered. Ordering Provider: CHARLIE ONOFRE Report Released Date/Time: Aug 04, 2023 03:02 PM Reporting Lab: [facility] [address] Performing Lab: [facility] [address] [place] [facility] URINALYS IS PROTEIN [MASS/VOLU ME] IN URINE BY TEST STRIP 30 08/04 Specimen Type: URINE No comment entered. Ordering Provider: CHARLIE ONOFRE Report Released Date/Time: Aug 04, 2023 03:02 PM Reporting Lab: [facility] [address] Performing Lab: [facility] [address] [place] [facility] URINALYS IS PH OF URINE BY TEST STRIP 5.5 5.0 - 8.0 08/04 Specimen Type: URINE No comment entered. Ordering Provider: CHARLIE ONOFRE Report Released Date/Time: Aug 04, 2023 03:02 PM Reporting Lab: [facility] [address] Performing Lab: [facility] [address] [place] [facility] URINALYS IS LEUKOCYTES [#/AREA] IN URINE SEDIMENT BY MICROSCOPY HIGH POWER FIELD 4 0 - 7 08/04 Specimen Type: URINE No comment entered. Ordering Provider: CHARLIE ONOFRE Report Released Date/Time: Aug 04, 2023 03:02 PM Reporting Lab: [facility] [address] Performing Lab: [facility] [address] [place] [facility] URINALYS IS BACTERIA [PRESENCE] IN URINE SEDIMENT BY LIGHT MICROSCOPY NONE SEEN 08/04 Specimen Type: URINE No comment entered. Ordering Provider: CHARLIE ONOFRE Report Released Date/Time: Aug 04, 2023 03:02 PM Reporting Lab: [facility] [address] Performing Lab: [facility] [address] [place] [facility] URINALYS IS HYALINE CASTS [#/AREA] IN URINE SEDIMENT BY MICROSCOPY LOW POWER FIELD 2 08/04 Specimen Type: URINE No comment entered. Ordering Provider: CHARLIE ONOFRE Report Released Date/Time: Aug 04, 2023 03:02 PM Reporting Lab: [facility] [address] Performing Lab: [facility] [address] [place] [facility] URINALYS IS ERYTHROCYT ES [#/AREA] IN URINE SEDIMENT BY MICROSCOPY HIGH POWER FIELD 2 0 - 3 08/04 Specimen Type: URINE No comment entered. Ordering Provider: CHARLIE ONOFRE Report Released Date/Time: Aug 04, 2023 03:02 PM Reporting Lab: [facility] [address] Performing Lab: [facility] [address] [place] [facility] URINALYS IS APPEARANCE OF URINE CLEAR 08/04 Specimen Type: URINE No comment entered. Ordering Provider: CHARLIE ONOFRE Report Released Date/Time: Aug 04, 2023 03:02 PM Reporting Lab: [facility] [address] Performing Lab: [facility] [address] [place] [facility] URINALYS IS EPITHELIAL CELLS.SQUA MOUS [#/AREA] IN URINE SEDIMENT BY MICROSCOPY HIGH POWER FIELD <1 08/04 Specimen Type: URINE No comment entered. Ordering Provider: CHARLIE ONOFRE Report Released Date/Time: Aug 04, 2023 03:02 PM Reporting Lab: [facility] [address] Performing Lab: [facility] [address] [place] [facility] URINALYS IS HEMOGLOBIN [PRESENCE] IN URINE BY TEST STRIP NEGATIVE 08/04 Specimen Type: URINE No comment entered. Ordering Provider: CHARLIE ONOFRE Report Released Date/Time: Aug 04, 2023 03:02 PM Reporting Lab: [facility] [address] Performing Lab: [facility] [address] [place] [facility] URINALYS IS NITRITE [PRESENCE] IN URINE BY TEST STRIP NEGATIVE 08/04 Specimen Type: URINE No comment entered. Ordering Provider: CHARLIE ONOFRE Report Released Date/Time: Aug 04, 2023 03:02 PM Reporting Lab: [facility] [address] Performing Lab: [facility] [address] [facility] URINALYS IS LEUKOCYTE ESTERASE [PRESENCE] IN URINE BY TEST STRIP NEGATIVE 08/04 Specimen Type: URINE No comment entered. Ordering Provider: CHARLIE ONOFRE Report Released Date/Time: Aug 04, 2023 03:02 PM Reporting Lab: [facility] [address] Performing Lab: [facility] [address] [facility] HEMOGLOB IN A1C HEMOGLOBIN A1C/HEMOGL OBIN.TOTAL IN BLOOD 5.3 4.0 - 6.0 01/22 Specimen Type: BLOOD No comment entered. Ordering Provider: SOCRATES MAN Report Released Date/Time: Jan 22, 2022 02:36 PM Reporting Lab: [facility] [address] Performing Lab: [facility] [address] [facility] PSA PROSTATE SPECIFIC AG [MASS/VOLU ME] IN SERUM OR PLASMA 1.68 <4.00 - 4.00 01/22 Specimen Type: SERUM No comment entered. Ordering Provider: SOCRATES MAN Report Released Date/Time: Jan 22, 2022 02:36 PM Reporting Lab: [facility] [address] Performing Lab: [facility] [address] [facility] LIPID PANEL,NO N-FASTIN G CHOLESTERO L [MASS/VOLU ME] IN SERUM OR PLASMA 206 <199 - 199 01/22 H Specimen Type: PLASMA No comment entered. Ordering Provider: SOCRATES MAN Report Released Date/Time: Jan 22, 2022 02:36 PM Reporting Lab: [facility] [address] Performing Lab: [facility] [address] [facility] LIPID PANEL,NO N-FASTIN G CHOLESTERO L IN HDL [MASS/VOLU ME] IN SERUM OR PLASMA 35 40 01/22 L Specimen Type: PLASMA No comment entered. Ordering Provider: SOCRATES MAN Report Released Date/Time: Jan 22, 2022 02:36 PM Reporting Lab: [facility] [address] Performing Lab: [facility] [address] [facility] LIPID PANEL,NO N-FASTIN G CHOLESTERO L IN LDL [MASS/VOLU ME] IN SERUM OR PLASMA BY CALCULATIO N 143 <99 - 99 01/22 H Specimen Type: PLASMA No comment entered. Ordering Provider: SOCRATES MAN Report Released Date/Time: Jan 22, 2022 02:36 PM Reporting Lab: [facility] [address] Performing Lab: [facility] [address] [facility] LIPID PANEL,NO N-FASTIN G CHOLESTERO L IN VLDL [MASS/VOLU ME] IN SERUM OR PLASMA BY CALCULATIO N 28 <29 - 29 01/22 Specimen Type: PLASMA No comment entered. Ordering Provider: SOCRATES MAN Report Released Date/Time: Jan 22, 2022 02:36 PM Reporting Lab: [facility] [address] Performing Lab: [facility] [address] [facility] LIPID PANEL,NO N-FASTIN G CHOLESTERO L NON HDL [MASS/VOLU ME] IN SERUM OR PLASMA 171 <129 - 129 01/22 H Specimen Type: PLASMA No comment entered. Ordering Provider: SOCRATES MAN Report Released Date/Time: Jan 22, 2022 02:36 PM Reporting Lab: [facility] [address] Performing Lab: [facility] [address] [facility] LIPID PANEL,NO N-FASTIN G TRIGLYCERI DE [MASS/VOLU ME] IN SERUM OR PLASMA 140 <149 - 149 01/22 Specimen Type: PLASMA No comment entered. Ordering Provider: SOCRATES MAN Report Released Date/Time: Jan 22, 2022 02:36 PM Reporting Lab: [facility] [address] Performing Lab: [facility] [address] [facility] TSH W/REFLEX TO FREE T4 THYROTROPI N [UNITS/VOL UME] IN SERUM OR PLASMA 2.41 0.35 - 4.94 01/22 Specimen Type: PLASMA No comment entered. Ordering Provider: SOCRATES MAN Report Released Date/Time: Jan 22, 2022 02:36 PM Reporting Lab: [facility] [address] Performing Lab: [facility] [address] [facility] COMPREHE NSIVE METABOLI C PANEL+MG CREATININE [MASS/VOLU ME] IN SERUM OR PLASMA 0.7 0.7 - 1.2 01/22 Specimen Type: PLASMA No comment entered. Ordering Provider: SOCRATES MAN Report Released Date/Time: Jan 22, 2022 02:36 PM Reporting Lab: [facility] [address] Performing Lab: [facility] [address] [facility] COMPREHE NSIVE METABOLI C PANEL+MG UREA NITROGEN [MASS/VOLU ME] IN SERUM OR PLASMA 17 8 - 26 01/22 Specimen Type: PLASMA No comment entered. Ordering Provider: SOCRATES MAN Report Released Date/Time: Jan 22, 2022 02:36 PM Reporting Lab: [facility] [address] Performing Lab: [facility] [address] [facility] COMPREHE NSIVE METABOLI C PANEL+MG GLUCOSE [MASS/VOLU ME] IN SERUM OR PLASMA 93 74 - 100 01/22 Specimen Type: PLASMA No comment entered. Ordering Provider: SOCRATES MAN Report Released Date/Time: Jan 22, 2022 02:36 PM Reporting Lab: [facility] [address] Performing Lab: [facility] [address] [facility] COMPREHE NSIVE METABOLI C PANEL+MG SODIUM [MOLES/VOL UME] IN SERUM OR PLASMA 137 136 - 145 01/22 Specimen Type: PLASMA No comment entered. Ordering Provider: SOCRATES MAN Report Released Date/Time: Jan 22, 2022 02:36 PM Reporting Lab: [facility] [address] Performing Lab: [facility] [address] [facility] COMPREHE NSIVE METABOLI C PANEL+MG POTASSIUM [MOLES/VOL UME] IN SERUM OR PLASMA 4.6 3.5 - 5.1 01/22 Specimen Type: PLASMA No comment entered. Ordering Provider: SOCRATES MAN Report Released Date/Time: Jan 22, 2022 02:36 PM Reporting Lab: [facility] [address] Performing Lab: [facility] [address] [facility] COMPREHE NSIVE METABOLI C PANEL+MG CHLORIDE [MOLES/VOL UME] IN SERUM OR PLASMA 103 98 - 107 01/22 Specimen Type: PLASMA No comment entered. Ordering Provider: SOCRATES MAN Report Released Date/Time: Jan 22, 2022 02:36 PM Reporting Lab: [facility] [address] Performing Lab: [facility] [address] [facility] COMPREHE NSIVE METABOLI C PANEL+MG CARBON DIOXIDE, TOTAL [MOLES/VOL UME] IN SERUM OR PLASMA 25 22 - 29 01/22 Specimen Type: PLASMA No comment entered. Ordering Provider: SOCRATES MAN Report Released Date/Time: Jan 22, 2022 02:36 PM Reporting Lab: [facility] [address] Performing Lab: [facility] [address] [facility] COMPREHE NSIVE METABOLI C PANEL+MG CALCIUM [MASS/VOLU ME] IN SERUM OR PLASMA 9.1 8.4 - 10.2 01/22 Specimen Type: PLASMA No comment entered. Ordering Provider: SOCRATES MAN Report Released Date/Time: Jan 22, 2022 02:36 PM Reporting Lab: [facility] [address] Performing Lab: [facility] [address] [facility] COMPREHE NSIVE METABOLI C PANEL+MG PROTEIN [MASS/VOLU ME] IN SERUM OR PLASMA 6.9 6.0 - 8.3 01/22 Specimen Type: PLASMA No comment entered. Ordering Provider: SOCRATES MAN Report Released Date/Time: Jan 22, 2022 02:36 PM Reporting Lab: [facility] [address] Performing Lab: [facility] [address] [facility] COMPREHE NSIVE METABOLI C PANEL+MG ALBUMIN [MASS/VOLU ME] IN SERUM OR PLASMA 4.0 3.5 - 5.2 01/22 Specimen Type: PLASMA No comment entered. Ordering Provider: SOCRATES MAN Report Released Date/Time: Jan 22, 2022 02:36 PM Reporting Lab: [facility] [address] Performing Lab: [facility] [address] [facility] COMPREHE NSIVE METABOLI C PANEL+MG BILIRUBIN. TOTAL [MASS/VOLU ME] IN SERUM OR PLASMA 0.5 0.2 - 1.2 01/22 Specimen Type: PLASMA No comment entered. Ordering Provider: SOCRATES MAN Report Released Date/Time: Jan 22, 2022 02:36 PM Reporting Lab: [facility] [address] Performing Lab: [facility] [address] [facility] COMPREHE NSIVE METABOLI C PANEL+MG MAGNESIUM [MASS/VOLU ME] IN SERUM OR PLASMA 2.1 1.6 - 2.6 01/22 Specimen Type: PLASMA No comment entered. Ordering Provider: SOCRATES MAN Report Released Date/Time: Jan 22, 2022 02:36 PM Reporting Lab: [facility] [address] Performing Lab: [facility] [address] [facility] COMPREHE NSIVE METABOLI C PANEL+MG ANION GAP IN SERUM OR PLASMA 9 5 - 15 01/22 Specimen Type: PLASMA No comment entered. Ordering Provider: SOCRATES MAN Report Released Date/Time: Jan 22, 2022 02:36 PM Reporting Lab: [facility] [address] Performing Lab: [facility] [address] [facility] COMPREHE NSIVE METABOLI C PANEL+MG ALKALINE PHOSPHATAS E [ENZYMATIC ACTIVITY/V OLUME] IN SERUM OR PLASMA 74 40 - 150 01/22 Specimen Type: PLASMA No comment entered. Ordering Provider: SOCRATES MAN Report Released Date/Time: Jan 22, 2022 02:36 PM Reporting Lab: [facility] [address] Performing Lab: [facility] [address] [facility] COMPREHE NSIVE METABOLI C PANEL+MG ALANINE AMINOTRANS FERASE [ENZYMATIC ACTIVITY/V OLUME] IN SERUM OR PLASMA 7 <55 - 55 01/22 Specimen Type: PLASMA No comment entered. Ordering Provider: SOCRATES MAN Report Released Date/Time: Jan 22, 2022 02:36 PM Reporting Lab: [facility] [address] Performing Lab: [facility] [address] [facility] COMPREHE NSIVE METABOLI C PANEL+MG ASPARTATE AMINOTRANS FERASE [ENZYMATIC ACTIVITY/V OLUME] IN SERUM OR PLASMA 9 <34 - 34 01/22 Specimen Type: PLASMA No comment entered. Ordering Provider: SOCRATES MAN Report Released Date/Time: Jan 22, 2022 02:36 PM Reporting Lab: [facility] [address] Performing Lab: [facility] [address] [facility] COMPREHE NSIVE METABOLI C PANEL+MG CREAT EGFR(CKD-E PI) >90 60 01/22 Specimen Type: PLASMA No comment entered. Ordering Provider: SOCRATES MAN Report Released Date/Time: Jan 22, 2022 02:36 PM Reporting Lab: [facility] [address] [facility] [address] Performing Lab: [facility] [address] [facility] [address] [facility] Vital Signs Combined list of inpatient and outpatient Vital Signs from Department of Defense and Veterans Affairs, ranging from 12 months to all on record, depending upon the facility. Vital Sign Value Date Comments Source SYSTOLIC BLOOD PRESSURE 140 08/04/2023 13:55:09 [facility] DIASTOLIC BLOOD PRESSURE 68 08/04/2023 13:55:09 [facility] PULSE OXIMETRY 63% 08/04/2023 13:55:09 [facility] PAIN 0 08/04/2023 13:55:09 [facility] PULSE 67 08/04/2023 13:55:09 [facility] RESPIRATION 18 08/04/2023 13:55:09 [facility] SYSTOLIC BLOOD PRESSURE 170 07/15/2023 14:21:00 [facility] DIASTOLIC BLOOD PRESSURE 84 07/15/2023 14:21:00 [facility] PAIN 0 07/15/2023 14:21:00 [facility] TEMPERATURE 98.0 07/15/2023 14:21:00 [facility] RESPIRATION 16 07/15/2023 14:21:00 [facility] SYSTOLIC BLOOD PRESSURE 146 04/05/2023 10:15:41 [facility] DIASTOLIC BLOOD PRESSURE 79 04/05/2023 10:15:41 [facility] PULSE OXIMETRY 99% 04/05/2023 10:15:41 [facility] PAIN 0 04/05/2023 10:15:41 [facility] TEMPERATURE 98.1 04/05/2023 10:15:41 [facility] PULSE 56 04/05/2023 10:15:41 [facility] RESPIRATION 16 04/05/2023 10:15:41 [facility] SYSTOLIC BLOOD PRESSURE 136 02/08/2023 14:44:15 [facility] DIASTOLIC BLOOD PRESSURE 74 02/08/2023 14:44:15 [facility] PULSE 80 02/08/2023 14:44:15 [place] [...] months. 2) Encounters from the Department of [facility] facilities going back up to 280 months. 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
CHARLIE ONOFRE 04/13 [facility] [place] [facility] Outpatient Encounter [id number] 04/20 [place] [facility] [place] [facility] [place] Encounter [id number] 04[facility]28 [facility] [place] [facility] [place] [facility]counter [id number] 04/29 [facility] [place] [facility] Outpatient [facility]counter [id number] 04/30 [facility] [place] [facility] Outpatient [facility]counter [id number] 04/30 [facility] [place] [facility] Outpatient [facility]counter [id number] 05/10 [place] [facility] OT EVAL LOW COMPLEX 30 MIN [id number] Diagnos is: ICD-10- CM R53.1 Weaknes s
MARCELLO LEDBETTER 05/18 [place] [facility] [place] [facility] Outpatient Encounter [id number] 06/01 [facility] [place] [facility] Outpatient [facility]counter [id number] 06/02 [facility] [facility] PRO PHONE CALL 11-20 MIN [id number] Diagnos is: ICD-10- CM R25.1 Tremor, unspeci fied
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
CHARLIE ONOFRE 11/23 [facility] [place] [facility] Outpatient Encounter [id number] 12/09 [facility] [place] [facility] [place] [id number] Diagnos is: ICD-10- CM H90.3 Sensori neural hearing loss, bilater al
SUSANANNABELLE BergerRola ICA L 12/14 [facility] OFFICE O/P NEW MOD 45-59 MIN [id number] Diagnos is: ICD-10- CM H25.13 Age-rel ated nuclear catarac t, bilater al
QUENTIN ABEL 01/20 [facility] [place] [facility] Outpatient Encounter [id number] CLARA MONTIEL 01/20 [facility] Outpatient Encounter [id number] Diagnos is: ICD-10- CM Z00.00 Encntr for general adult medical exam w/o abnorma l finding s
YAMILET ERAZO 01/21 [facility] [place] [facility] Outpatient Encounter [id number] 01/26 [place] [place] [facility] Outpatient Encounter [id number] 02/01 [place] [facility] [place] [facility] Outpatient Encounter [id number] 02/01 [place] [facility] [place] [facility] Outpatient Encounter [id number] 02/02 [facility] [place] [facility] AUD REHAB POSTLING HEAR LOSS [id number] Diagnos is: ICD-10- CM Z46.1 Encount er for fitting and adjustm ent of hearing aid<br/ > BOLIVAR BRIAN RICCI L 02/08 [place] [facility] [place] [facility] Outpatient Encounter [id number] 02/09 [place] [facility] [place] [facility] EAR IMPRESSION [id number] Diagnos is: ICD-10- CM Z46.1 Encount er for fitting and adjustm ent of hearing aid<br/ > SHANNONPING 02/17 [place] [facility] [place] [facility] Outpatient Encounter [id number] 03/18 [facility] [place] [facility] OFFICE O/P EST MOD 30-39 MIN [id number] Diagnos is: 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, w/o mention of fluctua tions<b r/> MOLINA PALACIOS 08/05 [place] [facility] [place] [facility] Outpatient Encounter [id number] 08/05 [place] [facility] [place] [facility] Outpatient Encounter [id number] 08/09 [place] [facility] [place] [facility] Outpatient Encounter [id number] 08/09 [place] [facility] [place] [facility] Outpatient Encounter [id number] 08/10 [place] [facility] [place] [facility] Outpatient Encounter [id number] ARISTEO POLLARD 08/10 [place] [facility] [place] [facility] Outpatient Encounter [id number] KYM RUSSO J 08/10 [place] [facility] [place] [facility] Outpatient Encounter [id number] 08/16 [place] [facility] Outpatient Encounter [id number] Diagnos is: ICD-10- CM Z65.8 Oth problem s related to psychos ocial circums tances< br/> TAMIKO OLIVARES 08/19 [facility] [place] [facility] Outpatient Encounter [id number] 08/19 [place] [facility] [place] [facility] Outpatient Encounter [id number] 08/19 [place] [facility] [place] [facility] Outpatient Encounter [id number] 08/23 [place] [facility] [place] [facility] Outpatient Encounter [id number] 08/26 [facility] [place] [facility] PRO PHONE CALL 5-10 MIN [id number] Diagnos is: 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, w/o mention of fluctua tions<b r/> PHIDD,LESL IE A 08/26 [facility] [place] [facility] Outpatient Encounter [id number] 08/30 [place] [facility] [place] [facility] Outpatient Encounter [id number] 08/30 [place] [facility] [place] [facility] Outpatient Encounter [id number] AN MUHAMMAD 08/30 [place] [facility] Social History Combined list of available smoking, tobacco, and other social history from Department of Defense and Veterans Affairs facilities. Social History Type Response Date Comment Sourc e Tobacco smoking status NHIS VA-TOBACCO FORMER USER 01/20/2023 [facility] History of tobacco use VA-TOBACCO QUIT 1 5 YRS OR MORE 01/20/2023 [facility] History of tobacco use VA-TOBACCO FORMER USER 01/21/2022 [facility] History of tobacco use VA-TOBACCO FORMER USER 01/22/2021 [facility] History of tobacco use VA-TOBACCO QUIT 5 TO < 15 YRS 11/01/2019 [facility] History of tobacco use INPT NO TOBACCO U SE IN LAST 30 DAYS 02/06/2019 [facility] History of tobacco use VA-TOBACCO FORMER USER 10/26/2018 [facility] History of tobacco use FORMER TOBACCO US ER 7Y OR GREATER 11/03/2017 [facility] History of tobacco use FORMER TOBACCO US ER 7Y OR GREATER 09/16/2016 [facility] History of tobacco use FORMER TOBACCO US ER 7Y OR GREATER 05/08/2015 [facility] History of tobacco use FORMER TOBACCO US E >1Y <7Y 06/07/2013 [facility] History of tobacco use FORMER TOBACCO US E >1Y <7Y 02/23/2012 [facility] History of tobacco use FORMER TOBACCO US E >1Y <7Y 05/15/2009 [facility] Plan of Care List of future care activities from Department of Veterans Affairs facilities. Additional future care activities may be listed in the Assessment and Plan section. Date/Time Care Activity Care Activity Detail Facili ty 09/06/2023 AMBULATORY - REHAB MEDICINE AMBULATORY - REHAB MEDICINE [facility]
--- OUTSIDE RECORDS SUMMARY | 2023-09-01 16:50 | XMS_ITS | Encounter Summary ---
Author Name [employer] [facility] [employer] Organization [facility] Address [address] [place] [address] Support Name Relationship Address Phone ANANT, JAIRO Next of Kin [address] [address] ANA[address] Emergency Contact [address] [address] Insurance Providers: All historical [...] Name Patient's Relationship to Policy Lopez [facility] (WNR) MEDICARE ADVANTAGE [facility] Nov 13, 2020 [id number] Edwin MCMILLAN PATIENT [employer] [facility] (WNR) MEDICARE ADVANTAGE [facility] (WNR) Aug 15, 2013 [id number] [phone] Edwin MCMILLAN PATIENT MEDICARE (WNR) MEDICARE (M) PART A Sep 15, 2010 PART A [id number] [phone] Edwin MCMILLAN PATIENT MEDICARE (WNR) MEDICARE (M) PART B Sep 15, 2010 PART B [id number] [phone] Edwin MCMILLAN PATIENT Selected Encounter This section [...] activities for the patient from all [facility] This section includes future appointments and future orders which are active, pending or scheduled. Future Appointments This section includes appointments that were scheduled to occur 6 months from the date of the Encounter, up to a maximum of 20 appointments. The data comes from all [facility]. Appointment Date/Time Appointment Type Appointme nt Facility Name Aug 10, 2023 09:00 AM AMBULATORY - NONE [facility] Aug 23, 2023 05:00 PM AMBULATORY - NONE [facility] Sep 06, 2023 12:00 PM AMBULATORY - REHAB MEDICIN E [facility] Sep 22, 2023 08:01 AM AMBULATORY NONE [facility] Active, Pending, and Scheduled Orders This section includes a listing of several types of active, pending, and scheduled orders, including clinic medications orders, diagnostic test orders, procedure orders and consult orders; where the start date of the order is 45 days before the date of the Encounter or 45 days after the date of theEncounter. The data comes from all [facility]. Test Date/Time Test Type Test Details Facility Name Aug 05, 2023 10:35 AM Consult Order NEUROLOGY OUTPT DBS Cons General Labor Forklift Operator's [facility] Aug 05, 2023 10:35 AM Consult Order SOCIAL WOR K OUTPT NEUROLOGY Cons General Labor Forklift Operator's [facility] Aug 10, 2023 03:18 PM Consult Order [facility] COMMUNITY INTERMEDIATE Cons General Labor Forklift Operator's [facility] Aug 19, 2023 12:01 PM Consult Order OT OCCUPAT IONAL THERAPY OUTPT PACT Cons General Labor Forklift Operator's [facility] Aug 30, 2023 12:26 PM Consult Order [facility] HOMEMAKER/HOME HEALTH AIDE Cons General Labor Forklift Operator's Choice [facility] Lab Results: +/- 30 days of the encounter This section includes the Chemistry and Hematology Lab Results on record with [place] for the patient. Radiology Reports and Pathology Reports are provided separately, in subsequent sections. Lab Results This section contains the Chemistry/Hematology Results that were resulted 30 days before or 30 daysafter the date of the Encounter. Date/Time Source Result Type Result - Unit Interpretation Reference Range Comment Aug 04, 2023 03:04 PM [facility] URINALYSIS Specimen Type: URINE No comment entered. Ordering Provider: CHARLIE PETERSON Report Released Date/Time: Aug 04, 2023 03:02 PM Reporting Lab: [facility] [id number] Performing Lab: [facility] [id number] URINE COLOR YELLOW SPECIFIC GRAVITY 1.031 1.003-1.035 [...] 18 /min 63 % 0 [place] [facility] Social History: Smoking Status (Most current) [...] 20, 2023 01:48 PM VA-TOBACCO FORMER USER [facility] Tobacco Use History This section includes a history of the smoking, or tobacco-related health factors, that were collected on or before the date of the Encounter. The data comes from the [place] facility where the Encounter took place. Date/Time Smoking Status/Tobacco Use Comment F acility Jan 20, 2023 01:48 PM NC-TOBACCO QUIT 15 YRS OR MORE [facility] Jan 21, 2022 10:50 AM VA-TOBACCO FORMER USER [facility] Jan 21, 2022 10:50 AM NC-TOBACCO QUIT 15 YRS OR MORE [facility] Feb 06, 2019 02:30 PM INPT NO TOBACCO USE IN LAST 30 D AYS [facility] Pathology Reports: +/- 30 days of [...] the Encounter. The data comes from all [place] treatment facilities. Date/Time Pathology Report Provider Source Aug 04, 2023 03:04 PM LR MICROBIOLOGY RE PORT: Reporting Lab: [facility] [CLIA# [id number]] [place] [address] Accession [UID]: [id number] [[id number]] Received: Aug 04, 2023@15:18 Collection sample: URINE Collection date: Aug 04, 2023 15:04 Provider: CHARLIE PETERSON Comment on specimen: RECEIVED IN URINE PRESERVATIVE TUBE Test(s) ordered: CULTURE & SUSCEPTIBILITY...... completed: Aug 05, 2023 * BACTERIOLOGY FINAL REPORT => Aug 05, 2023 11:09 TECH CODE: [id number] CULTURE RESULTS: LESS THAN 10,000 CFU/ML Bacteriology Remark(s): THIS REPORT IS FINAL =--=--=--=--=--=--=--=--=--=--=--=- -=--=--=--=--=--=--=--=--=--=--=--= --=--=-- Performing Laboratory: Bacteriology Report Performed By: [facility] [CLIA# [id number]] [place] [address] [facility] Encounter Notes: All associated encounter notes This section contains the clinical notes associated to the Encounter. Date/Time Encounter Note(s) Provider Source Aug 26, 2023 02:30 PM ADDENDUM: LOCAL TITLE: Addendum STANDARD TITLE: ADDENDUM DATE OF NOTE: AUG 26, 2023@14:30:46 ENTRY DATE: AUG 26, 2023@14:30:46 AUTHOR: CHARLIE PETERSON EXP COSIGNER: URGENCY: STATUS: COMPLETED I spoke to patient's son on the phone. Mr. Mcmillan is currently in a transitional care facility from which she is going to be discharged soon. He is doing better on the new medication schedule but thinks that he needs additional medication between 8 PM (last dose of the day) and 8 AM (first dose of the next day). We will contact the care facility and asked them to provide in addition to his current dosing schedule two capsules of Rytary 48.75/195 at bedtime. /kera/ Charlie Peterson MD STAFF PHYSICIAN NEUROLOGY Signed: 08/26/2023 14:33 Receipt Acknowledged By: 08/26/2023 15:42 /kera/ CEDRIC VILLANUEVA (EMELY) RNC REGISTERED NURSE, [...] also interested in being connected with the director of social work to get information about the extent of home care support he can receive and what options there may be for other types of care such as assisted living. He was also interested in perhaps getting a hospital bed if possible. Finally he was interested in learning more about deep brain stimulation and I put in a referral to the nurse commercial account manager to give him this information. At [...] Receipt Acknowledged By: 08/19/2023 15:13 /kera/ CEDRIC FUNEZ) RICKIC REGISTERED NURSE, CERTIFIED 08/19/2023 ADDENDUM STATUS: COMPLETED Reached RICKI Walker at [facility] after faxing new CD/LD med order and addendum to 08/10/23 note with provider recommendations until receipt of new med. Denise verified receipt of orders and has already discussed with patient. /kera/ CEDRIC FUNEZ) RICKIC REGISTERED NURSE, CERTIFIED Signed: 08/19/2023 15:20 08/26/2023 ADDENDUM STATUS: UNSIGNED You may not VIEW this UNSIGNED Addendum. CHARLIE PETERSON [facility] Aug 19, 2023 01:33 PM ADDENDUM: LOCAL TITLE: Addendum STANDARD TITLE: ADDENDUM DATE OF NOTE: AUG 19, 2023@13:33:18 ENTRY DATE: AUG 19, 2023@13:33:18 AUTHOR: CHARLIE PETERSON COSIGNER: URGENCY: STATUS: COMPLETED After a conversation [...] 08/19/2023 13:36 Receipt Acknowledged By: 08/19/2023 15:13 /es/ CEDRIC VILLANUEVA (EMELY) RNC REGISTERED NURSE, CERTIFIED [...] also interested in being connected with the director of social work to get information about the extent of home care support he can receive and what options there may be for other types of care such as assisted living. He was also interested in perhaps getting a hospital bed if possible. Finally he was interested in learning more about deep brain stimulation and I put in a referral to the nurse commercial account manager to give him this information. At [...] PHYSICIAN NEUROLOGY Signed: 08/10/2023 15:14 CHARLIE PETERSON [facility] Aug 10, 2023 03:07 PM NEUROLOGY ATTENDIN [...] also interested in being connected with the director of social work to get information about the extent of home care support he can receive and what options there may be for other types of care such as assisted living. He was also interested in perhaps getting a hospital bed if possible. Finally he was interested in learning more about deep brain stimulation and I put in a referral to the nurse commercial account manager to give him this information. At [...] Receipt Acknowledged By: 08/19/2023 15:13 /kera/ CEDRIC FUNEZ) RICKIC REGISTERED NURSE, CERTIFIED 08/19/2023 ADDENDUM STATUS: COMPLETED Reached RICKI Walker at [facility] after faxing new CD/LD med order and addendum to 08/10/23 note with provider recommendations until receipt of new med. Denise verified receipt of orders and has already discussed with patient. /saadia VILLANUEVA (EMELY) RICKIC REGISTERED NURSE, CERTIFIED Signed: 08/19/2023 15:20 08/26/2023 ADDENDUM STATUS: COMPLETED I spoke to patient's son on the phone. Mr. Mcmillan is currently in a transitional care facility from which she is going to be discharged soon. He is doing better on the new medication schedule but thinks that he needs additional medication between 8 PM (last dose of the day) and 8 AM (first dose of the next day). We will contact the care facility and asked them to provide in addition to his current dosing schedule two capsules of Rytary 48.75/195 at bedtime. /saadia Peterson MD STAFF PHYSICIAN NEUROLOGY Signed: 08/26/2023 14:33 Receipt Acknowledged By: 08/26/2023 15:42 /saadia VILLANUEVA (EMELY) RNC REGISTERED NURSE, CERTIFIED 08/26/2023 ADDENDUM STATUS: COMPLETED Additional CD/LD orders faxed to [facility]. /saadia VILLANUEVA (EMELY) RNC REGISTERED NURSE, CERTIFIED Signed: 08/26/2023 15:43 CHARLIE PETERSON [facility] Aug 09, 2023 11:51 AM ADDENDUM: LOCAL [...] review this and follow up with patient. /saadia ROSS RN DEPARTMENT OF NEUROLOGY Signed: 08/09/2023 11:52 Receipt Acknowledged By: 08/10/2023 22:24 /es/ SOCRATES MAN MD STAFF MD YODER 08/09/2023 14:56 /es/ RICKI TARIQ REGISTERED NURSE 08/09/2023 14:19 /es/ GABBI PIRES [facility] TBI/POLYTRAUMA THUMB SEWER for FAVIOLA ROSAS 08/09/2023 16:59 /es/ Charlie [...] STATUS: COMPLETED Phone number for son is [phone] /kera/ COLTON ROSS RN DEPARTMENT OF NEUROLOGY Signed: 08/09/2023 11:53 08/09/2023 ADDENDUM STATUS: COMPLETED PACt director of social work, Tameka, was alerted via teams to follow up with vebrandon santo. /kera/ RICKI TARIQ REGISTERED NURSE Signed: 08/09/2023 14:57 COLTON ROSS [facility] Aug 04, 2023 01:56 PM NEUROLOGY NURSING OUTPATIENT NOTE: LOCAL TITLE: NEUROLOGY CLINIC NURSING NOTE STANDARD TITLE: NEUROLOGY NURSING OUTPATIENT NOTE DATE OF NOTE: AUG 04, 2023@13:56 ENTRY DATE: AUG 04, 2023@13:56:29 AUTHOR: QUYNH JOHNSON EXP COSIGNER: URGENCY: STATUS: COMPLETED NEUROLOGY CLINIC NURSING [...] review this and follow up with patient. /kera/ COLTON ROSS RN DEPARTMENT OF NEUROLOGY Signed: 08/09/2023 11:52 Receipt Acknowledged By: * AWAITING SIGNATURE * SOCRATES MAN 08/09/2023 14:56 /es/ RICKI TARIQ REGISTERED NURSE 08/09/2023 14:19 /es/ GABBI PIRES PROJECT CONTROL MANAGER TBI/POLYTRAUMA THUMB SEWER for FAVIOLA ROSAS * AWAITING SIGNATURE * CHARLIE PETERSON 08/09/2023 13:20 /es/ KEITH VAUGHAN RN KEITH VAUGHAN RN for CEDRIC VILLANUEVA 08/09/2023 ADDENDUM STATUS: COMPLETED Phone number for son is [phone] /kera/ COLTON ROSS RN DEPARTMENT OF NEUROLOGY Signed: 08/09/2023 11:53 08/09/2023 ADDENDUM STATUS: COMPLETED PACt director of social work, Tameka, was alerted via teams to follow up with vebrandon son. /kera/ RICKI TARIQ REGISTERED NURSE Signed: 08/09/2023 14:57 QUYNH JOHNSON [facility]
--- OUTSIDE RECORDS SUMMARY | 2023-09-01 16:50 | XMS_ITS | Encounter Summary ---
Author Name Department of Vetera Affairs Organization Department of Vetera Affairs Address [address] [place] [id number] Support Name Relationship Address Phone ANANT, JAIRO Next of Kin [address] [address] [place]E Emergency Contact [address] [address] Insurance Providers: All historical [...] Lopez [facility] (WNR) MEDICARE ADVANTAGE [facility] ([facility]) Nov 13, 2020 [id number] [place] PATIENT [employer] [facility] (WNR) MEDICARE ADVANTAGE [facility] (R) Aug 15, 2013 [id number] Edwin [place] PATIENT MEDICARE (WNR) MEDICARE (M) PART A Sep 15, 2010 PART A [id number] [place] PATIENT MEDICARE ([place]NR) MEDICARE (M) PART B Sep 15, 2010 PART B [id number] [phone] [place] PATIENT Selected Encounter This section includes the information on record at [place] for the Encounter. Date/Time Encounter Type Encounter Description Reason Pro vider Source Aug 26, 2023 05:09 PM Outpatient Encounter TELEPHONE TRIAGE IHE Encounter Template Text not used by [place] Plan of Treatment: Future Appointments (+ 6 months) and Future Tests (+/- 45 days) The Plan of Treatment section includes future care activities for the patient from all [place] [facility]. This section includes future appointments and future orders which are active, pending or scheduled. Future Appointments This section includes appointments that were scheduled to occur 6 months from the date of the Encounter, up to a maximum of 20 appointments. The data comes from all [facility]. Appointment Date/Time Appointment Type Appointme nt Facility Name Sep 06, 2023 12:00 PM AMBULATORY - REHAB MEDICIN E [facility] Sep 22, 2023 08:01 AM [facility] Active, Pending, and Scheduled Orders This section includes a listing of several types of active, pending, and scheduled orders, including clinic medications orders, diagnostic test orders, procedure orders and consult orders; where the start date of the order is 45 days before the date of the Encounter or 45 days after the date of theEncounter. The data comes from all [facility]. Test Date/Time Test Type Test Details Facility Name Aug 05, 2023 10:35 AM Consult Order NEUROLOGY OUTPT DBS Cons Jacquard Card [facility] Aug 05, 2023 10:35 AM Consult Order SOCIAL WOR K OUTPT NEUROLOGY Cons Jacquard Card [facility] Aug 10, 2023 03:18 PM Consult Order [facility] Cons Jacquard Card [facility] Aug 19, 2023 12:01 PM Consult Order OT OCCUPAT IONAL THERAPY OUTPT PACT Cons Jacquard Card [facility] Aug 30, 2023 12:26 PM Consult Order COMMUNITY [facility] HOMEMAKER/HOME HEALTH AIDE Cons Jacquard Card [facility] Lab Results: +/- 30 days of the encounter This section includes the Chemistry and Hematology Lab Results on record with [place] for the patient. Radiology Reports and Pathology [...] 04, 2023 03:02 PM Reporting Lab: [facility] [id number] Performing Lab: [facility] [place] [address] URINE COLOR YELLOW SPECIFIC GRAVITY 1.031 1.003-1.035 [...] and tobacco- related health factors from the [place] facility where the Encounter took place. Current Smoking Status This section includes the most current smoking, or tobacco-related health factor, from the [place] facility where the Encounter took place. Date/Time Current Smoking Status Comment Facil ity Jan 20, 2023 01:48 PM VA-TOBACCO FORMER USER [facility] Tobacco Use History This section includes a history of the smoking, or tobacco-related health factors, that were collected on or before the date of the Encounter. The data comes from the [place] facility where the Encounter took place. Date/Time Smoking Status/Tobacco Use Comment F acility Jan 20, 2023 01:48 PM VA-TOBACCO QUIT 15 YRS OR MORE [facility] Jan 21, 2022 10:50 AM VA-TOBACCO FORMER USER [facility] Jan 21, 2022 10:50 AM VA-TOBACCO QUIT 15 YRS OR MORE [facility] [...] the Encounter. The data comes from all [place] treatment facilities. Date/Time Pathology Report Provider Source Aug 04, 2023 03:04 PM LR MICROBIOLOGY RE PORT: Reporting Lab: [facility] [CLIA# [id number]] [place] [address] Accession [UID]: [id number] [[id number]] Received: Aug 04, 2023@15:18 Collection sample: URINE Collection date: Aug 04, 2023 15:04 Provider: CHARLIE ONOFRE Comment on specimen: RECEIVED IN URINE PRESERVATIVE TUBE Test(s) ordered: CULTURE & SUSCEPTIBILITY...... completed: Aug 05, 2023 * BACTERIOLOGY FINAL REPORT => Aug 05, 2023 11:09 TECH CODE: [id number] CULTURE RESULTS: LESS THAN 10,000 CFU/ML Bacteriology Remark(s): THIS REPORT IS FINAL =--=--=--=--=--=--=--=--=--=--=--=- -=--=--=--=--=--=--=--=--=--=--=--= --=--=-- Performing Laboratory: Bacteriology Report Performed By: [facility] [CLIA# [id number]] [place] [address] [facility] Encounter Notes: All associated encounter notes This section contains the clinical notes associated to the Encounter. Date/Time Encounter Note(s) Provider Source Aug 26, 2023 05:09 PM ADMINISTRATIVE NOT E: LOCAL TITLE: CCC: SCHEDULING ADMINISTRATION STANDARD TITLE: ADMINISTRATIVE NOTE DATE OF NOTE: AUG 26, 2023@17:09 ENTRY DATE: AUG 26, 2023@17:09:31 AUTHOR: FADI MEDRANO EXP COSIGNER: URGENCY: STATUS: COMPLETED CCC: SCHEDULING ADMINISTRATION Has ADDENDA Primary Care Call Center Primary Care Provider Call. This note was created by a 3 [facility] EDUARDO/MANSI. Please do not alert this feature writer by adding as a signer for future communications. Alerts are not monitored by this user, please reach out to [facility] Leadership instead if indicated. Phone number verified as correct. [phone] The 's charge nurse/Denise at [facility]: [facility] in [place], [place]. is calling to notify the [place] primary care provider's office the patient is being discharged Tuesday08/26/2023 and to restart medications to home. Any questions please call Denise at the above listed number. /kera/ VERA KENDALL [id number] [facility] Signed: 08/26/2023 17:16 Receipt Acknowledged By: 08/31/2023 12:47 /kera/ RICKI TARIQ REGISTERED NURSE 08/31/2023 ADDENDUM STATUS: COMPLETED Leaf Conditioner attempted to contact Denise at [facility] without success. A HIPAA compliant message was left to return writers call. /kera/ RICKI TARIQ REGISTERED NURSE Signed: 08/31/2023 12:49 08/31/2023 ADDENDUM STATUS: COMPLETED Leaf Conditioner also attempted to contact patient without success. A HIPAA compliant message was left for patient to return writers call. /kera/ RICKI TARIQ REGISTERED NURSE Signed: 08/31/2023 12:55 08/31/2023 ADDENDUM STATUS: COMPLETED Vets son, Jairo, called back and he states vet has needed medications available. He has no questions or concerns at this time. /kera/ RICKI TARIQ REGISTERED NURSE Signed: 08/31/2023 13:14 VERA MEDRANO [facility]
--- OUTSIDE RECORDS SUMMARY | 2023-09-01 16:51 | XMS_ITS | Encounter Summary ---
Author Name Department of Vetera Affairs Organization Department of Vetera ns Affairs Address [address] [place] [address] Support Name Relationship Address Phone YOKO NYE Next of Kin [address] [address] Y[place] NYE Emergency Contact [address] [address] Insurance Providers: All historical [...] Lopez's Name Patient's Relationship to Policy Lopez [facility] ([facility]) MEDICARE ADVANTAGE [facility] ([facility]) Nov 13, 2020 [id number] [phone] [place] PATIENT [facility] (WNR) MEDICARE ADVANTAGE [facility] ([facility]) Aug 15, 2013 [id number] [place] PATIENT MEDICARE ([place]NR) MEDICARE (M) PART A Sep 15, 2010 PART A [id number] [phone] [place] PATIENT MEDICARE ([place]NR) MEDICARE (M) PART B Sep 15, 2010 PART B [id number] [phone] [place] PAT[place] Selected Encounter This section includes the information on record at [place] for the Encounter. Date/Time Encounter Type Encounter Description Reason Provider Source Aug 30, 2023 12:31 PM Outpatient Encounter COMMUNITY [facility]ARE CONSULT JUDY COLEMAN Encounter Template Text not used by [place] Plan of Treatment: Future Appointments (+ 6 months) and Future Tests (+/- 45 days) The Plan of Treatment section includes future care activities for the patient from all [place] [facility]. This section includes future appointments and future orders which are active, pending or scheduled. Future Appointments This section includes appointments that were scheduled to occur 6 months from the date of the Encounter, up to a maximum of 20 appointments. The data comes from all [place] treatment facilities. Appointment Date/Time Appointment Type Appointme nt Facility Name Sep 06, 2023 12:00 PM AMBULATORY - REHAB MEDICIN E [facility] Sep 22, 2023 08:01 AM [facility] Active, Pending, and Scheduled Orders This section includes a listing of several types of active, pending, and scheduled orders, including clinic medications orders, diagnostic test orders, procedure orders and consult orders; where the start date of the order is 45 days before the date of the Encounter or 45 days after the date of theEncounter. The data comes from all [facility]. Test Date/Time Test Type Test Details Facility Name Aug 05, 2023 10:35 AM Consult Order NEUROLOGY OUTPT DBS Cons [employer] [facility] Aug 05, 2023 10:35 AM Consult Order SOCIAL WOR K OUTPT NEUROLOGY Cons [employer] Safety [facility] Aug 10, 2023 03:18 PM Consult Order COMM[facility]ITY [facility] COMM[facility]ITY ASSISTED Cons Air[employer] Safety [facility] Aug 19, 2023 12:01 PM Consult Order OT OCCUPAT IONAL THERAPY OUTPT PACT Cons Airworthiness Safety Inspector's [facility] Aug 30, 2023 12:26 PM Consult Order [facility] HOMEMAKER/HOME HEALTH AIDE Cons Airworthiness Safety Inspector's [facility] Lab Results: +/- 30 days of the encounter This section includes the Chemistry and Hematology Lab Results on record with [place] for the patient. Radiology Reports and Pathology Reports are provided separately, in subsequent sections. Lab Results This section contains the Chemistry/Hematology Results that were resulted 30 days before or 30 daysafter the date of the Encounter. Date/Time Source Result Type Result - Unit Interpretation Reference Range Comment Aug 04, 2023 03:04 PM [facility] URINALYSIS Specimen Type: URINE No comment entered. Ordering Provider: CHARLIE ONOFRE Report Released Date/Time: Aug 04, 2023 03:02 PM Reporting Lab: [facility] [address] Performing Lab: [facility] [address] [facility] [address] URINE COLOR YELLOW SPECIFIC GRAVITY 1.031 1.003-1.035 [...] and tobacco- related health factors from the [place] facility where the Encounter took place. Current Smoking Status This section includes the most current smoking, or tobacco-related health factor, from the [place] facility where the Encounter took place. Date/Time Current Smoking Status Comment Facil ity Jan 20, 2023 01:48 PM VA-TOBACCO FORMER USER [facility] Tobacco Use History This section includes a history of the smoking, or tobacco-related health factors, that were collected on or before the date of the Encounter. The data comes from the [place] facility where the Encounter took place. Date/Time Smoking Status/Tobacco Use Comment F acility Jan 20, 2023 01:48 PM VA-TOBACCO QUIT 15 YRS OR MORE [facility] Jan 21, 2022 10:50 AM VA-TOBACCO FORMER USER [facility] Jan 21, 2022 10:50 AM VA-TOBACCO QUIT 15 YRS OR MORE [facility] Feb 06, 2019 02:30 PM INPT NO TOBACCO USE IN LAST 30 D AYS [facility] Pathology Reports: +/- 30 days of [...] the Encounter. The data comes from all [place] treatment facilities. Date/Time Pathology Report Provider Source Aug 04, 2023 03:04 PM LR MICROBIOLOGY RE PORT: Reporting Lab: [facility] [CLIA# [id number]] [place] [address] Accession [UID]: [id number] [[id number]] Received: Aug 04, 2023@15:18 Collection sample: URINE Collection date: Aug 04, 2023 15:04 Provider: CHARLIE ONOFRE Comment on specimen: RECEIVED IN URINE PRESERVATIVE TUBE Test(s) ordered: CULTURE & SUSCEPTIBILITY...... completed: Aug 05, 2023 * BACTERIOLOGY FINAL REPORT => Aug 05, 2023 11:09 TECH CODE: [id number] CULTURE RESULTS: LESS THAN 10,000 CFU/ML Bacteriology Remark(s): THIS REPORT IS FINAL =--=--=--=--=--=--=--=--=--=--=--=- -=--=--=--=--=--=--=--=--=--=--=--= --=--=-- Performing Laboratory: Bacteriology Report Performed By: [facility] [CLIA# [id number]] [place] [address] [facility] Encounter Notes: All associated encounter notes This section contains the clinical notes associated to the Encounter. Date/Time Encounter Note(s) Provider Source Aug 30, 2023 12:31 PM GERIATRIC MEDICINE NOTE: LOCAL TITLE: PERSONAL CARE SERVICES CASE MIX TOOL STANDARD TITLE: GERIATRIC MEDICINE NOTE DATE OF NOTE: AUG 30, 2023@12:31:36 ENTRY DATE: AUG 30, 2023@12:31:36 AUTHOR: STEVE COLEMAN EXP COSIGNER: URGENCY: STATUS: COMPLETED HCBS Case Mix & Budget Tool (CASE MIX) Date Given: 08/30/2023 Clinician: Mony Coleman Location: [facility] : Curt Ny SSN: [id number] : [birth year]) Gender: Man Type of Evaluation: Annual Anticipated Start Date: 08/30/2023 Anticipated Length of Service: 12 months Case Mix Level: J ADL Category: High Questions and Answers: Q1. DRESSING *3 Cannot dress yourself and somebody dresses you. Q2. GROOMING *3 Are completely groomed by somebody else. Q3. BATHING *5 Cannot bathe or shower, need complete help. Q4. EATING *3 Need and get some personal help with feeding or someone needs to be sure that you don't choke. Q5. BED MOBILITY *2 Always need and get help to sit up. Q6. TRANSFERRING *2 Need one other person to help you. Q7. WALKING *2 Need and get help from one person to help you walk. Q8. BEHAVIOR *2 Regular staff intervention / disorientation, hallucinates, wanders / resistive but responds. Q9. COMMUNICATION 1 Usually Understood. Q10. TOILETING *4 Have accidents more than once a week. Q11. MDS HC 2.0/CPS Cognitive Skill for Daily Decision Making 2 Moderately Impaired - decisions poor; cues/supervision required. Q12. MDS 2.0/CPS: Short Term Memory (recall of what was learned or known) 1 Memory problem Q13. SPECIAL TREATMENTS 0 No [place] Q14. CLINICAL MONITORING 0 Less than once a day Q15. SPECIAL NURSING No Q16. NEUROMUSCULAR DIAGNOSIS Yes COMMENTS Needs assistance with all ADLs SOURCES 2. Informant, 3. Medical Record /es/ MONY COLEMAN [facility] Care Engine Installer Signed: 08/30/2023 12:32 MONY COLEMAN [facility]
--- OUTSIDE RECORDS SUMMARY | 2023-09-01 16:51 | XMS_ITS | Encounter Summary ---
Author Name Department of Vetera Affairs Organization Department of Vetera Affairs Address [address] [place] [address] Support Name Relationship Address Phone YOKO [place]E Next of Kin [address] [address] ANANT JAIRO Emergency Contact [phone] [address] Insurance Providers: All historical [...] Relationship to Policy Lopez [facility] ([facility]) MEDICARE ADVANTAGE [facility] ([facility]) Nov 13, 2020 [id number] [phone] [place] PAT[place] [facility] (WN) MEDICARE ADVANTAGE [facility] ([facility]) Aug 15, 2013 [id number] [place] PATIENT MEDICARE ([facility]) MEDICARE (M) PART A Sep 15, 2010 PART A [id number] [phone] [place] PAT[place] MED[place] ([place]) MEDICARE (M) PART B Sep 15, 2010 PART B [id number] [phone] [place] PATIENT Selected Encounter This section includes the information on record at [place] for the Encounter. Date/Time Encounter Type Encounter Description Reason Pro vider Source Aug 30, 2023 11:28 AM Outpatient Encounter TELEPHONE/REHAB AND SUPPORT IHE Encounter Template Text not used by [place] Plan of Treatment: Future Appointments (+ 6 months) and Future Tests (+/- 45 days) The Plan of Treatment section includes future care activities for the patient from all [facility] This section includes future appointments and future orders which are active, pending or scheduled. Future Appointments This section includes appointments that were scheduled to occur 6 months from the date of the Encounter, up to a maximum of 20 appointments. The data comes from all [place] treatment facilities. Appointment Date/Time Appointment Type Appointme nt Facility Name Sep 06, 2023 12:00 PM AMBULATORY - REHAB MEDICIN E [facility] Sep 22, 2023 08:01 AM [facility]ONE [facility] Active, Pending, and Scheduled Orders This section includes a listing of several types of active, pending, and scheduled orders, including clinic medications orders, diagnostic test orders, procedure orders and consult orders; where the start date of the order is 45 days before the date of the Encounter or 45 days after the date of theEncounter. The data comes from all [place] treatment [facility]. Test Date/Time Test Type Test Details Facility Name Aug 05, 2023 10:35 AM Consult Order NEUROLOGY OUTPT DBS [facility] Aug 05, 2023 10:35 AM Consult Order SOCIAL WOR K OUTPT NEUROLOGY [facility] Aug 10, 2023 03:18 PM Consult Order [facility] COMMUNITY LONG TERM [facility] Aug 19, 2023 12:01 PM Consult Order OT OCCUPAT IONAL THERAPY OUTPT PACT [facility] Aug 30, 2023 12:26 PM Consult Order [facility] HOMEMAKER/HOME HEALTH AIDE Cons [facility] Lab Results: +/- 30 days [...] Range Comment Aug 04, 2023 03:04 PM [facility] URINALYSIS Specimen Type: URINE No comment entered. Ordering Provider: CHARLIE ONOFRE Report Released Date/Time: Aug 04, 2023 03:02 PM Reporting Lab: [facility] [id number] Performing Lab: [facility] [id number] URINE COLOR YELLOW SPECIFIC GRAVITY 1.031 1.003-1.035 [...] 20, 2023 01:48 PM VA-TOBACCO FORMER USER [facility] Tobacco Use History This section includes a history of the smoking, or tobacco-related health factors, that were collected on or before the date of the Encounter. The data comes from the [place] facility where the Encounter took place. Date/Time Smoking Status/Tobacco Use Comment F acility Jan 20, 2023 01:48 PM VA-TOBACCO QUIT 15 YRS OR MORE [facility] Jan 21, 2022 10:50 AM VA-TOBACCO FORMER USER [facility] Jan 21, 2022 10:50 AM VA-TOBACCO QUIT 15 YRS OR MORE [facility] Feb 06, 2019 02:30 PM INPT NO TOBACCO USE IN LAST 30 D AYS [facility] Pathology Reports: +/- 30 days of [...] PM LR MICROBIOLOGY RE PORT: Reporting Lab: [facility] [CLIA# [id number]] [place] [address] Accession [UID]: [id number] [[id number]] Received: Aug 04, 2023@15:18 Collection sample: URINE Collection date: Aug 04, 2023 15:04 Provider: CHARLIE ONOFRE Comment on specimen: RECEIVED IN URINE PRESERVATIVE TUBE Test(s) ordered: CULTURE & SUSCEPTIBILITY...... completed: Aug 05, 2023 * BACTERIOLOGY FINAL REPORT => Aug 05, 2023 11:09 TECH CODE: [id number] CULTURE RESULTS: LESS THAN 10,000 CFU/ML Bacteriology Remark(s): THIS REPORT IS FINAL =--=--=--=--=--=--=--=--=--=--=--=- -=--=--=--=--=--=--=--=--=--=--=--= --=--=-- Performing Laboratory: Bacteriology Report Performed By: [facility] [CLIA# [id number]] [place] [address] [facility] Encounter Notes: All associated encounter notes This section contains the clinical notes associated to the Encounter. Date/Time Encounter Note(s) Provider Source Aug 30, 2023 11:28 AM SOCIAL WORK NOTE: LOCAL TITLE: SOCIAL WORK PROGRESS NOTE STANDARD TITLE: SOCIAL WORK NOTE DATE OF NOTE: AUG 30, 2023@11:28 ENTRY DATE: AUG 30, 2023@11:28:19 AUTHOR: FAVIOLA RUVALCABA EXP COSIGNER: URGENCY: STATUS: COMPLETED Direct Chill Casting Operator is the social work nurse outsole caser for the rehab medicine team [place] last saw rehab medicine provider in 2020, he continues close follow up with neurology Direct Chill Casting Operator was alerted to 's son, Jairo, wishing to connect with social work. approx. 15min conversation In summary, Jiaro would like to plan ahead for 's care. Jairo indicates Curt is currently living alone at home and receives home health care. Jairo manages the medications. 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 *Jairo is looking for information related to VA benefits that will help him plan for his dad's care. -Direct Chill Casting Operator briefly explained the VA [facility] program and aide and attendance Jairo was unable to continue today's discussion due to work constraints, he was open to global technical writer emailing him additional information that may be helpful to him. Jairo thanked global technical writer for today's call, he was encouraged to call global technical writer with any questions in the future. Plan: *Direct Chill Casting Operator remains available to assist with SW needs as they arise. *Direct Chill Casting Operator to email Jairo VA benefit information: Direct Chill Casting Operator sent Jairo the following email: Philip Jairo, Here is the information I think you'll find most helpful: *VA Benefits for ageing veterans: I've attached a PDF booklet that summarizes the various services veterans have access to (please feel free to call me with any questions) *[place] Community Nursing Homes program -Because of your dad's service connection, he is eligible for the VA to pay for his chcf care (as long as the chcf is contracted with the VA, and of course as long as he needs chcf level of care). This benefit is IN ADDITION to all of his other service connection benefits, including the disability compensation (disability check). -I've attached the most up to date list of community nursing homes that contract with the VA. The [facility] also contract with the VA, so they would bill the VA for your dad's care if he goes into their chcf level of care units. *Aid and Attendance: -I've attached the application and here is a link to the VA site that shares more information on it: VA Aid And Attendance Benefits And Housebound Allowance Veterans Affairs -this is another benefit that some veterans will apply for that helps them pay out of pocket for their care needs, it's called aid and attendance. This benefit is solely based on a 's physical needs and is independent of their service connection check. -If a qualifies for aid and attendance, this is a totally different check from their disability check that they would get with the intention of helping them offset some of the costs of their care. -In a nut shell, aid and attendance is an additional monetary benefit that a is given to help them pay for their care (whether they use it to pay for assisted living, to pay for someone privately to help take care of them, to pay for their chcf etc.) -if a has been receiving Aid and Attendance, and then they decide to use the VA contract chcf benefit and move into a VA contracted chcf, the will lose the Aid and Attendance benefit because technically this benefit is no longer needed since the won't be paying for his care out of pocket anymore. *Caregiver support program - There are two programs for caregivers through the VA: one is the general caregiver support program where caregivers are given resources for emotional support, education on their loved one's condition etc. There is a second one where caregivers are given a monthly stipend (PCAFC). It might be worth a shot checking it out, I've attached the flyers to both programs, you can call them directly if you're interested (I'm not sure if you would qualify for the stipend program but it's worth a shot following up with them if you'd like more information). Phone number to the [facility] Caregiver program: [phone] *[facility] -There are several veterans homes in the [facility]. The most popular one is the one right across the [facility] ([facility])-it currently has about a 16month waiting list. Veterans can submit their application and get placed on the waiting list. -All Vets Homes are run by the [facility] (not run by the VA) -All vets homes are contracted with the VA, so if the is at least 70% S.[place], the ve home will bill the VA for his/her care (this is the same contract as the community chcf program) -I've attached the application to the [facility], in case your dad would like to apply. -Here's the link to the their website as well, if you'd like more information about them. [facility] [place] [facility] of [facility] ([place] I hope this information helps, again feel free to call me with any questions Faviola Ruvalcaba [facility] Affiliate Marketing Coordinator Rehab and Extended Care BULMARO MALAGON, Rehab Medicine, OP Neurology [facility] [email or web address] /es/ FAVIOLA RUVALCABA TOOL OR DIE DRAWING CHECKER Signed: 08/30/2023 16:45 FAVIOLA RUVALCABA [facility]
--- OUTSIDE RECORDS SUMMARY | 2023-09-01 16:51 | XMS_ITS | Encounter Summary ---
Author Name Department of Vetera Affairs Organization Department of Vetera ns Affairs Address [address] [place] [id number] Support Name Relationship Address Phone ANANT, JAIRO Next of Kin [address] [address] JA[place] Emergency Contact [address] [address] [address] Insurance Providers: All historical [...] Lopez's Name Patient's Relationship to Policy Lopez [facility] (R) MEDICARE ADVANTAGE [facility] ([facility]) Nov 13, 2020 [id number] [place] [facility]IENT [facility] (WNR) MEDICARE ADVANTAGE [facility] ([facility]) Aug 15, 2013 [id number] [phone] [place] PATIENT MEDICARE (WNR) MEDICARE (M) PART A Sep 15, 2010 PART A [id number] [place] PATIENT MEDICARE ([place]NR) MEDICARE (M) PART B Sep 15, 2010 PART B [id number] [phone] [place] PATIENT Selected Encounter This section includes the information on record at [place] for the Encounter. Date/Time Encounter Type Encounter Description Reason Pro vider Source Aug 30, 2023 12:21 PM Outpatient Encounter COMMUNITY CARE CONSULT IHE Encounter Template Text not used by [place] Plan of Treatment: Future Appointments (+ 6 months) and Future Tests (+/- 45 days) The Plan of Treatment section includes future care activities for the patient from all [place] [facility]. This section includes future appointments and future orders which are active, pending or scheduled. Future Appointments This section includes appointments that were scheduled to occur 6 months from the date of the Encounter, up to a maximum of 20 appointments. The data comes from all [place] treatment [facility]. Appointment Date/Time Appointment Type Appointme nt Facility Name Sep 06, 2023 12:00 PM AMBULATORY - REHAB MEDICIN E [facility] Sep 22, 2023 08:01 AM [facility] Active, Pending, and Scheduled Orders This section includes a listing of several types of active, pending, and scheduled orders, including clinic medications orders, diagnostic test orders, procedure orders and consult orders; where the start date of the order is 45 days before the date of the Encounter or 45 days after the date of theEncounter. The data comes from all [facility]. Test Date/Time Test Type Test Details Facility Name Aug 05, 2023 10:35 AM Consult Order NEUROLOGY OUTPT DBS Cons [facility] Aug 05, 2023 10:35 AM Consult Order SOCIAL WOR K OUTPT NEUROLOGY Cons [facility] Aug 10, 2023 03:18 PM Consult Order [facility] LONG-TERM Cons [facility] Aug 19, 2023 12:01 PM Consult Order OT OCCUPAT IONAL THERAPY OUTPT PACT Cons [facility] Aug 30, 2023 12:26 PM Consult Order COMM[facility]ITY [facility] HOMEMAKER/HOME HEALTH AIDE Cons [facility] Lab Results: +/- 30 days of the encounter This section includes the Chemistry and Hematology Lab Results on record with [place] for the patient. Radiology Reports and Pathology Reports are provided separately, in subsequent sections. Lab Results This section contains the Chemistry/Hematology Results that were resulted 30 days before or 30 daysafter the date of the Encounter. Date/Time Source Result Type Result - Unit Interpretation Reference Range Comment Aug 04, 2023 03:04 PM [facility] URINALYSIS Specimen Type: URINE No comment entered. Ordering Provider: CHARLIE ONOFRE Report Released Date/Time: Aug 04, 2023 03:02 PM Reporting Lab: [facility] [id number] Performing Lab: [facility] [address] URINE COLOR YELLOW SPECIFIC GRAVITY 1.031 1.003-1.035 [...] ity Jan 20, 2023 01:48 PM VA-TOBACCO QUIT 15 YRS OR MORE [facility] Tobacco Use History This section includes a history of the smoking, or tobacco-related health factors, that were collected on or before the date of the Encounter. The data comes from the [place] facility where the Encounter took place. Date/Time Smoking Status/Tobacco Use Comment F acility Jan 20, 2023 01:48 PM VA-TOBACCO QUIT 15 YRS OR MORE [facility] Jan 21, 2022 10:50 AM VA-TOBACCO FORMER USER [facility] Jan 21, 2022 10:50 AM VA-TOBACCO QUIT 15 YRS OR MORE [facility] Feb 06, 2019 02:30 PM INPT NO TOBACCO USE IN LAST 30 D AYS [facility] Pathology Reports: +/- 30 days of [...] the Encounter. The data comes from all [place] treatment facilities. Date/Time Pathology Report Provider Source Aug 04, 2023 03:04 PM LR MICROBIOLOGY RE PORT: Reporting Lab: [facility] [CLIA# [id number]] [place] [address] Accession [UID]: [id number] [[id number]] Received: Aug 04, 2023@15:18 Collection sample: URINE Collection date: Aug 04, 2023 15:04 Provider: CHARLIE ONOFRE Comment on specimen: RECEIVED IN URINE PRESERVATIVE TUBE Test(s) ordered: CULTURE & SUSCEPTIBILITY...... completed: Aug 05, 2023 * BACTERIOLOGY FINAL REPORT => Aug 05, 2023 11:09 TECH CODE: [id number] CULTURE RESULTS: LESS THAN 10,000 CFU/ML Bacteriology Remark(s): THIS REPORT IS FINAL =--=--=--=--=--=--=--=--=--=--=--=- -=--=--=--=--=--=--=--=--=--=--=--= --=--=-- Performing Laboratory: Bacteriology Report Performed By: [facility] [CLIA# [id number]] [place] [address] [facility] Encounter Notes: All associated encounter notes This section contains the clinical notes associated to the Encounter. Date/Time Encounter Note(s) Provider Source Aug 30, 2023 12:39 PM NONVA NOTE: LOCAL TITLE: COMMUNITY CARE-CARE COORDINATION PLAN NOTE STANDARD TITLE: NONVA NOTE DATE OF NOTE: AUG 30, 2023@12:39 ENTRY DATE: AUG 30, 2023@12:39:40 AUTHOR: STEVE COLEMAN EXP COSIGNER: URGENCY: STATUS: COMPLETED COMMUNITY CARE-CARE COORDINATION PLAN NOTE Has ADDENDA Faxed documentation received from homecare agency [employer], which [facility] and recommendations. /es/ AN COLEMAN [facility] Security Administrator Signed: 08/30/2023 12:41 Receipt Acknowledged By: 08/31/2023 07:41 /kera/ OSCRATES MAN MD STAFF MD YODER 08/30/2023 ADDENDUM STATUS: COMPLETED Vist[facility] Imaging Scanned Document - Addendum. TCU's PT/OT notes and recommendations SCANNED DOCUMENT SIGNATURE NOT REQUIRED Electronically Filed: 08/30/2023 by: AN COLEMAN Community Care Security Administrator STEVE COLEMAN [facility]
--- OUTSIDE RECORDS SUMMARY | 2023-09-01 16:51 | XMS_ITS | Encounter Summary ---
Author Name [facility] Organization [facility] Address [address] [place] [id number] Support Name Relationship Address Phone [place] Next of Kin [address] [address] [place] Emergency Contact [address] [address] Insurance Providers: All historical [...] Lopez's Name Patient's Relationship to Policy Lopez [facility] ([facility]) MEDICARE ADVANTAGE [employer] ([facility]) Nov 13, 2020 [id number] [place] PATIENT [facility] [employer] ([facility]) MEDICARE ADVANTAGE [employer] ([facility]) Aug 15, 2013 [id number] [phone] [place] PATIENT MEDICARE ([facility]) MEDICARE (M) PART A Sep 15, 2010 PART A [id number] [phone] [place] PATIENT MEDICARE ([facility]) MEDICARE (M) PART B Sep 15, 2010 PART B [id number] [place] PATIENT Selected Encounter This section includes the information on record at [place] for the Encounter. Date/Time Encounter Type Encounter Description Reason Provider Source Aug 26, 2023 05:36 PM HC PRO PHONE CALL 5-10 MIN TELEPHONE/NEUROLO GY ICD-10-CM G20.A1 Parkinson's dis w/o dyskinesia, w/o mention of fluctuations PHIDD,CEDRIC A IHE Encounter Template Text not used by [place] Assessments - Encounter Diagnoses This section includes the primary and secondary diagnoses documented for the Encounter. Date/Time Primary/Secondary Diagnosis Diagnosis Name Provider Source Aug 26, 2023 05:36 PM PRIMARY Parkinson's dis w/o dyskinesia, w/o mention of fluctuations PHIDD,CEDRIC A [facility] Plan of Treatment: Future Appointments (+ 6 months) and Future Tests (+/- 45 days) The Plan of Treatment section includes future care activities for the [facility] This section includes future appointments and future orders which are active, pending or scheduled. Future Appointments This section includes appointments that were scheduled to occur 6 months from the date of the Encounter, up to a maximum of 20 appointments. The data comes from all [place] treatment facilities. Appointment Date/Time Appointment Type Appointme nt Facility Name Sep 06, 2023 12:00 PM AMBULATORY - REHAB MEDICIN E [facility] Sep 22, 2023 08:01 AM [facility] Active, Pending, and Scheduled Orders This section includes a listing of several types of active, pending, and scheduled orders, including clinic medications orders, diagnostic test orders, procedure orders and consult orders; where the start date of the order is 45 days before the date of the Encounter or 45 days after the date of theEncounter. The data comes from all [place] treatment [facility]. Test Date/Time Test Type Test Details Facility Name Aug 05, 2023 10:35 AM Consult Order NEUROLOGY OUTPT DBS Cons Track Laying Equipment Operator's Choice [facility] Aug 05, 2023 10:35 AM Consult Order SOCIAL WOR K OUTPT NEUROLOGY Cons Track Laying Equipment Operator's Choice [facility] Aug 10, 2023 03:18 PM Consult Order [facility] Cons Track Laying Equipment Operator's Choice [facility] Aug 19, 2023 12:01 PM Consult Order OT OCCUPAT IONAL THERAPY OUTPT PACT Cons Track Laying Equipment Operator's [facility] Aug 30, 2023 12:26 PM Consult Order [facility] HOMEMAKER/HOME HEALTH AIDE Cons Track Laying Equipment Operator's Choice [facility] Lab Results: +/- 30 days of the encounter This section includes the Chemistry and Hematology Lab Results on record with MA for the patient. Radiology Reports and Pathology Reports are provided separately, in subsequent sections. Lab Results This section contains the Chemistry/Hematology Results that were resulted 30 days before or 30 daysafter the date of the Encounter. Date/Time Source Result Type Result - Unit Interpretation Reference Range Comment Aug 04, 2023 03:[address] [facility] URINALYSIS Specimen Type: URINE No comment entered. Ordering Provider: CHARLIE PETERSON Report Released Date/Time: Aug 04, 2023 03:02 PM Reporting Lab: [facility] [id number] Performing Lab: [facility] [id number] URINE COLOR YELLOW SPECIFIC GRAVITY 1.031 1.003-1.035 [...] and tobacco- related health factors from the [place] facility where the Encounter took place. Current Smoking Status This section includes the most current smoking, or tobacco-related health factor, from the [place] facility where the Encounter took place. Date/Time Current Smoking Status Comment Renetta ity Jan 20, 2023 01:48 PM VA-TOBACCO FORMER USER [facility] Tobacco Use History This section includes a history of the smoking, or tobacco-related health factors, that were collected on or before the date of the Encounter. The data comes from the [place] facility where the Encounter took place. Date/Time Smoking Status/Tobacco Use Comment F acility Jan 20, 2023 01:48 PM VA-TOBACCO QUIT [address] [facility] Jan 21, 2022 10:50 AM VA-TOBACCO FORMER USER [facility] Jan 21, 2022 10:50 AM MA-TOBACCO QUIT [address] [facility] Feb 06, 2019 02:30 PM INPT NO TOBACCO USE IN LAST [address] [facility] Pathology Reports: +/- 30 days of the [...] the Encounter. The data comes from all [place] treatment facilities. Date/Time Pathology Report Provider Source Aug 04, 2023 03:04 PM LR MICROBIOLOGY RE PORT: Reporting Lab: [facility] [CLIA# [id number]] [place] [address] Accession [UID]: [id number] [[id number]] Received: Aug 04, 2023@15:18 Collection sample: URINE Collection date: Aug 04, 2023 15:04 Provider: CHARLIE PETERSON Comment on specimen: RECEIVED IN URINE PRESERVATIVE TUBE Test(s) ordered: CULTURE & SUSCEPTIBILITY...... completed: Aug 05, 2023 * BACTERIOLOGY FINAL REPORT => Aug 05, 2023 11:09 TECH CODE: [id number] CULTURE RESULTS: LESS THAN 10,000 CFU/ML Bacteriology Remark(s): THIS REPORT IS FINAL =--=--=--=--=--=--=--=--=--=--=--=- -=--=--=--=--=--=--=--=--=--=--=--= --=--=-- Performing Laboratory: Bacteriology Report Performed By: [facility] [CLIA# [id number]] [place] [address] [facility] Encounter Notes: All associated encounter notes This section contains the clinical notes associated to the Encounter. 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 /kera/ SOCRATES MAN MD STAFF MD YODER Signed: 08/30/2023 08:18 Receipt Acknowledged By: 08/30/2023 08:33 /es/ STUART GRAVES RN REGISTERED NURSE for RICKI Wilkins CHANDNI === --- Original Document --- 08/26/23 PATIENT CONTACT NOTE: Patient contact Name of Homeworth: [place] Name/Relationship of Contact if other than : SonJairo Date & Time of Contact: Aug@17:37 Type of Contact: Reason for Contact: Reached patient's son, Jairo, to let him know Dr. Peterson entered an additional CD 48.75/LD 195 SA caps, take 2 capsules at bedtime. Copy of additional order also faxed to [facility]. Jairo verbalized understanding that patient has two prescriptions of CD 48.75/LD 195 SA tabs; he will need to reorder both, when needed, to have adequate supply of med. Jairo asked who he would contact if his father is unable to live on his own upon dc from [facility] tomorrow. He is hoping his father will remain independent, however, he is planning for the future. Hospital bed did arrive today. Jairo also stated his father may take more CD/LD than what is ordered. Will request [facility] SW contact Jairo to discuss options. Alerting PCP for consideration of home health nurse for medication monitoring/set up and other potential needs. Jairo verbalized appreciation of call and resources. /kera/ CEDRIC VILLANUEVA (EMELY) RICKIC REGISTERED NURSE, CERTIFIED Signed: 08/26/2023 17:49 Receipt Acknowledged By: 08/30/2023 08:17 /kera/ SOCRATES MAN MD STAFF MD YODER * AWAITING SIGNATURE * TAMIKO OLIVARES SHASHWIT A [facility] Aug 26, 2023 05:36 PM REPORT OF CONTACT: LOCAL TITLE: PATIENT CONTACT NOTE STANDARD TITLE: REPORT OF CONTACT DATE OF NOTE: AUG 26, 2023@17:36 ENTRY DATE: AUG 26, 2023@17:37:15 AUTHOR: CEDRIC VILLANUEVA EXP COSIGNER: URGENCY: STATUS: COMPLETED PATIENT CONTACT NOTE Has ADDENDA Patient contact Name of Homeworth: [place] Name/Relationship of Contact if other than Homeworth: SonJairo Date & Time of Contact: Aug@17:37 Type of Contact: Reason for Contact: Reached patient's son, Jairo, to let him know Dr. Peterson entered an additional CD 48.75/LD 195 SA caps, take 2 capsules at bedtime. Copy of additional order also faxed to [facility]. Jairo verbalized understanding that patient has two prescriptions of CD 48.75/LD 195 SA tabs; he will need to reorder both, when needed, to have adequate supply of med. Jairo asked who he would contact if his father is unable to live on his own upon dc from [facility] tomorrow. He is hoping his father will remain independent, however, he is planning for the future. Hospital bed did arrive today. Jairo also stated his father may take more CD/LD than what is ordered. Will request [facility] SW contact Jairo to discuss options. Alerting PCP for consideration of home health nurse for medication monitoring/set up and other potential needs. Jairo verbalized appreciation of call and resources. /kear/ CEDRIC VILLANUEVA (EMELY) RNC REGISTERED NURSE, CERTIFIED Signed: 08/26/2023 17:49 Receipt Acknowledged By: 08/30/2023 08:17 /es/ SOCRATES MAN MD STAFF MD YODER 08/30/2023 10:15 /es/ KIRSTIN BRUCE, [employer] ASSEMBLER [employer]LECT[employer] TECHNOLOGY INSTRUCTOR 08/30/2023 ADDENDUM STATUS: COMPLETED PACT RN please HHN consult for consideration of home health nurse for medication monitoring/set up and other potential needs. /kera/ SOCRATES MAN MD STAFF MD YODER Signed: 08/30/2023 08:18 Receipt Acknowledged By: 08/30/2023 08:33 /es/ STUART GRAVES RN REGISTERED NURSE for RICKI TARIQ 08/30/2023 ADDENDUM STATUS: COMPLETED HHN skilled and nonskilled ordered. /es/ STUART GRAVES RN REGISTERED NURSE Signed: 08/30/2023 08:35 KAY,CEDRIC [facility]
== END 2023-08-29 10:50 | disposition home or self-care (01) ==
PROVIDERS: Visit Provider Student in an Organized Health Care Education/Training Program
DX: R41.82 Altered mental status, unspecified (principal)
CPT/HCPCS: A0425; A0427

== ENCOUNTER 2023-10-01 18:44 | Outpatient (CLI) | payer MEDICARE, SELFPAY ==
--- OUTSIDE RECORDS SUMMARY | 2023-10-04 12:31 | XMS_ITS | Continuity of Care Document ---
Author Name [facility] Organization [facility] Care Team Providers Care Installation & Maintenance Executive Name Role Phone [facility] Unavailable Unavailable Problems Combined list of problems from Department of Defense and Veterans Affairs facilities. It does not include entries that were removed or entered in error. 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 Stopped marijuana at 25 yo. 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 [facility] Diagnosis: ICD-10-CM G20.A1 Parkinson's dis w/o dyskinesia, w/o mention of fluctuations Active Diagnosis [facility] Diagnosis: ICD-10-CM G20.C Parkinsonism, unspecified Active Diagnosis [facility] Diagnosis: ICD-10-CM Z65.8 Oth problems related to psychosocial circumstances Active Diagnosis [facility] Diagnosis: ICD-10-CM R25.1 Tremor, unspecified Active Diagnosis [facility] Diagnosis: ICD-10-CM G20 Parkinson's disease Active Diagnosis [facility] Diagnosis: ICD-10-CM Z46.1 Encounter for fitting and adjustment of hearing aid Active Diagnosis [facility] Diagnosis: ICD-10-CM Z00.00 Encntr for general adult medical exam w/o abnormal findings Active Diagnosis [facility] Diagnosis: ICD-10-CM H25.13 Age-related nuclear cataract, bilateral Active Diagnosis [facility] Diagnosis: ICD-10-CM H90.3 Sensorineural hearing loss, bilateral Active Diagnosis [facility] Diagnosis: ICD-10-CM R53.1 Weakness Active Diagnosis [facility] Medications Combined list of outpatient medications from Department of Defense and [facility] Affairs facilities.Medications provided include 1) outpatient medications from the last 15 months, and 2) patient-reported medications. Medication Details Route Status Patient Instructions Prescription Expires Prescription Number Last Dispense Date Ordering Provider Order Date Source ASPIRIN 81MG TAB,EC TAKE ONE TABLET BY MOUTH EVERY DAY TO PREVENT STROKE AND HEART ATTACK DO NOT CHEW ORALLY ACTIVE 01/22/2024 [id number] CAL FELIPEA 2022 [facility] ASPIRIN 81MG TAB,EC TAKE ONE TABLET BY MOUTH EVERY DAY TO PREVENT STROKE AND HEART ATTACK DO NOT CHEW ORALLY DISCONT INUED 01/23/2023 [id number] CAL FELIPE KAREN 2021 [facility] CARBIDOPA 25MG/LEVODO PA 100MG TAB TAKE 1-2 TABLETS BY MOUTH 10 TIMES EVERY DAY FOR PARKINSO N DISEASE ORALLY DISCONT INUED 04/05/2024 [id number] 3 ALEJANDRO ONOFRE 2022 [place] [facility] CARBIDOPA 25MG/LEVODO PA 100MG TAB TAKE 1-2 TABLETS BY MOUTH 10 TIMES EVERY DAY FOR PARKINSO N DISEASE ORALLY DISCONT INUED 08/04/2023 [id number] 3 Irving RODRIGUES 2021 [facility] [facility] CARBIDOPA 36.25MG/LEV ODOPA 145MG CAP,SA TAKE 3 CAPSULE CARBIDOP A 36.25MG/ LEVODOPA 145MG SA CAP BY MOUTH THREE TIMES A DAY FOR PARKINSO N DISEASE ORALLY DISCONT INUED (EDIT) 08/04/2024 [id number] 3 ALEJANDRO ONOFRE 2022 [facility] [facility] CARBIDOPA 48.75MG/LEV ODOPA 195MG CAP,SA TAKE 3 CAPSULES BY MOUTH THREE TIMES A DAY AND TAKE 2 CAPSULES AT BEDTIME FOR PARKINSO N DISEASE ORALLY ACTIVE 09/01/2024 [id number] 4 ALEJANDRO ONOFRE 2023 [place] [facility] CARBIDOPA 48.75MG/LEV ODOPA 195MG CAP,SA TAKE 3 CAPSULES BY MOUTH THREE TIMES A DAY FOR PARKINSO N DISEASE TAKE AT 8 AM, 12 NOON AND 4 PM ORALLY DISCONT INUED (EDIT) 08/16/2024 [id number] 4 ALEJANDRO ONOFRE 2023 [facility] CARBIDOPA 50MG/LEVODO PA 200MG TAB,SA TAKE 1 TABLET BY MOUTH THREE TIMES A DAY FOR PARKINSO N DISEASE WITH 25/100 TABLET ORALLY DISCONT INUED 04/05/2024 [id number] 3 ALEJANDRO ONOFRE S 2022 [facility] CHOLECALCIF LEXY 25MCG (1,000UNIT) TAB TAKE TWO TABLETS BY MOUTH EVERY DAY ORALLY ACTIVE 01/22/2024 [id number] 3 CHINTALPU RI,SHASHW KAREN 2022 [facility] EYELID CLEANSER,EY E SCRUB PAD USE 1 PAD TOPICALL Y AT BEDTIME APPLY TO UPPER/LO WER EYELIDS TOPICA LLY ACTIVE 01/21/2024 [id number] 3 QUENTIN ABEL 2022 [facility] FISH OIL 1000MG (500MG DHA/EPA) CAP,ORAL TAKE 1 CAPSULE BY MOUTH ORALLY ACTIVE CHINTALPU RI,SHASHW KAREN 2020 [facility] HYDROPHILIC (EQV AQUAPHOR) OINT,TOP APPLY MODERATE AMOUNT TOPICALL Y TWICE A DAY TO AFFECTED AREAS FOR DRY SKIN TOPICA LLY ACTIVE 01/22/2024 [id number] 3 CHINTAL[place] RI,SHASHW KAREN 2022 [facility] RASAGILINE MESYLATE 1MG TAB TAKE ONE TABLET BY MOUTH EVERY DAY FOR PARKINSO N DISEASE ORALLY DISCONT INUED 11/24/2023 [id number] 3 Irving RODRIGUES 2022 [facility] VANICREAM APPLY THIN LAYER TOPICALL Y EVERY DAY FOR DRY SKIN, IDEALLY WITHIN 3 MINUTES AFTER BATH OR SHOWER. FOR DRY SKIN, IDEALLY WITHIN 3 MINUTES AFTER BATH OR SHOWER. TOPICA LLY ACTIVE 01/22/2024 [id number] CHINTALPU RI,SHASHW KAREN 2022 [facility] Allergies, Adverse Reactions, Alerts Combined list of allergies from Department of Defense and Veterans Affairs facilities. It does not include entries that were removed or entered in error. Substance Category Reaction Severity Reaction type Status Date Reported Comments Source P[place] Propensity to adverse reactions to drug (finding) active 9 [facility] Immunizations Combined list of available immunizations from the Department of Defense and Veterans Affairs facilities. Immunization Series Date Given Administered By Site Reaction Lot Number CVX Code Drug Sr Account Executive Status Comments Source COVID-19 (ASIF), VECTOR-NR, [id number], PF, 0.5 ML 1 2020 212 complet ed JSN; [id number]; 1 [facility] TDAP 2012 115 complet ed glaxosmit hkline [id number] 6 [facility] TD(ADULT) UNSPECIFIED FORMULATION 2002 139 complet ed [place] [facility] Results Combined list of recent [...] Aug 04, 2023 03:02 PM Reporting Lab: [facility] [address] Performing Lab: [facility] [address] [facility] URINALYS IS SPECIFIC GRAVITY OF URINE 1.031 1.003 - 1.035 08/04 Specimen Type: URINE No comment entered. Ordering Provider: CHARLIE ONOFRE Report Released Date/Time: Aug 04, 2023 03:02 PM Reporting Lab: [facility] [address] Performing Lab: [facility] [address] [facility] URINALYS IS BILIRUBIN. TOTAL [PRESENCE] IN URINE BY TEST STRIP NEGATIVE 08/04 Specimen Type: URINE No comment entered. Ordering Provider: CHARLIE ONOFRE Report Released Date/Time: Aug 04, 2023 03:02 PM Reporting Lab: [facility] [address] Performing Lab: [facility] [address] [facility] URINALYS IS KETONES [MASS/VOLU ME] IN URINE BY TEST STRIP 1+ 08/04 Specimen Type: URINE No comment entered. Ordering Provider: CHARLIE ONOFRE Report Released Date/Time: Aug 04, 2023 03:02 PM Reporting Lab: [facility] [address] Performing Lab: [facility] [address] [place] [facility] URINALYS IS GLUCOSE [MASS/VOLU ME] IN URINE BY TEST STRIP NEGATIVE 08/04 Specimen Type: URINE No comment entered. Ordering Provider: CHARLIE ONOFRE Report Released Date/Time: Aug 04, 2023 03:02 PM Reporting Lab: [facility] [address] Performing Lab: [facility] [address] [place] [facility] URINALYS IS PROTEIN [MASS/VOLU ME] IN URINE BY TEST STRIP 30 08/04 Specimen Type: URINE No comment entered. Ordering Provider: CHARLIE ONOFRE Report Released Date/Time: Aug 04, 2023 03:02 PM Reporting Lab: [facility] [address] Performing Lab: [facility] [address] [place] [facility] URINALYS IS PH OF URINE BY TEST STRIP 5.5 5.0 - 8.0 08/04 Specimen Type: URINE No comment entered. Ordering Provider: CHARLIE ONOFRE Report Released Date/Time: Aug 04, 2023 03:02 PM Reporting Lab: [facility] [address] Performing Lab: [facility] [address] [place] [facility] URINALYS IS LEUKOCYTES [#/AREA] IN URINE SEDIMENT BY MICROSCOPY HIGH POWER FIELD 4 0 - 7 08/04 Specimen Type: URINE No comment entered. Ordering Provider: CHARLIE ONOFRE Report Released Date/Time: Aug 04, 2023 03:02 PM Reporting Lab: [facility] [address] Performing Lab: [facility] [address] [place] [facility] URINALYS IS BACTERIA [PRESENCE] IN URINE SEDIMENT BY LIGHT MICROSCOPY NONE SEEN 08/04 Specimen Type: URINE No comment entered. Ordering Provider: CHARLIE ONOFRE Report Released Date/Time: Aug 04, 2023 03:02 PM Reporting Lab: [facility] [address] Performing Lab: [facility] [address] [place] [facility] URINALYS IS HYALINE CASTS [#/AREA] IN URINE SEDIMENT BY MICROSCOPY LOW POWER FIELD 2 08/04 Specimen Type: URINE No comment entered. Ordering Provider: CHARLIE ONOFRE Report Released Date/Time: Aug 04, 2023 03:02 PM Reporting Lab: [facility] [address] Performing Lab: [facility] [address] [place] [facility] URINALYS IS ERYTHROCYT ES [#/AREA] IN URINE SEDIMENT BY MICROSCOPY HIGH POWER FIELD 2 0 - 3 08/04 Specimen Type: URINE No comment entered. Ordering Provider: CHARLIE ONOFRE Report Released Date/Time: Aug 04, 2023 03:02 PM Reporting Lab: [facility] [address] Performing Lab: [facility] [address] [place] [facility] URINALYS IS APPEARANCE OF URINE CLEAR 08/04 Specimen Type: URINE No comment entered. Ordering Provider: CHARLIE ONOFRE Report Released Date/Time: Aug 04, 2023 03:02 PM Reporting Lab: [facility] [address] Performing Lab: [facility] [address] [place] [facility] URINALYS IS EPITHELIAL CELLS.SQUA MOUS [#/AREA] IN URINE SEDIMENT BY MICROSCOPY HIGH POWER FIELD <1 08/04 Specimen Type: URINE No comment entered. Ordering Provider: CHARLIE ONOFRE Report Released Date/Time: Aug 04, 2023 03:02 PM Reporting Lab: [facility] [address] Performing Lab: [facility] [address] [place] [facility] URINALYS IS HEMOGLOBIN [PRESENCE] IN URINE BY TEST STRIP NEGATIVE 08/04 Specimen Type: URINE No comment entered. Ordering Provider: CHARLIE ONOFRE Report Released Date/Time: Aug 04, 2023 03:02 PM Reporting Lab: [facility] [address] Performing Lab: [facility] [address] [place] [facility] URINALYS IS NITRITE [PRESENCE] IN URINE BY TEST STRIP NEGATIVE 08/04 Specimen Type: URINE No comment entered. Ordering Provider: CHARLIE ONOFRE Report Released Date/Time: Aug 04, 2023 03:02 PM Reporting Lab: [facility] [address] Performing Lab: [facility] [address] [place] [facility] URINALYS IS LEUKOCYTE ESTERASE [PRESENCE] IN URINE BY TEST STRIP NEGATIVE 08/04 Specimen Type: URINE No comment entered. Ordering Provider: CHARLIE ONOFRE Report Released Date/Time: Aug 04, 2023 03:02 PM Reporting Lab: [facility] [address] Performing Lab: [facility] [address] [place] [facility] HEMOGLOB IN A1C HEMOGLOBIN A1C/HEMOGL OBIN.TOTAL IN BLOOD 5.3 4.0 - 6.0 01/22 Specimen Type: BLOOD No comment entered. Ordering Provider: SOCRATES MAN Report Released Date/Time: Jan 22, 2022 02:36 PM Reporting Lab: [facility] [address] Performing Lab: [facility] [address] [facility] PSA PROSTATE SPECIFIC AG [MASS/VOLU ME] IN SERUM OR PLASMA 1.68 <4.00 - 4.00 01/22 Specimen Type: SERUM No comment entered. Ordering Provider: SOCRATES MAN Report Released Date/Time: Jan 22, 2022 02:36 PM Reporting Lab: [facility] [address] Performing Lab: [facility] [address] [facility] LIPID PANEL,NO N-FASTIN G CHOLESTERO L [MASS/VOLU ME] IN SERUM OR PLASMA 206 <199 - 199 01/22 H Specimen Type: PLASMA No comment entered. Ordering Provider: SOCRATES MAN Report Released Date/Time: Jan 22, 2022 02:36 PM Reporting Lab: [facility] [address] Performing Lab: [facility] [address] [facility] LIPID PANEL,NO N-FASTIN G CHOLESTERO L IN HDL [MASS/VOLU ME] IN SERUM OR PLASMA 35 40 01/22 L Specimen Type: PLASMA No comment entered. Ordering Provider: SOCRATES MAN Report Released Date/Time: Jan 22, 2022 02:36 PM Reporting Lab: [facility] [address] Performing Lab: [facility] [address] [facility] LIPID PANEL,NO N-FASTIN G CHOLESTERO L IN LDL [MASS/VOLU ME] IN SERUM OR PLASMA BY CALCULATIO N 143 <99 - 99 01/22 H Specimen Type: PLASMA No comment entered. Ordering Provider: SORCATES MAN Report Released Date/Time: Jan 22, 2022 02:36 PM Reporting Lab: [facility] [address] Performing Lab: [facility] [address] [facility] LIPID PANEL,NO N-FASTIN G CHOLESTERO L IN VLDL [MASS/VOLU ME] IN SERUM OR PLASMA BY CALCULATIO N 28 <29 - 29 01/22 Specimen Type: PLASMA No comment entered. Ordering Provider: SOCRATES MAN Report Released Date/Time: Jan 22, 2022 02:36 PM Reporting Lab: [facility] [address] Performing Lab: [facility] [address] [facility] LIPID PANEL,NO N-FASTIN G CHOLESTERO L NON HDL [MASS/VOLU ME] IN SERUM OR PLASMA 171 <129 - 129 01/22 H Specimen Type: PLASMA No comment entered. Ordering Provider: SOCRATES MAN Report Released Date/Time: Jan 22, 2022 02:36 PM Reporting Lab: [facility] [address] Performing Lab: [facility] [address] [facility] LIPID PANEL,NO N-FASTIN G TRIGLYCERI DE [MASS/VOLU ME] IN SERUM OR PLASMA 140 <149 - 149 01/22 Specimen Type: PLASMA No comment entered. Ordering Provider: SOCRATES MAN Report Released Date/Time: Jan 22, 2022 02:36 PM Reporting Lab: [facility] [address] Performing Lab: [facility] [address] [facility] TSH W/REFLEX TO FREE T4 THYROTROPI N [UNITS/VOL UME] IN SERUM OR PLASMA 2.41 0.35 - 4.94 01/22 Specimen Type: PLASMA No comment entered. Ordering Provider: SOCRATES MAN Report Released Date/Time: Jan 22, 2022 02:36 PM Reporting Lab: [facility] [address] Performing Lab: [facility] [address] [facility] COMPREHE NSIVE METABOLI C PANEL+MG CREATININE [MASS/VOLU ME] IN SERUM OR PLASMA 0.7 0.7 - 1.2 01/22 Specimen Type: PLASMA No comment entered. Ordering Provider: SOCRATES MAN Report Released Date/Time: Jan 22, 2022 02:36 PM Reporting Lab: [facility] [address] Performing Lab: [facility] [address] [facility] COMPREHE NSIVE METABOLI C PANEL+MG UREA NITROGEN [MASS/VOLU ME] IN SERUM OR PLASMA 17 8 - 26 01/22 Specimen Type: PLASMA No comment entered. Ordering Provider: SOCRATES MAN Report Released Date/Time: Jan 22, 2022 02:36 PM Reporting Lab: [facility] [address] Performing Lab: [facility] [address] [facility] COMPREHE NSIVE METABOLI C PANEL+MG GLUCOSE [MASS/VOLU ME] IN SERUM OR PLASMA 93 74 - 100 01/22 Specimen Type: PLASMA No comment entered. Ordering Provider: SOCRATES MAN Report Released Date/Time: Jan 22, 2022 02:36 PM Reporting Lab: [facility] [address] Performing Lab: [facility] [address] [facility] COMPREHE NSIVE METABOLI C PANEL+MG SODIUM [MOLES/VOL UME] IN SERUM OR PLASMA 137 136 - 145 01/22 Specimen Type: PLASMA No comment entered. Ordering Provider: SOCRATES MAN Report Released Date/Time: Jan 22, 2022 02:36 PM Reporting Lab: [facility] [address] Performing Lab: [facility] [address] [facility] COMPREHE NSIVE METABOLI C PANEL+MG POTASSIUM [MOLES/VOL UME] IN SERUM OR PLASMA 4.6 3.5 - 5.1 01/22 Specimen Type: PLASMA No comment entered. Ordering Provider: SOCRATES MAN Report Released Date/Time: Jan 22, 2022 02:36 PM Reporting Lab: [facility] [address] Performing Lab: [facility] [address] [facility] COMPREHE NSIVE METABOLI C PANEL+MG CHLORIDE [MOLES/VOL UME] IN SERUM OR PLASMA 103 98 - 107 01/22 Specimen Type: PLASMA No comment entered. Ordering Provider: SOCRATES MAN Report Released Date/Time: Jan 22, 2022 02:36 PM Reporting Lab: [facility] [address] Performing Lab: [facility] [address] [facility] COMPREHE NSIVE METABOLI C PANEL+MG CARBON DIOXIDE, TOTAL [MOLES/VOL UME] IN SERUM OR PLASMA 25 22 - 29 01/22 Specimen Type: PLASMA No comment entered. Ordering Provider: SOCRATES MAN Report Released Date/Time: Jan 22, 2022 02:36 PM Reporting Lab: [facility] [address] Performing Lab: [facility] [address] [facility] COMPREHE NSIVE METABOLI C PANEL+MG CALCIUM [MASS/VOLU ME] IN SERUM OR PLASMA 9.1 8.4 - 10.2 01/22 Specimen Type: PLASMA No comment entered. Ordering Provider: SOCRATES MAN Report Released Date/Time: Jan 22, 2022 02:36 PM Reporting Lab: [facility] [address] Performing Lab: [facility] [address] [facility] COMPREHE NSIVE METABOLI C PANEL+MG PROTEIN [MASS/VOLU ME] IN SERUM OR PLASMA 6.9 6.0 - 8.3 01/22 Specimen Type: PLASMA No comment entered. Ordering Provider: SOCRATES MAN Report Released Date/Time: Jan 22, 2022 02:36 PM Reporting Lab: [facility] [address] Performing Lab: [facility] [address] [facility] COMPREHE NSIVE METABOLI C PANEL+MG ALBUMIN [MASS/VOLU ME] IN SERUM OR PLASMA 4.0 3.5 - 5.2 01/22 Specimen Type: PLASMA No comment entered. Ordering Provider: SOCRATES MAN Report Released Date/Time: Jan 22, 2022 02:36 PM Reporting Lab: [facility] [address] Performing Lab: [facility] [address] [facility] COMPREHE NSIVE METABOLI C PANEL+MG BILIRUBIN. TOTAL [MASS/VOLU ME] IN SERUM OR PLASMA 0.5 0.2 - 1.2 01/22 Specimen Type: PLASMA No comment entered. Ordering Provider: SOCRATES MAN Report Released Date/Time: Jan 22, 2022 02:36 PM Reporting Lab: [facility] [address] Performing Lab: [facility] [address] [facility] COMPREHE NSIVE METABOLI C PANEL+MG MAGNESIUM [MASS/VOLU ME] IN SERUM OR PLASMA 2.1 1.6 - 2.6 01/22 Specimen Type: PLASMA No comment entered. Ordering Provider: SOCRATES MAN Report Released Date/Time: Jan 22, 2022 02:36 PM Reporting Lab: [facility] [address] Performing Lab: [facility] [address] [facility] COMPREHE NSIVE METABOLI C PANEL+MG ANION GAP IN SERUM OR PLASMA 9 5 - 15 01/22 Specimen Type: PLASMA No comment entered. Ordering Provider: SOCRATES MAN Report Released Date/Time: Jan 22, 2022 02:36 PM Reporting Lab: [facility] [address] Performing Lab: [facility] [address] [facility] COMPREHE NSIVE METABOLI C PANEL+MG ALKALINE PHOSPHATAS E [ENZYMATIC ACTIVITY/V OLUME] IN SERUM OR PLASMA 74 40 - 150 01/22 Specimen Type: PLASMA No comment entered. Ordering Provider: SOCRATES MAN Report Released Date/Time: Jan 22, 2022 02:36 PM Reporting Lab: [facility] [address] Performing Lab: [facility] [address] [facility] COMPREHE NSIVE METABOLI C PANEL+MG ALANINE AMINOTRANS FERASE [ENZYMATIC ACTIVITY/V OLUME] IN SERUM OR PLASMA 7 <55 - 55 01/22 Specimen Type: PLASMA No comment entered. Ordering Provider: SOCRATES MAN Report Released Date/Time: Jan 22, 2022 02:36 PM Reporting Lab: [facility] [address] Performing Lab: [facility] [address] [facility] COMPREHE NSIVE METABOLI C PANEL+MG ASPARTATE AMINOTRANS FERASE [ENZYMATIC ACTIVITY/V OLUME] IN SERUM OR PLASMA 9 <34 - 34 01/22 Specimen Type: PLASMA No comment entered. Ordering Provider: SOCRATES MAN Report Released Date/Time: Jan 22, 2022 02:36 PM Reporting Lab: [facility] [address] Performing Lab: [facility] [address] [facility] COMPREHE NSIVE METABOLI C PANEL+MG CREAT EGFR(CKD-E PI) >90 60 01/22 Specimen Type: PLASMA No comment entered. Ordering Provider: SOCRATES MAN Report Released Date/Time: Jan 22, 2022 02:36 PM Reporting Lab: [facility] [address] Performing Lab: [facility] [address] [facility] Vital Signs Combined list of inpatient and outpatient Vital Signs from Department of Defense and Veterans Affairs, ranging from 12 months to all on record, depending upon the facility. Vital Sign Value Date Comments Source SYSTOLIC BLOOD PRESSURE 140 08/04/2023 13:55:09 [facility] DIASTOLIC BLOOD PRESSURE 68 08/04/2023 13:55:09 [facility] PULSE OXIMETRY 63% 08/04/2023 13:55:09 [facility] PAIN 0 08/04/2023 13:55:09 [facility] PULSE 67 08/04/2023 13:55:09 [facility] RESPIRATION 18 08/04/2023 13:55:09 [facility] SYSTOLIC BLOOD PRESSURE 170 07/15/2023 14:21:00 [facility] DIASTOLIC BLOOD PRESSURE 84 07/15/2023 14:21:00 [facility] PAIN 0 07/15/2023 14:21:00 [facility] TEMPERATURE 98.0 07/15/2023 14:21:00 [facility] RESPIRATION 16 07/15/2023 14:21:00 [facility] SYSTOLIC BLOOD PRESSURE 146 04/05/2023 10:15:41 [facility] DIASTOLIC BLOOD PRESSURE 79 04/05/2023 10:15:41 [facility] PULSE OXIMETRY 99% 04/05/2023 10:15:41 [facility] PAIN 0 04/05/2023 10:15:41 [facility] TEMPERATURE 98.1 04/05/2023 10:15:41 [facility] PULSE 56 04/05/2023 10:15:41 [facility] RESPIRATION 16 04/05/2023 10:15:41 [facility] SYSTOLIC BLOOD PRESSURE 136 02/08/2023 14:44:15 [facility] DIASTOLIC BLOOD PRESSURE 74 02/08/2023 14:44:15 [facility] PULSE 80 02/08/2023 14:44:15 [facility] SYSTOLIC BLOOD PRESSURE 128 01/21[facility]23 09[facility]59[facility] 66 01/21/2023 09:59:35 [facility] PULSE OXIMETRY 96% 01/21/2023 09:59:35 [place] [...] [facility] 2) Encounters from the Department of [facility] facilities going back up to 280 months. 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
CHARLIE ONOFRE 04/13 [place] [facility] [place] [facility] Outpatient Encounter [id number] 04[facility]20 [place] [facility] [place] [facility] Outpatient Encounter [id number] 04/28 [place] [facility] [place] [facility] Outpatient Encounter [id number] 04/29 [place] [facility] [place] [facility] Outpatient Encounter [id number] 04/30 [place] [facility] [place] [facility] Outpatient Encounter [id number] 04/30 [place] [facility] [place] [facility] Outpatient Encounter [id number] 05/10 [place] [facility] [place] [facility] OT EVAL LOW COMPLEX 30 MIN [id number] Diagnos is: ICD-10- CM R53.1 Weaknes s
LEDBETTER,TA D R 05/18 [place] [facility] Outpatient Encounter [id number] 06/01 [place] [facility] [place] [facility] Outpatient Encounter [id number] 06/02 [facility] PRO PHONE CALL 11-20 MIN [id number] Diagnos is: ICD-10- CM R25.1 Tremor, unspeci fied
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
CHARLIE ONOFRE 11/23 [facility] [place] [facility] Outpatient Encounter [id number] 12/09 [facility] [place] [id number] Diagnos is: ICD-10- CM H90.3 Sensori neural hearing loss, bilater al
BOLIVAR BRIAN ICA L 12/14 [facility] OFFICE O/P NEW MOD 45-59 MIN [id number] Diagnos is: ICD-10- CM H25.13 Age-rel ated nuclear catarac t, bilater al
QUENTIN ABEL 01/20 [facility] Outpatient Encounter [id number] CLARA MONTIEL 01/20 [facility] Outpatient Encounter [id number] Diagnos is: ICD-10- CM Z00.00 Encntr for general adult medical exam w/o abnorma l finding s
YAMILET ERAZO A 01/21 [facility] Outpatient Encounter [id number] 01/26 [facility] [place] [facility] Outpatient Encounter [id number] 02/01 [facility] [place] [facility] Outpatient Encounter [id number] 02/01 [facility] [place] [facility] Outpatient Encounter [id number] 02/02 [facility] AUD REHAB POSTLING HEAR LOSS [id number] Diagnos is: ICD-10- CM Z46.1 Encount er for fitting and adjustm ent of hearing aid<br/ > BOLIVAR BRIAN ICA L 02/08 [facility] Outpatient Encounter [id number] 02/09 [facility] [place] [facility] EAR IMPRESSION [id number] Diagnos is: ICD-10- CM Z46.1 Encount er for fitting and adjustm ent of hearing aid<br/ > PING ORTEGA Harry 02/17 [place] [facility] [place] [facility] Outpatient Encounter [id number] 03/18 [facility] OFFICE O/P EST MOD 30-39 MIN [id number] Diagnos is: 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
ALEXUS, KEITH L 04/28 [facility] [place] [facility] Outpatient Encounter [id number] 05/13 [place] [facility] [place] [facility] Outpatient Encounter [id number] 05/19 [facility] [place] [facility] Outpatient Encounter [id number] CLEMENT DUGAN 07/15 [facility] [place] [facility] HC PRO PHONE CALL 5-10 MIN [id number] Diagnos is: 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, w/o mention of fluctua tions<b r/> PHIDD,LESL IE A 07/15 [place] [facility] [place] [facility] OFF/OP EST MAY X REQ PHY/QHP [id number] Diagnos is: ICD-10- CM R25.1 Tremor, unspeci fied
ELIZABETH FRANCOIS ON K 07/15 [place] [facility] [place] [facility] Outpatient Encounter [id number] AN MUHAMMAD 08/03 [place] [facility] [place] [facility] Outpatient Encounter [id number] ANN ROSS 08/04 [place] [facility] [place] [facility] QNHP OL DIG ASSMT&MGMT 5-10 [id number] Diagnos is: 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, w/o mention of fluctua tions<b r/> MOLINA PALACIOS K 08/05 [place] [facility] [place] [facility] Outpatient Encounter [id number] 08/05 [place] [facility] [place] [facility] Outpatient Encounter [id number] 08/09 [place] [facility] [place] [facility] Outpatient Encounter [id number] 08/09 [place] [facility] [place] [facility] Outpatient Encounter [id number] 08/10 [place] [facility] [place] [facility] Outpatient Encounter [id number] ARISTEO POLLARD 08/10 [place] [facility] [place] [facility] Outpatient Encounter [id number] 08/10 [place] [facility] [place] [facility] Outpatient Encounter [id number] KYM RUSSO 08/10 [place] [facility] [place] [facility] Outpatient Encounter [id number] 08/16 [place] [facility] Outpatient Encounter [id number] Diagnos is: ICD-10- CM Z65.8 Oth problem s related to psychos ocial circums tances< br/> RAYTAMIKO R 08/19 [facility] [place] [facility] Outpatient Encounter [id number] 08/19 [place] [facility] [place] [facility] Outpatient Encounter [id number] 08/19 [place] [facility] [place] [facility] Outpatient Encounter [id number] 08/23 [place] [facility] [place] [facility] Outpatient Encounter [id number] 08/26 [place] [facility] [place] [facility] PRO PHONE CALL 5-10 MIN [id number] Diagnos is: 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, w/o mention of fluctua tions<b r/> PHIDD,LESL IE A 08/26 [place] [facility] [place] [facility] Outpatient Encounter [id number] 08/27 [place] [facility] [place] [facility] Outpatient Encounter [id number] 08/30 [place] [facility] [place] [facility] Outpatient Encounter [id number] 08/30 [place] [facility] [place] [facility] Outpatient Encounter [id number] AN MUHAMMAD 08/30 [place] [facility] [place] [facility] Outpatient Encounter [id number] KYM RUSSO 09/05 [place] [facility] [place] [facility] COGNITIVE TEST BY HC PRO [id number] Diagnos is: ICD-10- CM G20.C Megan onism, unspeci fied
CARLOS A CADET MY B 09/26 [facility] [place] [facility] OFFICE O/P NEW HI 60 MIN [id number] Diagnos is: 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, w/o mention of fluctua tions<b r/> MARVA VAUGHANASHA L 09/26 [facility] Outpatient Encounter [id number] 10/04 [facility] Social History Combined list of available smoking, tobacco, and other social history from Department of Defense and Veterans Affairs facilities. Social History Type Response Date Comment Sourc e Tobacco smoking status [facility]-TOBACCO FORMER USER 01/20/2023 [facility] of [facility] 5 Y[facility] OR MORE 01/20/2023 [facility] History of tobacco use MD-TOBACCO FORMER USER 01/21/2022 [facility] History of tobacco use MD-TOBACCO QUIT 5 TO < 15 YRS 01/22/2021 [facility] History of tobacco use MD-TOBACCO QUIT 5 TO < 15 YRS 11/01/2019 [facility] History of tobacco use INPT NO TOBACCO U SE IN LAST 30 DAYS 02/06/2019 [facility] History of tobacco use [facility]-TOBACCO FORMER USER 10/26/2018 [facility] History of tobacco use FORMER TOBACCO US ER 7Y OR GREATER 11/03/2017 [facility] History of tobacco use FORMER TOBACCO US ER 7Y OR GREATER 09/16/2016 [facility] History of tobacco use FORMER TOBACCO US ER 7Y OR GREATER 05/08/2015 [facility] History of tobacco use FORMER TOBACCO US E >1Y <7Y 06/07/2013 [facility] History of tobacco use FORMER TOBACCO US E >1Y <7Y 02/23/2012 [facility] History of tobacco use FORMER TOBACCO US E >1Y <7Y 05/15/2009 [facility]
--- OUTSIDE RECORDS SUMMARY | 2023-10-04 12:38 | XMS_ITS | Encounter Summary ---
Author Name [facility] Organization [facility] Address [address] [place] [id number] Support Name Relationship Address Phone [place] Next of Kin [address] [address] [place] Emergency Contact [address] [address] Insurance Providers: All historical [...] Lopez's Name Patient's Relationship to Policy Lopez [facility] ([facility]) MEDICARE ADVANTAGE [facility] ([facility]) Nov 13, 2020 [id number] [place] PATIENT [employer] [facility] (WNR) MEDICARE ADVANTAGE [facility] ([facility]) Aug 15, 2013 [id number] [place] PATIENT MEDICARE (WN) MEDICARE (M) PART B Sep 15, 2010 PART B [id number] [phone] [place] MEDICARE (WN) MEDICARE (M) PART A Sep 15, 2010 PART A [id number] [phone] [place] PAT[place] Selected Encounter This section includes the information on record at [facility] for the Encounter. Date/Time Encounter Type Encounter Description Reason Provider Source Sep 05, 2023 01:04 PM Outpatient Encounter TELEPHONE/ANCILLARY DUKE RUSSO Encounter Template Text not used by [facility] Plan of Treatment: Future Appointments (+ 6 months) and Future Tests (+/- 45 days) The Plan of Treatment section includes future care activities for the patient [facility] This section includes future appointments and future orders which are active, pending or scheduled. Future Appointments This section includes appointments that were scheduled to occur 6 months from the date of the Encounter, up to a maximum of 20 appointments. The data comes from all [facility] facilities. Appointment Date/Time Appointment Type Appointme nt Facility Name Sep 21, 2023 05:20 PM AMBULATORY - REHAB MEDICIN E [facility] Sep 22, 2023 08:01 AM [facility] Sep 26, 2023 10:30 AM [facility]ULAT[facility] - REHAB MEDICIN [facility] Sep 26, 2023 12:00 PM AMBULATORY - REHAB MEDICIN [facility] Social History: Smoking Status (Most current) and Tobacco Use (All prior to encounter date) This section includes the most current, and the historical, smoking and tobacco- related health factors from the [facility] facility where the Encounter took place. Current Smoking Status This section includes the most current smoking, or tobacco-related health factor, from the [facility] facility where the Encounter took place. Date/Time Current Smoking Status Comment Facil ity Jan 20, 2023 01:48 PM VA-TOBACCO FORMER USER [facility] Tobacco Use History This section includes a history of the smoking, or tobacco-related health factors, that were collected on or before the date of the Encounter. The data comes from the [facility] facility where the Encounter took place. Date/Time Smoking Status/Tobacco Use Comment F acility Jan 20, 2023 01:48 PM VA-TOBACCO QUIT 15 YRS OR MORE [facility] Jan 21, 2022 10:50 AM VA-TOBACCO FORMER USER [facility] Jan 21, 2022 10:50 AM VA-TOBACCO QUIT 15 YRS OR MORE [facility] Feb 06, 2019 02:30 PM INPT NO TOBACCO USE IN LAST 30 D AYS [facility] Encounter Notes: All associated encounter notes This section contains the clinical notes associated to the Encounter. Date/Time Encounter Note(s) Provider Source Sep 05, 2023 01:04 PM NONVA NOTE: LOCAL TITLE: [facility] 100 DAY REHAB BENEFIT STANDARD TITLE: NONVA NOTE DATE OF NOTE: SEP 05, 2023@13:04 ENTRY DATE: SEP 05, 2023@13:04:47 AUTHOR: DUKE RUSSO EXP COSIGNER: URGENCY: STATUS: COMPLETED This is for patient discharge. Discharge date: Date: August 27, 2023 Total days this episode: Total days: 17 Total days this calendar year: Total days: 17 Discharging to home/family. /kera/ MELVA MONTES BOBBIN COIL WINDER WEATHERSEAL TECHNICIAN Signed: 09/05/2023 13:05 Receipt Acknowledged By: 09/15/2023 08:14 /kera/ Akosua Beatty, fall internship Health Nurse Coordinator 09/06/2023 07:40 /kera/ PAT FISHER ADVANCED FASHION INTERN 09/05/2023 14:28 /kera/ SHIRLEY PECK Management and Printer Technician DUKE RUSSO [facility]
--- OUTSIDE RECORDS SUMMARY | 2023-10-04 12:39 | XMS_ITS | Encounter Summary ---
Author Name Department of Vetera Affairs Organization Department of Vetera ns Affairs Address [address] [place] [address] Support Name Relationship Address Phone YOKO NYE Next of Kin [address] [address] YOKO NYE Emergency Contact [address] [address] Insurance Providers: All historical [...] Lopez's Name Patient's Relationship to Policy Lopez [facility] ([facility]) MEDICARE ADVANTAGE [facility] ([facility]) Nov 13, 2020 [id number] Edwin [place] PATIENT [employer] [facility] (WNR) MEDICARE ADVANTAGE [facility] ([facility]) Aug 15, 2013 [id number] [place] PATIENT MEDICARE (WNR) MEDICARE (M) PART A Sep 15, 2010 PART A [id number] [phone] Edwin [place] PATIENT MEDICARE (WNR) MEDICARE (M) PART B Sep 15, 2010 PART B [id number] [phone] [place] PATIENT Selected Encounter This section includes the information on record at [place] for the Encounter. Date/Time Encounter Type Encounter Description Reason Provider Source Sep 26, 2023 10:30 AM COGNITIVE TEST BY [facility] OCCUPATIONAL THERAPY ICD-10-CM G20.C Parkinsonism, unspecified ANGELINA CADET Encounter Template Text not used by [place] Assessments - Encounter Diagnoses This section includes the primary and secondary diagnoses documented for the Encounter. Date/Time Primary/Secondary Diagnosis Diagnosis Name Provider Source Sep 26, 2023 01:58 PM PRIMARY Parkinsonism, unspecified ANGELINA CADET [facility] Social History: Smoking Status (Most current) and Tobacco Use (All prior to encounter date) This section includes the most current, and the historical, smoking and tobacco- related health factors from the [place] facility where the Encounter took place. Current Smoking Status This section includes the most current smoking, or tobacco-related health factor, from the [place] facility where the Encounter took place. Date/Time Current Smoking Status Comment Facil ity Jan 20, 2023 01:48 PM VA-TOBACCO FORMER USER [facility] Tobacco Use History This section includes a history of the smoking, or tobacco-related health factors, that were collected on or before the date of the Encounter. The data comes from the [place] facility where the Encounter took place. Date/Time Smoking Status/Tobacco Use Comment F acility Jan 20, 2023 01:48 PM VA-TOBACCO QUIT 15 YRS OR MORE [facility] Jan 21, 2022 10:50 AM VA-TOBACCO FORMER USER [facility] Jan 21, 2022 10:50 AM VA-TOBACCO QUIT 15 YRS OR MORE [facility] Feb 06, 2019 02:30 PM INPT NO TOBACCO USE IN LAST 30 D AYS [facility] Encounter Notes: All associated encounter notes This section contains the clinical notes associated to the Encounter. Date/Time Encounter Note(s) Provider Source Sep 26, 2023 10:23 AM OCCUPATIONAL THERA PY CONSULT: LOCAL TITLE: OCCUPATIONAL THERAPY CONSULT STANDARD TITLE: OCCUPATIONAL THERAPY CONSULT DATE OF NOTE: SEP 26, 2023@10:23 ENTRY DATE: SEP 26, 2023@10:23:20 AUTHOR: ANGELINA CADET EXP COSIGNER: URGENCY: STATUS: COMPLETED OCCUPATIONAL THERAPY EQUIPMENT CONSULT Ordering provider: SOCRATES MAN Consult request: Adapted Equipment Diagnosis: Parkinsonism, unspecified(ICD-10-CM G20.C) Encounter: - OT Evaluation: Low complexity: 15 mins. - Standardized Cog Eval: 30 mins - Self Care Trainin mins SUBJECTIVE: we already got the hospital bed, there is lots of other things we need. ASSESSMENT: Vet is a 77 yom referred to OT to evaluate home safety and address adaptive equipment to increase safety and independence. Abilio arrives to clinic with son and is agreeable to evaluation. Reviewed PLOF and Home Set-up and details are listed below. In summary, zafar lives alone in 2 level home, but all needs are met on main floor. Tano has a ramp to enter the home and primarily uses a motorized scooter in the home. Tano reports Ind with dressing, grooming, toileting, and simple meal prep. Has RAILCAR SWITCHMAN that assists him with bathing, cleaning, and laundry. Abilio's son is also involved in care and provides daily check-ins and helps abilio manage his medications, finances, and community needs. [place] and son report their primary concerns today are to address safety with transfers and ADL's at home, to see if he would benefit from a medical alert device, and evaluate for driving safety. Explained the evaluation provess to tano and he is agreeable with proceeding. Discussed tano's bathroom set-up and vet reports difficulty with toilet transfers and shower transfers due to limited handhold support. Tano will benefit from a versaframe toilet bars attached to toilet and the installation of a horizontal grab bar on back wall of shower, to maximize his safety. Tano also reports difficulty amb the distance from his front entrance to the main area of the home and is interested in the installation of a railing along the wall. The DME above will be ordered for installation from prosthetics. Tano received a hospital bed recently but reports ongoing difficulty transfering from supine to sit. Reviewed DME options and tano is interested in the use of trapeze attachment with his new bed. and son educated on use of trapeze and report understanding. This will be ordered from prosthetics. reports difficulty with eating/drinking due to tremors related to PD. [place] educated on AE available to address this barrier and is agreeable to trialing the [employer]elo[employer] Parkinson utensil and a weighted mug. [place] educated on use and care of this AE and reports understanding. This will also be ordered from Prosthetics. Then discussed 's h/o falls at home and reports sliding out of bed, sliding off of chair, and previous falls due to legs giving out. Tano is home alone most of the time, and per son, often forgets to carry his phone. Therefore, will benefit from a medical alert device to maximize his safety at home. [place] and son trained on options and will benefit from the [place] Pendant with fall detection. This will also be ordered from Prosthetics. Finally, tano's son expresses concerns about 's desire to return to driving. hasn't driven in several months due to son's concerns, but would like to start again. [place] then completed battery of cognitive and visual processing assessments. These are detailed below. In summary, scored an 18/30 on the SLUMS cognitive assessment, a score that is consistent with dementia, and received scores below normal on the Trials A, Trials B, and Dex Clock Test. Vet demonstrated mild difficulty with SnellPowered Maze Test but this result did not indicate a higher risk than normal for impaired ability to drive. Overall, 's performance suggests that he is a HIGH RISK for safety with driving. counseled that he should CEASE driving at this time and reports understanding and expectation to follow recommendation. [place] and son deny any further questions or concerns, and therefore, have no further skilled OT needs at this time. EQUIPMENT ORDERED FROM PROSTHETICS: - Versaframe Toilet Support - STOCK - Trapeze for Hospital bed ordered on 08/23 from [facility] - [place] Pendant with Fall Detection - From [place] [employer] - Gyenno Stout Twist Spoon and Fork: Free [employer] - Product #: [id number] - Insulated Weighted Mug, with Snorkel lid: [employer] - Item # [id number] - Vendor to install a 10-12 railing Right side of hallway running from entrance to living area. - Vendor to install a 24-36 Horizontal grab bar on back wall of shower. GOALS: 1.Vet will identify areas of concern in the home to assist with equipment selection in order to maximize safety and (I) by the end of session. MET PLAN: No other OT needs at this time. D/C from OT. Education: Vet indicates readiness to learn, verbalizes understanding, agreement and satisfaction with the treatment plan. Denies further questions. OBJECTIVE: Home Environment: Lives alone in [place] - Type of Home: 2 level townhouse. All needs met on the main level. - Accessibility to Home: Ramp into house from garage. - Bathroom Set-up: Walk-in shower with shower chair. Has grab bar on left side of shower. Cannot reach when standing in shower. Has raised toilet seat. - DME available in Home: Has rollator and power scooter. Received hospital bed 2 weeks ago. Previous Level of Function: - ADL's: Assist with bathing, Ind with dressing but has RAILCAR SWITCHMAN/son assist when available due to amount of time it takes him. - IADL's: RAILCAR SWITCHMAN will do the laundry, cleaning, and prep food for him. He can prepare simple meals, but usually son or RAILCAR SWITCHMAN sets him up. Interested in meals on wheels, plans to talk to SW about it. - Fxnl Mobility: Primarily uses power scooter in the house, but will walk short distances with Rollator. Has has multiple falls last 6 months, several getting out of bed. - Community Accessibility: Hasn't driven in several months but would like to continue. Interested in driving screen. - Employment: Retired - Hobbies/Interests: Playing cribbage, watching TV. Level of Support: Has RAILCAR SWITCHMAN 5x/wk (3 hrs each day). Son lives a few miles away. Son reports he would benefit from more hours, alone during the weekend. 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 VET DENIES Any near misses in the last year? VET DENIES Does the client have any concerns about his/her driving performance? explain: VET DENIES Does the caregiver have any concerns about his/her driving performance? YES, SON REPORTS HE HAD VET STOP DRIVING SEVERAL MONTHS AGO DUE TO CHANGES IN COGNITION. Client drives under the following conditions: PRIMARILY DRIVES LOCAL ROADS, DURING THE DAY. CLIENT FACTORS: Sensory Functions (vision, visual-perceptual, proprioception, tactile) Vision - Neuromuscular Functions (ROM, strength, reaction time). Manual Muscle Test (MMT) : Right Upper Extremity: Within Normal Limits Left Upper Extremity: Within Normal Limits Grasp Right: Within Normal Limits Grasp Left: Within Normal Limits TESTING: [facility] Mental Status (UMS) Examination- The UMS is used for detecting Mild Cognitive Impairment and Dementia. Scored as follows: - orientation 2/3 - money management 3/3 - information processing speed 2/3 - memory/recall 4/5 - mental flexibility 0/2 - time awareness 0/4 - form recognition 2/2 - auditory attention 6/8 Total patient score 18/30 *Score is consistent with Dementia. Scoring: High School Education Less than High School Education 27-30 Normal 25-30 21-26 Mild Neurocognitive Disorder 20-24 1-20 Dementia 1-19 TRAIL MAKING TEST A: Measures sustained attention, working memory, visual processing, visuospatial skills, and psychomotor coordination. Completed in 140 seconds with 5 errors. Indicates HIGH RISK (Low risk = <39 seconds, high risk = +60 seconds) TRAIL MAKING TEST B: Measures divided attention, working memory, visual processing, visuospatial skills, and psychomotor coordination. Completed in 300 seconds with 8 errors. Indicates HIGH RISK (Low risk = <85 seconds, High risk = +180 seconds) DEX CLOCK DRAWING: A quick screen that assesses memory, comprehension, visuospatial skills, abstract thinking, and executive function. 0/3 Time: hands point to correct number 0/2 Numbers: no omissions; numbers inside [place] 0/2 Spacing: numbers equally spaced from each other and edge of [place] 0/7 Total score (Low risk = 6-7/7, high risk = score 4 or less) Indicates: HIGH RISK SNELLGROVE MAZE TASK Visuoconstructional Ability Task that is timed and errors are determined by the number of times the participant enters a -end or fails to stay in the lines. Suggested [place] Scores: 1) Maze Task completed in 61 seconds or longer with or without errors, then the participant is not cognitively fit to drive safely 2) Maze Task completed in up to 60 seconds but with two or more errors, then participant is not cognitively fit to drive safely. 3) Maze Task completed in up to 60 seconds with zero or one error, then the participant is likely to have adequate capacity in the cognitive domains of attention, visuoconstructional skills, and executive functions of planning, and foresight, to drive safely TIME: 55 seconds, ERRORS: 0 errors. Indicates: likely to have capacity to drive safely. OCCUPATIONAL THERAPY EVALUATION COMPLEXITY Identifying and reporting the complexity level of an evaluation focuses on the first three of these factors--profile and history, assessment and determination of deficts, and clinical decision making. These three factors must be scored and defensible documentation written to support the choice of a level. (Information taken from: https://www.aota.org) PROFILE AND HISTORY (including chart view) Brief history of medical and/or therapy records relating to the presenting problem (low complexity) ASSESSMENT & PERFORMANCE DEFICITS (select all that apply): Inability to complete activities due to the lack of skills in one or more of the categories (physical, cognitive, or psychosocial skills). Physical: strength, Cognition: ROSEN[place]G: 1-3 performance deficits = Low Complexity LEVEL OF CLINICAL DECISION MAKING Commorbidities affect occupational performance: Yes (moderate or high complexity) Modifications of tasks or assistance to enable completion of evaluation: Not necessary (Low complexity) Level of Clinical Decision Making: Problem-focused assessment(s), consideration of a limited number of treatment options, presents with no comorbidities and modification of tasks or assistance is not necessary.(Low complexity) OVERALL EVALUATION COMPLEXITY: Overall rating is the lowest of the three components (Profile & History, Assessment of Occupational Performance & Performance Deficits, and Level of Clinical Decision Making). In order to move to a higher level of evalaution, all three components must be of the higher level. LOW COMPLEXITY Brief history of medical/or therapy records relating to the presenting problem. An assessement(s) that identifies 1-3 performance deficits that result in activity limitation and/or participating restrictions. Includes analysis of the occupational profile, analysis of date from problem- focused assessment(s), and consideration of a limited number of treatment options. Patient presents with no comorbidities that affect occupational performance. Modification of tasks or assistance with assessment(s) is not necessary to enable completion of evaluation component. /kera/ ANGELINA CADET Occupational Therapist Signed: 09/26/2023 13:58 ANGELINA CADET [facility]
--- OUTSIDE RECORDS SUMMARY | 2023-10-04 12:39 | XMS_ITS | Encounter Summary ---
Author Name Department of Vetera Affairs Organization Department of Vetera ns Affairs Address [address] [place] [address] Support Name Relationship Address Phone ANANT, JAIRO Next of Kin [address] [address] [address] ANANT JAIRO Emergency Contact [address] [address] [address] Insurance Providers: All historical [...] Relationship to Policy Lopez [facility] ([facility] MEDICARE ADVANTAGE [facility] ([facility]) Nov 13, 2020 [id number] [phone] [place] [facility]IENT [facility] ([facility]) MEDICARE ADVANTAGE [facility] ([facility]) Aug 15, 2013 [id number] [place] PATIENT MEDICARE ([facility]) MEDICARE (M) PART A Sep 15, 2010 PART A [id number] [place] PATIENT MEDICARE ([facility]) MEDICARE (M) PART B Sep 15, 2010 PART B [id number] [phone] [place] PATIENT Selected Encounter This section includes the information on record at [place] for the Encounter. Date/Time Encounter Type Encounter Description Reason Pro vider Source Oct 04, 2023 10:18 AM Outpatient Encounter TELEPHONE/ANCILLARY IHE Encounter Template Text not used by [place] Social History: Smoking Status (Most current) and Tobacco Use (All prior to encounter date) This section includes the most current, and the historical, smoking and tobacco- related health factors from the [facility] where the Encounter took place. Current Smoking Status This section includes the most current smoking, or tobacco-related health factor, from the [facility] where the Encounter took place. Date/Time Current Smoking Status Comment Renetta ity Jan 20, 2023 01:48 PM VA-TOBACCO FORMER USER [facility] Tobacco Use History This section includes a history of the smoking, or tobacco-related health factors, that were collected on or before the date of the Encounter. The data comes from the [place] facility where the Encounter took place. Date/Time Smoking Status/Tobacco Use Comment F acility Jan 20, 2023 01:48 PM VA-TOBACCO QUIT 15 YRS OR MORE [facility] Jan 21, 2022 10:50 AM VA-TOBACCO FORMER USER [facility] Jan 21, 2022 10:50 AM VA-TOBACCO QUIT 15 YRS OR MORE [facility] Feb 06, 2019 02:30 PM INPT NO TOBACCO USE IN LAST 30 D AYS [facility] Encounter Notes: All associated encounter notes This section contains the clinical notes associated to the Encounter. Date/Time Encounter Note(s) Provider Source Oct 04, 2023 10:18 AM COMMUNITY HALFWAY CARE NOTE: LOCAL TITLE: [facility] ELIGIBILITY STANDARD TITLE: COMM[facility]ITY HALFWAY CARE NOTE DATE OF NOTE: OCT 04, 2023@10:18 ENTRY DATE: OCT 04, 2023@10:18:38 AUTHOR: DIANA ALMAZAN COSIGNER: URGENCY: STATUS: COMPLETED [facility] ELIGIBILITY Has ADDENDA [facility] HALFWAY ELIGIBILITY: This contact note is used to document a 's administrative eligibility for a VA authorization at a community correction. Referral Source/Location: [facility] ([facility]) Home: Yes Contract Correction: Yes Contact: Kaila Prakash Phone Number: Reviewed the following eligibility [facility] or [facility] Authorization: Yes If yes:70% service connected or higher If administratively eligible, meets Medicare guidelines for skilled rehab and able/willing to participate: Yes has a clinical need for correction care: Yes Hospice authorization: Yes [place] would be eligible if enrolled in hospice service Referral source contact encouraged to do the following: Contact keno writer/runner for further questions as needed. /es/ KIRSTIN ALICEA RUG SETTER AXMINSTER Signed: 10/04/2023 10:19 10/04/2023 ADDENDUM STATUS: COMPLETED Received eligibility check from [facility]. /es/ MARCO A HARDING RUG SETTER AXMINSTER Signed: 10/04/2023 11:04 10/04/2023 ADDENDUM STATUS: COMPLETED Received eligibility check from [facility]. /es/ MARCO A HARDING RUG SETTER AXMINSTER Signed: 10/04/2023 11:41 DIANA ALMAZAN [facility]
--- OUTSIDE RECORDS SUMMARY | 2023-10-04 12:39 | XMS_ITS | Encounter Summary ---
Author Name Department of Vetera Affairs Organization Department of Vetera ns Affairs Address [address] [place] [address] Support Name Relationship Address Phone ANANT, JAIRO Next of Kin [address] [address] [place] Emergency Contact [phone] [address] Insurance Providers: All historical [...] Lopez's Name Patient's Relationship to Policy Lopez [facility] ([facility]) MEDICARE ADVANTAGE [facility] ([facility]) Nov 13, 2020 [id number] [place] PATIENT [employer] [facility] (WNR) MEDICARE ADVANTAGE [facility] ([facility]) Aug 15, 2013 [id number] [phone] [place] ([place]NR) MEDICARE (M) PART A Sep 15, 2010 PART A [id number] [phone] [place] ([place]) MEDICARE (M) PART B Sep 15, 2010 PART B [id number] [phone] [place] PAT[place] Selected Encounter This section includes the information on record at [place] for the Encounter. Date/Time Encounter Type Encounter Description Reason Pro vider Source Aug 10, 2023 12:00 PM Outpatient Encounter TELEPHONE/ANCILLARY IHE Encounter Template Text not used by [place] Plan of Treatment: Future Appointments (+ 6 months) and Future Tests (+/- 45 days) The Plan of Treatment section includes future care activities for the patient from all [place] [facility] This section includes future appointments and future orders which are active, pending or scheduled. Future Appointments This section includes appointments that were scheduled to occur 6 months from the date of the Encounter, up to a maximum of 20 appointments. The data comes from all [facility] facilities. Appointment Date/Time Appointment Type Appointme nt Facility Name Aug 23, 2023 05:00 PM AMBULATORY - NONE [facility] Sep 21, 2023 05:20 PM AMBULATORY - REHAB [facility] Sep 22, 2023 08:01 AM AMBULATORY - NONE [facility] Sep 26, 2023 10:30 AM AMBULATORY - REHAB [facility] Sep 26, 2023 12:[facility] Lab Results: +/- 30 days of the encounter This section includes the Chemistry and Hematology Lab Results on record with [place] for the patient. Radiology Reports and Pathology Reports are provided separately, in subsequent sections. Lab Results This section contains the Chemistry/Hematology Results that were resulted 30 days before or 30 daysafter the date of the Encounter. Date/Time Source Result Type Result - Unit Interpretation Reference Range Comment Aug 04, 2023 03:04 PM [facility] URINALYSIS Specimen Type: URINE No comment entered. Ordering Provider: CHARLIE ONOFRE Report Released Date/Time: Aug 04, 2023 03:02 PM Reporting Lab: [facility] [id number] Performing Lab: [facility] [id number] URINE COLOR YELLOW SPECIFIC GRAVITY 1.031 1.003-1.035 [...] PM VA-TOBACCO QUIT 15 YRS OR MORE [facility] Tobacco Use History This section includes a history of the smoking, or tobacco-related health factors, that were collected on or before the date of the Encounter. The data comes from the [place] facility where the Encounter took place. Date/Time Smoking Status/Tobacco Use Comment F acility Jan 20, 2023 01:48 PM VA-TOBACCO QUIT 15 YRS OR MORE [facility] Jan 21, 2022 10:50 AM VA-TOBACCO FORMER USER [facility] Jan 21, 2022 10:50 AM VA-TOBACCO QUIT 15 YRS OR MORE [facility] Feb 06, 2019 02:30 PM INPT NO TOBACCO USE IN LAST 30 D AYS [facility] Pathology Reports: +/- 30 days [...] the Encounter. The data comes from all [place] treatment facilities. Date/Time Pathology Report Provider Source Aug 04, 2023 03:04 PM LR MICROBIOLOGY RE PORT: Reporting Lab: [facility] [CLIA# [id number]] [place] [address] Accession [UID]: [id number] [[id number]] Received: Aug 04, 2023@15:18 Collection sample: URINE Collection date: Aug 04, 2023 15:04 Provider: CHARLIE ONOFRE Comment on specimen: RECEIVED IN URINE PRESERVATIVE TUBE Test(s) ordered: CULTURE & SUSCEPTIBILITY...... completed: Aug 05, 2023 * BACTERIOLOGY FINAL REPORT => Aug 05, 2023 11:09 TECH CODE: [id number] CULTURE RESULTS: LESS THAN 10,000 CFU/ML Bacteriology Remark(s): THIS REPORT IS FINAL =--=--=--=--=--=--=--=--=--=--=--=- -=--=--=--=--=--=--=--=--=--=--=--= --=--=-- Performing Laboratory: Bacteriology Report Performed By: [facility] [CLIA# [id number]] [address] [place] [address] [facility] Encounter Notes: All associated encounter notes This section contains the clinical notes associated to the Encounter. Date/Time Encounter Note(s) Provider Source Aug 10, 2023 12:00 PM NONVA CONSULT: LOCAL TITLE: COMMUNITY CARE CONSULT RESULT [facility] TITLE: NONVA CONSULT DATE OF NOTE: AUG 10, 2023@12:00 ENTRY DATE: SEP 07, 2023@07:57:25 AUTHOR: QUENTIN ONTIVEROS EXP COSIGNER: URGENCY: STATUS: COMPLETED Vist[facility] Imaging - Scanned Document SCANNED DOCUMENT SIGNATURE NOT REQUIRED Electronically Filed: 09/07/2023 by: QUENTIN ONTIVEROS MSN RN Clinical Nurse Occupational Medicine Chief Nurse Community Care QUENTIN ONTIVEROS [facility]
--- OUTSIDE RECORDS SUMMARY | 2023-10-04 12:39 | XMS_ITS | Encounter Summary ---
Author Name Department of Vetera Affairs Organization Department of Vetera ns Affairs Address [address] [place] [address] Support Name Relationship Address Phone [place] Next of Kin [address] [address] [place] Emergency Contact [phone] [address] Insurance Providers: All historical [...] Lopez's Name Patient's Relationship to Policy Lopez [facility] ([facility]) MEDICARE ADVANTAGE [facility] ([facility]) Nov 13, 2020 [id number] [place] [facility] ([facility]NR) MEDICARE ADVANTAGE [facility] ([facility]) Aug 15, 2013 [id number] [place] MEDICARE ([facility]) MEDICARE (M) PART A Sep 15, 2010 PART A [id number] [phone] [place] (WN) MEDICARE (M) PART B Sep 15, 2010 PART B [id number] [phone] [place] PATIENT Selected Encounter This section includes the information on record at [place] for the Encounter. Date/Time Encounter Type Encounter Description Reason Provider Source Sep 26, 2023 12:00 PM OFFICE O/P NEW [place] 60 MIN NEUROLOGY ICD-10-CM G20.A1 Parkinson's dis w/o dyskinesia, w/o mention of fluctuations MARVA VAUGHAN [facility] Encounter Template Text not used by [place] Assessments - Encounter Diagnoses This section includes the primary and secondary diagnoses documented for the Encounter. Date/Time Primary/Secondary Diagnosis Diagnosis Name Provider Source Sep 26, 2023 02:14 PM PRIMARY Parkinson's dis w/o dyskinesia, w/o mention of fluctuations MARVA VAUGHAN [facility] Social [...] 20, 2023 01:48 PM VA-TOBACCO [facility] USER [facility] [...] PM VA-TOBACCO QUIT 15 YRS OR MORE [facility] Jan 21, 2022 10:50 AM VA-TOBACCO FORMER USER [facility] Jan 21, 2022 10:50 AM [place]-TOBACCO QUIT 15 YRS OR MORE [facility] Feb 06, 2019 02:30 PM INPT NO TOBACCO USE IN LAST 30 D AYS [facility] Encounter Notes: All associated encounter notes This section contains the clinical notes associated to the Encounter. Date/Time Encounter Note(s) Provider Source Sep 26, 2023 12:09 PM NEUROLOGY CONSULT: LOCAL TITLE: NEUROLOGY CONSULT STANDARD TITLE: NEUROLOGY CONSULT DATE OF NOTE: SEP 26, 2023@12:09 ENTRY DATE: SEP 26, 2023@12:10:31 AUTHOR: KEITH VAUGHAN EXP COSIGNER: URGENCY: STATUS: COMPLETED In-Person Pt is being seen via F2F appointment today. Other Members Present: Jairo - son Last date patient evaluated in Neurology clinic: Jul Referring site: [place] Referring Provider: Dr. Peterson Patient advised the purpose of this consultation is for initial DBS education and screening as part of their expressed interest in Deep Brain Stimulation surgery, and that candidacy will be determined by their Neurology provider, and/or other specialty services as indicated. Patient agrees to continue with consultation. Chart review performed by RNCM in preparation for today's consultation, to include JLV and Vist[facility] Imaging. Movement Disorder Diagnosis: Parkinson's Disease Age/Year of Symptom Onset: about 13 years Side of Onset: left hand Handedness: right Changes in functional handedness: affects ADLs Past Medical History (list previous surgeries/illnesses/dates) : Elevated blood pressure ([facility] [id number]) Hearing loss (ICD-9-CM 389.9) Tinnitus (ICD-9-CM 388.30) Hyperglycemia (ICD-9-CM 790.29) Parkinson disease ([facility]CT [id number]) General Anxiety Disorder (ICD-9-CM 300.02) Depression ([facility] [id number]) Hyperlipidemia ([facility] [id number]) Erectile dysfunction ([facility] [id number]) 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 Shaving) Needs Assistance Other fine motor tasks Needs Assistance Examples: tano states he cannot do anything that requires fine motor skills Hobbies: fishing Gait - level of assistance required: Moderate Assist Ambulation Aides Used Inside: Single end cane, Rollator, Scooter Ambulation Aides Used Outside: Single end cane, Rollator, Scooter FALLS: Any falls in the last 6 months? Yes If yes, explain: Tano's son states he was falling a lot until medications were changed. Jairo states he is not sure if he has had any falls since. Jairo states falls and gets up on his own and will not let him know about it. Emotional Impact Reporting: Impacts playing cards, fishing, eating a good meal at a restaurant --SOCIAL FACTORS-- Marital Status: Single LIVES WITH: Alone, has a home health aide that comes in five days a week LIVES IN: Town house: [place]amb[place] with a basement SUPPORT SYSTEM: Son - Jairo, cousin, brother, sister, home healthcare aide Does patient drive independently? Yes, had an eval today and it has been suggested he no longer drives, but no change at this time. Name of other responsible person (courtesy van driver/ingot stripper): Jairo - son Patient stated goals: would like to see a decrease in the tremor and the pills Patient understanding of DBS: and his son, Jairo, verbalized understanding. Patient Education: Patient expresses interest in [facility] work up and surgical process. Additional information was discussed, as follows: Work up process requires numerous appointments at [facility], including Neurology, Neurosurgery, OT/SENIOR DESIGNER, MRI, and Neuropsychology assessments. Case is discussed at Consensus Conference with team of experts who will review benefits/risks/candidacy. This process may take several months and does not guarantee surgical candidacy of DBS for elective management of PD. Nature of invasive surgery to the brain involves dime-sized nabeel holes for lead placement and access to target areas deep in the brain. Surgery is considered Awake DBS and is performed under local anesthesia, with sedation. For 1-2 hours, sedation is turned off, allowing surgical team to perform microelectrode recording and stimulation testing while patient is awake. Head is immobilized in a frame during procedure. Usual length of surgery is 4-6 hours. Patients remain in the hospital for average of one night after surgery. Surgery may be staged for bilateral DBS lead implantation. Additional surgery is scheduled approximately one week after completion of lead placement for implantation and connection of extension wires and Implantable Pulse Generator (IPG). Generator (battery) is placed subcutaneously, just below the clavicle. Wires connecting leads to generator are tunneled along the neck, under the skin during initial lead placement. Battery surgery is done under general anesthesia, as an outpatient. A courtesy van driver is necessary to accompany patient and drive home. Programming of device by DBS Neurologist begins approximately 2 weeks after battery placement. This requires adjustments over a period of several months. Overlay Operator is provided to patient for battery checks, on/off management, and setting adjustments, as deemed appropriate by neurologist. Initial programming is generally completed at [facility], requiring q. 2 month appointments for several months, then approximately every 3 months thereafter. Programming and ongoing DBS management would continue with a DBS specialist at [facility]. Patient verbalized an understanding of above information and potential effectiveness of DBS in management of PD tremors. He is interested in scheduling an evaluation with appropriate Neurology physician with for DBS evaluation. DBS NCM will help facilitate scheduling of appointments. Co-signing Neurology and Neurosurgery physicians to the results of the above consult. NCM will mail DBS educational information, [employer] website, and [employer] resources to patient. Provided direct contact number for Neuro Nurse Line. He verbalized appreciation of information and desire to proceed with next step in DBS work up process. scheduled for DBS assessment 10/10/2023 @ [address] Ortega. /kera/ KEITH VAUGHAN RN Signed: 09/26/2023 14:15 Receipt Acknowledged By: 09/29/2023 09:37 /es/ DAI GUSTAFSON III, MD NEUROSURGEON 09/29/2023 17:51 /es/ KEITH Garcia [facility]
--- OUTSIDE RECORDS SUMMARY | 2023-10-04 12:39 | XMS_ITS | Encounter Summary ---
Author Name Department of Vetera Affairs Organization Department of Vetera Affairs Address [address] [place] [address] Support Name Relationship Address Phone ANANT, JAIRO Next of Kin [address] [address] [place] Emergency Contact [phone] [address] Insurance Providers: All historical [...] Lopez's Name Patient's Relationship to Policy Lopez [facility] (WNR) MEDICARE ADVANTAGE [facility] ([facility]) Nov 13, 2020 [id number] [place] PATIENT [employer] [facility] (WNR) MEDICARE ADVANTAGE [facility] (WNR) Aug 15, 2013 [id number] [place] ([place]) MEDICARE (M) PART A Sep 15, 2010 PART A [id number] [place] ([place]) MEDICARE (M) PART B Sep 15, 2010 PART B [id number] [phone] [place] PATIENT Selected Encounter This section includes the information on record at [place] for the Encounter. Date/Time Encounter Type Encounter Description Reason Pro vider Source Aug 27, 2023 12:00 AM Outpatient Encounter EVENT (HISTORICAL) IHE Encounter Template Text not used by [place] Plan of Treatment: Future Appointments (+ 6 months) and Future Tests (+/- 45 days) The Plan of Treatment section includes future care activities for the patient [facility] This section includes future appointments and future orders which are active, pending or scheduled. Future Appointments This section includes appointments that were scheduled to occur 6 months from the date of the Encounter, up to a maximum of 20 appointments. The data comes from all [facility] facilities. Appointment Date/Time Appointment Type Appointme nt Facility Name Sep 21, 2023 05:20 PM AMBULATORY - RE[facility]AB [facility] Sep 22, 2023 08:01 AM [facility]ONE [facility] Sep 26, 2023 10:30 AM AMBULATORY - REHAB [facility] Sep 26, 2023 12:00 PM AMBULATORY - REHAB [facility] Lab Results: +/- 30 days of the encounter This section includes the Chemistry and Hematology Lab Results on record with [place] for the patient. Radiology Reports and Pathology Reports are provided separately, in subsequent sections. Lab Results This section contains the Chemistry/Hematology Results that were resulted 30 days before or 30 daysafter the date of the Encounter. Date/Time Source Result Type Result - Unit Interpretation Reference Range Comment Aug 04, 2023 03:04 PM [facility] URINALYSIS Specimen Type: URINE No comment entered. Ordering Provider: CHARLIE ONOFRE Report Released Date/Time: Aug 04, 2023 03:02 PM Reporting Lab: [facility] [address] Performing Lab: [facility] [address] URINE COLOR YELLOW SPECIFIC GRAVITY 1.031 1.003-1.035 [...] and tobacco- related health factors from the [facility] where the Encounter took place. Current Smoking Status This section includes the most current smoking, or tobacco-related health factor, from the [place] facility where the Encounter took place. Date/Time Current Smoking Status Comment Renetta giles Jan 20, 2023 01:48 PM VA-TOBACCO FORMER USER [facility] Tobacco Use History This section includes a history of the smoking, or tobacco-related health factors, that were collected on or before the date of the Encounter. The data comes from the [place] facility where the Encounter took place. Date/Time Smoking Status/Tobacco Use Comment F actaj Jan 20, 2023 01:48 PM VA-TOBACCO QUIT 15 YRS OR MORE [facility] Jan 21, 2022 10:50 AM VA-TOBACCO FORMER USER [facility] Jan 21, 2022 10:50 AM VA-TOBACCO QUIT 15 YRS OR MORE [facility] Feb 06, 2019 02:30 PM INPT NO TOBACCO USE IN LAST 30 D AYS [facility] Pathology Reports: +/- 30 days of [...] the Encounter. The data comes from all [place] treatment facilities. Date/Time Pathology Report Provider Source Aug 04, 2023 03:04 PM LR MICROBIOLOGY RE PORT: Reporting Lab: [facility] [CLIA# [id number]] [place] [address] Accession [UID]: [id number] [[id number]] Received: Aug 04, 2023@15:18 Collection sample: URINE Collection date: Aug 04, 2023 15:04 Provider: CHARLIE ONOFRE Comment on specimen: RECEIVED IN URINE PRESERVATIVE TUBE Test(s) ordered: CULTURE & SUSCEPTIBILITY...... completed: Aug 05, 2023 * BACTERIOLOGY FINAL REPORT => Aug 05, 2023 11:09 TECH CODE: [id number] CULTURE RESULTS: LESS THAN 10,000 CFU/ML Bacteriology Remark(s): THIS REPORT IS FINAL =--=--=--=--=--=--=--=--=--=--=--=- -=--=--=--=--=--=--=--=--=--=--=--= --=--=-- Performing Laboratory: Bacteriology Report Performed By: [facility] [CLIA# [id number]] [place] [address] [facility]
== END 2023-10-01 18:45 | disposition home or self-care (01) ==
LOC: AMB 10-04 12:29
PROVIDERS: Visit Provider Emergency Medicine Emergency Medical Services
DX: S59.901A Unspecified injury of right elbow, initial encounter (principal); W01.0XXA Fall on same level from slipping, tripping and stumbling without subsequent striking against object, initial encounter; Z91.81 History of falling; Y92.009 Unspecified place in unspecified non-institutional (private) residence as the place of occurrence of the external cause
CPT/HCPCS: A0425; A0429